=== PATIENT | female | born 1990 | race Caucasian/White ===

== ENCOUNTER 2024-12-04 11:32 | Outpatient (REF) | payer MEDICAID, SELFPAY ==
[2024-12-04 13:48] LABS: Hematocrit 41.2 % (37.0-47.0); Hemoglobin 13.7 g/dl (12.0-16.0); Mean Corpuscular HGB Conc 33.3 g/dl (31.0-35.0); Mean Corpuscular Hemoglobin 29.1 pg (27.0-33.0); Mean Corpuscular Volume 87.5 fL (80.0-98.0); Mean Platelet Volume 10.6 fL (9.4-12.3); Platelet Count 292 X10*3/uL (160-400); Red Blood Count 4.71 X10*6/uL (4.20-5.50); Red Cell Distribution Width 12.6 % (11.0-16.0); White Blood Count 6.7 X10*3/uL (4.8-10.8)
--- OUTSIDE RECORDS SUMMARY | 2024-12-04 13:50 | XMS_ITS | Clinical Summary ---
Author Organization [employer] Address [address] [place] [address] [address] [place] [address] Care Team Providers Care Electrician Shop Name Role Phone Deonna Lion DO Primary Care Provider + [phone] Allergies No known active allergies Medications baclofen (Lioresal) 10 MG tablet Take 1 tablet (10 mg) by mouth if needed in the morning, at noon, and at bedtime for muscle spasms. 60 tablet 1 5 02/02/20 25 Active Diclofenac Sodium 1 % gel Apply 2 g topically if needed in the morning, at noon, in the evening, and at bedtime (pain). 150 g 3 5 Active aspirin-acetami nophen-caffeine (Excedrin Migraine) 250-250-65 MG tablet Take 1 tablet by mouth every 6 (six) hours if needed for headaches for up to 10 days. 30 tablet 5 12/14/19 25 Active polycarbophil (Fibercon) 625 MG tablet Take 1 tablet (625 mg) by mouth 2 times daily. 180 tablet 3 5 12/03/19 26 Active Active Problems Problem Noted Date Diagnosed Date Chronic constipation 12/03/2024 Chronic gastroesophageal reflux disease 12/03/19 25 Irritable bowel syndrome 12/03/2024 BMI 27.0-27.9,adult 12/03/2024 Fatty liver 12/03/2024 Chronic headaches 12/03/2024 Chronic neck pain 12/03/2024 Encounters Date Type Department Care Team Description 12/03/2024 1:40 PM EST Office Visit [facility] [address] [place] [phone] Chronic nonintractable headache, unspecified headache type (Primary Dx); Chronic neck pain; Chronic constipation; Decreased visual acuity; Whole body pain; Chest pain, unspecified type from Last 3 Months Social History Tobacco Use Types Packs/Day Years Used Date Smoking Tobacco: Never Assessed Comments Unknown Sex and Gender Information Value Date Recorded Sex Assigned at Female 08/06/2022 10:18 AM EDT Legal Sex Female 10:18 AM EDT Gender Identity Female 12/03/2024 1:03 PM EST Sexual Orientation Straight 12/03/2024 1: 03 PM EST Last Filed Vital Signs Vital Sign Reading Time Taken Comments Blood Pressure 115/79 12/03/2024 1:36 PM EST Pulse 75 12/03/2024 1:36 PM EST Temperature 36.7 ??C (98 ??F) 12/03/2024 1:36 PM EST Respiratory Rate 17 12/03/2024 1:36 PM EST Oxygen Saturation 99% 12/03/2024 1:36 PM EST Inhaled Oxygen Concentration - - Weight 78.4 kg (172 lb 12.8 oz) 12/03/2024 1:36 PM EST Height 168.9 cm (5' 6.5 ) 12/03/2024 1:36 PM EST Body Mass Index 27.47 12/03/2024 1:36 PM EST Plan of Treatment Upcoming Encounters Date Type Department Care Team (Late st Contact Info) Description 02/12/2025 10:30 AM EDT Office Visit [facility] [address] [place] [phone] Deonna Lion DO [address] [place] [address] Health Maintenance Due Date Last Done Comments Depression Screening 1990 HIV Screening 1992 SDOH Screening 1992 Alcohol/Substance Use Screening 2004 Tobacco Screening 2004 Family Planning (PISQ) 2007 Hepatitis C Screening 2010 Hepatitis A Vaccines (1 of 2 - Risk 2-dose series) 2011 Hepatitis B Vaccines (1 of 3 - 19+ 3-dose series) 2011 Pap Smear 2013 Cervical Cancer Screening 2022 HPV/Cotest 2022 COVID-19 Vaccine (1 - 2023-2 5 season) 2024 Influenza Vaccine (#1) 2024 DTaP/Tdap/Td Vaccines (2 - T d or Tdap) 03/26/2029 03/26/2019 Zoster Vaccines (1 of 2) 2042 RSV Patients and Pa tients Aged 60 years or older (1 - 1-dose 75+ series) 2067 HIB Vaccines Aged Out No longer eligi ble based on patient's age to complete this topic HPV Vaccines Aged Out No longer eligi ble based on patient's age to complete this topic IPV Vaccines Aged Out No longer eligi ble based on patient's age to complete this topic Meningococcal Vaccine Aged Out No berenice dena eligible based on patient's age to complete this topic Pneumococcal Vaccine: Pediat rics (0 to 5 Years) and At-Risk Patients (6 to 49) Years) Aged Out No longer elig ible based on patient's age to complete this topic RSV under 20 months Aged Out No longe r eligible based on patient's age to complete this topic Rotavirus Vaccines Aged Out No longer eligible based on patient's age to complete this topic Procedures Procedure Name Priority Date/Time Associated Diagnosis Comments CBC Routine 12/04/2024 11:34 AM EST Chronic nonintractable headache, unspecified headache type Chronic neck pain Chronic constipation Decreased visual acuity Whole body pain Chest pain, unspecified type from Last 3 Months Results * CBC (12/04/2024 11:34 AM EST) White Blood Count 6.7 4.8 - 10.8 X10*3/uL [facility] Red Blood Count 4.71 4.20 - 5.50 X10*6/uL [facility] Hemoglobin 13.7 12.0 - 16.0 g/dl [facility] Hematocrit 41.2 37.0 - 47.0 % [facility] Mean Corpuscular Volume 87.5 80.0 - 98.0 fL [facility] Mean Corpuscular Hemoglobin 29.1 27.0 - 33.0 pg [facility] Mean Corpuscular HGB Conc 33.3 31.0 - 35.0 g/dl [facility] Red Cell Distribution Width 12.6 11.0 - 16.0 % [facility] Platelet Count 292 160 - 400 X10*3/uL [facility] Mean Platelet Volume 10.6 9.4 - 12.3 fL [facility] NRBC Pct Auto 0.0 0.0 - 0.2 /100WBC [facility] NRBC Abs Auto 0.000 0.0 - 0.012 X10*3/uL [facility] Blood Venous blood specimen / Unknown 12/04/2024 11:34 AM EST 12/04/2024 1:14 PM EST Deonna Lion DO LAB BLOOD ORDERABLES Final R esult Performing Organization Address City/State/[facility] Co de Phone Number [facility] [address] [place] [address] [phone] from Last 3 Months Insurance [facility] C3 Care Teams Electrician Shop Relationship Specialty Start Date End Date Deonna Lion DO [address] [place] [phone] PCP - General Family Medicine 12/03/24
--- OUTSIDE RECORDS SUMMARY | 2024-12-04 13:50 | XMS_ITS | Encounter Summary ---
Author Organization [employer] Address [address] [place] [address] [address] [place] [address] Care Team Providers Care Insole Bottom Filler Name Role Phone Deonna Lion DO Primary Care Provider + [phone] Reason for Referral * Consultation (Routine) - Pending Review Specialty Diagnoses / Procedures Referred By Gerardo beyer Referred To Contact Gastroenterology Diagnoses Chronic constipation Deonna Lion DO [address] [place], [place] Phone: tel: fax: Referral ID Status Reason Start Date Expiration Date Visits Requested Visits Authorized [id number] Pending Review Specialty Services Required 12/03/2024 12/03/2025 1 1 * Consultation (Urgent) - Pending Review Specialty Diagnoses / Procedures Referred By Gerardo beyer Referred To Contact Neurology Diagnoses Chronic nonintractable headache, unspecified headache type Deonna Lion DO [address] [place] [address] Phone: tel: fax: Referral ID Status Reason Start Date Expiration Date Visits Requested Visits Authorized [id number] Pending Review Specialty Services Required 12/03/2024 12/03/2025 1 1 * Consultation (Routine) - Pending Review Specialty Diagnoses / Procedures Referred By Gerardo t Referred To Contact Cardiology Diagnoses Chest pain, unspecified type Deonna Lion DO [address] [place], [place] Phone: tel: fax: Referral ID Status Reason Start Date Expiration Date Visits Requested Visits Authorized [id number] Pending Review Specialty Services Required 12/03/2024 12/03/2025 1 1 * Consultation (Routine) - Pending Review Specialty Diagnoses / Procedures Referred By Contac t Referred To Contact Physiatry Diagnoses Chronic neck pain Deonna Lion DO [address] [place], [place] Phone: tel: fax: Referral ID Status Reason Start Date Expiration Date Visits Requested Visits Authorized [id number] Pending Review Specialty Services Required 12/03/2024 12/03/2025 1 1 * Consultation (Routine) - Pending Review Specialty Diagnoses / Procedures Referred By Contac t Referred To Contact Rheumatology Diagnoses Whole body pain Deonna Lion DO [address] [place], [place] Phone: tel: fax: Referral ID Status Reason Start Date Expiration Date Visits Requested Visits Authorized [id number] Pending Review Specialty Services Required 12/03/2024 12/03/2025 1 1 * Consultation (Urgent) - Authorized Specialty Diagnoses / Procedures Referred By Contac t Referred To Contact Optometry Diagnoses Decreased visual acuity Deonna Lion DO [address] [place], [place] Phone: tel: fax: [facility] [address] [place], [place] Phone: tel: fax: Referral ID Status Reason Start Date Expiration Date Visits Requested Visits Authorized [id number] Authorized Consult and Treat 12/03/2024 12/03/2025 1 1 Reason for Visit * Reason Comments Headache Encounter Details Date Type Department Care Team (Latest Contact Info) Description 12/03/2024 1:40 PM EST Office Visit [facility] [address] [place] [phone] Chronic nonintractable headache, unspecified headache type (Primary Dx); Chronic neck pain; Chronic constipation; Decreased visual acuity; Whole body pain; Chest pain, unspecified type Social History Tobacco Use Types Packs/Day Years Used Date Smoking Tobacco: Never Assessed Comments Unknown Sex and Gender Information Value Date Recorded Sex Assigned at Female 08/06/2022 10:18 AM EDT Legal Sex Female 10:18 AM EDT Gender Identity Female 12/03/2024 1:03 PM EST Sexual Orientation Straight 12/03/2024 1: 03 PM EST documented as of this encounter Last Filed Vital Signs Vital Sign Reading [...] Mass Index 27.47 12/03/2024 1:36 PM EST documented in this encounter Plan of Treatment Upcoming Encounters Date Type Department Care Team (Late st Contact Info) Description 02/12/2025 10:30 AM EDT Office Visit [facility] [address] [place] [phone] Deonna Lion DO [address] [place] [phone] Scheduled Orders Name Type Priority Associated Diagnoses Orde r Schedule T4, Free Lab Routine Chronic nonintractable headache, unspecified headache type Chronic neck pain Chronic constipation Decreased visual acuity Whole body pain Chest pain, unspecified type Expected: 12/03/2024 (Approximate), Expires: 12/03/2025 Lipid Panel, Standard Lab Routine Chronic nonintractable headache, unspecified headache type Chronic neck pain Chronic constipation Decreased visual acuity Whole body pain Chest pain, unspecified type Expected: 12/03/2024 (Approximate), Expires: 12/03/2025 TSH Lab Routine Chronic nonintractable headache, unspecified headache type Chronic neck pain Chronic constipation Decreased visual acuity Whole body pain Chest pain, unspecified type Expected: 12/03/2024 (Approximate), Expires: 12/03/2025 Vitamin D, 25-Hydroxy, Total, Immunoassay Lab Routine Chronic nonintractable headache, unspecified headache type Chronic neck pain Chronic constipation Decreased visual acuity Whole body pain Chest pain, unspecified type Expected: 12/03/2024 (Approximate), Expires: 12/03/2025 Hepatic Function Panel Lab Routine Chronic nonintractable headache, unspecified headache type Chronic neck pain Chronic constipation Decreased visual acuity Whole body pain Chest pain, unspecified type Expected: 12/03/2024 (Approximate), Expires: 12/03/2025 Hemoglobin A1c Lab Routine Chronic nonintractable headache, unspecified headache type Chronic neck pain Chronic constipation Decreased visual acuity Whole body pain Chest pain, unspecified type Expected: 12/03/2024 (Approximate), Expires: 12/03/2025 Basic Metabolic Panel Lab Routine Chronic nonintractable headache, unspecified headache type Chronic neck pain Chronic constipation Decreased visual acuity Whole body pain Chest pain, unspecified type Expected: 12/03/2024 (Approximate), Expires: 12/03/2025 Hepatitis B surface antigen, EIA Lab Routine Chronic nonintractable headache, unspecified headache type Chronic neck pain Chronic constipation Decreased visual acuity Whole body pain Chest pain, unspecified type Expected: 12/03/2024 (Approximate), Expires: 12/03/2025 Chlamydia/N. Gonorrhoeae RNA, TMA, Urogenitial Microbiology Routine Chronic nonintractable headache, unspecified headache type Chronic neck pain Chronic constipation Decreased visual acuity Whole body pain Chest pain, unspecified type Ordered: 12/03/2024 HIV-1/2 Antigen and Antibodies, Fourth Generation, with Reflexes Lab Routine Chronic nonintractable headache, unspecified headache type Chronic neck pain Chronic constipation Decreased visual acuity Whole body pain Chest pain, unspecified type Expected: 12/03/2024 (Approximate), Expires: 12/03/2025 Hepatitis C Antibody with Reflex to HCV, RNA, Quantitative, Real-Time PCR Lab Routine Chronic nonintractable headache, unspecified headache type Chronic neck pain Chronic constipation Decreased visual acuity Whole body pain Chest pain, unspecified type Expected: 12/03/2024, Expires: 12/03/2025 RPR (Monitor) with Reflex to??Titer Lab Routine Chronic nonintractable headache, unspecified headache type Chronic neck pain Chronic constipation Decreased visual acuity Whole body pain Chest pain, unspecified type Expected: 12/03/2024, Expires: 12/03/2025 Hepatitis B Surface Antibody, Qualitative Lab Routine Chronic nonintractable headache, unspecified headache type Chronic neck pain Chronic constipation Decreased visual acuity Whole body pain Chest pain, unspecified type Expected: 12/03/2024 (Approximate), Expires: 12/03/2025 Hepatitis A Antibody, Total Lab Routine Chronic nonintractable headache, unspecified headache type Chronic neck pain Chronic constipation Decreased visual acuity Whole body pain Chest pain, unspecified type Expected: 12/03/2024 (Approximate), Expires: 12/03/2025 Hepatitis B Core Antibody, Total Lab Routine Chronic nonintractable headache, unspecified headache type Chronic neck pain Chronic constipation Decreased visual acuity Whole body pain Chest pain, unspecified type Expected: 12/03/2024 (Approximate), Expires: 12/03/2025 ORTIZ Screen,IFA, with Reflex to Titer and Pattern Lab Routine Chronic nonintractable headache, unspecified headache type Chronic neck pain Chronic constipation Decreased visual acuity Whole body pain Chest pain, unspecified type Expected: 12/03/2024 (Approximate), Expires: 12/03/2025 Lyme Disease Ab with Reflex to Blot (IgG, IgM) Lab Routine Chronic nonintractable headache, unspecified headache type Chronic neck pain Chronic constipation Decreased visual acuity Whole body pain Chest pain, unspecified type Expected: 12/03/2024, Expires: 12/03/2025 Rheumatoid Factor Lab Routine Chronic nonintractable headache, unspecified headache type Chronic neck pain Chronic constipation Decreased visual acuity Whole body pain Chest pain, unspecified type Expected: 12/03/2024, Expires: 12/03/2025 Sed Rate by Modified W[place]gren Lab Routine Chronic nonintractable headache, unspecified headache type Chronic neck pain Chronic constipation Decreased visual acuity Whole body pain Chest pain, unspecified type Expected: 12/03/2024, Expires: 12/03/2025 C-reactive Protein Lab Routine Chronic nonintractable headache, unspecified headache type Chronic neck pain Chronic constipation Decreased visual acuity Whole body pain Chest pain, unspecified type Expected: 12/03/2024 (Approximate), Expires: 12/03/2025 Alpha-Fetoprotein, Tumor Marker Lab Routine Chronic nonintractable headache, unspecified headache type Chronic neck pain Chronic constipation Decreased visual acuity Whole body pain Chest pain, unspecified type Expected: 12/03/2024 (Approximate), Expires: 12/03/2025 Scheduled Referrals Name Type Priority Associated Diagnoses Orde r Schedule Referral to [facility] Eye Care Outpatient Referral Urgent Decreased visual acuity Expected: 12/03/2024 (Approximate), Expires: 12/03/2025 Referral to Rheumatology Outpatient Referral Routine Whole body pain Expected: 12/03/2024 (Approximate), Expires: 12/03/2025 Referral to Physiatry Outpatient Referral Routine Chronic neck pain Expected: 12/03/2024 (Approximate), Expires: 12/03/2025 Referral to Cardiology Outpatient Referral Routine Chest pain, unspecified type Expected: 12/03/2024 (Approximate), Expires: 12/03/2025 Referral to Neurology Outpatient Referral Urgent Chronic nonintractable headache, unspecified headache type Expected: 12/03/2024 (Approximate), Expires: 12/03/2025 Referral to Gastroenterology Outpatient Referral Routine Chronic constipation Expected: 12/03/2024 (Approximate), Expires: 12/03/2025 documented as of this encounter Procedures Procedure Name Priority Date/Time Associated Diagnosis Comments CBC Routine 12/04/2024 11:34 AM EST Chronic nonintractable headache, unspecified headache type Chronic neck pain Chronic constipation Decreased visual acuity Whole body pain Chest pain, unspecified type documented in this encounter Results * CBC (12/04/2024 11:34 AM EST) White Blood Count 6.7 4.8 - 10.8 X10*3/uL [facility] Red Blood Count 4.71 4.20 - 5.50 X10*6/uL [facility] Hemoglobin 13.7 12.0 - 16.0 g/dl [facility] Hematocrit 41.2 37.0 - 47.0 % [facility] Mean Corpuscular Volume 87.5 80.0 - 98.0 fL [facility] Mean Corpuscular Hemoglobin 29.1 27.0 - 33.0 pg [facility] Mean Corpuscular HGB Conc 33.3 31.0 - 35.0 g/dl [facility] Red Cell Distribution Width 12.6 11.0 - 16.0 % [facility] Platelet Count 292 160 - 400 X10*3/uL [facility] Mean Platelet Volume 10.6 9.4 - 12.3 fL [facility] NRBC Pct Auto 0.0 0.0 - 0.2 /100WBC [facility] NRBC Abs Auto 0.000 0.0 - 0.012 X10*3/uL [facility] Blood Venous blood specimen / Unknown 12/04/2024 11:34 AM EST 12/04/2024 1:14 PM EST us Deonna Lion DO LAB BLOOD ORDERABLES Final R esult [facility] [address] [place] [phone] documented in this encounter Visit Diagnoses Diagnosis Chronic nonintractable headache, unspecified headache type- Primary Chronic neck pain Cervicalgia Chronic constipation Unspecified constipation Decreased visual acuity Whole body pain Chest pain, unspecified type documented in this encounter Care Teams Insole Bottom Filler Relationship Specialty Start Date End Date Deonna Lion DO [address] [place] [phone] PCP - General Family Medicine 12/03/24 documented as of this encounter
--- OUTSIDE RECORDS SUMMARY | 2024-12-04 13:50 | XMS_ITS | Clinical Summary ---
Author Organization [facility] Address [address] [place] [address] Care Team Providers Care Shipping Processor Name Role Phone Carol Wiseman Primary Care Provider [phone] Allergies No known active allergies Medications acetaminophen (TYLENOL) 500 mg tablet Take 500 mg by mouth every 6 hours as needed. 4 Active famotidine (PEPCID) tablet Take 20 mg by mouth as needed. 4 Active omeprazole (PriLOSEC) 40 mg capsule Take 40 mg by mouth in the morning. 4 Active frovatriptan (FROVA) 2.5 mg tabletIndication s:Migraine, menstrual, intractable, with status migrainosus,Migr pattie without aura and with status migrainosus, not intractable Take 1 tablet (2.5 mg total) by mouth once as needed for headaches for up to 54 doses. May repeat one time after 2 hours if needed. 9 tablet 5 4 Active magnesium 30 mg tablet Take 30 mg by mouth in the morning and 30 mg before bedtime. Active Active Problems Problem Noted Date Diagnosed Date Migraine 05/08/2024 Throat pain 02/27/2024 Popping of both ears 02/27/2024 Facial numbness 02/27/2024 Gastroesophageal reflux disease 02/27/2024 Cervical lymphadenopathy 02/27/2024 Hypertrophy of adenoids alone 02/27/2024 Diarrhea 01/30/2024 Chronic idiopathic constipation 01/30/2024 Change in bowel habit 01/30/2024 Family History Medical History Relation Comments Hyperlipidemia Father Hypertension Father Parkinsonism Maternal Grandmother Hypertension Mother Thyroid disease Mother Migraines Mother's Sister Relation Status Comments Father Alive Maternal Grandmother Mother Alive Mother's Sister Social History Tobacco Use Types Packs/Day Years Used Date Smoking Tobacco: Never Smokeless Tobacco: Never Tobacco Cessation:Counseling Given: Not Answered Alcohol Use Standard Drinks/Week Comments Not Currently 0 (1 standard drink = 0.6 oz pur e alcohol) [facility] Utilities Answer Date Recorded In the past 12 months has th e electric, gas, oil, or water company threatened to shut off services in your home? Yes 05/08/2024 Overall Financial Resource Strain (CARDIA) Answe r Date Recorded How hard is it for you to pa y for the very basics like food, housing, medical care, and heating? Somewhat hard 05/08/2024 Hunger Vital Sign Answer Date Recorded Within the past 12 months, y ou worried that your food would run out before you got the money to buy more. Never true 05/08/20 24 Ran Out of Food in the Last Year Not on file 05/08/2024 PRAPARE - Transportation Answer Date Re corded In the past 12 months, has l ack of transportation kept you from medical appointments or from getting medications? No 05/08/2024 Lack of Transportation (Non-Medical) Not on file 05/08/2024 Housing Stability Vital Sign Answer Kang e Recorded In the last 12 months, was t here a time when you were not able to pay the mortgage or rent on time? No 05/08/2024 In the past 12 months, how m any times have you moved where you were living? 0 05/08/2024 At any time in the past 12 m [facility], were you homeless or living in a group home (including now)? No 05/08/2024 Comments No Sex and Gender Information Value Date Recorded Sex Assigned at Not on file Legal Sex Female 9:54 PM EST Gender Identity Not on file Sexual Orientation Not on file Last Filed Vital Signs Vital Sign Reading Time Taken Comments Blood Pressure 111/73 08/09/2024 5:13 PM EST Pulse 85 08/09/2024 5:13 PM EST Temperature 37.1 ??C (98.8 ??F) 08/09/2024 2:25 PM ES T Respiratory Rate 18 08/09/2024 5:13 PM EST Oxygen Saturation 96% 08/09/2024 5:13 PM EST Inhaled Oxygen Concentration - - Weight 78.5 kg (173 lb) 08/09/2024 2:26 PM EST Height 167.6 cm (5' 6 ) 08/09/2024 2:26 PM EST Body Mass Index 27.92 08/09/2024 2:26 PM EST Plan of Treatment Upcoming Encounters Date Type Department Care Team (Late st Contact Info) Description 03/19/2025 4:00 PM EDT Office Visit [facility] Department of Neurology [address] [phone] Deangelo Deshpande MD [address] [place] [address] Health Maintenance Due Date Last Done Comments HIV Screening 1992 Hepatitis C Screening 2010 Hepatitis B Vaccines (1 of 3 - 19+ 3-dose series) 2011 Pap Smear 05/29/2022 05/29/2019 Cervical Cancer Screening 2022 HPV/Cotest 2022 COVID-19 Vaccine (1 - 2023-2 5 season) 2024 Influenza Vaccine (#1) 2024 DTaP,Tdap,and Td Vaccines (2 - Td or Tdap) 03/26/2029 03/26/2019 Zoster Vaccines (1 of 2) 2042 HPV Vaccines Aged Out No longer eligi ble based on patient's age to complete this topic Hepatitis A Vaccines Aged Out No long er eligible based on patient's age to complete this topic MMR Vaccines Aged Out No longer eligi ble based on patient's age to complete this topic Meningococcal Vaccine Aged Out No berenice dena eligible based on patient's age to complete this topic Pneumococcal Vaccine: Pediat rics (0 to 5 Years) and At-Risk Patients (6 to 64 Years) Aged Out No longer eligi ble based on patient's [place] [address] [facility] Care Teams Shipping Processor Relationship Specialty Start Date End Date Carol Wiseman [address] [place] [id number] PCP - General Family Medicine 11/01/23
--- OUTSIDE RECORDS SUMMARY | 2024-12-04 13:50 | XMS_ITS ---
Author Name [facility] Organization Unknown Results Test Name/Text Value Interpretation Date Range Source Delta Normal [id number] - 3 [facility] Troponin T SerPl-mCnc 6ng/L Normal [id number] - 15 [facility] Magnesium SerPl-mCnc 1.6mg/dL Normal 1.6 - 2.7 [facility] AST SerPl-cCnc 15U/L Normal [id number] 10 - 50 HH CCT ALT SerPl-cCnc 7U/L Below low normal [id number] 10 - 50 [facility] Creat SerPl-mCnc 0.7mg/dL Normal [id number] 0.4 - 1.1 [facility] Globulin Ser Calc-mCnc 3.3g/dL Normal [id number] 1.5 - 3.9 [facility] CO2 SerPl-sCnc 19mmol/L Below low normal [id number] 22 - 33 [facility] Albumin/Glob SerPl 1.3Ratio Normal [id number] 1 - 3 [facility] Anion Gap Bld-sCnc 15 Normal [id number] 7 - 17 [facility] Potassium SerPl-sCnc 3.3mmol/L Below low normal [id number] 3.4 - 5.3 [facility] Bilirub SerPl-mCnc 0.5mg/dL Normal [id number] 0.2 - 1 [facility] Calcium SerPl-mCnc 9.4mg/dL Normal [id number] 8.7 - 10 .5 [facility] BUN SerPl-mCnc 11mg/dL Normal [id number] 8 - 21 HH CCT ALP SerPl-cCnc 57U/L Normal [id number] 32 - 122 HH CCT GFR/BSA.pred SerPlBld [id number]-BHE-XsBChj 90 Normal [id number] 59 - [facility] Chloride SerPl-sCnc 104mmol/L Normal [id number] 98 - 10 7 [facility] BUN/Creat SerPl 16Ratio Normal 10 - 25 H [facility] Albumin SerPl-mCnc 4.3g/dL Normal 3.5 - 5 [facility] Prot SerPl-mCnc 7.6g/dL Normal 6.3 - 8.3 H [facility]CT Glucose SerPl-mCnc 114mg/dL Above high normal [id number] 65 - 99 [facility] Sodium SerPl-sCnc 138mmol/L Normal 136 - 145 [facility] Neutrophils num Bld Auto 5.38Thou/uL Normal [id number] 2 - 7.5 [facility] Monocytes num Bld Auto 0.7Thou/uL Normal 0.2 - 1.5 [facility] Eosinophil num Bld Auto 0.08Thou/uL Normal 0 - 0.7 [facility] WBC num Bld Auto 8.1Thou/uL Normal [id number] 4 - 11 [facility] MCHC RBC Auto-mCnc 34g/dL Normal 30 - 36 [facility] Monocytes/leuk NFr Bld Auto 8.6% Normal [id number] [facility] Hct VFr Bld Auto 37.9% Normal 35 - 47 [facility] RBC num Bld Auto 4.43Mil/uL Normal 4 - 5.4 [facility] RDW RBC Auto-Rto 12.2% Normal [id number] 11.5 - 14. 5 [facility] PMV Bld Auto 9.8fL Normal 7.5 - 12.[address] Eosinophil/leuk NFr Bld Auto 1% Normal [id number] [facility] MCH RBC Qn Auto 29.1pg Normal [id number] 26 - 34 H [facility] Basophils/leuk NFr Bld Auto 0.5% Normal [facility] Basophils num Bld Auto 0.04Thou/uL Normal 0 - 0.2 [facility] Platelet num Bld Auto 262Thou/uL Normal [id number] 150 - 450 [facility] Neutrophils/leuk NFr Bld Auto 66.5% Normal [id number] [facility] MCV RBC Auto 86fL Normal 80 - 100 HHCC T Lymphocytes/leuk NFr Bld Auto 23.3% Normal [facility] Lymphocytes num Bld Auto 1.89Thou/uL Normal 1.5 - 4.5 [facility] Imm Granulocytes/leuk NFr Bld Auto 0.1% Normal [facility]CT Hgb Bld-mCnc 12.9g/dL Normal 11.7 - 15.7 HH CCT Imm Granulocytes num Bld Auto 0.01Thou/uL Normal 0 - 0.1 [facility] ALLERGEN, INTERP, IMMUNOCAP SCORE IGE See Note Normal [facility] THYROID STIM HORMONE 0.84uIU/mL Normal 0.35 - 4.94 [facility] ALLERGEN, WEED, MUGWORT IGE <0.10 Normal - [facility] ALLERGEN, FUNGI/MOLD, A. ALTERNATA IGE <0.10 Normal - [facility] ALLERGEN, TREE, ELM TREE IGE <0.10 Normal - [facility] ALLERGEN, FUNGI/MOLD, HORMODENDRUM IGE <0.10 Normal - [facility] ALLERGEN, FUNGI/MOLD, M. RACEMOSUS IGE <0.10 Normal - [facility] ALLERGEN ANIMAL MOUSE EPITHELIUM IGE <0.10 Normal - [facility] ALLERGEN, MITES, D. FARINAE IGE <0.10 Normal - [facility] ALLERGEN, TREE, [place] TREE IGE <0.10 Normal - [facility] ALLERGEN, TREE, [place] TREE IGE <0.10 Normal - [facility] ALLERGEN, ANIMAL, CAT DANDER IGE <0.10 Normal - [facility] ALLERGEN, FUNGI/MOLD, P. NOTATUM IGE <0.10 Normal - [facility] ALLERGEN, TREE, BOX ELDER/MAPLE TREE IGE <0.10 Normal - [facility] ALLERGEN, WEED, COMMON/SHORT RAGWEED IGE <0.10 Normal - [facility] ALLERGEN, GRASS, KRISTEN GRASS IGE <0.10 Normal - [facility] ALLERGEN, WEED, SHEEP SORREL IGE <0.10 Normal - [facility] ALLERGEN, WEED, PIGWEED IGE <0.10 Normal - [facility] ALLERGEN, TREE, OAK TREE IGE <0.10 Normal - [facility] ALLERGEN, GRASS, BERMUDA GRASS IGE <0.10 Normal - [facility] ALLERGEN, TREE, WHITE MULBERRY TREE IGE <0.10 Normal - [facility] IMMUNOGLOBULIN E 60kU/L Normal - [facility] ALLERGEN, INSECT, COCKROACH, WOLOF IGE <0.10 Normal - [facility] ALLERGEN, TREE, WHITE BHARGAV TREE IGE <0.10 Normal - [facility] ALLERGEN, FUNGI/MOLD, A. FUMIGATUS IGE <0.10 Normal - [facility] ALLERGEN, TREE, [place] TREE IGE <0.10 Normal - [facility] ALLERGEN, TREE, BIRCH TREE IGE <0.10 Normal - [facility] ALLERGEN, TREE, [place] TREE IGE <0.10 Normal - [facility] ALLERGEN, ANIMAL, DOG DANDER IGE 0.16kU/L Normal - [facility] ALLERGEN, MITES, D. PTERONYSSINUS IGE <0.10 Normal - [facility] CREATININE 0.8mg/dL Normal [id number] 0.6 - 1.2 [facility] SODIUM 140mmol/L Normal 137 - 144 [facility] CHLORIDE 109mmol/L Normal [id number] 100 - 111 [facility] CALCIUM, TOTAL 9.3mg/dL Normal [id number] 8.4 - 10.2 [facility] AST (SGOT) 9U/L Below low normal 17 - 35 [facility] UREA NITROGEN 9mg/dL Normal 8 - 24 [facility] ALBUMIN, AUTOMATED 4.4g/dL Normal [id number] 3.8 - 5. 3 [facility] GLUCOSE 104mg/dL Normal [id number] 70 - 200 [facility] BICARBONATE 19mmol/L Below low normal [id number] 23 - 32 [facility] POTASSIUM 3.4mmol/L Below low normal [id number] 3.6 - 5.1 [facility] GLOMERULAR FILTRATION RATE ML/MIN/1.73 SQ M.PREDICTED 101mL/min/1.7 3m*2 Normal [id number] 60 - [facility] ALT (SGPT) 7U/L Below low normal [id number] 8 - 39 [facility] PROTEIN TOTAL 7.3g/dL Normal [id number] 6.2 - 8.1 [facility] BILIRUBIN, TOTAL 0.5mg/dL Normal [id number] 0.1 - 1.2 [facility] ALKALINE PHOSPHATASE 51U/L Normal [id number] 39 - 1 13 [facility] ANION GAP 12mmol/L Above high normal [id number] 3 - 11 [facility] RBC DISTRIBUTION WIDTH 12.6% Normal [id number] 11.6 - 14.8 [facility] AUTO NRBC % 0% Normal [id number] 0 - [address] [facility] [address] 5.710*3/uL Normal [id number] 1.4 - 6.[address] [facility] [address] 110*3/uL Above high normal [id number] 0.2 - 0.8 [facility] MCHC 33.3g/dL Normal [id number] 32 - 36 [facility] MCH 28.9pg Normal [id number] 26 - 34 [facility] IMMATURE GRANULOCYTE % 0.2% Normal [id number] 0 - 0.6 [facility] EOSINOPHIL % 1.7% Normal [id number] 0 - 6 [facility] [address] 010*3/uL Normal [id number] 0 - 0. 2 [facility] MCV 86.7fL Normal [id number] 80 - 100 [facility] PLATELET COUNT 51523*3/uL Normal [id number] 150 - 440 [facility] BASOPHILS % 0.4% Normal [id number] 0 - [address] [facility] [address] 2.510*3/uL Normal [id number] 0.7 - 4.[address] [facility] [address] 0.210*3/uL Normal [id number] 0 - 0.3 [facility] HEMATOCRIT 39.6% Normal [id number] 35 - 47 [facility] WHITE CELL COUNT 9.410*3/uL Normal [id number] 3.6 - 11 [facility] RED CELL COUNT 4.5710*6/???L Normal [id number] 3.8 - 5. 2 [facility] MONOCYTE % 10.6% Normal [id number] 4 - 12 [facility] NEUTROPHIL % 60.6% Normal [id number] 40 - 70 [facility] HEMOGLOBIN 13.2g/dL Normal [id number] 12 - 16 [facility] LYMPHOCYTE % 26.5% Normal [id number] 20 - 50 [facility] CREATININE 0.8mg/dL Normal [id number] 0.6 - 1.2 [facility] POTASSIUM 3.8mmol/L Normal [id number] 3.6 - 5.1 [facility] BICARBONATE 22mmol/L Below low normal [id number] 23 - 32 [facility] GLOMERULAR FILTRATION RATE ML/MIN/1.73 SQ M.PREDICTED 101mL/min/1.7 3m*2 Normal 60 - [facility] SODIUM 142mmol/L Normal [id number] 137 - 144 [facility] CHLORIDE 109mmol/L Normal [id number] 100 - 111 [facility] CALCIUM, TOTAL 9.7mg/dL Normal [id number] 8.4 - 10.2 [facility] UREA NITROGEN 11mg/dL Normal [id number] 8 - 24 [facility] ANION GAP 11mmol/L Normal [id number] 3 - 11 [facility] GLUCOSE 112mg/dL Normal [id number] 70 - 200 [facility] RBC DISTRIBUTION WIDTH 12% Normal [id number] 11.6 - 14.8 [facility] AUTO NRBC % 0% Normal [id number] 0 - [address] [facility] [address] 9.210*3/uL Above high normal [id number] 1.4 - 6.[address] [facility] [address] 0.410*3/uL Normal [id number] 0.2 - 0.8 [facility] MCHC 32.8g/dL Normal [id number] 32 - 36 [facility] MCH 28.8pg Normal [id number] 26 - 34 [facility] IMMATURE GRANULOCYTE % 0.2% Normal [id number] 0 - 0.6 [facility] EOSINOPHIL % 0.5% Normal [id number] 0 - 6 [facility] [address] 010*3/uL Normal [id number] 0 - 0. 2 [facility] MCV 87.6fL Normal [id number] 80 - 100 [facility] PLATELET COUNT 92638*3/uL Normal [id number] 150 - 440 [facility] BASOPHILS % 0.4% Normal [id number] 0 - [address] [facility] [address] 1.210*3/uL Normal [id number] 0.7 - 4.[address] [facility] [address] 0.110*3/uL Normal [id number] 0 - 0.3 [facility] HEMATOCRIT 39.6% Normal [id number] 35 - 47 [facility] WHITE CELL COUNT 10.810*3/uL Normal [id number] 3.6 - 11 [facility] RED CELL COUNT 4.5210*6/???L Normal [id number] 3.8 - 5. 2 [facility] MONOCYTE % 3.4% Below low normal [id number] 4 - 12 [facility] NEUTROPHIL % 84.8% Above high normal [id number] 40 - 7 0 [facility] HEMOGLOBIN 13g/dL Normal [id number] 12 - 16 [facility] LYMPHOCYTE % 10.7% Below low normal [id number] 20 - 50 [facility] History of Medication Use Medication Directions Dispensed Refills Start Date End Date Stat vitamin with iron and folic acid ( PLUS) 27-1 MG Tab Take 1 tablet by mouth daily. active sodium chloride (OCEAN) 0.65 % nasal drops/spray 1 spray into each nostril as needed for congestion. active frovatriptan (FROVA) 2.5 mg tablet Take 1 tablet (2.5 mg total) by mouth once as needed for headaches for up to 54 doses. May repeat one time after 2 hours if needed. 03/30/2024 active kyquwbui-luapucail-f exAMETHasone (MAXITROL) 3.5-23919-8.1 ophthalmic suspension 01/27/2024 active ibuprofen (MOTRIN) 600 MG tablet Take 1 tablet (600 mg total) by mouth every 6 (six) hours. 11/04/2023 active hydrOXYzine (ATARAX) 10 mg tablet Take 10 mg by mouth. 03/21/2024 03/30/2024 aborted methocarbamol (ROBAXIN) 500 MG tablet 08/09/2024 active famotidine (PEPCID) 20 MG tablet Take 20 mg by mouth daily. 10/28/2023 active dicyclomine (BENTYL) 10 MG capsule TAKE 1 CAPSULE BY MOUTH THREE TIMES DAILY FOR 3 DAYS FOR PAIN. MAY TAKE FOR ABDOMINAL CRAMPS 10/28/2023 active Linzess 72 MCG capsule TAKE 1 CAPSULE(72 MCG) BY MOUTH DAILY 03/03/2024 active levocetirizine (XYZAL) 5 MG tablet 02/27/2024 activ e Linzess (capsule) 72 mcg comple olga linaclotide (LINZESS) 72 mcg capsule Take 1 capsule (72 mcg total) by mouth daily. 11/04/2023 03/03/2024 active lidocaine (LIDODERM) 5 % patch UNWRAP AND APPLY 1 PATCH OVER 12 HOURS TOPICALLY TO SKIN IN THE MORNING FOR 7 DAYS . REMOVE AND DISCARD PATCH WITHIN 12 HOURS OR DIRECTED BY MD . 08/09/2024 active famotidine (PEPCID) tablet Take 20 mg by mouth as needed. 10/28/2023 active neomycin-polymyxin B-dexameth (drops, suspension) Instill 1 drop 4x a day x 5 days , 3x a day x 5 days, 2x a day x 5 days, once a day x 5 days then stop 01/27/2024 completed hydrOXYzine HCl (ATARAX) 25 MG tablet Take 1 tablet (25 mg total) by mouth 3 (three) times a day as needed for anxiety (or restlessness). 11/04/2023 active Problems Problem Status Onset Date Problem Type Date of Resolution Source Cervicalgia active EncounterDiagnosisAct [facility] and not yet delivered active 2019-03-25 ProblemAct [facility] Neck muscle spasm active EncounterDiagnosisAct [facility] Change in bowel habit active 2024-01-30 ProblemAct [facility] Throat pain active 2024-02-27 ProblemAct [facility] Facial numbness active 2024-02-[address] [facility] Diarrhea active 2024-01-30 ProblemAct [facility] Migraine active 2024-05-08 ProblemAct [facility] Popping of both ears active 2024-02-27 ProblemAct [facility] Cervical lymphadenopathy active 2024-02-27 ProblemAct [facility] Chronic idiopathic constipation active 2024-01-30 ProblemAct [facility] Other migraine without status migrainosus, not intractable active EncounterDiagnosisAct [facility] Gastroesophageal reflux disease active 2024-02-27 ProblemAct [facility] Hypertrophy of adenoids alone active 2024-02-27 ProblemAct [facility] Immunizations Vaccine Date Source Lot Number Status Rho (D) Immune Globulin [facility] Tdap 03/26/2019 [facility] [id number] completed
[2024-12-04 14:00] LABS: Rheumatoid Factor < 13.0 IU/mL (<15.0)
[2024-12-04 14:19] LABS: Estimated Average Glucose 97 mg/dL; Hemoglobin A1C 111.3849 umol/L; Total Hemoglobin (HGBA1C) 3546.5669 umol/L
[2024-12-04 14:21] LABS: Alanine Aminotransferase 9 U/L (0-31); Albumin Level 4.4 g/dL (3.5-5.0); Alkaline Phosphatase 61 U/L (39-117); Anion Gap 12 (12-20); Aspartate Amino Transferase 19 U/L (5-31); Bilirubin Direct 0.2 mg/dL (0.0-0.5); Bilirubin Total 0.5 mg/dL (0.0-1.0); Blood Urea Nitrogen 11 mg/dL (9-16); C Reactive Protein < 0.10 mg/dL (< or = 0.50); Calcium 9.3 mg/dL (8.4-10.2); Carbon Dioxide 25 mmol/L (22-29); Chloride 108 mmol/L (96-108); Cholesterol 151 mg/dL (<200); Estimated Glomerular Filt Rate > 60; Glucose Random 86 mg/dL (60-115); HDL Cholesterol 49 mg/dL (>40); LDL Cholesterol Calculated 93 mg/dL (<100); Potassium 3.7 mmol/L (3.3-5.1); Sodium 141 mmol/L (135-145); Total Protein 8.1 g/dL (6.5-8.0); Triglycerides 45 mg/dL (<150)
[2024-12-04 14:31] LABS: Thyroid Stimulating Hormone 0.96 uIU/mL (0.32-4.0)
[2024-12-04 14:41] LABS: Erythrocyte Sedimentation Rate 3 MM/HR (0-20)
[2024-12-04 14:47] LABS: Vitamin D 25-OH Total 23.8 ng/mL (>30)
[2024-12-04 15:20] LABS: CT PCR NOT DETECTED (Not Detect.); NG PCR NOT DETECTED (Not Detect.)
[2024-12-06 16:03] LABS: RPR Rapid Plasma Reagin NON-REACTIVE (NON-REACTIVE)
[2024-12-07 09:31] LABS: Hepatitis A Antibody IgG Nonreactive (Nonreactive)
[2024-12-07 09:32] LABS: HBS Num1 34.81 mIU/mL (0-7.99); HBc Num1 0.09 S/CO (0.00-0.79); HBsAGNum1 0.37 S/CO (0.00-0.99); HIV AB/AG Nonreactive (Nonreactive); HIV Num 1 0.08 S/CO (0.00-0.99); Hepatitis B Core Antibody Nonreactive (Nonreactive); Hepatitis B Surface Antigen Negative (Negative); ~HepC Num1 0.24 S/CO (0.00-0.79); ~Hepatitis B Surface Antibody REACTIVE (Nonreactive); ~Hepatitis C Antibody Nonreactive (Nonreactive)
[2024-12-07 12:53] LABS: Alpha Fetoprotein 0.6 ng/mL
[2024-12-07 21:44] LABS: Lyme Abs Screen <0.90 index
[2024-12-10 12:18] LABS: Anti Nuclear Antibody Screen NEGATIVE (NEGATIVE)
== END 2024-12-04 11:33 | disposition home or self-care (01) ==
LOC: HO.HHCL 11:32
PROVIDERS: Visit Provider Family Medicine
DX: G89.29 Other chronic pain (principal); M54.2 Cervicalgia; K59.09 Other constipation; H54.7 Unspecified visual loss; R07.9 Chest pain, unspecified
CPT/HCPCS: 80048; 80061; 80076; 82105; 82306; 83036; 84439; 84443; 85027; 85652; 86038; 86140; 86431; 86592; 86617; 86618; 86704; 86706; 86708; 86803; 87340; 87389; 87491; 87591

== ENCOUNTER 2025-03-25 10:59 | Outpatient (AMB) | payer MEDICAID, SELFPAY ==
--- NOTE | 2025-03-25 11:11 | A.OFFVIS_ITS ---
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 Apparently, she was having random chest pains and in association with several other complaints like headache, back pain, neck pain extra. She was living in [place] and hence saw special effects artist and was further evaluated with a stress test. Per report, she had PVCs during the stress stress but nothing otherwise concern. She still has random chest pains in no specific patterns. Nothing exertional. No palpitations even though she had PVCs during the stress test. Otherwise, no prior cardiac history. [facility] Medical History (Updated 03/25/25 @ 11:41 by Eddie Urban MD) delivery delivered Chest pain of uncertain etiology Muscle spasm Whole body pain Decreased visual acuity Chronic constipation Chronic neck pain Chronic headache Surgical History (Updated 03/25/25 @ 11:15 by Shantell Stovall) H/O eye surgery Family History (Updated 03/25/25 @ 11:18 by Shantell Stovall) Mother High blood pressure Father High blood pressure High cholesterol Fatty liver Social History (Updated 03/25/25 @ 11:18 by Shantell Stovall) Alcohol intake: never Patient Tobacco Use Status: Former Tobacco user Review of Systems Const Reports headache(s) and Denies weakness ENT Reports dizziness and Reports headache(s) Card Denies chest pain, Denies chest pain with activity, Denies syncope, Denies rapid heart rate, Denies pedal edema, Denies edema, Denies leg edema, Denies lightheadedness, Denies palpitations, Reports dyspnea, Denies dyspnea on exertion and Denies orthopnea Resp Denies cough, Reports dyspnea and Denies dyspnea on exertion GI Denies hematochezia and Denies change in stool character Musc Denies abnormal gait, Denies muscle cramps, Denies muscle weakness, Denies numbness, Denies radiating pain into limb and Denies tingling Neuro Denies abnormal gait, Reports dizziness, Denies syncope, Reports headache(s), Denies numbness, Denies tingling and Denies weakness Endo Denies palpitations Physical Exam Vital Signs: Last Vital Signs Pulse 74 03/25/25 11:12 BP 122/68 03/25/25 11:12 BMI result Body Mass Index 28.9 Const General: comfortable and no acute distress Orientation/consciousness: patient oriented x3 HEENT Other: Unremarkable Head: Yes normal to inspection Neck Neck: Yes normal visual inspection Chest Chest palpation & inspection: normal inspection of the chest Resp Auscultation: clear to auscultation bilaterally Cardio Palpation: normal PMI Heart sounds: S1 normal heart sound present, S2 normal heart sound present, no gallops, no murmurs and no rubs GI Palpation (GI): Soft to palpation Back/Spine/Pelvis Other: unremarkable Skin General skin exam: no rashes or lesions noted Neuro General: patient oriented x3 Extrem General: Yes normal to inspection Psych Mental Status: mental status grossly normal Office Procedures EKG Details: EKG with underlying sinus rhythm at 74/Min; sinus arrhythmias; no ischemic changes; [place]. [address]-Ywiunvdugmvvdjiwf, Complete Assessment & Plan Assessment & Plan (1) Atypical chest pain: Code(s): R07.89 - Other chest pain Category: Medical (2) PVC (premature ventricular contraction): Code(s): I49.3 - Ventricular premature depolarization Category: Medical Plan Available records reviewed. ETT done 10/2024-exercise on Jaxon protocol for 6 minutes. No angina. No ischemic ST-T changes during stress. Had frequent PVCs. Holter monitor-underlying sinus rhythm with average heart rate of 85/Min. PVCs noted with a burden of one%. No supraventricular ectopy. One patient trigger for chest pain/pressure but no associated arrhythmia. Overall, chest pain is atypical and most likely noncardiac. Asymptomatic PVCs. She needs an echocardiogram for cardiac function. If that is unremarkable then mainly reassurance. Discussion Notes I discussed with the patient the need for an echocardiogram to evaluate her cardiac status due to her history of chest pain and PVCs on testing. We talked about the importance of monitoring her symptoms and scheduling a follow-up to discuss the results of these tests. Patient was informed and verbally consented to the use of an ambient scribe for clinic note documentation during this visit. Orders: Orders CA echo transthoracic complete Today R07.89 - Other chest pain Patient Instructions: - Schedule an echocardiogram as advised. - Monitor for any worsening symptoms and report them immediately. - Attend the follow-up appointment to discuss test results. Coding Level of Care Code New Pt Level 3 (77374) Diagnoses Atypical chest pain R07.89 PVC (premature ventricular contraction) I49.3 CPT Codes EKG - CPT: 04950-Nzbjyiagvcwivsbpc, Complete ([id number])
[2025-03-25 11:12] VITALS: BP 122/68; PULSE 74; BMI 28.9
--- OUTSIDE RECORDS SUMMARY | 2025-03-25 12:36 | XMS_ITS | Clinical Summary ---
Author Organization [facility] Address [address] [place] [address] Care Team Providers Care Inspection Supervisor Name Role Phone Carol Wiseman ANDI Primary Care Provider Allergies No known active allergies Medications albuterol (PROAIR RESPICLICK) 108 (90 Base) MCG/ACT inhaler Inhale 1 puff 4 times daily (every 6 hours) as needed. Active vitamin with iron and folic acid ( PLUS) 27-1 MG Tab Take 1 tablet by mouth daily. Active tretinoin (Retin-A) 0.05 % creamIndications:A cne vulgaris Apply pea sized amount to the face at bedtime after washing and moisturizing. Please dispense brand name for insurance 45 g 3 06/25/20 22 Active ondansetron (ZOFRAN-ODT) 4 MG disintegrating tablet Take 1 tablet (4 mg total) by mouth 3 times daily (every 8 hours) as needed for nausea or vomiting. Place tablet on tongue to dissolve. 10 tablet 12/23/19 23 Active meclizine (ANTIVERT) 25 MG tablet Take 1 tablet (25 mg total) by mouth Every 6 (six) to 8 (eight) hours as needed for dizziness. 20 tablet 12/23/19 23 Active SUMAtriptan (IMITREX) 50 MG tablet NEW; HASN'T STARTED YET 11/04/19 24 Active famotidine (PEPCID) 20 MG tablet Take 1 tablet (20 mg total) by mouth daily. 10/28/19 24 Active dicyclomine (BENTYL) 10 MG capsule TAKE 1 CAPSULE BY MOUTH THREE TIMES DAILY FOR 3 DAYS FOR PAIN. MAY TAKE FOR ABDOMINAL CRAMPS 10/28/19 24 Active pseudoephedrine (SUDAFED) 30 MG tablet Take 2 tablets (60 mg total) by mouth 4 times daily (every 6 hours) as needed for congestion. 20 tablet 11/04/19 24 Active ibuprofen (MOTRIN) 600 MG tablet Take 1 tablet (600 mg total) by mouth every 6 (six) hours. 30 tablet 11/04/19 24 Active acetaminophen (TYLENOL) 500 MG tablet Take 2 tablets (1,000 mg total) by mouth 4 times daily (every 6 hours) as needed for mild pain (pain). 120 tablet 11/04/19 24 Active cephalexin (KEFLEX) 500 MG capsule Take 1 capsule (500 mg total) by mouth 2 (two) times a day. Take as directed or until you run out 20 capsule 11/04/19 24 Active hydrOXYzine HCl (ATARAX) 25 MG tablet Take 1 tablet (25 mg total) by mouth 3 (three) times a day as needed for anxiety (or restlessness). 15 tablet 11/04/19 24 Active OMEprazole (PriLOSEC) 40 MG capsuleIndications :Epigastric pain Take 1 capsule (40 mg total) by mouth every morning before breakfast. 90 capsule 3 01/02/20 24 Active Linzess 72 MCG capsuleIndications :Chronic idiopathic constipation TAKE 1 CAPSULE(72 MCG) BY MOUTH DAILY 30 capsule 3 03/03/20 24 Active azelastine (ASTELIN) 0.1 % nasal spray 2 sprays into each nostril. 02/27/20 24 Active frovatriptan (FROVA) 2.5 MG tablet Take 1 tablet (2.5 mg total) by mouth. 03/30/20 24 Active levocetirizine (XYZAL) 5 MG tablet 02/27/20 24 Active naproxen (NAPROSYN) 500 MG tablet TAKE 1 TABLET BY MOUTH TWICE DAILY FOR 3 WEEKS 02/01/20 24 Active neomycin-polymyxin -dexAMETHasone (MAXITROL) 3.5-75073-3.1 ophthalmic suspension 01/27/20 24 Active MAGNESIUM PO Take by mouth. Ac tive sodium chloride (OCEAN) 0.65 % nasal drops/spray 1 spray into each nostril as needed for congestion. Active kxyrni-sndfkpjgf-p agnesium sulfates (Suprep Bowel Prep Kit) 17.5-3.13-1.6 GM/177ML Solution solutionIndication s:Chronic diarrhea Empty 177 mL bottle into cup, fill to line with water and drink it with additional water . Repeat 6 hr prior to colonoscopy 2 each 04/02/20 24 Active lidocaine (LIDODERM) 5 % patch UNWRAP AND APPLY 1 PATCH OVER 12 HOURS TOPICALLY TO SKIN IN THE MORNING FOR 7 DAYS . REMOVE AND DISCARD PATCH WITHIN 12 HOURS OR DIRECTED BY . 08/09/20 24 Active methocarbamol (ROBAXIN) 500 MG tablet 08/09/20 24 Active Active Problems Problem Noted Date Diagnosed Date and not yet delivered 03/25/2019 Immunizations Immunization Administration Dates Next Due Rho (D) Immune Globulin 03/27/2019(Deferred: - n ot a candidate) Tdap 03/26/2019 Family History Medical History Relation Name Comments Hypertension Father Hypertension Mother Coronary artery disease Paternal Grandmother Relation Name Status Comments Father Alive Mother Alive Paternal Grandmother Alive Social History Tobacco Use Types Packs/Day Years Used Date Smoking Tobacco: Never Smokeless Tobacco: Never Alcohol Use Standard Drinks/Week Comments Yes 1 (1 standard drink = 0.6 oz pur e alcohol) 1 Mixed drink, once q 2 mths Physical Activity Answer Date Recorded Days of Exercise per Week 0 days 2023 Minutes of Exercise per Session 0 min 11/14/2023 Comments No Sex and Gender Information Value Date Recorded Sex Assigned at Female 12/22/2022 2:26 AM EDT Legal Sex Female 8:57 AM EDT Gender Identity Female 12/22/2022 2:26 AM EDT Sexual Orientation Heterosexual (straight) 11/04 9:12 PM EST Last Filed Vital Signs Vital Sign Reading Time Taken Comments Blood Pressure 94/68 10/05/2024 9:03 AM EST Pulse 87 10/05/2024 8:56 AM EST Temperature 36.9 C (98.4 F) 08/12/2024 6:20 PM EST Respiratory Rate 18 08/12/2024 6:20 PM EST Oxygen Saturation 98% 10/05/2024 8:56 AM EST Inhaled Oxygen Concentration - - Weight 79.8 kg (176 lb) 10/05/2024 8:56 AM EST Height 170.2 cm (5' 7 ) 05/27/2024 10:49 AM EDT Body Mass Index 27.57 05/27/2024 10:49 AM EDT Plan of Treatment Health Maintenance Due Date Last Done Comments Hepatitis C Virus Screening 1992 Hepatitis B Vaccines (1 of 3 - 19+ 3-dose series) 2011 Pap Smear (Ages 21-65) 05/29/2022 05/29/2019 COVID-19 Vaccine (1 - 2023-2 5 season) 2024 Influenza Vaccine 05/07/2025 DTaP/Tdap/Td Vaccines (2 - T d or Tdap) 03/26/2029 03/26/2019 HIV Screening Completed 12/16/2018, 12/16/2018 HPV Vaccines Aged Out No longer eligi ble based on patient's age to complete this topic Pneumococcal Vaccine: Pediatric (0-5 Years) and At-Risk Patients (6 to 49 Years) Aged Out No longer eligible b ased on patient's age to complete this topic Procedures Procedure Name Priority Date/Time Associated Diagnosis Comments THINPREP PAP TEST (RANGE TECHNICIAN) WITH HPV REFLEX, GC/CT Routine 05/29/2019 12:00 AM EDT HIV 1/2 AG/AB CMIA REFLEX TO CONFIRMATION Routine 12/16/2018 10:14 AM EDT from Last 3 Months or Most Recently Relevant to Health Maintenance Results * ThinPrep Pap Test (Therapeutic Recreation Director) with HPV Reflex, GC/CT (05/29/2019 12:00 AM EDT) Clinical Information [facility] LMP: NA [facility] Previous PAP: NA [facility] Previous Biopsy NA [facility] Source: [facility] Comment:Cervix, Endocervix Statement of Adequacy: [facility] Comment: Satisfactory for evaluation. Endocervical/transformation zone component present. Interpretation/Res ult: [facility] Comment:Negative for intraep ithelial lesion or malignancy. Comment: [facility] Comment: This Pap test has been evaluated with computer assisted technology. Conveyor Attendant: [facility] Comment: YAYA LINDSEY(ASCP) CT screening location: [facility] [address] [address] Comment [facility] Comment: EXPLANATORY NOTE: The Pap is a screening test for cervical cancer. It is not a diagnostic test and is subject to false negative and false positive results. It is most reliable when a satisfactory sample, regularly obtained, is submitted with relevant clinical findings and history, and when the Pap result is evaluated along with historic and current clinical information. Chlamydia Trachomatis RNA, TMA NOT DETECTED NOT DETECTED [facility] Neisseria Gonorrhoeae RNA, TMA NOT DETECTED NOT DETECTED [facility] Chlamydia Trachomatis RNA, TMA Comment [facility] Comment: This test was performed using the APTIMA COMBO2 Assay ([employer] The analytical performance characteristics of this assay, when used to test SurePath specimens have been determined by [facility]. 05/29/2019 05/30/2019 2:2 0 AM EDT Narrative [facility] - 06/04/2019 11:28 AM EDT Ordered by External Provider. [id number], WAYNE FELICIANO, A Resulting Agency Comment Performing Organization Information: Site ID: [id number] Name: [facility] Address: [address] [place] [address], [facility] [place] [address] Director: Shamir Raza MD us External Provider LAB AMB PATH/CYTO ORDERABLE S Final Result [facility] [address] [place] [address], [facility] [place] [address] * HIV 1/2 Ag/Ab CMIA Reflex to Confirmation (12/16/2018 10:14 AM EDT) HIV Ag/Ab, 4th Gen NON-REACT MARTIN NON-REACT MARTIN [facility] Comment: HIV-1 antigen and HIV-1/HIV-2 antibodies were not detected. There is no laboratory evidence of HIV infection. PLEASE NOTE: This information has been disclosed to you from records whose confidentiality may be protected by state law. If your state requires such protection, then the state law prohibits you from making any further disclosure of the information without the specific written consent of the person to whom it pertains, or as otherwise permitted by law. A general authorization for the release of medical or other information is NOT sufficient for this purpose. For additional information please refer to http://education.[employer].Metooo/faq/LIU790 (This link is being provided for informational/ educational purposes only.) The performance of this assay has not been clinically validated in patients less than 2 years old. 12/16/2018 10:1 4 AM EDT 12/16/2018 10:42 PM EDT Narrative [facility] - 12/17/2018 2:10 PM EDT FASTING:YES AN UPDATE OR CORRECTION HAS BEEN MADE TO NAME FASTING: YES Ordered by External Provider. [id number], PASTOR MANN K Resulting Agency Comment Performing Organization Information: Site ID: [id number] Name: [facility] Address: [address] [place] [address], [place] [address] Director: Shamir Raza MD External Provider LAB BLOOD ORDERABLES Final Result [facility] [address] [place] [address], [place] [address] from Last 3 Months or Most Recently Relevant to Health Maintenance [place] [address] Advance Directives * Full Code (Latest Code Status on File) Date Activated Date Inactivated Comments 03/26/2019 8:16 AM 08/17/2022 5:59 AM * Full Code Date Activated Date Inactivated Comments 03/25/2019 10:03 AM 03/26/2019 8:16 AM * Full Code Date Activated Date Inactivated Comments 03/03/2019 12:21 PM 03/25/2019 9:44 AM Care Teams Inspection Supervisor Relationship Specialty Start Date End Date Carol Wiseman APRN [address] [place] [address], [place] [address] PCP - General Family Medicine 11/02/23
== END 2025-03-25 11:44 | disposition home or self-care (01) ==
LOC: HO.HCS 11:00
PROVIDERS: PCP Family Medicine; Visit Provider Internal Medicine
DX: R07.89 Other chest pain (principal); I49.3 Ventricular premature depolarization
CPT/HCPCS: 93010; 99203

== ENCOUNTER → 2025-03-25 10:59 | Outpatient (BNVA) | payer MEDICAID, SELFPAY | PROVIDERS: PCP Family Medicine; Visit Provider Internal Medicine | DX: R07.89 Other chest pain (principal); I49.3 Ventricular premature depolarization | CPT/HCPCS: 93005; 99202 ==

== ENCOUNTER 2025-04-02 13:05 | Outpatient (REF) | payer MEDICAID, SELFPAY ==
[2025-04-02 15:08] LABS: Lipase 27 U/L (8-78)
[2025-04-02 15:28] LABS: TSH reflex Free T4 0.98 uIU/mL (0.32-4.0)
[2025-04-02 15:38] LABS: Folate 12.1 ng/mL (> or = 4.0); Vitamin B12 371 pg/mL (200-900)
[2025-04-03 11:14] LABS: H Pylori Breath Test Negative (Negative)
[2025-04-06 21:13] LABS: Transglutaminase IgA <1.0 U/mL
[2025-04-08 11:47] LABS: Vitamin D 25-OH, D2 <4 ng/mL; Vitamin D 25-OH, D3 24 ng/mL; Vitamin D 25-OH, Total 24 ng/mL (30-100)
== END 2025-04-02 13:06 | disposition home or self-care (01) ==
LOC: HO.LAB 13:05
PROVIDERS: PCP Family Medicine; Visit Provider Nurse Practitioner Family
DX: K59.00 Constipation, unspecified (principal); E55.9 Vitamin D deficiency, unspecified; R10.9 Unspecified abdominal pain; R19.7 Diarrhea, unspecified; K21.9 Gastro-esophageal reflux disease without esophagitis; K59.04 Chronic idiopathic constipation; R14.0 Abdominal distension (gaseous); R10.13 Epigastric pain
CPT/HCPCS: 36415; 82306; 82607; 82746; 83013; 83690; 84443; 86364; 99212

== ENCOUNTER 2025-04-02 13:05 | Outpatient (AMB) | payer MEDICAID, SELFPAY ==
--- NOTE | 2025-04-02 13:06 | MHC.OFFVIS ---
Vital Signs 04/02/25 13:23 Height 5 ft 6 in Weight 179 lb BMI 28.9 BP 110/60 Blood Pressure Location Rt brachial Position Sitting Pulse 86 Pulse Source Pulse Oximeter Pulse Oximetry (%) 99 Oxygen Delivery Method Room Air Intake Visit Reasons: Chronic Constipation Intake Note: New patient for constipation clevelandal. CC; C.O. hx of GERD, bloating, epigastric + RUQ pain intermittently, and previous evidence of hemo in saliva. Pt states that they had previously seen a GI specialist in [facility] which had placed her on omeprazole 20 mg for a trial period of ~ 1 year. However, she has not taken PPI for some time. Extensive GI FMHx per pt (Colitis + GERD). Wood Calker Required: No Accompanied by: Self / Same As Patient Allergies No Known Allergies Allergy (Unverified 04/02/25 13:07) HPI HPI Chronic Constipation: Details: 34-year-old female with past medical history of migraine headaches, PVCs, atypical chest pain, GERD, constipation is here today for initial consultation. Patient is sent to us by her PCP. Patient was seen by GI provider last year when she lived in [place]. Patient reports having history of acid reflux her whole life. Patient also reports constipation. She was supposed to go for colonoscopy and upper endoscopy, however she developed chest pain and the provider needed her to be cleared before sending her for procedure. Patient has seen digital media buyer here in [place] and will be going for more testing. She had normal stress tests back in October. Patient reports blood in her sputum on few occasion in the past. GI specialist placed patient on omeprazole and her symptoms went away. She has been taking omeprazole for about a year or so. Currently she is not taking any PPI. Symptoms of acid reflux occasional. Patient reports food dependent. She is complaining of constipation, occasional loose stools and bloating. Patient reports family history of colitis. Patient also reports that her mom was diagnosed with diverticulitis in the past. Patient reports right upper and lower quadrant pain not necessarily related to meals. Denies melena, hematochezia, unintentional weight loss or ribbon like stools. [facility] Medical History (Updated 04/02/25 @ 19:11 by Radha Rivera, LOGGING TRACTOR OPERATOR SWAMP-) Chronic idiopathic constipation GERD (gastroesophageal reflux disease) delivery delivered Chest pain of uncertain etiology Muscle spasm Whole body pain Decreased visual acuity Chronic constipation Chronic neck pain Chronic headache Surgical History H/O eye surgery Family History Mother High blood pressure Colitis Father High blood pressure High cholesterol Fatty liver Social History Alcohol intake: never Patient Tobacco Use Status: Former Tobacco user Review of Systems Const Denies weight gain and Denies weight loss ENT Reports no additional complaints, Denies dysphagia and Denies odynophagia Card Reports no additional complaints Resp Reports no additional complaints GI Reports abdominal pain (Epigastric), Denies belching, Denies melena, Reports bloating, Denies change in bowel habits, Reports constipation, Denies dysphagia, Denies excessive flatus, Denies dyspepsia, Reports heartburn, Denies diarrhea, Denies loose stools, Denies nausea, Denies odynophagia and Denies vomiting Reports no additional complaints Musc Reports no additional complaints Neuro Reports no additional complaints Psych Reports no additional complaints Endo Reports no additional complaints Physical Exam Vital Signs: Last Vital Signs Pulse 86 04/02/25 13:23 BP 110/60 04/02/25 13:23 Pulse Ox 99 04/02/25 13:23 Oxygen Delivery Method Room Air 04/02/25 13:23 BMI result Body Mass Index 28.9 Const General: healthy appearing, no acute distress and well developed Nutritional Appearance: well nourished Orientation/consciousness: patient oriented x3 Resp Effort & Inspection: normal respiratory effort, able to speak in complete sentences, no tracheal deviation and symmetric chest movement Auscultation: clear to auscultation bilaterally Cardio Rate: regular rate GI Inspection: Yes normal to inspection and No distended Palpation (GI): Soft to palpation, not firm, nontender and No hepatosplenomegaly present Auscultation: normal bowel sounds General: Yes no CVA tenderness Back/Spine/Pelvis Back: no CVA tenderness Skin General skin exam: elasticity normal, turgor normal and dry skin Neuro General: patient oriented x3 Psych Appearance: grossly normal Mental Status: mental status grossly normal Assessment & Plan Assessment & Plan (1) GERD (gastroesophageal reflux disease): Code(s): K21.9 - Gastro-esophageal reflux disease without esophagitis Category: Medical Qualifiers: Esophagitis presence: esophagitis presence not specified Qualified Code(s): K21.9 - Gastro-esophageal reflux disease without esophagitis (2) Chronic idiopathic constipation: Code(s): K59.04 - Chronic idiopathic constipation Category: Medical (3) Abdominal bloating: Code(s): R14.0 - Abdominal distension (gaseous) (4) Epigastric pain: Code(s): R10.13 - Epigastric pain Plan Will rule out celiac, chronic pancreatitis, check for H pylori. If positive will treat empirically. We will check thyroid study, vitamin B 12, folate and vitamin-D levels. Patient will start taking fiber. She reports constipated but also reports to have loose stools. We will try to bulk her stool. Increase fluid intake and activity to promote better bowel motility. Discussed with patient low FODMAP diet. List of food recommended as well as list of food to avoid given to patient. We will hold off on giving her PPI at this time. Patient will try to avoid dietary triggers a late night snacking. Staying upright for minimal 3 hours after meals discussed patient. Follow-up in 2-3 months, sooner on as needed basis. She is agreeable to this plan and verbalizes understanding of instructions. She was given the opportunity to ask questions and all questions answered. Thank you for allowing me to participate in her care Orders: Orders Transglutaminase IgA Today R10.9 - Unspecified abdominal pain TSH reflex Free T4 Today K59.00 - Constipation, unspecified Vitamin D 25-OH (D2 and D3) Today E55.9 - Vitamin D deficiency, unspecified H Pylori Breath Test Today K21.9 - Gastro-esophageal reflux disease without esophagitis Lipase Today R10.9 - Unspecified abdominal pain Vitamin B12 and Folate Today R19.7 - Diarrhea, unspecified Medications: New methylcellulose (laxative) (Citrucel) take it with full glass of water 500 mg PO DAILY 90 tabs 2RF K59.00 - Constipation, unspecified Coding Level of Care Code New Pt Level 4 (71242) Diagnoses Gastroesophageal reflux disease, unspecified whether esophagitis present K21.9 Esophagitis presence: esophagitis presence not specified Chronic idiopathic constipation K59.04 Abdominal bloating R14.0 Epigastric pain R10.13 Time Spent (min) 50 Comment 35 minutes spent with patient and additional 15 minutes spent reviewing her records
[2025-04-02 13:23] VITALS: BP 110/60; PULSE 86; O2SAT 99; BMI 28.9
--- OUTSIDE RECORDS SUMMARY | 2025-04-02 13:39 | XMS_ITS | Clinical Summary ---
Author Organization [facility] Address [address] [place] [address] Care Team Providers Care Gas Pumping Station Operator Name Role Phone Carlo Wiseman ANDI Primary Care Provider Allergies No [...] WEEKS 02/01/20 24 Active neomycin-polymyxin -dexAMETHasone (MAXITROL) 3.5-80325-1.1 ophthalmic suspension 01/27/20 24 Active MAGNESIUM PO Take by mouth. Ac tive sodium chloride (OCEAN) 0.65 % nasal drops/spray 1 spray into each nostril as needed for congestion. Active ojfseg-hqoiewmks-q agnesium sulfates (Suprep Bowel Prep Kit) 17.5-3.13-1.6 [...] Date/Time Associated Diagnosis Comments THINPREP PAP TEST (SILVER PLATER) WITH HPV REFLEX, GC/CT Routine 05/29/2019 12:00 AM EDT HIV 1/2 AG/AB CMIA REFLEX TO CONFIRMATION Routine 12/16/2018 10:14 AM EDT from Last 3 Months or Most Recently Relevant to Health Maintenance Results * ThinPrep Pap Test (Scientific Software Developer) with HPV Reflex, GC/CT (05/29/2019 12:00 AM [...] has been evaluated with computer assisted technology. Remote Mortgage Underwriter: [facility] Comment: YAYA LINDSEY(ASCP) CT screening location: [facility] [address] [address] Comment [facility] Comment: EXPLANATORY NOTE: The Pap [...] was performed using the APTIMA COMBO2 Assay ([employer] The analytical performance characteristics of this assay, when used to test SurePath specimens have been determined by [facility]. 05/29/2019 05/30/2019 2:2 0 AM EDT Narrative [facility] - 06/04/2019 11:28 AM EDT Ordered by External Provider. [id number], WAYNE FELICIANO, A Resulting Agency Comment Performing Organization Information: Site ID: [id number] Name: [facility] Address: [address] [place] [address], [place] [address] Director: Shamir Raza MD us External Provider LAB AMB PATH/CYTO ORDERABLE S Final Result [facility] [address] [place] [address], [place] [address] * HIV 1/2 Ag/Ab CMIA Reflex to [...] purpose. For additional information please refer to http://education.[employer].Janeeva/faq/ODB361 (This link is being provided for informational/ educational purposes only.) The performance of this assay has not been clinically validated in patients less than 2 years old. 12/16/2018 10:1 4 AM EDT 12/16/2018 10:42 PM EDT Narrative [facility] - 12/17/2018 2:10 PM EDT FASTING:YES AN UPDATE OR CORRECTION HAS BEEN MADE TO NAME FASTING: YES Ordered by External Provider. [id number], PASTOR MANN K Resulting Agency Comment Performing Organization Information: Site ID: [id number] Name: [facility] Address: [address] [place] [address], [place] [address] Director: Shamir Raza MD External Provider LAB BLOOD ORDERABLES Final Result [facility] [address] [place] [address], [place] [address] from Last 3 Months or Most Recently Relevant to Health Maintenance Insurance [place] [address] Advance Directives * Full Code (Latest Code Status on File) Date Activated Date Inactivated Comments 03/26/2019 8:16 AM 08/17/2022 5:59 AM * Full Code Date Activated Date Inactivated Comments 03/25/2019 10:03 AM 03/26/2019 8:16 AM * Full Code Date Activated Date Inactivated Comments 03/03/2019 12:21 PM 03/25/2019 9:44 AM Care Teams Gas Pumping Station Operator Relationship Specialty Start Date End Date Carol Wiseman APRN [address] [place] [address], [place] [address] PCP - General Family Medicine 11/02/23
== END 2025-04-02 14:43 | disposition home or self-care (01) ==
LOC: HO.HGI 13:05
PROVIDERS: PCP Family Medicine; Visit Provider Nurse Practitioner Family
DX: K21.9 Gastro-esophageal reflux disease without esophagitis (principal); K59.04 Chronic idiopathic constipation; R14.0 Abdominal distension (gaseous); R10.13 Epigastric pain
CPT/HCPCS: 99204

== ENCOUNTER → 2025-05-20 10:34 | Outpatient (REF) | payer MEDICAID, SELFPAY ==
--- OUTSIDE RECORDS SUMMARY | 2024-10-23 06:20 | XMS_ITS ---
Author Organization [facility] Address [address] [place] [phone] Care Team Providers Care Guide Setter Name Role Phone Joan Sánchez Primary Care Provider Sonya Franz REASON FOR VISIT Vax visit per [employer]- [facility] r/s 10/15/2024 mar, Immunization update Social History Sex Assigned At : Social History Observation Description Sex Assigned At Female Encounters Encounter Location Date Provider Diagnosis [address] [address] 10/23/2024 Sonya Franz Plan Of Treatment No Information Progress Notes * PELAEZ GIBSONDona OLIVERAOB: 1990 (34 yo F)Acc No.[id number]:10/23/2024 Patient: Gregory PADRONGARoberthlarry Provider: Sacha Cruz :1990 A ge:34 Y S ex:Female Date:10/23/2024 External Visit ID:[id number] Address:[address] [place], [place] [id number] Pcp:Joan Sánchez Subjective: * Chief Complaints: * 1 . Vax visit per [employer]- ZIIBRA r/s 10/15/2024 mar. 2. Immunization update. * HPI: V accination: Reaction History : . feeling well : . indication for Vaccine : . * Medical History: Objective: * Vitals: * Physical Examination: Assessment: Plan: * Treatment: * Billing Information: * Visit Code: * Procedure Codes: * Electronic signature of Reymundo Sheridan APRN on 05/20/2025 at 11:40 AM EDT Sign off status: Pending * Provider: Sacha Cruz Date: 0 10/23/2024 Generated for Maricarmen Saleh on: 0 05/20/2025 11:40 AM EDT History and Physical Notes * HPI (History of Present Illness) Category Sub-Category Detail Notes Category Not es Vaccination Reaction History : feeling well : indication for Vaccine :
--- NOTE | 2025-05-20 10:38 | CA_ITS ---
Transthoracic Echocardiogram Patient (Last, First, Middle): Julia Mares, Gender: Female Date of : 1990 Age: 34 Procedure Date: 05/20/2025 Procedure Type: Transthoracic Echocardiogram Location: OP Height: 167.64 cm Weight: 83.46 kg BSA: 1.93 m2 Heart Rate: 67 bpm BP: 118 / 72 mmHg Substation Maintenance Technician: SB/RC Referring MD: Eddie Urban MD Transportation Services Representative: Billy Justice MD Symptoms: R07.89 - Other chest pain Study Quality: Adequate ECG Rhythm: Sinus Conclusions: - Normal study Findings Procedure Information The quality of the study was technically difficult. The study quality is limited by lung artifact. Left Ventricle Normal left ventricular size, thickness, and systolic function. The visually estimated ejection fraction is between 60-65%. Diastolic function is normal for age. Right Ventricle Normal right ventricular cavity size and systolic function. Atria Both atria are normal in size. There is no evidence of interatrial shunt. Aortic Valve Normal aortic valve structure and function. There is no aortic valve stenosis. There is no aortic valve regurgitation. Mitral Valve Normal mitral valve structure and function. There is trace mitral valve regurgitation. There is no mitral valve stenosis. Pulmonic Valve The pulmonic valve is likely normal. Tricuspid Valve Normal tricuspid valve structure. There is trace tricuspid valve regurgitation. The right ventricular systolic pressure is normal. The right ventricular systolic pressure is 17 mmHg. Normal right atrial pressure. There is no evidence of pulmonary hypertension. Great Vessels All visible segments of the aorta are normal in size. The pulmonary artery was not well visualized. Venous The inferior vena cava is normal in size and collapses greater than 50% with inspiration. Pericardium/Pleural There is no evidence of pericardial effusion. Prior Study Comparison No prior study available for comparison. Measurements 2D Linear Measurements IVSd: 0.60 0.6-0.9/0.6-1.0 cm LVIDd: 5.43 3.9-5.3/4.2-5.9 cm LVIDd Index: 2.81 2.4-3.2/2.2-3.1 cm/m2 LVIDs: 3.89 2.0-3.6 cm LVPWd: 0.59 0.7-1.1 cm LA Diam: 3.70 2.7-3.8/3.0-4.0 cm LAIDs Index: 1.92 1.5-2.3 cm/m2 LV Mass: 135.22 67-162/88-224 g LV Mass Index: 70.06 43-95/49-115 g/m2 LVOT Diam: 2.00 3.0+(-)1.3 cm 2D Systolic Function EF 4C: 62.80 >55% EF 2C: 62.20 >55% EF BiP: 61.50 >55% Mitral Valve MV Pk E: 0.61 MV PK A: 0.49 MV Decel Time: 176.00 E/A: 1.20 E'Lateral: 18.00 E'Medial: 11.00 E/E' Med: 5.50 E/E' Lat: 3.40 PHT: 52.00 MVA PHT: 4.23 Decel [place]: 3.45 Aortic Valve AoV Pk Omari: 1.35 AoV Mn Omari: 0.97 AoV VTI: 0.29 AoV Pk Grad: 7.00 Aov Mn Grad: 4.00 MEET Cont.VTI: 2.40 LVOT LVOT Pk Omari: 0.98 LVOT Mn Omari: 0.66 LVOT VTI: 0.22 LVOT Pk Grad: 4.00 LVOT Mn Grad: 2.00 LVOT Diam: 2.00 LVOT Area: 3.14 Diastolic Function MV Pk E: 0.61 MV Pk A: 0.49 E/A: 1.20 E'Medial: 11.00 E/E' Med: 5.50 E' Laterial: 18.00 E/E' Lat: 3.40 Right Ventricle TAPSE (mm): 23.50 TVS' Omari: 10.60 Tricuspid Valve TR Pk Omari: 1.85 TR Pk Grad: 14.00 RA Press: 3.00 RVSP: 17.00 Great Vessels Aorta Sinus of Valsalva: 2.80 2.0-3.5 cm Ao Asc: 3.00 2.1-3.4 cm Pulmonary Veins Pulm Vein S/D 1.30 Pulmonary Valve PV Pk Omari: 1.03 Peak PV Grad: 4.00 Updated in Other Vendor System with Status of Final Billy Justice MD electronically signed on 05/20/2025 4:06:44 PM with status of Final
--- NOTE | 2025-05-20 11:09 | HM_ITS ---
* Total monitoring time 2 days. * Underlying rhythm is sinus with an average rate of 79/Min. * Rare supraventricular ectopy. * Ventricular ectopy with a burden of 1.7%. * No significant pauses or high-grade AV blocks. * No patient markers or diary events. MTDD
--- OUTSIDE RECORDS SUMMARY | 2025-05-20 11:40 | XMS_ITS | Clinical Summary ---
[facility] Organization [facility] Address [address] [place] [address] Care Team Providers Care Rec Therapist Name Role Phone Carol Wiseman Primary Care Provider [phone] Allergies No known active allergies Medications acetaminophen [...] 2 hours if needed. 9 tablet 5 Active magnesium 30 mg tablet Take 30 mg by mouth in the morning and 30 mg before bedtime. Active Active Problems Problem Noted Date Diagnosed Date Migraine 05/08/2024 Throat pain 02/27/2024 Popping of both ears 02/27/2024 Facial numbness 02/27/2024 Gastroesophageal reflux disease 02/27/2024 Cervical lymphadenopathy 02/27/2024 Hypertrophy of adenoids alone 02/27/2024 Chronic idiopathic constipation 01/30/2024 Change in bowel habit 01/30/2024 Resolved Problems Problem Noted Date Diagnosed Date Resolved Date Diarrhea 01/30/2024 01/26/2025 Family History Medical History Relation Comments Hyperlipidemia [...] drink = 0.6 oz pur e alcohol) [facility] Utilities Answer Date Recorded In the past [...] any time in the past 12 m [facility], were you homeless or living in a prison (including now)? No 05/08/2024 Comments No Sex and Gender Information Value Date Recorded Sex Assigned at Not on file Legal Sex Female 9:54 PM EST Gender Identity Not on file Sexual Orientation Not on file Last Filed Vital Signs Vital Sign Reading Time Taken Comments Blood Pressure 111/73 08/09/2024 5:13 PM EST Pulse 85 08/09/2024 5:13 PM EST Temperature 37.1 C (98.8 F) 08/09/2024 2:25 PM EST Respiratory Rate 18 08/09/2024 5:13 PM EST Oxygen Saturation 96% 08/09/2024 5:13 PM EST Inhaled Oxygen Concentration - - Weight 78.5 kg (173 lb) 08/09/2024 2:26 PM EST Height 167.6 cm (5' 6 ) 08/09/2024 2:26 PM EST Body Mass Index 27.92 08/09/2024 2:26 PM EST Plan of Treatment Health Maintenance Due Date Last Done Comments HIV Screening 1990 Hepatitis C Screening 2010 Hepatitis B Vaccines (1 of 3 - 19+ 3-dose series) 2011 Pap Smear 05/29/2022 05/29/2019 Cervical Cancer Screening 2022 HPV/Cotest 2022 COVID-19 Vaccine (1 - 2023-2 5 season) 2024 Influenza Vaccine (#1) 2025 DTaP,Tdap,and Td Vaccines (2 - Td or [...] 5 Years) and At-Risk Patients (6 to 49 Years) Aged Out No longer eligi ble based on patient's age to complete this topic Insurance [address] [place] [address], [place] [address] [employer] Care Teams Rec Therapist Relationship Specialty Start Date End Date Carol Wiseman [address] [place] [phone] PCP - General Family Medicine 11/01/23
--- OUTSIDE RECORDS SUMMARY | 2025-05-20 11:40 | XMS_ITS | Encounter Summary ---
Author Organization [employer] Address [address] [facility] [address] [place] [address] Care Team Providers Care Sheriff'S Sergeant Name Role Phone Deonna Lion DO Primary Care Provider Encounter Details Date Type Department Care Team (Late st Contact Info) Description 01/07/2025 Orders Only [facility] [address] [place] [address] Meli Salazar RN Social History Tobacco Use Types Packs/Day Years Used Date Smoking Tobacco: Never Assessed Comments Unknown Sex and Gender Information Value Date Recorded Sex Assigned at Female 08/06/2022 10:18 AM EDT Legal Sex Female 10:18 AM EDT Gender Identity Female 12/03/2024 1:03 PM EST Sexual Orientation Straight 12/03/2024 1: 03 PM EST documented as of this encounter Plan of Treatment Not on file documented as of this encounter Procedures Procedure Name Priority Date/Time Associated Diagnosis Comments VITAMIN D 25-OH (D2 AND D3) Routine 04/02/2025 2:25 PM EDT VITAMIN B12/FOLATE, SERUM PANEL Routine 04/02/2025 2:25 PM EDT TSH W/REFLEX TO FT4 Routine 04/02/2025 2 :25 PM EDT TISSUE TRANSGLUTAMINASE AB, IGA Routine 04/02/2025 2:25 PM EDT LIPASE Routine 04/02/2025 2:25 PM EDT HELICOBACTER PYLORI, UREA BREATH TEST Routine 04/02/2025 1:55 PM EDT documented in this encounter Results * (ABNORMAL) VITAMIN D 25-OH (D2 AND D3) (04/02/2025 2:25 PM EDT) Vitamin D, 25-OH, D2 <4 ng/mL [facility] Comment:This test was develo ped and its analytical performancecharacteristics have been determined by [employer] [place], [place]. It hasnot been cleared or approved by the U.S. Food and DrugAdministration. This assay has been validated pursuantto the CLIA regulations and is used for clinicalpurposes.THIS TEST WAS PERFORMED AT:[employer] [place] [id number] FOWLER MD,PHD Vitamin D, 25-OH, D3 24 ng/mL [facility] Comment:This test was develo ped and its analytical performancecharacteristics have been determined by [employer] [place], [place]. It hasnot been cleared or approved by the U.S. Food and DrugAdministration. This assay has been validated pursuantto the CLIA regulations and is used for clinicalpurposes. Vitamin D, 25-OH, Total 24(A) 30 - 100 ng/mL [facility] Comment:Vitamin D, 25-Hydrox y reports concentrations of twocommon forms, 25-OHD2 and 25-OHD3. 25-OHD3 indicatesboth endogenous production and supplementation.25-OHD2 is an indicator of exogenous sources such asdiet or supplementation. Therapy is based onmeasurement of Total 25-OHD, with levels <20 ng/mLindicative of Vitamin D deficiency, while levelsbetween 20 ng/mL and 30 ng/mL suggest insufficiency.Optimal levels are > or = 30 ng/mL.For additional information, please refer tohttp://education.Allmoxy/faq/[email or web address](This link is being provided for informational/educational purposes only.) 04/02/2025 2:25 PM EDT 04/02/2025 2:25 PM EDT Generic External Data Provider LAB BLOOD ORDERAB LES Final Result Performing Organization Address [facility] de Phone Number [facility] [address] [place] [phone] * Tissue Transglutaminase Antibody, IgA (04/02/2025 2:25 PM EDT) Transglutaminase IgA <1.0 U/mL [facility] Comment:Value Interpretation ----- <15.0 Antibody not detected> or = 15.0 Antibody detectedTHIS TEST WAS PERFORMED AT:[employer] [address] [id number] HATCH MD 04/02/2025 2:25 PM EDT 04/02/2025 2:25 PM EDT Generic External Data Provider LAB BLOOD ORDERAB LES Final Result Performing Organization Address [facility] Phone Number [facility] [address] [place] [phone] * Vitamin B12 (Cobalamin) and Folate Panel, Serum (04/02/2025 2:25 PM EDT) Vitamin B12 371 200 - 900 pg/mL [facility] Comment:NORMAL 200-900 PG/ML INDETERMINATE 160-199 PG/ML DEFICIENT < 160 PG/ML Folate 12.1 > or = 4.0 ng/mL [facility] Comment:Reference Values:> o r = 4.0 ng/mL< 4.0 ng/mL suggests folate deficiency Methotrexate, aminopterin and folinic acid(leucovorin) are chemotherapeutic agents whose molecularstructures are similar to folate; therefore, the Architectfolate assay cannot be used for patients using these drugs. 04/02/2025 2:25 PM EDT 04/02/2025 2:25 PM EDT Generic External Data Provider LAB BLOOD ORDERAB LES Final Result Performing Organization Address [facility] Co de Phone Number [facility] [address] [place] [phone] * TSH with Reflex to Free T4 (04/02/2025 2:25 PM EDT) TSH reflex Free T4 0.98 0.32 - 4.0 uIU/mL [facility] 04/02/2025 2:25 PM EDT 04/02/2025 2:25 PM EDT Generic External Data Provider LAB BLOOD ORDERAB LES Final Result Performing Organization Address [facility] Phone Number [facility] [address] [place] [phone] * Lipase (04/02/2025 2:25 PM EDT) Lipase 27 8 - 78 U/L [facility] 04/02/2025 2:25 PM EDT 04/02/2025 2:25 PM EDT Generic External Data Provider LAB BLOOD ORDERAB LES Final Result Performing Organization Address [facility] de Phone Number [facility] [address] [place] [phone] * Helicobacter pylori, Urea Breath Test (04/02/2025 1:55 PM EDT) H. pylori Breath Test Negative Negative [facility] Comment:Antimicrobials, prot on pump inhibitors and bismuthpreparations are known to suppress H. pylori. Ingestingthese medications within two weeks prior to performing thebreath test may produce negative test results. A positiveresult is still clinically valid. 04/02/2025 1:55 PM EDT 04/02/2025 4:48 PM EDT us Generic External Data Provider LAB BODY FLUIDS A ND STOOLS ORDERABLES Final Result Performing Organization Address City/State/[facility] Co de Phone Number [facility] [address] [place] [phone] documented in this encounter Visit Diagnoses Not on filedocumented in this encounter Care Teams Sheriff'S Sergeant Relationship Specialty Start Date End Date Deonna Lion DO [address] [place] [phone] PCP - General Family Medicine 12/03/24 documented as of this encounter
--- OUTSIDE RECORDS SUMMARY | 2025-05-20 11:40 | XMS_ITS ---
Author Name [facility] Organization Unknown Results Test Name/Text Value Interpretation Date Range Source Delta NO PREVIOUS RESULT Normal 08/13/2024 - 3 [facility] Troponin T SerPl-mCnc <6.0 ng/L Normal 08/13/2024 - 15 [facility] Magnesium SerPl-mCnc 1.6 mg/dL Normal 08/13/2024 1.6 - 2. 7 [facility] AST SerPl-cCnc 15.0 U/L Normal 08/13/2024 10 - 50 [facility] T Globulin Ser Calc-mCnc 3.3 g/dL Normal 08/13/2024 1.5 - 3.9 [facility] Prot SerPl-mCnc 7.6 g/dL Normal 08/13/2024 6.3 - 8.[address] Potassium SerPl-sCnc 3.3 mmol/L Below low normal 08/13/2024 3.4 - 5.3 [facility] BUN/Creat SerPl 16.0 Ratio Normal 08/13/2024 10 - 25 HH CCT CO2 SerPl-sCnc 19.0 mmol/L Below low normal 08/13/2024 22 - 33 [facility] Anion Gap Bld-sCnc 15.0 Normal 08/13/2024 7 - 17 [facility] Calcium SerPl-mCnc 9.4 mg/dL Normal 08/13/2024 8.7 - 10.5 [facility] Sodium SerPl-sCnc 138.0 mmol/L Normal 08/13/2024 136 - 14 5 [facility] Chloride SerPl-sCnc 104.0 mmol/L Normal 08/13/2024 98 - 1 07 [facility] Creat SerPl-mCnc 0.7 mg/dL Normal 08/13/2024 0.4 - 1.1 HH CCT ALT SerPl-cCnc 7.0 U/L Below low normal 08/13/2024 10 - 50 [facility] Albumin/Glob SerPl 1.3 Ratio Normal 08/13/2024 1 - 3 [facility] ALP SerPl-cCnc 57.0 U/L Normal 08/13/2024 32 - 122 [facility] T Albumin SerPl-mCnc 4.3 g/dL Normal 08/13/2024 3.5 - 5 [facility] GFR/BSA.pred SerPlBld [id number]-[id number] >90.0 Normal 08/13/2024 59 - [facility] Bilirub SerPl-mCnc 0.5 mg/dL Normal 08/13/2024 0.2 - 1 [facility] Glucose SerPl-mCnc 114.0 mg/dL Above high normal 08/13/2024 65 - 99 [facility] BUN SerPl-mCnc 11.0 mg/dL Normal 08/13/2024 8 - [address] Platelet num Bld Auto 262.0 Thou/uL Normal 08/12/2024 150 - 450 [facility] Hgb Bld-mCnc 12.9 g/dL Normal 08/12/2024 11.7 - 15.7 [facility] T Lymphocytes/leuk NFr Bld Auto 23.3 % Normal 08/12/2024 [facility] Lymphocytes num Bld Auto 1.89 Thou/uL Normal 08/12/2024 1.5 - 4.5 [facility] MCHC RBC Auto-mCnc 34.0 g/dL Normal 08/12/2024 30 - 36 [facility] Monocytes num Bld Auto 0.7 Thou/uL Normal 08/12/2024 0.2 - 1.5 [facility] Neutrophils/leuk NFr Bld Auto 66.5 % Normal 08/12/2024 [facility] Imm Granulocytes/leuk NFr Bld Auto 0.1 % Normal 08/12/2024 [facility] Eosinophil/leuk NFr Bld Auto 1.0 % Normal 08/12/2024 [facility] Imm Granulocytes num Bld Auto 0.01 Thou/uL Normal 08/12/2024 0 - 0.1 [facility] Eosinophil num Bld Auto 0.08 Thou/uL Normal 08/12/2024 0 - 0.7 [facility] PMV Bld Auto 9.8 fL Normal 08/12/2024 7.5 - 12.5 [facility] Hct VFr Bld Auto 37.9 % Normal 08/12/2024 35 - 47 HH CCT RBC num Bld Auto 4.43 Mil/uL Normal 08/12/2024 4 - 5.4 [facility] Monocytes/leuk NFr Bld Auto 8.6 % Normal 08/12/2024 [facility] RDW RBC Auto-Rto 12.2 % Normal 08/12/2024 11.5 - 14.5 [facility] MCH RBC Qn Auto 29.1 pg Normal 08/12/2024 26 - [address] WBC num Bld Auto 8.1 Thou/uL Normal 08/12/2024 4 - 11 [facility] Neutrophils num Bld Auto 5.38 Thou/uL Normal 08/12/2024 2 - 7.5 [facility] Basophils num Bld Auto 0.04 Thou/uL Normal 08/12/2024 0 - 0.2 [facility] Basophils/leuk NFr Bld Auto 0.5 % Normal 08/12/2024 [facility] MCV RBC Auto 86.0 fL Normal 08/12/2024 80 - 100 [facility] ALLERGEN, INTERP, IMMUNOCAP SCORE IGE See Note Normal 02/27/2024 [facility] ALLERGEN, TREE, WHITE BHARGAV TREE IGE <0.10 Normal 02/27/2024 - [facility] ALLERGEN, FUNGI/MOLD, M. RACEMOSUS IGE <0.10 Normal 02/27/2024 - [facility] ALLERGEN ANIMAL MOUSE EPITHELIUM IGE <0.10 Normal 02/27/2024 - [facility] ALLERGEN, ANIMAL, CAT DANDER IGE <0.10 Normal 02/27/2024 - [facility] ALLERGEN, MITES, D. FARINAE IGE <0.10 Normal 02/27/2024 - [facility] ALLERGEN, TREE, [place] TREE IGE <0.10 Normal 02/27/2024 - [facility] ALLERGEN, WEED, COMMON/SHORT RAGWEED IGE <0.10 Normal 02/27/2024 - [facility] ALLERGEN, FUNGI/MOLD, A. FUMIGATUS IGE <0.10 Normal 02/27/2024 - [facility] ALLERGEN, TREE, WHITE MULBERRY TREE IGE <0.10 Normal 02/27/2024 - [facility] ALLERGEN, FUNGI/MOLD, P. NOTATUM IGE <0.10 Normal 02/27/2024 - [facility] ALLERGEN, TREE, [place] TREE IGE <0.10 Normal 02/27/2024 - [facility] ALLERGEN, WEED, MUGWORT IGE <0.10 Normal 02/27/2024 - [facility] ALLERGEN, TREE, [place] TREE IGE <0.10 Normal 02/27/2024 - [facility] ALLERGEN, FUNGI/MOLD, HORMODENDRUM IGE <0.10 Normal 02/27/2024 - [facility] ALLERGEN, FUNGI/MOLD, A. ALTERNATA IGE <0.10 Normal 02/27/2024 - [facility] ALLERGEN, WEED, SHEEP SORREL IGE <0.10 Normal 02/27/2024 - [facility] ALLERGEN, GRASS, BERMUDA GRASS IGE <0.10 Normal 02/27/2024 - [facility] ALLERGEN, TREE, BOX ELDER/MAPLE TREE IGE <0.10 Normal 02/27/2024 - [facility] ALLERGEN, TREE, OAK TREE IGE <0.10 Normal 02/27/2024 - [facility] ALLERGEN, TREE, [place] TREE IGE <0.10 Normal 02/27/2024 - [facility] ALLERGEN, TREE, [place] TREE IGE <0.10 Normal 02/27/2024 - [facility] ALLERGEN, GRASS, KRISTEN GRASS IGE <0.10 Normal 02/27/2024 - [facility] ALLERGEN, ANIMAL, DOG DANDER IGE 0.16 kU/L Normal 02/27/2024 - [facility] ALLERGEN, INSECT, COCKROACH, [place] IGE <0.10 Normal 02/27/2024 - [facility] IMMUNOGLOBULIN E 60.0 kU/L Normal 02/27/2024 - [facility] ALLERGEN, MITES, D. PTERONYSSINUS IGE <0.10 Normal 02/27/2024 - [facility] ALLERGEN, TREE, BIRCH TREE IGE <0.10 Normal 02/27/2024 - [facility] ALLERGEN, WEED, PIGWEED IGE <0.10 Normal 02/27/2024 - [facility] THYROID STIM HORMONE 0.84 uIU/mL Normal 02/27/2024 0.35 - 4.94 [facility] GLOMERULAR FILTRATION RATE ML/MIN/1.73 SQ M.PREDICTED 101.0 mL/min/1.73m*2 Normal 11/21/2023 60 - [facility] POTASSIUM 3.4 mmol/L Below low normal 11/21/2023 3.6 - 5.1 [facility] GLUCOSE 104.0 mg/dL Normal 11/21/2023 70 - 200 [facility] PROTEIN TOTAL 7.3 g/dL Normal 11/21/2023 6.2 - 8.1 [facility] ANION GAP 12.0 mmol/L Above high normal 11/21/2023 3 - 11 [facility] CALCIUM, TOTAL 9.3 mg/dL Normal 11/21/2023 8.4 - 10.2 [facility] ALT (SGPT) 7.0 U/L Below low normal 11/21/2023 8 - 39 [facility] BICARBONATE 19.0 mmol/L Below low normal 11/21/2023 23 - 32 [facility] ALBUMIN, AUTOMATED 4.4 g/dL Normal 11/21/2023 3.8 - 5.3 [facility] CHLORIDE 109.0 mmol/L Normal 11/21/2023 100 - 111 [facility] BILIRUBIN, TOTAL 0.5 mg/dL Normal 11/21/2023 0.1 - 1.2 [facility] AST (SGOT) 9.0 U/L Below low normal 11/21/2023 17 - 35 [facility] UREA NITROGEN 9.0 mg/dL Normal 11/21/2023 8 - 24 [facility] CREATININE 0.8 mg/dL Normal 11/21/2023 0.6 - 1.2 [facility] ALKALINE PHOSPHATASE 51.0 U/L Normal 11/21/2023 39 - 113 [facility] SODIUM 140.0 mmol/L Normal 11/21/2023 137 - 144 [facility] MCHC 33.3 g/dL Normal 11/21/2023 32 - 36 [facility] IMMATURE GRANULOCYTE % 0.2 % Normal 11/21/2023 0 - 0. 6 [facility] BASOPHILS % 0.4 % Normal 11/21/2023 0 - 2 [facility] HEMATOCRIT 39.6 % Normal 11/21/2023 35 - [address] [facility] [address] 2.5 10*3/uL Normal 11/21/2023 0.7 - 4.5 [facility] HEMOGLOBIN 13.2 g/dL Normal 11/21/2023 12 - 16 [facility] RED CELL COUNT 4.57 10*6/ L Normal 11/21/2023 3.8 - 5.[address] [facility] [address] 1.0 10*3/uL Above high normal 11/21/19 24 0.2 - 0.[address] [facility] [address] 0.2 10*3/uL Normal 11/21/2023 0 - 0.[address] [facility] [address] 5.7 10*3/uL Normal 11/21/2023 1.4 - 6.3 [facility] NEUTROPHIL % 60.6 % Normal 11/21/2023 40 - 70 [facility] MCH 28.9 pg Normal 11/21/2023 26 - 34 [facility] LYMPHOCYTE % 26.5 % Normal 11/21/2023 20 - 50 [facility] EOSINOPHIL % 1.7 % Normal 11/21/2023 0 - 6 [facility] MCV 86.7 fL Normal 11/21/2023 80 - 100 [facility] MONOCYTE % 10.6 % Normal 11/21/2023 4 - 12 [facility] WHITE CELL COUNT 9.4 10*3/uL Normal 11/21/2023 3.6 - 11 [facility] AUTO NRBC % 0.0 % Normal 11/21/2023 0 - 0 [facility] RBC DISTRIBUTION WIDTH 12.6 % Normal 11/21/2023 11.6 - 14.8 [facility] PLATELET COUNT 255.0 10*3/uL Normal 11/21/2023 150 - [address] [facility] [address] 0.0 10*3/uL Normal 11/21/2023 0 - 0. 2 [facility] GLUCOSE 112.0 mg/dL Normal 11/02/2023 70 - 200 [facility] CHLORIDE 109.0 mmol/L Normal 11/02/2023 100 - 111 [facility] CREATININE 0.8 mg/dL Normal 11/02/2023 0.6 - 1.2 [facility] GLOMERULAR FILTRATION RATE ML/MIN/1.73 SQ M.PREDICTED 101.0 mL/min/1.73m*2 Normal 11/02/2023 60 - [facility] BICARBONATE 22.0 mmol/L Below low normal 11/02/2023 23 - 32 [facility] ANION GAP 11.0 mmol/L Normal 11/02/2023 3 - 11 [facility] POTASSIUM 3.8 mmol/L Normal 11/02/2023 3.6 - 5.1 [facility] CALCIUM, TOTAL 9.7 mg/dL Normal 11/02/2023 8.4 - 10.2 [facility] SODIUM 142.0 mmol/L Normal 11/02/2023 137 - 144 [facility] UREA NITROGEN 11.0 mg/dL Normal 11/02/2023 8 - 24 [facility] MCHC 32.8 g/dL Normal 11/02/2023 32 - 36 [facility] MONOCYTE % 3.4 % Below low normal 11/02/2023 4 - [address] [facility] [address] 0.1 10*3/uL Normal 11/02/2023 0 - 0.3 [facility] MCV 87.6 fL Normal 11/02/2023 80 - 100 [facility] RBC DISTRIBUTION WIDTH 12.0 % Normal 11/02/2023 11.6 - 14.8 [facility] BASOPHILS % 0.4 % Normal 11/02/2023 0 - 2 [facility] EOSINOPHIL % 0.5 % Normal 11/02/2023 0 - [address] [facility] [address] 1.2 10*3/uL Normal 11/02/2023 0.7 - 4.5 [facility] MCH 28.8 pg Normal 11/02/2023 26 - 34 [facility] AUTO NRBC % 0.0 % Normal 11/02/2023 0 - 0 [facility] RED CELL COUNT 4.52 10*6/ L Normal 11/02/2023 3.8 - 5.[address] [facility] [address] 9.2 10*3/uL Above high normal 11/02/2023 1.4 - 6.[address] [facility] [address] 0.4 10*3/uL Normal 11/02/2023 0.2 - 0.8 [facility] IMMATURE GRANULOCYTE % 0.2 % Normal 11/02/2023 0 - 0. 6 [facility] WHITE CELL COUNT 10.8 10*3/uL Normal 11/02/2023 3.6 - 11 [facility] HEMATOCRIT 39.6 % Normal 11/02/2023 35 - [address] [facility] [address] 0.0 10*3/uL Normal 11/02/2023 0 - 0. 2 [facility] HEMOGLOBIN 13.0 g/dL Normal 11/02/2023 12 - 16 [facility] LYMPHOCYTE % 10.7 % Below low normal 11/02/2023 20 - 50 [facility] NEUTROPHIL % 84.8 % Above high normal 11/02/2023 40 - 70 [facility] PLATELET COUNT 290.0 10*3/uL Normal 11/02/2023 150 - 440 [facility] History of Medication Use Medication Directions Dispensed Refills Start Date End Date Stat lidocaine (LIDODERM) 5 % patch UNWRAP AND APPLY 1 PATCH OVER 12 HOURS TOPICALLY TO SKIN IN THE MORNING FOR 7 DAYS . REMOVE AND DISCARD PATCH WITHIN 12 HOURS OR DIRECTED BY . 08/09/2024 active methocarbamol (ROBAXIN) 500 MG tablet 08/09/2024 active frovatriptan (FROVA) 2.5 mg tablet Take 1 tablet (2.5 mg total) by mouth once as needed for headaches for up to 54 doses. May repeat one time after 2 hours if needed. 03/30/2024 active hydrOXYzine (ATARAX) 10 mg tablet Take 10 mg by mouth. 03/21/2024 03/30/2024 aborted Linzess 72 MCG capsule TAKE 1 CAPSULE(72 MCG) BY MOUTH DAILY 03/03/2024 active levocetirizine (XYZAL) 5 MG tablet 02/27/2024 activ e neomycin-polymyxin B-dexameth (drops, suspension) Instill 1 drop 4x a day x 5 days , 3x a day x 5 days, 2x a day x 5 days, once a day x 5 days then stop 01/27/2024 completed dkhyxblh-wmmpebnur-f exAMETHasone (MAXITROL) 3.5-80656-6.1 ophthalmic suspension 01/27/2024 active linaclotide (LINZESS) 72 mcg capsule Take 1 capsule (72 mcg total) by mouth daily. 11/04/2023 03/03/2024 active hydrOXYzine HCl (ATARAX) 25 MG tablet Take 1 tablet (25 mg total) by mouth 3 (three) times a day as needed for anxiety (or restlessness). 11/04/2023 active ibuprofen (MOTRIN) 600 MG tablet Take 1 tablet (600 mg total) by mouth every 6 (six) hours. 11/04/2023 active dicyclomine (BENTYL) 10 MG capsule TAKE 1 CAPSULE BY MOUTH THREE TIMES DAILY FOR 3 DAYS FOR PAIN. MAY TAKE FOR ABDOMINAL CRAMPS 10/28/2023 active famotidine (PEPCID) 20 MG tablet Take 20 mg by mouth daily. 10/28/2023 active famotidine (PEPCID) tablet Take 20 mg by mouth as needed. 10/28/2023 active Linzess (capsule) 72 mcg comple olga vitamin with iron and folic acid ( PLUS) 27-1 MG Tab Take 1 tablet by mouth daily. active sodium chloride (OCEAN) 0.65 % nasal drops/spray 1 spray into each nostril as needed for congestion. active Problems Problem Status Onset Date Problem Type Date of Resolution Source Cervicalgia active [facility] Ne[facility] muscle sp[facility] active [facility]DiagnosisAct [facility] and not yet delivered active 2019-03-25 ProblemAct [facility] Diarrhea active 2024-01-30 ProblemAct [facility] Migraine active 2024-05-08 ProblemAct [facility] Popping of both ears active 2024-02-27 ProblemAct [facility] Cervical lymphadenopathy active 2024-02-27 ProblemAct [facility] Chronic idiopathic constipation active 2024-01-30 ProblemAct [facility] Change in bowel habit active 2024-01-30 ProblemAct [facility] Other migraine without status migrainosus, not intractable active EncounterDiagnosisAct [facility] Gastroesophageal reflux disease active 2024-02-27 ProblemAct [facility] Throat pain active 2024-02-27 ProblemAct [facility] Hypertrophy of adenoids alone active 2024-02-27 ProblemAct [facility] Facial numbness active 2024-02-[address] [facility] Immunizations Vaccine Date Source Lot Number Status Rho (D) Immune Globulin 03/27/2019 [facility] ompleted Tdap 03/26/2019 [facility] [id number] completed Encounters Encounter Type Encounter Reason Primary Diagnosis Location Date Ambulatory Other muscle spasm Other muscle spasm [facility] 10/28/2024 Ambulatory Other muscle spasm Other muscle spasm [facility] 10/23/2024 Ambulatory Ventricular prematur e depolarization Ventricular premature depolarization [facility] 10/22/2024 Ambulatory Other chest pain Other chest pain [facility] 10/22/2024 Ambulatory Other muscle spasm Other muscle spasm [facility] 10/14/2024 Ambulatory Other muscle spasm Other muscle spasm [facility] 10/08/2024 Ambulatory Other abnormalities of heart beat Other abnormalities of heart beat [facility] 10/05/2024 Ambulatory Other muscle spasm Other muscle spasm [facility] 09/24/2024 Ambulatory Other muscle spasm Other muscle spasm [facility] 09/17/2024 Ambulatory Other muscle spasm Other muscle spasm [facility] 09/10/2024 Ambulatory Other muscle spasm Other muscle spasm [facility] 09/08/2024 Ambulatory Other muscle spasm Other muscle spasm [facility] 08/31/2024 Ambulatory Other muscle spasm Other muscle spasm [facility] 08/26/2024 Ambulatory Other muscle spasm Other muscle spasm [facility] 08/24/2024 Ambulatory Other muscle spasm Other muscle spasm [facility] 08/19/2024 Ambulatory Other muscle spasm Other muscle spasm [facility] 08/14/2024 Emergency Anxiety disorder, unspecified Anxiety disorder, unspecified [facility] 08/12/2024 Ambulatory Other muscle spasm Other muscle spasm [facility] 08/10/2024 Emergency Cervicalgia Cervicalgia [facility] 08/09/2024 Ambulatory Other muscle spasm Other muscle spasm [facility] 08/07/2024 Ambulatory Cervicalgia Cervicalgia [facility] 06/12/2024 Ambulatory Follow-up Follow-up [facility] 05/08/2024 Ambulatory Cervicalgia Cervicalgia [facility] 05/08/2024 Ambulatory Cervicalgia Cervicalgia [facility] 05/01/2024 Ambulatory Headache, unspecified Headache, unspecified [facility] 04/20/2024 Ambulatory Cervicalgia Cervicalgia [facility] 04/17/2024 Ambulatory Cervicalgia Cervicalgia [facility] 04/02/2024 Ambulatory Abdominal Pain Abdominal Pain [facility] 04/02/2024 Ambulatory Headache Headache [facility] 03/30/2024 Ambulatory Cervicalgia Cervicalgia [facility] 03/27/2024 Ambulatory Cervicalgia Cervicalgia [facility] 03/20/2024 Ambulatory [facility] 03/17/2024 Ambulatory Cervicalgia Cervicalgia [facility] 03/12/2024 Ambulatory Localized enlarged lymph nodes Localized enlarged lymph nodes [facility] 03/06/2024 Ambulatory Localized enlarged lymph nodes Localized enlarged lymph nodes [facility] 03/06/2024 Ambulatory Localized enlarged lymph nodes Localized enlarged lymph nodes [facility] 02/27/2024 Ambulatory Gastro-esophageal reflux disease without Gastro-esophageal reflux disease without esophagitis [facility] 02/27/2024 Ambulatory Headache, unspecified Headache, unspecified [facility] 01/30/2024 Ambulatory [facility] 01/27/2024 Ambulatory Difficulty Swallowing Difficulty Swallowi ng [facility] 01/02/2024 Ambulatory [facility] 12/06/2023 Emergency Cervicalgia Cervicalgia [facility] 12/02/2023 Emergency Headache, unspecified Headache, unspecified [facility] 11/29/2023 Emergency Headache, unspecified Headache, unspecified [facility] 11/20/2023 Emergency Headache, unspecified Headache, unspecified [facility] 11/09/2023 Emergency Headache, unspecified Headache, unspecifi ed [facility] 11/06/2023 Emergency stiff neck , shortness of breath , stiff neck , shortness of breath , [facility] 11/04/2023 Emergency Chronic sinusitis, unspecified Chronic sinusitis, unspecified [facility] 11/04/2023 Ambulatory Chronic idiopathic constipation Chronic idiopathic constipation [facility] 11/04/2023 Emergency Headache, unspecified Headache, unspecifi ed [facility] 11/02/2023 Emergency Headache, unspecified Headache, unspecified [facility] 11/01/2023 Emergency Unspecified abdomina l pain Unspecified abdominal pain [facility] 10/29/2023 Emergency Nausea with vomi ting, unspecified [facility] 12/22/2022 Emergency Tubulo-interstit ial nephritis, not specified as acute or chronic [facility] 08/17/2022 Ambulatory Acne vulgaris [facility] 06/25/2022 Ambulatory Pain in right knee [facility] 11/03/2021 Care Team Organization Name Specialty Phone Email Start Date End Da te [facility] Joan Sánchez Primary Care 03/22/2025 [facility] Sonya Cruz Primary Care 06/09/2024 [facility] 02/04/2024 11/10/2024 [facility] 12/25/2023 [facility] 12/25/2023 [facility] HAI CLARK Primary Care 11/03/2023 [facility] HAI LY Primary Care 11/02/19 [facility] 11/02/2023 [facility] 08/08/2023 024 [facility] HAI CLARK Primary Care 07/05/2023 [facility] 06/28/2023 024 [facility] 04/18/2023 11/07/2024 [facility] Linn Machado Primary Care 12/27/2022 [facility] Linn Machado Primary Care 12/22/2022 [facility] LINN MACHADO Primary Care 10/29/2022 [facility] 08/17/2022 12/23/2024 [facility] 11/03/2021 08/17/2022
--- OUTSIDE RECORDS SUMMARY | 2025-05-20 11:40 | XMS_ITS | Clinical Summary ---
Author Organization [facility] Address [address] [place] [address] Care Team Providers Care Claims Investigator Name Role Phone Carol Wiseman ANDI Primary [...] WEEKS 02/01/20 24 Active neomycin-polymyxin -dexAMETHasone (MAXITROL) 3.5-53461-3.1 ophthalmic suspension 01/27/20 24 Active MAGNESIUM PO Take by mouth. Ac tive sodium chloride (OCEAN) 0.65 % nasal drops/spray 1 spray into each nostril as needed for congestion. Active ppxsjl-cjiamjabj-q agnesium sulfates (Suprep Bowel Prep Kit) 17.5-3.13-1.6 [...] of 3 - 19+ 3-dose series) 2011 HPV Vaccines (1 - 3-dose SCD M series) 2019 Pap Smear (Ages 21-65) 05/29/2022 05/29/2019 COVID-19 Vaccine (1 - 2023-2 5 season) 2024 Influenza Vaccine 05/07/2025 DTaP/Tdap/Td Vaccines (2 - T d or Tdap) 03/26/2029 03/26/2019 HIV Screening Completed 12/16/2018, 12/16/2018 Pneumococcal Vaccine: Pediatric (0-5 Years) and At-Risk Patients (6 to 49 Years) Aged Out No longer eligible b ased on patient's age to complete this topic Procedures Procedure Name Priority Date/Time Associated Diagnosis Comments THINPREP PAP TEST (OUTSIDE SALES MANAGER) WITH HPV REFLEX, GC/CT Routine 05/29/2019 12:00 AM EDT HIV 1/2 AG/AB CMIA REFLEX TO CONFIRMATION Routine 12/16/2018 10:14 AM EDT from Last 3 Months or Most Recently Relevant to Health Maintenance Results * ThinPrep Pap Test (Display Screen Fabricator) with HPV Reflex, GC/CT (05/29/2019 12:00 AM [...] has been evaluated with computer assisted technology. Community Manager: [facility] Comment: MAA, CT(ASCP) CT screening location: [facility] [address] Comment [facility] Comment: EXPLANATORY NOTE: The Pap [...] was performed using the APTIMA COMBO2 Assay ([employer] The analytical performance characteristics of this assay, when used to test SurePath specimens have been determined by [facility]. 05/29/2019 05/30/2019 2:2 0 AM EDT Narrative [facility] - 06/04/2019 11:28 AM EDT Ordered by External Provider. [id number], WAYNE FELICIANO, A Resulting Agency Comment Performing Organization Information: Site ID: [id number] Name: [facility] Address: [address] [place] [address], [place] [address] Director: Shamir Raza MD us External Provider LAB AMB PATH/CYTO ORDERABLE S Final Result [facility] [address], [place] [address] * HIV 1/2 Ag/Ab CMIA Reflex to [...] purpose. For additional information please refer to [email or web address] (This link is being provided for informational/ educational purposes only.) The performance of this assay has not been clinically validated in patients less than 2 years old. 12/16/2018 10:1 4 AM EDT 12/16/2018 10:42 PM EDT Narrative [facility] - 12/17/2018 2:10 PM EDT FASTING:YES AN UPDATE OR CORRECTION HAS BEEN MADE TO NAME FASTING: YES Ordered by External Provider. [id number], PASTOR MANN K Resulting Agency Comment Performing Organization Information: Site ID: [id number] Name: [facility] Address: [address] [place] [address], [facility] [place] [address] Director: Shamir Raza MD External Provider LAB BLOOD ORDERABLES Final Result [facility] [address] [place] [address], [place] [address] from Last 3 Months or Most Recently Relevant to Health Maintenance Insurance [facility] Advance Directives * Full Code (Latest Code Status on File) Date Activated Date Inactivated Comments 03/26/2019 8:16 AM 08/17/2022 5:59 AM * Full Code Date Activated Date Inactivated Comments 03/25/2019 10:03 AM 03/26/2019 8:16 AM * Full Code Date Activated Date Inactivated Comments 03/03/2019 12:21 PM 03/25/2019 9:44 AM Care Teams Claims Investigator Relationship Specialty Start Date End Date Carol Wiseman APRN [address] [place] [id number] PCP - General Family Medicine 11/02/23
== END ==
LOC: HO.CARD 10:34
PROVIDERS: PCP Family Medicine; Visit Provider Internal Medicine
DX: I49.3 Ventricular premature depolarization (principal); R07.89 Other chest pain
CPT/HCPCS: 93225; 93306

== ENCOUNTER → 2025-05-20 10:38 | Outpatient (BNV) | payer MEDICAID, SELFPAY | PROVIDERS: PCP Family Medicine; Visit Provider Internal Medicine Cardiovascular Disease | DX: R07.89 Other chest pain (principal) | CPT/HCPCS: 93306 ==

== ENCOUNTER 2025-06-18 13:17 | Outpatient (AMB) | payer MEDICAID, SELFPAY ==
--- OUTSIDE RECORDS SUMMARY | 2024-10-15 06:00 | XMS_ITS ---
Author Organization [facility] Address [address] [place] [id number] Care Team Providers Care Marine Fire Fighter Name Role Phone Joan Sánchez Primary Care Provider [phone] Sonya Franz [phone] REASON FOR VISIT Vax visit per apt card- [facility] Social History Sex Assigned At : Social History Observation Description Sex Assigned At Female Encounters Encounter Location Date Provider [place] [address] 10/15/2024 Sonya Franz Plan Of Treatment No Information Progress Notes * PELAEZ GIBSONDona OLIVERAOB: 1990 (34 yo F)Acc No.[id number]:10/15/2024 Patient: Gregory PADRONJulia OLIVERA Provider: Sacha Cruz :1990 A ge:34 Y S ex:Female Date:10/15/2024 External Visit ID:[id number] Address:[address] [place], [place] [id number] Pcp:Joan Sánchez Subjective: * Chief Complaints: * 1 . Vax visit per apt [facility]. * Medical History: Objective: * Vitals: * Physical Examination: Assessment: Plan: * Treatment: * Billing Information: * Visit Code: * Procedure Codes: * Electronic signature of Reymundo Sheridan APRN on 06/18/2025 at 03:50 PM EDT Sign off status: Pending * Provider: Sacha Cruz Date: 0 10/15/2024 Generated for Maricarmen junior/Kierra/Maryitting on: 0 06/18/2025 03:50 PM EDT
--- OUTSIDE RECORDS SUMMARY | 2024-10-23 06:20 | XMS_ITS ---
Author Organization [facility] [facility] [employer] [facility] Address [address] [place] [phone] Care Team Providers Care Briquetting Machine Operator Name Role Phone Joan Sánchez Primary Care Provider [phone] Sonya Franz REASON FOR VISIT Vax visit per [employer]- e(ye)BRAIN r/s 10/15/2024 mar, Immunization update Social History Sex Assigned At : Social History Observation Description Sex Assigned At Female Encounters Encounter Location Date Provider Diagnosis [address] [address] 10/23/2024 Sonya Franz Plan Of Treatment No Information Progress Notes * PELAEZ GIBSONDona OLIVERAOB: 1990 (34 yo F)Acc No.[id number]:10/23/2024 Patient: Gregory PADRONGARoberthlarry Provider: Sacha Cruz :1990 A ge:34 Y S ex:Female Date:10/23/2024 External Visit ID:[id number] Address:[address] [place], [place] [id number] Pcp:Joan Sánchez Subjective: * Chief Complaints: * 1 . Vax visit per [employer]- e(ye)BRAIN r/s 10/15/2024 mar. 2. Immunization update. * HPI: V accination: Reaction History : . feeling well : . indication for Vaccine : . * Medical History: Objective: * Vitals: * Physical Examination: Assessment: Plan: * Treatment: * Billing Information: * Visit Code: * Procedure Codes: * Electronic signature of Reymundo Sheridan APRN on 06/18/2025 at 03:49 PM EDT Sign off status: Pending * Provider: Sacha Cruz Date: 0 10/23/2024 Generated for Maricarmen Saleh on: 0 06/18/2025 03:49 PM EDT History and Physical Notes * HPI (History of Present Illness) Category Sub-Category Detail Notes Category Not es Vaccination Reaction History : feeling well : indication for Vaccine :
--- NOTE | 2025-06-18 13:27 | A.OFFVIS_ITS ---
Vital Signs 06/18/25 13:28 Height 5 ft 6 in Weight 186 lb 8.177 oz BMI 30.1 BP 120/70 Blood Pressure Location Lt brachial Position Sitting Pulse 72 Pulse Source Pulse Oximeter Intake Visit Reasons: follow up/echo/holter Building And Construction Manager Required: No Accompanied by: Spouse Allergies No Known Allergies Allergy (Verified 06/18/25 13:30) Medication List - Last Reconciled 06/18/25 by Darrian Obando NP diclofenac sodium 1% (Arthritis Pain (diclofenac)) 2 grams topical QID PRN ibuprofen 600 mg PO Q8H PRN HPI Comments Details: This is a 34-year-old female patient coming in for a follow-up visit. Patient states that she was previously seen in [place] cardiology for ongoing chest discomfort for which patient underwent a stress test but given her ongoing symptoms and her moving to this area, patient was seen here in the office in regards to her ongoing chest discomfort and palpitations for which patient underwent an echo study and a Holter study. Today, patient is reporting improvement in her symptoms however her main concern is about the chronic headaches for which patient is trying to establish in Neurology care here. Patient thinks that this is stressing her out and her chest discomfort could be from that. Patient is otherwise with no history of cardiomyopathy, coronary artery disease or ischemic heart disease. [facility]LY [facility] Medical History Chronic idiopathic constipation GERD (gastroesophageal reflux disease) delivery delivered Chest pain of uncertain etiology Muscle spasm Whole body pain Decreased visual acuity Chronic constipation Chronic neck pain Chronic headache Surgical History H/O eye surgery Family History Mother High blood pressure Colitis Father High blood pressure High cholesterol Fatty liver Social History Alcohol intake: never Patient Tobacco Use Status: Former Tobacco user Review of Systems Const Denies daytime sleepiness, Denies difficulty sleeping, Denies snoring, Denies stops breathing during sleep and Denies weakness Card Denies chest pain, Denies rapid heart rate, Denies irregular heart rhythm, [place] es claudication, Denies leg edema, Denies lightheadedness, Denies palpitations, Denies dyspnea, Denies dyspnea on exertion, Denies orthopnea, Denies paroxysmal nocturnal dyspnea and Denies slow heart rate Resp Denies cough, Denies dyspnea, Denies dyspnea on exertion and Denies snoring GI Reports no additional complaints, Denies hematochezia, Denies change in stool character and Denies dyspepsia Musc Denies abnormal gait, Denies muscle weakness and Denies numbness Neuro Denies abnormal gait, Denies numbness and Denies weakness Endo Denies palpitations Physical Exam Vital Signs: Last Vital Signs Pulse 72 06/18/25 13:28 BP 120/70 06/18/25 13:28 BMI result Body Mass Index 30.1 Const General: cooperative, healthy appearing, comfortable and no acute distress Orientation/consciousness: patient oriented x3 HEENT Head: Yes normal to inspection Neck Neck: Yes normal visual inspection, Yes trachea midline and Yes supple Chest Chest palpation & inspection: normal inspection of the chest Resp Effort & Inspection: normal respiratory effort Auscultation: clear to auscultation bilaterally, no crackles, no rales, no rhonchi and no wheezes Cardio Jugular venous distension: no JVD Palpation: normal PMI Rate: regular rate Rhythm: regular rhythm Heart sounds: S1 normal heart sound present, S2 normal heart sound present, no click, no gallops, no murmurs and no rubs Peripheral pulses: Peripheral pulses 2+ throughout GI Inspection: Yes normal to inspection Palpation (GI): Soft to palpation Auscultation: normal bowel sounds Skin General skin exam: no rashes or lesions noted Neuro General: patient oriented x3 Extrem General: Yes normal to inspection, No no pedal edema and No calf tenderness Psych Appearance: grossly normal Mental Status: mental status grossly normal Speech and movement: Normal speech and movement present Assessment & Plan Assessment & Plan (1) Atypical chest pain: Code(s): R07.89 - Other chest pain Category: Medical (2) PVC (premature ventricular contraction): Code(s): I49.3 - Ventricular premature depolarization Category: Medical Plan 10/22/2024-patient had undergone a ETT in [place] with a moderate workload without any ischemic EKG changes. 05/20/2025-echo study showed a normal LV systolic function with an ejection fraction between 60-65%. 05/20/2025-Holter study showed a normal sinus rhythm with a rare supraventricular ectopies and ventricular ectopies with a burden of 1.7%. Given above findings and improvement in her symptoms, no further testing indicated at this time. Patient's symptoms most likely due to stress. Blood pressure within normal limits. Advised heart healthy diet, regular exercise, losing weight, stress mitication strategies, adequate hydration, and avoiding caffeinated beverages. Patient will follow up on an as-needed basis. In the interim, patient will call the office with any concerns and change in symptoms. This note was generated using voice recognition software. While every effort has been made to ensure accuracy and proper roof cement and paint maker, there may be occasional errors that could affect the content or meaning of the described symptoms. Coding Level of Care Code Est Pt Level 3 (05892) Complex EM visit Add On G2211 Diagnoses Atypical chest pain R07.89 PVC (premature ventricular contraction) I49.3 Time Spent (min) 29 Comment Time spent in reviewing the chart, test results, assessment, counseling and documentation.
[2025-06-18 13:28] VITALS: BP 120/70; PULSE 72; BMI 30.1
--- OUTSIDE RECORDS SUMMARY | 2025-06-18 15:50 | XMS_ITS | Encounter Summary ---
Author Organization [employer] Address [address] [facility] [address] [place] [address] Care Team Providers Care Park Maintenance Technician Name Role Phone Deonna Lion DO Primary Care Provider Encounter Details Date Type Department Care Team (Late st Contact Info) Description 01/07/2025 Orders Only [facility] [address] [place] [address] Meli Salazar RN Social History Tobacco Use [...] EDT) Vitamin D, 25-OH, D2 <4 ng/mL [facility] Comment:This test was develo ped and its analytical performancecharacteristics have been determined by [facility] [place], [place]. It hasnot been cleared or approved by the U.S. Food and DrugAdministration. This assay has been validated pursuantto the CLIA regulations and is used for clinicalpurposes.THIS TEST WAS PERFORMED AT:[facility] [place] [address]HNGZPJQLEEANNA FOWLER MD,PHD Vitamin D, 25-OH, D3 24 ng/mL [facility] Comment:This test was develo ped and its analytical performancecharacteristics have been determined by [facility] [place], [place]. It hasnot been cleared or approved by the U.S. Food and DrugAdministration. This assay has been validated pursuantto the CLIA regulations and is used for clinicalpurposes. Vitamin D, 25-OH, Total 24(A) 30 - 100 ng/mL [facility] Comment:Vitamin D, 25-Hydrox y reports [...] = 30 ng/mL.For additional information, please refer tohttp://education.[employer]/faq/MJO682(This link is being provided for informational/educational purposes only.) 04/02/2025 2:25 PM EDT 04/02/2025 2:25 PM EDT Generic External Data Provider LAB BLOOD ORDERAB LES Final Result Performing Organization Address [facility] de Phone Number [facility] [address] [place] [phone] * Tissue Transglutaminase Antibody, IgA (04/02/2025 2:25 PM EDT) Transglutaminase IgA <1.0 U/mL [facility] Comment:Value Interpretation ----- <15.0 Antibody not detected> or = 15.0 Antibody detectedTHIS TEST WAS PERFORMED AT:[facility] [address] [id number] HATCH MD 04/02/2025 2:25 PM EDT 04/02/2025 2:25 PM EDT Generic External Data Provider LAB BLOOD ORDERAB LES Final Result Performing Organization Address [facility] Phone Number [facility] [address] [place] [phone] * Vitamin B12 (Cobalamin) and Folate Panel, Serum (04/02/2025 2:25 PM EDT) Vitamin B12 371 200 - 900 pg/mL [facility] Comment:NORMAL 200-900 PG/ML INDETERMINATE 160-199 PG/ML DEFICIENT < 160 PG/ML Folate 12.1 > or = 4.0 ng/mL [facility] Comment:Reference Values:> o r = 4.0 ng/mL< 4.0 ng/mL suggests folate deficiency Methotrexate, aminopterin and folinic acid(leucovorin) are chemotherapeutic agents whose molecularstructures are similar to folate; therefore, the Architectfolate assay cannot be used for patients using these drugs. 04/02/2025 2:25 PM EDT 04/02/2025 2:25 PM EDT Generic External Data Provider LAB BLOOD ORDERAB LES Final Result Performing Organization Address [facility] Co de Phone Number [facility] [address] [place] [phone] * TSH with Reflex to Free T4 (04/02/2025 2:25 PM EDT) TSH reflex Free T4 0.98 0.32 - 4.0 uIU/mL [facility] 04/02/2025 2:25 PM EDT 04/02/2025 2:25 PM EDT Generic External Data Provider LAB BLOOD ORDERAB LES Final Result Performing Organization Address [facility] Phone Number [facility] [address] [place] [phone] * Lipase (04/02/2025 2:25 PM EDT) Lipase 27 8 - 78 U/L [facility] 04/02/2025 2:25 PM EDT 04/02/2025 2:25 PM EDT Generic External Data Provider LAB BLOOD ORDERAB LES Final Result Performing Organization Address [facility] de Phone Number [facility] [address] [place] [phone] * Helicobacter pylori, Urea Breath Test (04/02/2025 1:55 PM EDT) H. pylori Breath Test Negative Negative [facility] Comment:Antimicrobials, prot on pump inhibitors and bismuthpreparations are known to suppress H. pylori. Ingestingthese medications within two weeks prior to performing thebreath test may produce negative test results. A positiveresult is still clinically valid. 04/02/2025 1:55 PM EDT 04/02/2025 4:48 PM EDT us Generic External Data Provider LAB BODY FLUIDS A ND STOOLS ORDERABLES Final Result Performing Organization Address City/State/[facility] Co de Phone Number [facility] [address] [place] [phone] documented in this encounter Visit Diagnoses Not on filedocumented in this encounter Care Teams Park Maintenance Technician Relationship Specialty Start Date End Date Deonna Lion DO [address] [place] [phone] PCP - General Family Medicine 12/03/24 documented as of this encounter
--- OUTSIDE RECORDS SUMMARY | 2025-06-18 15:50 | XMS_ITS | Clinical Summary ---
Author Organization [facility] Address [address] [place] [address] Care Team Providers Care Curriculum Coach Name Role Phone Carol Wiseman ANDI Primary [...] WEEKS 02/01/20 24 Active neomycin-polymyxin -dexAMETHasone (MAXITROL) 3.5-31824-9.1 ophthalmic suspension 01/27/20 24 Active MAGNESIUM PO Take by mouth. Ac tive sodium chloride (OCEAN) 0.65 % nasal drops/spray 1 spray into each nostril as needed for congestion. Active zybeoq-pnanydocx-a agnesium sulfates (Suprep Bowel Prep Kit) 17.5-3.13-1.6 [...] 2019 Pap Smear (Ages 21-65) 05/29/2022 05/29/2019 Influenza Vaccine 05/07/2025 COVID-19 Vaccine (1 - 2023-2 5 season) 2025 DTaP/Tdap/Td Vaccines (2 - T d or Tdap) 03/26/2029 03/26/2019 HIV Screening Completed 12/16/2018, 12/16/2018 Pneumococcal Vaccine: Pediatric (0-5 Years) and At-Risk Patients (6 to 49 Years) Aged Out No longer eligible b ased on patient's age to complete this topic Procedures Procedure Name Priority Date/Time Associated Diagnosis Comments THINPREP PAP TEST (SAND MILL OPERATOR) WITH HPV REFLEX, GC/CT Routine 05/29/2019 12:00 AM EDT HIV 1/2 AG/AB CMIA REFLEX TO CONFIRMATION Routine 12/16/2018 10:14 AM EDT from Last 3 Months or Most Recently Relevant to Health Maintenance Results * ThinPrep Pap Test (Inventory Planner) with HPV Reflex, GC/CT (05/29/2019 12:00 AM [...] has been evaluated with computer assisted technology. Triage Clinician: [facility] Comment: MAA, CT(ASCP) CT screening location: [facility] [address] Comment [facility] Comment: EXPLANATORY NOTE: The Pap [...] was performed using the APTIMA COMBO2 Assay ([employer] The analytical performance characteristics of this assay, when used to test SurePath specimens have been determined by [facility]. 05/29/2019 05/30/2019 2:2 0 AM EDT Narrative [facility] - 06/04/2019 11:28 AM EDT Ordered by External Provider. [id number], WAYNE FELICIANO, A Resulting Agency Comment Performing Organization Information: Site ID: [id number] Name: [facility] Address: [address] [place] [address], [place] [address] Director: Shamir Raza MD us External Provider LAB AMB PATH/CYTO ORDERABLE S Final Result [facility] [address], [place] [address] * HIV 1/2 Ag/Ab CMIA Reflex to [...] purpose. For additional information please refer to http://education.[employer].Identiv/faq/ZOU048 (This link is being provided for informational/ educational purposes only.) The performance of this assay has not been clinically validated in patients less than 2 years old. 12/16/2018 10:1 4 AM EDT 12/16/2018 10:42 PM EDT Narrative [facility] - 12/17/2018 2:10 PM EDT FASTING:YES AN UPDATE OR CORRECTION HAS BEEN MADE TO NAME FASTING: YES Ordered by External Provider. [id number], PASTOR MANN K Resulting Agency Comment Performing Organization Information: Site ID: [id number] Name: [facility] Address: [address] [place] [address], [facility] [place] [address] Director: Shamir Raza MD External Provider LAB BLOOD ORDERABLES Final Result [facility] [address] [place] [address], [place] [address] from Last 3 Months or Most Recently Relevant to Health Maintenance Insurance [facility] Advance Directives * Full Code (Latest Code Status on File) Date Activated Date Inactivated Comments 03/26/2019 8:16 AM 08/17/2022 5:59 AM * Full Code Date Activated Date Inactivated Comments 03/25/2019 10:03 AM 03/26/2019 8:16 AM * Full Code Date Activated Date Inactivated Comments 03/03/2019 12:21 PM 03/25/2019 9:44 AM Care Teams Curriculum Coach Relationship Specialty Start Date End Date Carol Wiseman APRN [address] [place] [phone] PCP - General Family Medicine 11/02/23
--- OUTSIDE RECORDS SUMMARY | 2025-06-18 15:50 | XMS_ITS | Encounter Summary ---
Author Organization [facility] Address [address] [place] [address] Care Team Providers Care Box Feeder Name Role Phone Carol Wiseman APRN Primary Care Provider Encounter Details Date Type Department Care Team (Late st Contact Info) Description 11/04/2023 Scanned Document GENERIC EXTERNAL DATA DEPARTMENT Clary Luke MD [address] [place] [address] Social History Tobacco Use Types Packs/Day Years Used Date Smoking Tobacco: Never Smokeless Tobacco: Never Alcohol Use Standard Drinks/Week Comments Yes 1 (1 standard drink = 0.6 oz pur e alcohol) 1 Mixed drink, once q 2 mths Comments No Sex and Gender Information Value Date Recorded Sex Assigned at Female 12/22/2022 2:26 AM EDT Legal Sex Female 8:57 AM EDT Gender Identity Female 12/22/2022 2:26 AM EDT Sexual Orientation Heterosexual (straight) 11/04 9:12 PM EST documented as of this encounter Plan of Treatment Not on file documented as of this encounter Visit Diagnoses Not on filedocumented in this encounter Care Teams Box Feeder Relationship Specialty Start Date End Date Carol Wiseman APRN [address] [place] [address] PCP - General Family Medicine 11/02/23 documented as of this encounter
--- OUTSIDE RECORDS SUMMARY | 2025-06-18 15:50 | XMS_ITS | Encounter Summary ---
Author Organization [facility] Address [address] [place] [address] Care Team Providers Care Mixer Machine Feeder Name Role Phone Carol Wiseman APRN Primary Care Provider Encounter Details Date Type Department Care Team (Late st Contact Info) Description 12/18/2023 Scanned Document [address] [phone] Neurology, Scan Social History Tobacco Use Types Packs/Day Years [...] on filedocumented in this encounter Care Teams Mixer Machine Feeder Relationship Specialty Start Date End Date Carol Wsieman APRN [address] [place] [phone] PCP - General Family Medicine 11/02/23 documented as of this encounter
--- OUTSIDE RECORDS SUMMARY | 2025-06-18 15:50 | XMS_ITS | Patient Health Record ---
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 Name Role Phone Princess Joan Primary Care Provider [phone] Tacos Rudolph Unavailable [phone] Alka Pfeiffer LCSW Unavailable [phone] Sonya Franz Unavailable [phone] KerrieMontserrat mai Unavailable [phone] Payam Hillothy Unavailable [phone] millerDeborah Beauchamp Unavailable [phone] Allergies No Known Allergies Results Component Value Reference Range Notes EKG IH Reviewed date:08/27/2024 08:29:34 AM Interpretation: Performing Lab: Notes/Report: Heart Rate 73 Systolic Blood Pressure 0 Diastolic Blood Pressure 0 IN Interval 124 QT Interval 348 QTc Interval 370 PWave Iuka 49 QRS Duration 80 QrsWave Iuka 55 TWave Iuka 32 Diastolic Blood Pressure 0 Mean Heart Rate 0 MeanRR Interval 0 Systolic Blood Pressure 0 MaxRR Interval 0 MinRR Interval 0 NumBeats 0 Basic Metabolic Panel w/eGFR 97160 Reviewed date:08/27/2024 08:29:34 AM Interpretation: Performing Lab:NL1, , [address] [facility], [address] Shamir Raza M.D. Notes/Report: Received Date: 0; 0 FASTING:NO FASTING: NO GLUCOSE 91 65-139 mg/dL Non-fasting reference interval UREA NITROGEN (BUN) 10 7-25 mg/dL CREATININE 0.58 0.50-0.97 mg/dL EGFR 123 > OR = 60 mL/min/1.73m2 BUN/CREATININE RATIO SEE NOTE: 6-22 (calc) Not Reported: BUN and Creatinine are within reference range. SODIUM 139 135-146 mmol/L POTASSIUM 3.9 3.5-5.3 mmol/L CHLORIDE 105 98-110 mmol/L CARBON DIOXIDE 26 20-32 mmol/L CALCIUM 9.2 8.6-10.2 mg/dL TSH w/Free T4 rfx 83333 Reviewed date:08/27/2024 08:29:34 AM Interpretation: Performing Lab:NL1, , [address] [place], [address] Shamir Raza M.D. Notes/Report: Received Date: 0; 0 FASTING:NO FASTING: NO TSH W/REFLEX TO FT4 0.51 Reference Range > or = 20 Years 0.40-4.50 Ranges First trimester 0.26-2.66 Second trimester 0.55-2.73 Third trimester 0.43-2.91 Vitamin D,1,25-Dihydroxy 165 58 Reviewed date:08/27/2024 08:29:34 AM Interpretation: Performing Lab:[facility], , [address], [place], [place], Gaurav Alvarez M.D.,PhD Notes/Report: Received Date: 0; 0 FASTING:NO FASTING: NO VITAMIN D, 1,25 (OH)2, TOTAL 30 18-72 pg/mL VITAMIN D3, 1,25 (OH)2 30 VITAMIN D2, 1,25 (OH)2 <8 Vitamin D3, 1,25(OH)2 indicates both endogenous production and supplementation. Vitamin D2, 1,25(OH)2 is an indicator of exogenous sources, such as diet or supplementation. Interpretation and therapy are based on measurement of Vitamin D,1,25(OH)2, Total. This test was developed and its analytical performance characteristics have been determined by [facility], [place], [place]. It has not been cleared or approved by the FDA. This assay has been validated pursuant to the CLIA regulations and is used for clinical purposes. CBC (INCLUDES DIFF/PLT) (REF L) [id number] Reviewed date:08/27/2024 08:29:34 AM Interpretation: Performing Lab:NL1, , [address] [place], [address] Shamir Raza M.D. Notes/Report: Received Date: 0; 0 FASTING:NO FASTING: NO WHITE BLOOD CELL COUNT 7.8 3.8-10.8 Thousand/ uL RED BLOOD CELL COUNT 4.47 3.80-5.10 Million/uL HEMOGLOBIN 13.0 11.7-15.5 g/dL HEMATOCRIT 40.7 35.0-45.0 % MCV 91.1 80.0-100.0 fL MCH 29.1 27.0-33.0 pg MCHC 31.9 32.0-36.0 g/dL For adults, a slight decrease in the calculated MCHC value (in the range of 30 to 32 g/dL) is most likely not clinically significant; however, it should be interpreted with caution in correlation with other red cell parameters and the patient's clinical condition. RDW 11.7 11.0-15.0 % PLATELET COUNT 293 140-400 Thousand/uL MPV 11.1 7.5-12.5 fL ABSOLUTE NEUTROPHILS 4852 4975-3901 cells/uL ABSOLUTE LYMPHOCYTES 6212 464-5630 cells/uL ABSOLUTE MONOCYTES 764 200-950 cells/uL ABSOLUTE EOSINOPHILS 179 15-500 cells/uL ABSOLUTE BASOPHILS 47 0-200 cells/uL NEUTROPHILS 62.2 LYMPHOCYTES 25.1 MONOCYTES 9.8 EOSINOPHILS 2.3 BASOPHILS 0.6 Reason For Referral Reason 33-year-old female w ith intermittent episodes of chest pain occurring for the last 9 months. Sometimes squeezing, sometimes sharp in nature, episodes can sometimes last a couple days. EKG in office within normal limits. Because she had reported chest pains to GI, they are requiring cardiology clearance before colonoscopy. Please evaluate thanks Diagnosis 1 Chest pain (R07.9) Referral Organization [facility] Referring Provider First Name Montserrat Referring Provider Last Name Aspluavelino Referring Provider Speciality [facility] Referred Provider [facility], Cardiology Referred Provider Specialty Cardiology General Notes Montserrat Cabello 06/07 02:00:09 PM >face to face, Melanie Larson 06/23/2024 03:59:48 PM >faxed referral with the last visit note med summary and EKG, [facility], [address] [place] [address], [id number], , , sms sent to the patient with the contact info, fax confirmed through ecw Referral Priority Routine Reason chronic intermittent neck pain with occipital headache. please eval and treat Diagnosis 1 Neck muscle spasm (M 62.838) Referral Organization [facility] Referring Provider First Name Deborah Referring Provider Last Name Debi Referring Provider [facility] Referred Provider [facility] Referred Provider Specialty Acupuncturis kayleen General Notes Indino Referral Amanda Berkowitz 2024 03:50:12 PM > to provider [facility] does not cover acupuncture pt would have to pay out of pocket please advise. Thank you, Jeremy Referral CoordMarylou Lupe Skye 08/12/2024 04:52:00 PM >Faxed Referral, Medical Summary, Progress Notes sent to , [facility] , [employer] [address] [place] [address] , Office would contact Pt to schedule Appointment, Referral letter send via Kaye Clinical Notes Deborah Beauchamp 2023 12:22:32 PM > please communicate to patient per your usual protocol that it's not covered by insurance. Thansk Referral Priority Routine Reason chronic intermittent neck pain with occipital headache. please eval and treat Diagnosis 1 Neck muscle spasm (M 62.838) Referral Organization [facility] Referring Provider First Name Deborah Referring Provider Last Name Debi Referring Provider [facility] Referred Provider [facility],, Physical Therapy Referred Provider Specialty Physical The [facility]ira General Notes Indino Referral Amanda Berkowitz 2024 02:32:28 PM > Faxed Referral, Progress notes, medical summary sent to: [address] , P: F: [phone] Office would contact Pt to schedule Appointment, Referral letter send via SMS. Referral Priority Routine Reason chronic intermittent neck and occipital headache. please eval and treat Diagnosis 1 Neck muscle spasm (M 62.838) Referral Organization [facility] Referring Provider First Name Deborah Referring Provider Last Name Debi Referring Provider Speciality [facility] Referred Provider Chiropractic, Center Referred Provider Specialty Chiropractor General Notes Indino Referral Amanda Berkowitz 2024 03:53:54 PM > Faxed Referral, Progress notes, medical summary sent to: [facility]ropractor [address] [place] [address], [phone] Office would contact Pt to schedule Appointment, Referral letter send via SMS. Referral Priority Routine Medications Medication SIG (Take, Route, Frequency, Duration) Notes Start Date End Date Status Famotidine 40 MG 1 tablet at bedtime Orally Once a day for 30 days FOR REFLUX PRN 12/05/2023 Not-Taking Diclofenac Sodium 1 % apply 4 grams to the affected area Externally up to 4 times daily for 30 11/13/2023 Not-Taking Ibuprofen 600 MG 1 tablet with food or milk as needed Orally Three times a day for 30 days As needed 10/06/2024 Active Linzess 72 MCG 1 capsule at least 30 minutes before a meal Orally Once a day for 30 days Not-Taking Acetaminophen 500 MG 1 capsule as needed Orally every 6 hrs PRN HEADACHES Active hydrOXYzine HCl 10 MG 1 tablet as needed Orally Once a day for 28 days PRN ANXIETY Not-Taking Omeprazole 40 MG 1 capsule 30 minutes before morning meal Orally Once a day for 90 days Active Immunizations Vaccine Route Administration Date Status Comme nts Influenza (Declined) Unknown 12/11/2022 Refused Social History Tobacco Use: Social History Observation Description Date Details (start date - stop date) Never Smoker NA - NA Sex Assigned At : Social History Observation Description Sex Assigned At Female Smoking Question Answer Notes Are you a: never smoker Alcohol Question Answer Notes Did you have a drink contain ing alcohol in the past year? Yes How often did you have a dri nk containing alcohol in the last year Monthly or less (1 point) How many drinks did you have on a typical day when you were drinking? 1 or 2 (0 points) How often did you have six o r more drinks on one occasion in the last year? Never (0 points) Points 1 Interpretation Negative Sexual History Question Answer Notes Had sex in the past 12 months Yes with Men only Have you ever had an STD? Yes Chlamydia Yes Tobacco Control (Standard) Question Answer Notes Tobacco use: Nonsmoker Problems Problem Type SNOMED Code ICD Code Onset Dates Problem Status W/U Status Risk Notes Problem 91276631 Generalized anxiety disorder (F41.1) Active confirmed Problem 920964074 Dysmenorrhea (N94.6) Active confirmed Problem 248393197 Overweight (BMI 25.0-29.9) (E66.3) Active confirmed Problem 25939363 Neck pain (M54.2) Active confirmed Problem 77293164 Migraine syndrome (G43.909) Active confirmed Problem 72761672 Metallic taste (R43.8) Active confirmed (01/14/24) Exam stable. No red flags. Unclear etiology at this point. Highly suspicious that GERD may be contributing and at this point recommend daily omeprazole. Could also consider oral allergy sydrome and would recommend food log to isolate potentional triggers of symptoms. CBC, renal/liver function wnl from labs 11/2023 with GI. No respiratory symptoms to suggest PE. Could consider coag profile for persistence. Ultimately, pt will be seen by ENT and should undergo ENT workup. Reviewed red flags prompting emergent eval such as denise bleeding. Problem 900452924 History of low potassium (Z86.39) Active confirmed Problem 267236439 Panic disorder [episodic paroxysmal anxiety] (F41.0) Active confirmed Vital Signs Temperature 98.4 degrees Fahrenheit 10/06/2024 Respiratory Rate 20 /min 10/06/2024 Oximetry 100 % 10/06/2024 Blood pressure diastolic 70 mm Hg 10/06/2024 Height 66 in 10/06/2024 Blood pressure systolic 106 mm Hg 10/06/2024 Weight 176.2 lbs 10/06/2024 BMI 28.44 kg/m2 10/06/2024 Encounters Encounter Location Date Provider Diagnosis [address] [place] [address] 07/29/2024 Sonya Franz [address] [address] 09/01/2024 Sonya Franz [address] [address] 08/20/2024 Katia millerPerez Neck pain M54.2 and History of low potassium Z86.39 [facility] of [address] [place] [address] 08/27/2024 Alka Pfeiffer Generalized anxiety disorder F41.[address] [place] [address] 09/10/2024 Alka Pfeiffer Generalized anxiety disorder F41.1 and Panic disorder [episodic paroxysmal anxiety] F41.[address] [place] [address] 10/13/2024 Alka Pfeiffer Generalized anxiety disorder F41.1 and Panic disorder [episodic paroxysmal anxiety] F41.[address] [place] [address] 10/27/2024 Alka Pfeiffer Generalized anxiety disorder F41.[address] [place] [address] 08/13/2024 Alka Pfeiffer Generalized anxiety disorder F41.1 and Panic disorder [episodic paroxysmal anxiety] F41.[address] [place] [address] 06/18/2024 Montserrat Cabello Diarrhea R19.7 and Chest pain R07.[address] [place] [address] 07/29/2024 Deborah Debi Neck muscle spasm M62.838 and Frequent headaches R51.[address] [place] [address] 10/06/2024 Sonya zzzPartridge Neck pain M54.[address] [place] [address] 07/23/2024 Alka Pfeiffer Generalized anxiety disorder F41.1 and Panic disorder [episodic paroxysmal anxiety] F41.0 Assessments Encounter Date Diagnosis (ICD Code) Assessment Notes Treatment Notes Treatment Clinical Notes Section Notes 06/18/2024 Diarrhea (ICD-10 - R19.7) Montserrat Cabello 06/18/2024 01:12:42 PM > seeing GI - unsure of practice name, near [facility]. needs colon for persistent diarrhea, states she had stool testing done and needs colon ask next step 06/18/2024 Chest pain (ICD-10 - R07.9) Aspobiend, Montserrat 06/18/2024 01:57:50 PM > Do not believe her chest pain is cardiac in origin, reassured by today's EKG. These episodes have been occurring since October, sometimes will last 2 days. I advised her to take Tylenol when the symptoms occur to see if musculoskeletal in origin. States she cannot take NSAIDs per GI. I will send her to cardiology to get clearance, she states that this is required before upcoming colonoscopy. reviewed ER precautions in detail 07/23/2024 Generalized anxiety disorder (ICD-10 - F41.1) Coding; use Established E&M Add 95 Modifier for video 07/29/2024 Neck muscle spasm (ICD-10 - M62.838) Avoids medications that can be sedating - declines muscle relaxants NSAIDs were stopped when she had some GERD symptoms follow up with neuro for injections if not improving with conservative treatment 07/29/2024 Frequent headaches (ICD-10 - R51.9) 08/13/2024 Generalized anxiety disorder (ICD-10 - F41.1) Coding; use Established E&M Add 95 Modifier for video 08/20/2024 Neck pain (ICD-10 - M54.2) 08/20/2024 History of low potassium (ICD-10 - Z86.39) Advised to F/U with her potassium level she was given K in hospital 1 week ago 08/27/2024 Generalized anxiety disorder (ICD-10 - F41.1) Coding; use Established E&M Add 95 Modifier for video 09/10/2024 Generalized anxiety disorder (ICD-10 - F41.1) Coding; use Established E&M Add 95 Modifier for video 10/06/2024 Neck pain (ICD-10 - M54.2) Reviewed that I can order MRI if she's completed PT but not sure she will be able to schedule/have imaging before moving; she has a couple more sessions of PT and then will call and let me know if she wants to proceed with MRI. For now encouraged conservative management and provided re-assurance. Will rx ibuprofen 600mg for PRN use; encouraged to take with food or milk and stop if any signs of gastritis. 10/13/2024 Generalized anxiety disorder (ICD-10 - F41.1) Coding: Use UPDATED E&M code. Also applies when carrying over a previous visit. 10/27/2024 Generalized anxiety disorder (ICD-10 - F41.1) Coding: Use UPDATED E&M code. Also applies when carrying over a previous visit. 10/13/2024 Panic disorder [episodic paroxysmal anxiety] (ICD-10 - F41.0) Coding: Use UPDATED E&M code. Also applies when carrying over a previous visit. 09/10/2024 Panic disorder [episodic paroxysmal anxiety] (ICD-10 - F41.0) Coding; use Established E&M Add 95 Modifier for video 08/13/2024 Panic disorder [episodic paroxysmal anxiety] (ICD-10 - F41.0) Coding; use Established E&M Add 95 Modifier for video 07/23/2024 Panic disorder [episodic paroxysmal anxiety] (ICD-10 - F41.0) Coding; use Established E&M Add 95 Modifier for video Plan Of Treatment No Information Insurance Providers Payer Name Payer Address Payer Phone Subscriber Number Group Number Insured Name Patient Relationship to Insured Coverage Start Date Coverage End Date Medicaid [place] [address] [id number] null, null Medicaid Poppy Florez MD [employer] [address] [place] [address] [phone] [id number] Julia Mares Self - patient is the insured Medical (General) History Medical History History ICD Code Asthma Migraines (2 vaginal, 1 c/s) - - -RHM- - -- Pap: HIV/HCV Screen: (10/2020) NR Surgical History Surgery Date(Month/Year) C/S x1 Eye Surgery - astigmatism childhood - 4y /o Hospitalization History Reason Date(Month/Year) Childbirth
--- OUTSIDE RECORDS SUMMARY | 2025-06-18 15:50 | XMS_ITS | Clinical Summary ---
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 No 05/08/2024 Comments No [...] Vaccine (1 - 2023-2 5 season) 2025 Influenza Vaccine (#1) 2025 DTaP,Tdap,and Td Vaccines [...] age to complete this topic Insurance [address] [place] [address], [place] [id number] [employer] Care Teams Rail Car Maintenance Mechanic Relationship Specialty Start Date End Date Carol Wiseman [address] [place] [id number] PCP - General Family Medicine 11/01/23
--- OUTSIDE RECORDS SUMMARY | 2025-06-18 15:50 | XMS_ITS | Encounter Summary ---
Author Organization [facility] Address [address] [place] [address] Care Team Providers Care Cardroom Drawing Runner Name Role Phone Unknown Primary Care Provider [phone] Linn Griffin APRN Primary Care Provider [phone] Carol Wiseman APRN Primary Care Provider Encounter Details Date Type Department Care Team (Late st Contact Info) Description 09/19/2018 Abstract [facility] Maternal Medicine [address] [place] [phone] Tiara Franz MS,[facility] [address] [place] [address] Social History Tobacco Use Types Packs/Day Years Used Date Smoking Tobacco: Never Smokeless Tobacco: Never Comments Yes Sex and Gender Information Value Date Recorded Sex Assigned at Female 12/22/2022 2:26 AM EDT Legal Sex Female 8:57 AM EDT Gender Identity Female 12/22/2022 2:26 AM EDT Sexual Orientation Heterosexual (straight) 11/04 9:12 PM EST documented as of this encounter Plan of Treatment Not on file documented as of this encounter Visit Diagnoses Not on filedocumented in this encounter Care Teams Cardroom Drawing Runner Relationship Specialty Start Date End Date Unknown Unknow Provider Address PCP - General 03/24/19 12/19/22 Linn Griffin APRN [address], [place] [address] PCP - General Family Medicine 12/20/22 10/28/23 Carol Wiseman APRN [address] [facility], [place] [id number] PCP - General Family Medicine 11/02/23 documented as of this encounter
--- OUTSIDE RECORDS SUMMARY | 2025-06-18 15:51 | XMS_ITS | Clinical Summary ---
Author Organization [employer] Address [address] [place] [address] [address] [place] [address] Care Team Providers Care Padding Machine Operator Name Role Phone MandyDeonna gaspar Primary Care Provider Allergies No known active allergies Medications baclofen (Lioresal) 10 MG tablet Take 1 tablet (10 mg) by mouth if needed in the morning, at noon, and at bedtime for muscle spasms. 60 tablet 1 5 Active Diclofenac Sodium 1 % gel Apply 2 g topically if needed in the morning, at noon, in the evening, and at bedtime (pain). 150 g 3 5 Active polycarbophil (Fibercon) 625 MG tablet Take 1 tablet (625 mg) by mouth 2 times daily. 180 tablet 3 5 12/03/19 26 Active cholecalciferol (Vitamin D-3) 50 MCG (2000 UT) capsule Take 1 capsule (50 mcg) by mouth Once per day. 90 capsule 3 5 12/11/19 26 Active erythromycin (Romycin) 5 MG/GM ophthalmic ointmentIndicat ions:Hordeolum externum of left upper eyelid Apply to affected eye(s) 4 times daily for 10 days. Apply Amount per Dose: 0.5 inch (~1 cm) per dose. 3.5 g 5 05/28/20 25 ibuprofen 600 MG tabletIndicatio ns:Hordeolum externum of left upper eyelid Take 1 tablet (600 mg) by mouth every 8 (eight) hours if needed for mild pain. 30 tablet 06/17/20 25 Active Problems Problem Noted Date Diagnosed Date Hordeolum externum of left upper eyelid 05/18/20 25 Exotropia of left eye 02/12/2025 Astigmatism 02/12/2025 Chronic constipation 12/03/2024 Chronic gastroesophageal reflux disease 12/03/19 Irritable bowel syndrome 12/03/2024 BMI 28.0-28.9,adult 12/03/2024 Fatty liver 12/03/2024 Chronic headaches 12/03/2024 Assessment & Plan (01/06/2025 4:40 PM EDT): Per note from 12/10/24, had a stress EKG with no ischemic changes with frequent PVC's. Referred to Cardiology, and has appt in March 2025. Cholesterol profile at goal. Labs from 11/2024 unremarkable, and BP today at goal. Exam otherwise benign. -recommended follow-up with specialist as already established with Neurology, Cardiology and GI. 01/06/25 Chronic neck pain 12/03/2024 Encounters Date Type Department Care Team Description 05/18/2025 7:00 PM EDT Office Visit [facility] [address] [place] [address] Caty Bedolla MD Nasal congestion; Hordeolum externum of left upper eyelid 05/18/2025 Travel from Last 3 Months Immunizations Immunization Administration Dates Next Due Tdap 03/26/2019 Family History Medical History Relation Name Comments Migraines Brother Thyroid disease Brother Hypertension Father Prediabetes Father Diabetes Maternal Grandmother Hypertension Mother Osteopenia Mother Migraines Mother's Sister Diabetes Paternal Grandfather Diabetes Paternal Grandmother Heart disease Paternal Grandmother Thyroid disease Sister Relation Name Status Comments Brother Father Maternal Grandmother Mother Mother's Sister Paternal Grandfather Paternal Grandmother Sister Social History Tobacco Use Types Packs/Day Years Used Date Smoking Tobacco: Never Smokeless Tobacco: Never Tobacco Cessation:Counseling Given: Not Answered Alcohol Use Standard Drinks/Week Comments Never 0 (1 standard drink = 0.6 oz pur e alcohol) Depression Answer Date Recorded Patient Health Questionnaire-9 Score 2 02/12/2025 Patient Health Questionnaire-9 Score 2 02/12/2025 Last PHQ-9: Questionnaire Data Not on file 0 02/12/2025 Housing Stability Answer Date Recorded What is your housing situation today? I have gaetano epstein 02/08/[address] you li ve. Do you have problems with any of the following? None of the above 02/08/2025 Food Insecurity Answer Date Recorded Within the past 12 months, y ou worried that your food would run out before you got money to buy more: Never True 02/08/2025 Within the past 12 months,th e food you bought just didn't last and you didn't have enough money to get more: Never True 02/2025 Transportation Answer Date Recorded In the past 12 months, has l ack of transportation kept you from medical appts, meetings, work or from getting things needed for daily living? No 02/08/2025 Utilities Answer Date Recorded In the past 12 months, has t he electric, gas, oil or water company threatened to shut off services in your home? No 02/08/2025 Depression Answer Date Recorded Patient Health Questionnaire-2 Score 0 02/12/2025 Internet Access Answer Date Recorded Internet Access Q1 Yes 02/08/2025 Internet Access Q2 Not on file 02/08/2025 Comments No Sex and Gender Information Value Date Recorded Sex Assigned at Female 08/06/2022 10:18 AM EDT Legal Sex Female 10:18 AM EDT Gender Identity Female 12/03/2024 1:03 PM EST Sexual Orientation Straight 12/03/2024 1: 03 PM EST Last Filed Vital Signs Vital Sign Reading Time Taken Comments Blood Pressure 121/82 05/18/2025 6:30 PM EDT Pulse 88 05/18/2025 6:30 PM EDT Temperature 36.1 C (97 F) 05/18/2025 6:30 PM EDT Respiratory Rate 21 02/27/2025 12:05 PM EDT Oxygen Saturation 98% 02/27/2025 12:05 PM EDT Inhaled Oxygen Concentration - - Weight 84.2 kg (185 lb 9.6 oz) 05/18/2025 6:30 P M EDT Height 167.6 cm (5' 6 ) 02/27/2025 12:05 PM EDT Body Mass Index 29.96 02/27/2025 12:05 PM EDT Plan of Treatment Health Maintenance Due Date Last Done Comments Family Planning (PISQ) 2007 HPV Vaccines (1 - 3-dose series) 2007 Hepatitis A Vaccines (1 of 2 - Risk 2-dose series) 2011 Hepatitis B Vaccines (1 of 3 - 19+ 3-dose series) 2011 Pap Smear 2013 Cervical Cancer Screening 2022 HPV/Cotest 2022 COVID-19 Vaccine (1 - 2023-2 5 season) 2025 Influenza Vaccine (#1) 2025 Alcohol/Substance Use Screening 02/12/2026 02/12/2025 Depression Screening 02/12/2026 02/12/2025, 02/12/2025 Disability Screening 02/12/2026 02/12/2025 SDOH Screening 02/12/2026 02/12/2025 Tobacco Screening 05/18/2026 05/18/2025 DTaP/Tdap/Td Vaccines (2 - T d or Tdap) 03/26/2029 03/26/2019 Zoster Vaccines (1 of 2) 2042 RSV Patients and Patients Aged 60 years or older (1 - 1-dose 75+ series) 2067 HIV Screening Completed 12/04/2024 Hepatitis C Screening Completed 12/04/2024 HIB Vaccines Aged Out No longer eligi ble based on patient's age to complete this topic IPV Vaccines Aged Out No longer eligi ble based on patient's age to complete this topic Meningococcal B Vaccine Aged Out No l onger eligible based on patient's age to complete this topic Meningococcal Vaccine Aged Out No berenice dena eligible based on patient's age to complete this topic Pneumococcal Vaccine: Pediatrics (0 to 5 Years) and At-Risk Patients (6 to 49) Years Aged Out No longer eligible b ased on patient's age to complete this topic RSV under 20 months Aged Out No longe r eligible based on patient's age to complete this topic Rotavirus Vaccines Aged Out No longer eligible based on patient's age to complete this topic Procedures Procedure Name Priority Date/Time Associated Diagnosis Comments POCT INFLUENZA B (ID NOW RAPID MOLECULAR) Routine 05/18/2025 6:47 PM EDT Nasal congestion POCT RAPID COVID ANTIGEN Routine 05/18/2025 6:42 PM EDT Nasal congestion POCT INFLUENZA A (ID NOW RAPID MOLECULAR) Routine 05/18/2025 6:42 PM EDT Nasal congestion VITAMIN D 25-OH (D2 AND D3) Routine 04/02/2025 2:25 PM EDT TISSUE TRANSGLUTAMINASE AB, IGA Routine 04/02/2025 2:25 PM EDT VITAMIN B12/FOLATE, SERUM PANEL Routine 04/02/2025 2:25 PM EDT TSH W/REFLEX TO FT4 Routine 04/02/2025 2 :25 PM EDT LIPASE Routine 04/02/2025 2:25 PM EDT HELICOBACTER PYLORI, UREA BREATH TEST Routine 04/02/2025 1:55 PM EDT HEPATITIS C AB W/REFL TO HCV RNA, QN, PCR Routine 12/04/2024 11:34 AM EST Chronic nonintractable headache, unspecified headache type Chronic neck pain Chronic constipation Decreased visual acuity Whole body pain Chest pain, unspecified type HIV 1/2 ANTIGEN/ANTIBODY, FOURTH GENERATION W/RFL Routine 12/04/2024 11:34 AM EST Chronic nonintractable headache, unspecified headache type Chronic neck pain Chronic constipation Decreased visual acuity Whole body pain Chest pain, unspecified type from Last 3 Months or Most Recently Relevant to Health Maintenance Results * POCT Rapid Influenza B IZQUIERDO ID NOW (05/18/2025 6:47 PM EDT) Influenza B Negative Negative, Indeterminate [facility] QC Media Lot # [id number] [facility] Lot# Expiration Date [id number] [facility] Swab 05/18/2025 6:47 PM EDT Caty Parada MD POINT OF CARE TEST EN TER/EDIT ORDERABLES Final Result Performing Organization Address City/[facility]/ZIP Co de Phone Number [facility] [address] [place] [phone] * POCT Rapid Influenza A IZQUIERDO ID NOW (05/18/2025 6:42 PM EDT) Pathologist [facility] Influenza A Negative Negative, Indeterminate [facility] QC Media Lot # [id number] [facility] Lot# Expiration Date , [facility] Swab 05/18/2025 6:42 PM EDT Caty Parada MD POINT OF CARE TEST EN TER/EDIT ORDERABLES Final Result Performing Organization Address [facility]/ZIP Co de Phone Number [facility] [address] [place] [phone] * POCT Rapid Covid-19 BinaxNOW (05/18/2025 6:42 PM EDT) [facility] Rapid COVID Ag Negative QC Media Lot # [id number] Lot# Expiration Date , Swab 05/18/2025 6:42 PM EDT Caty Parada MD POINT OF CARE TEST EN TER/EDIT ORDERABLES Final Result * (ABNORMAL) VITAMIN D 25-OH (D2 AND D3) (04/02/2025 2:25 PM EDT) Pathologist [facility] Vitamin D, 25-OH, D2 <4 ng/mL [facility] Comment:This test was develo ped and its analytical performancecharacteristics have been determined by [employer] [place], [place]. It hasnot been cleared or approved by the U.S. Food and DrugAdministration. This assay has been validated pursuantto the CLIA regulations and is used for clinicalpurposes.THIS TEST WAS PERFORMED AT:[facility] [place] [address]FAIGKPOLEEANNA FOWLER MD,PHD Vitamin D, 25-OH, D3 24 ng/mL [facility] Comment:This test was develo ped and its analytical performancecharacteristics have been determined by [employer] [place], [place]. It hasnot been cleared or approved by the U.S. Food and DrugAdministration. This assay has been validated pursuantto the CLIA regulations and is used for clinicalpurposes. Vitamin D, 25-OH, Total 24(A) 30 - 100 ng/mL [facility] Comment:Vitamin D, 25-Hydrox y [...] = 30 ng/mL.For additional information, please refer tohttp://education.[employer]/faq/KVZ356(This link is being provided for informational/educational purposes only.) 04/02/2025 2:25 PM EDT 04/02/2025 2:25 PM EDT us Generic External Data Provider LAB BLOOD ORDERAB LES Final Result [facility] [address] [place] [address] [phone] * Vitamin B12 (Cobalamin) and Folate Panel, Serum (04/02/2025 2:25 PM EDT) Vitamin B12 371 200 - 900 pg/mL [facility] Comment:NORMAL 200-900 PG/ML INDETERMINATE 160-199 PG/ML DEFICIENT < 160 PG/ML Folate 12.1 > or = 4.0 ng/mL [facility] Comment:Reference Values:> o r = 4.0 ng/mL< 4.0 ng/mL suggests folate deficiency Methotrexate, aminopterin and folinic acid(leucovorin) are chemotherapeutic agents whose molecularstructures are similar to folate; therefore, the Architectfolate assay cannot be used for patients using these drugs. 04/02/2025 2:25 PM EDT 04/02/2025 2:25 PM EDT Generic External Data Provider LAB BLOOD ORDERAB LES Final Result Performing Organization Address [facility]/ZIP Co de Phone Number [facility] [address] [place] [phone] * TSH with Reflex to Free T4 (04/02/2025 2:25 PM EDT) TSH reflex Free T4 0.98 0.32 - 4.0 uIU/mL [facility] 04/02/2025 2:25 PM EDT 04/02/2025 2:25 PM EDT Generic External Data Provider LAB BLOOD ORDERAB LES Final Result Performing Organization Address [facility] Co de Phone Number [facility] [address] [place] [phone] * Tissue Transglutaminase Antibody, IgA (04/02/2025 2:25 PM EDT) Transglutaminase IgA <1.0 U/mL [facility] Comment:Value Interpretation ----- <15.0 Antibody not detected> or = 15.0 Antibody detectedTHIS TEST WAS PERFORMED AT:[employer] [place] [phone] HATCH MD 04/02/2025 2:25 PM EDT 04/02/2025 2:25 PM EDT Generic External Data Provider LAB BLOOD ORDERAB LES Final Result Performing Organization Address [facility] Co de Phone Number [facility] [address] [place] [phone] * Lipase (04/02/2025 2:25 PM EDT) Lipase 27 8 - 78 U/L [facility] 04/02/2025 2:25 PM EDT 04/02/2025 2:25 PM EDT Generic External Data Provider LAB BLOOD ORDERAB LES Final Result Performing Organization Address [facility] Phone Number [facility] [address] [place] [phone] * Helicobacter pylori, Urea Breath Test (04/02/2025 1:55 PM EDT) Pathologist [facility] H. pylori Breath Test Negative Negative [facility] Comment:Antimicrobials, prot on pump inhibitors and bismuthpreparations are known to suppress H. pylori. Ingestingthese medications within two weeks prior to performing thebreath test may produce negative test results. A positiveresult is still clinically valid. 04/02/2025 1:55 PM EDT 04/02/2025 4:48 PM EDT Generic External Data Provider LAB BODY FLUIDS A ND STOOLS ORDERABLES Final Result Performing Organization Address [facility] Co de Phone Number [facility] [address] [place] [phone] * Hepatitis C Antibody with Reflex to HCV, RNA, Quantitative, Real-Time PCR (12/04/2024 11:34 AM EST) Pathologist [facility] Hepatitis C Antibody Nonreactive Nonreactive [facility] Comment:Antibodies to HCV no t detected; does not exclude early acuteHCV infection. Blood Venous blood specimen / Unknown 12/04/2024 11:34 AM EST 12/04/2024 1:24 PM EST us Deonna Lion DO LAB BLOOD ORDERABLES Final R esult Performing Organization Address [facility] Co de Phone Number [facility] [address] [place] [phone] * HIV-1/2 Antigen and Antibodies, Fourth Generation, with Reflexes (12/04/2024 11:34 AM EST) Pathologist [facility] HIV AB/AG Nonreactive Nonreactive [facility] Comment:HIV-1 p24 Ag and/or HIV-1/HIV-2 Ab not detected.A test result that is nonreactive does not exclude thepossibility of exposure to or infection with HIV-1 and/orHIV-2. Nonreactive results in this assay for individualswith prior exposure to HIV-1 and/or HIV-2 may be due toantigen and antibody levels that are below the limit ofdetection of this assay.The [employer] HIV Ag/Ab Combo assay result andsupplemental assay results should be interpreted inconjunction with the patient's clinical presentation,history and other laboratory results. If the results areinconsistent with clinical evidence, additional testing issuggested to confirm the result. Blood Venous blood specimen / Unknown 12/04/2024 11:34 AM EST 12/04/2024 1:24 PM EST us Deonna Lion DO LAB BLOOD ORDERABLES Final R esult Performing Organization Address City/[facility]/ZIP Co de Phone Number [facility] [address] [place] [phone] from Last 3 Months or Most Recently Relevant to Health Maintenance Insurance [facility] C3 Care Teams Padding Machine Operator Relationship Specialty Start Date End Date Deonna Lion DO [address] [place] [phone] PCP - General Family Medicine 12/03/24
== END 2025-06-18 14:21 | disposition home or self-care (01) ==
LOC: HO.HCS 13:18
PROVIDERS: PCP Family Medicine
DX: R07.89 Other chest pain (principal); I49.3 Ventricular premature depolarization
CPT/HCPCS: 99213

== ENCOUNTER → 2025-06-18 13:17 | Outpatient (BNVA) | payer MEDICAID, SELFPAY | PROVIDERS: PCP Family Medicine | DX: I49.3 Ventricular premature depolarization (principal); R07.89 Other chest pain | CPT/HCPCS: 99212 ==

== ENCOUNTER 2025-08-03 19:26 | Emergency (ER) | payer MEDICAID, SELFPAY ==
--- NOTE | ~2025-08-03 | CT_ITS ---
CLINICAL HISTORY: neck pain CT cervical spine without contrast Comparison: None available Findings: Straightening of the normal cervical lordosis. No fracture. No severe spinal canal stenosis. No epidural hematoma. Normal thickness of the prevertebral soft tissues. The lung apices are clear. Impression: No fracture. Straightening of the normal cervical lordosis could be positional or secondary to muscle spasm. This document has been electronically signed by: Giovanna Dumont MD on 08/03/2025 20:35:25
--- NOTE | ~2025-08-03 | CT_ITS ---
CLINICAL HISTORY: headache CT head without contrast Comparison: None available Findings: No acute hemorrhage. No extra-axial fluid collection. No hydrocephalus, mass-effect or herniation. Rivera-white differentiation is maintained. White matter is within normal limits for age. No acute orbital pathology. No acute soft tissue abnormality. No fracture. The visualized paranasal sinuses are predominantly clear. The mastoid air cells are clear. Impression: No acute findings. This document has been electronically signed by: Giovanna Dumont MD on 08/03/2025 20:35:58
--- OUTSIDE RECORDS SUMMARY | 2025-08-03 09:20 | XMS_ITS | Encounter Summary ---
Author Organization [employer] Address [address] [place] [address] Care Team Providers Care Stock Digger Name Role Phone Amisha Deonna Primary Care Provider [phone] Reason for Visit * Reason Comments Neck Pain Encounter Details Date Type Department Care Team (Late st Contact Info) Description 08/03/2025 9:20 AM EDT Office Visit [facility] [address] [place] [address] Jaydon Esquivel MD [address] [place] [address] Neck pain (Primary Dx) Social History Tobacco Use Types Packs/Day Years Used Date Smoking Tobacco: Never Smokeless Tobacco: Never Tobacco Cessation:Counseling Given: Not Answered Alcohol Use Standard Drinks/Week Comments Never 0 (1 standard drink = 0.6 oz pur e alcohol) Depression Answer Date Recorded Patient Health Questionnaire-9 Score 3 07/09/2025 Patient Health Questionnaire-9 Score 3 07/09/2025 Last PHQ-9: Questionnaire Data Not on file 1 Housing Stability Answer Date Recorded What is [...] Answer Date Recorded Patient Health Questionnaire-2 Score 1 07/09/2025 Internet Access Answer Date Recorded Internet Access [...] Sign Reading Time Taken Comments Blood Pressure 122/86 08/03/2025 9:17 AM EDT Pulse 70 08/03/2025 9:17 AM EDT Temperature 36.7 C (98.1 F) 08/03/2025 9:17 AM EDT Respiratory Rate 16 08/03/2025 9:17 AM EDT Oxygen Saturation 99% 08/03/2025 9:17 AM EDT Inhaled Oxygen Concentration - - Weight 84.4 kg (186 lb) 08/03/2025 9:17 AM EDT Height - - Body Mass Index 30.02 07/09/2025 11:59 AM EDT documented in this encounter Progress Notes * Jaydon Esquivel MD - 08/03/2025 9:20 AM EDT Subjective Patient ID: Julia Gibson is a 34 y.o. female. JORDAN Dumont has a 2l year history of neck pain with associated migraines , was followed by [facility] who ordered an MRI, was told everything looked good . Was seen by rheumatology, and she is attending PT that they ordered. Next appointment is today. Labtesting was neg. Had CT angiogram of the head and neck November, read as normal. MRI of the brain with and without contrast was done April, with no significant findings. Imaging was ordered by her neurologist in [place]. Was referred to new neurologist when she was first seen at [facility] 11/2024 States new referral was sent recently because axel't could not be scheduled. Last saw PCP for neck pain 3 weeks ago, was prescribed baclofen and nightly amitriptyline which shehas not yet started because she was concerned about drowsiness. She came to [facility] today because 4 days ago her migraine headache recurred and yesterday developed recurrence of neck pain worse on the left side. Headache has resolved, neck pain a little better after taking ibuprofen yesterday. The pain is worse when she turns her head to right or left. Heat also helps. Denies any recent illness, fever. Lives with and 3 children LMP= now Not employed Never smoked. Patient Active Problem List Diagnosis Date Noted Hordeolum externum of left upper eyelid 05/18/2025 Exotropia of left eye 02/12/2025 Astigmatism 02/12/2025 Chronic constipation 12/03/2024 Chronic gastroesophageal reflux disease 12/03/2024 Irritable bowel syndrome 12/03/2024 BMI 28.0-28.9,adult 12/03/2024 Fatty liver 12/03/2024 Chronic headaches 12/03/2024 Chronic neck pain 12/03/2024 The following portions of the chart were reviewed this encounter and updated as appropriate: Review of Systems Constitutional: Negative for fever. Respiratory: Negative for shortness of breath. Cardiovascular: Negative for chest pain. Gastrointestinal: Negative for abdominal pain. Musculoskeletal: Positive for neck pain. Skin: Negative for rash. Neurological: Negative for headaches. Objective Physical Exam Constitutional: Appearance: Normal appearance. HENT: Right Ear: Tympanic membrane, ear canal and external ear normal. Left Ear: Tympanic membrane, ear canal and external ear normal. Nose: Nose normal. Mouth/Throat: Mouth: Mucous membranes are moist. Pharynx: Oropharynx is clear. Eyes: Conjunctiva/sclera: Conjunctivae normal. Pupils: Pupils are equal, round, and reactive to light. Comments: Left exotropia Neck: Comments: Mild tenderness to palpation over the left posterolateral neck. Cardiovascular: Rate and Rhythm: Normal rate and regular rhythm. Heart sounds: No murmur heard. Pulmonary: Effort: Pulmonary effort is normal. Breath sounds: Normal breath sounds. Musculoskeletal: General: Normal range of motion. Cervical back: No tenderness. Skin: Findings: No rash. Neurological: Mental Status: She is alert. Sensory: Sensation is intact. Motor: Motor function is intact. Gait: Gait is intact. Psychiatric: Mood and Affect: Mood normal. Behavior: Behavior normal. Procedures Assessment/Plan Diagnoses and all orders for this visit: Neck pain We discussed injection of Toradol in walk-in clinic, but was declined because patient's pain is improving. Advised to start amitriptyline and baclofen. Patient states she prefers to cut pills and a half to assess degree of sedation. Prescribed lidocaine patches and ibuprofen. Continue PT. She will follow-up as planned with rheumatology. Return to clinic if not improving Other orders - lidocaine (Lidoderm) 5 % patch; Apply 1 patch topically Once per day. Remove & discard patch within 12 hours or as directed by MD. - ibuprofen 600 MG tablet; Take 1 tablet (600 mg) by mouth if needed in the morning, at noon, and at bedtime for moderate pain or fever for up to 10 days. documented in this encounter Plan of Treatment Not on file documented as of this encounter Visit Diagnoses Diagnosis Neck pain- Primary Cervicalgia documented in this encounter Additional Health Concerns Assessment Noted Time PHQ-9 Depression Total Score: 3 07/09/20 25 12:02 PM EDT documented as of this encounter Care Teams Stock Digger Relationship Specialty Start Date End Date Deonna Lion DO [address] [place] [phone] PCP - General Family Medicine 12/03/24 documented as of this encounter
[2025-08-03 19:30] VITALS: BP 116/72; PULSE 88; RESP 16; TEMP 36.4; O2SAT 100; BMI 29.2
--- NOTE | 2025-08-03 19:37 | ECG_ITS ---
Test Reason : NECK AND SHOULDER PAIN Blood Pressure : */* mmHG Vent. Rate : 78 BPM Atrial Rate : 78 BPM P-R Int : 138 ms QRS Dur : 74 ms QT Int : 342 ms P-R-T Axes : 58 63 32 degrees QTcB Int : 389 ms Normal sinus rhythm Normal ECG No previous ECGs available Referred By: Octavio Astorga Electronically Signed By: XAVIER ZIMMER
--- NOTE | 2025-08-03 19:39 | ED.GENADULT ---
HPI - General Adult General Chief complaint: Neck Pain/Injury Stated complaint: neck pain to shoulders and shoulder blade Time Seen by Provider: 08/03/25 22:12 Source: patient Limitations: no limitations History of Present Illness ED Provider: Carol Levy PA-C HPI narrative: 34-year-old female with a history of chronic cervical radiculopathy and migraine who is followed by Neurology, presents with ongoing left-sided symptoms. Pain originates posterior neck and radiates down left upper extremity. Associated paresthesia. Denies new heavy lifting injury that could have precipitated her current symptoms. Denies weakness of upper extremities. Patient states she just saw her neurologist, she was prescribed amitriptyline and baclofen. Patient also had an MRI within the past few months, she has yet to obtain results. She is also followed by [facility] spine and sport, she is also attending physical therapy. Related Data Home Medications ?Medication ?Instructions ?Recorded ?Confirmed diclofenac sodium 1 % topical gel 2 g topical QID PRN 03/09/25 06/18/25 (Arthritis Pain (diclofenac)) ibuprofen 600 mg tablet 600 mg PO Q8H PRN 06/18/25 06/18/25 Previous Rx's ?Medication ?Instructions ?Recorded ketorolac 10 mg tablet 10 mg PO Q6H PRN pain #20 tabs 08/03/25 methylprednisolone 4 mg tablets in 4 mg PO QAM #21 ea 08/03/25 a dose pack (Medrol (Mark)) Allergies Allergy/AdvReac Type Severity Reaction Status Date / Time No Known Allergies Allergy Verified 08/03/25 19:36 Review of Systems Review of Systems: Yes all other systems are reviewed and are negative Constitutional: Constitutional: Denies fatigue, Denies fever(s) and Reports headache(s) ENT: Denies dizziness, Reports headache(s) and Reports neck pain Cardiovascular: Cardiovascular: Denies chest pain and Denies dyspnea Respiratory: Respiratory: Denies dyspnea Gastrointestinal: Gastrointestinal: Denies nausea and Denies vomiting Musculoskeletal: Musculoskeletal: Denies muscle weakness, Reports neck pain, Denies numbness, Reports radiating pain into limb and Reports tingling Neurologic: Denies dizziness, Reports headache(s), Denies numbness and Reports tingling Endocrine: Endocrine: Denies fatigue PMF Past Medical History Attestation statement: The following information was validated with the patient. Medical History Chronic idiopathic constipation GERD (gastroesophageal reflux disease) delivery delivered Chest pain of uncertain etiology Muscle spasm Whole body pain Decreased visual acuity Chronic constipation Chronic neck pain Chronic headache Surgical History H/O eye surgery Family History Family History Mother High blood pressure Colitis Father High blood pressure High cholesterol Fatty liver Social History Social History Alcohol intake: never Patient Tobacco Use Status: Former Tobacco user Smoked in Last 30 Days: No Use of substances other than those prescribed or required for medical reasons: No Advance Directives: No Advance Directives Information Provided: Yes Physical Exam ED Vital Signs: Vital Signs - 24 hr 08/03/25 19:30 08/03/25 22:36 08/03/25 22:55 Temperature 97.6 F 98.2 F 98.2 F Pulse Rate 88 86 86 Respiratory Rate 16 16 16 Blood Pressure 116/72 115/76 115/76 Pulse Oximetry 100 95 95 Oxygen Delivery Method Room Air BMI result Body Mass Index 29.2 Const Other: Alert well-appearing Orientation/consciousness: patient oriented x3 Neck Neck: Yes full ROM and Yes no meningeal signs Resp Effort & Inspection: normal respiratory effort Cardio Other: Normal peripheral perfusion Skin Other: Warm dry no rash Neuro General: patient oriented x3, gait normal, no meningeal signs, no focal motor deficits and CN's II-XI intact bilaterally Extrem Other: Strength 5/5 bilateral upper extremities with resistance Psych Other: Calm cooperative Course Course Course Narrative: RME; temperature female presents to ED for headache and neck pain for the past 3 days. Patient has a history of neck pain been follow up with Neurology with imaging MRI at [facility]. Patient states also neck pain radiating to chest. Patient denies any trauma. Have EKG imaging ordered. Medications Administered Discontinued Medications Generic Name Dose Route Start Last Admin Trade Name Freq PRN Reason Stop Dose Admin Ketorolac Tromethamine 15 mg 08/03/25 22:28 08/03/25 22:36 Ketorolac Tromethamine 15 Mg/Ml Vial IM 08/03/25 22:29 15 mg ONCE ONE Administration Prednisone 10 mg 08/03/25 22:28 08/03/25 22:36 Prednisone 10 Mg Tablet PO 08/03/25 22:29 10 mg ONCE ONE Administration Medical Decision Making Medical Decision Making MDM Narrative: 34-year-old female with a history of chronic cervical radiculopathy and migraine who is followed by Neurology, presents with ongoing left-sided symptoms. Pain originates posterior neck and radiates down left upper extremity. Associated paresthesia. Denies new heavy lifting injury that could have precipitated her current symptoms. Denies weakness of upper extremities. Patient states she just saw her neurologist, she was prescribed amitriptyline and baclofen. Patient also had an MRI within the past few months, she has yet to obtain results. She is also followed by [facility] spine and sport, she is also attending physical therapy. Problem: Chronic migraine, chronic cervical radiculopathy History: Per patient I have considered the following differential diagnoses: Refractory cervical radiculopathy, compression fracture, VAD, meningitis, complex migraine Plan: The patient is here with a chronic symptoms. Furthermore, she just saw her neurologist yesterday who prescribed a muscle relaxant and amitriptyline for her ongoing migraine. The patient has yet to take this medication. The patient does not have new symptoms. Thought about VAD, however there was no preceding heavy lifting injury, and again her symptoms are chronic. She is also neurologically intact. She is not having headache at this time. This is not meningitis, again ongoing chronic symptoms, she is afebrile, no meningeal signs on exam. She already has muscle relaxant as I previously stated, sending with the anti-inflammatory. Imaging was obtained from triage, no acute process. Unclear why she received a cardiac workup, she has no risk factors for coronary artery disease, her heart score is 0, and again, her symptoms are chronic. I have independently reviewed the following tests: Labs: No leukocytosis, not anemic, no electrolyte abnormality, troponin less than 2.7 EKG: Normal sinus rhythm, rate of 78, no ischemic changes no ectopy, QTC 389 CT brain:Findings: No acute hemorrhage. No extra-axial fluid collection. No hydrocephalus, mass-effect or herniation. Rivera-white differentiation is maintained. White matter is within normal limits for age. No acute orbital pathology. No acute soft tissue abnormality. No fracture. The visualized paranasal sinuses are predominantly clear. The mastoid air cells are clear. Impression: No acute findings. CT cervical spine:Findings: Straightening of the normal cervical lordosis. No fracture. No severe spinal canal stenosis. No epidural hematoma. Normal thickness of the prevertebral soft tissues. The lung apices are clear. Impression: No fracture. Straightening of the normal cervical lordosis could be positional or secondary to muscle spasm. Differential Diagnosis Differential Diagnoses: The differential diagnosis associated with the presentation includes Admission/Observation Consideration of admission/observation: Escalation of care including admission/observation considered Not applicable Lab Data MDM Lab Attestation statement: I reviewed the patient's lab results. 08/03/25 20:00 08/03/25 20:00 Labs: Lab Results 08/03/25 Range/Units 20:00 WBC 8.4 (4.8-10.8) X10*3/uL RBC 4.48 (4.20-5.50) X10*6/uL Hgb 12.7 (12.0-16.0) g/dl Hct 38.7 (37.0-47.0) % MCV 86.4 (80.0-98.0) fL MCH 28.3 (27.0-33.0) pg MCHC 32.8 (31.0-35.0) g/dl RDW 12.4 (11.0-16.0) % Plt Count 264 (160-400) X10*3/uL MPV 9.3 L (9.4-12.3) fL Immature Gran % (Auto) 0.2 (0.0-0.4) % Neut % (Auto) 61.0 (45-73) % Lymph % (Auto) 25.8 (20-40) % Pettis % (Auto) 8.5 (2-11) % Eos % (Auto) 4.0 (0-4) % Baso % (Auto) 0.5 (0-2) % Lymph # (Auto) 2.2 (1.2-4.9) X10*3/uL Pettis # (Auto) 0.7 (0.1-1.2) X10*3/uL Eos # (Auto) 0.3 (0.0-0.4) X10*3/uL Baso # (Auto) 0.0 (0.0-0.2) X10*3/uL Abs Immat Gran (auto) 0.02 (0.00-0.03) X10*3/uL Absolute Neuts (auto) 5.1 (2.0-8.3) x10*3/uL Absolute Nucleated RBC 0.000 (0.0-0.012) X10*3/uL Nucleated RBC % (auto) 0.0 (0.0-0.2) /100WBC Sodium 141 (135-145) mmol/L Potassium 3.7 (3.3-5.1) mmol/L Chloride 112 H (96-108) mmol/L Carbon Dioxide 22 (22-29) mmol/L Anion Gap 11 L (12-20) BUN 10 (9-16) mg/dL Creatinine 0.65 (0.5-1.4) mg/dL Estim Creat Clear Calc 135.1 Estimated GFR > 60 Random Glucose 100 (60-115) mg/dL Calcium 8.9 (8.4-10.2) mg/dL Total Bilirubin 0.2 (0.0-1.0) mg/dL AST 16 (5-31) U/L ALT 11 (0-31) U/L Alkaline Phosphatase 56 (39-117) U/L Total Creatine Kinase 70 (26-140) U/L Troponin I High Sens < 2.7 (<3.5-17.0) ng/L Total Protein 7.1 (6.5-8.0) g/dL Albumin 4.4 (3.5-5.0) g/dL Independent Interpretation I performed an independent interpretation of an: EKG Radiology Impression Discussion of test interpretation with radiology: I have reviewed the radiologist's reading. Discharge Plan Discharge Clinical Impression: Left cervical radiculopathy Patient Disposition: Home, Self-Care Instructions: Cervical Radiculopathy (ED) Additional Instructions: There were no acute findings on the imaging of your head or cervical spine. You should use the prescribed medication from your neurologist, take the amitriptyline and baclofen as directed. I am prescribing two anti-inflammatories to help with your symptoms, take the ketorolac as directed take it with food. Take the steroid taper as directed, take this medication in the morning. Continue to follow up with [facility] spine and sport and your neurologist. Prescriptions: New ketorolac 10 mg tablet 10 mg PO Q6H PRN (Reason: pain) Qty: 20 0RF Rx Instructions: maximum total duration of 5 days from all oral, intranasal, or parenteral formulations. The patient received an intramuscular dose of Toradol here in the emergency room methylprednisolone [Medrol (Mark)] 4 mg tablets,dose pack 4 mg PO QAM Qty: 21 0RF Rx Instructions: Take per package instructions No Action diclofenac sodium [Arthritis Pain (diclofenac)] 1 % gel 2 g topical QID PRN Rx Instructions: Apply 2 g topically if needed in the morning, noon, and evening. ibuprofen 600 mg tablet 600 mg PO Q8H PRN Interventions: ED Discharge Assessment Last Done: 08/03/25 22:55 Discharge Date/Time: 08/03/25 22:55 Print Language: Icelandic
[2025-08-03 20:06] LABS: Hematocrit 38.7 % (37.0-47.0); Hemoglobin 12.7 g/dl (12.0-16.0); Imm Gran Abs Auto 0.02 X10*3/uL (0.00-0.03); Imm Gran Pct Auto 0.2 % (0.0-0.4); Lymphocytes Absolute Auto 2.2 X10*3/uL (1.2-4.9); MANUAL DIFF FLAG NO; Mean Corpuscular HGB Conc 32.8 g/dl (31.0-35.0); Mean Corpuscular Hemoglobin 28.3 pg (27.0-33.0); Mean Corpuscular Volume 86.4 fL (80.0-98.0); NRBC Abs Auto 0.000 X10*3/uL (0.0-0.012); NRBC Pct Auto 0.0 /100WBC (0.0-0.2); Platelet Count 264 X10*3/uL (160-400); Red Blood Count 4.48 X10*6/uL (4.20-5.50); White Blood Count 8.4 X10*3/uL (4.8-10.8)
[2025-08-03 20:28] LABS: Alanine Aminotransferase 11 U/L (0-31); Albumin Level 4.4 g/dL (3.5-5.0); Alkaline Phosphatase 56 U/L (39-117); Anion Gap 11 (12-20); Aspartate Amino Transferase 16 U/L (5-31); Blood Urea Nitrogen 10 mg/dL (9-16); Calcium 8.9 mg/dL (8.4-10.2); Carbon Dioxide 22 mmol/L (22-29); Chloride 112 mmol/L (96-108); Creatinine Clr Calc Pharmacy 135.1; Estimated Glomerular Filt Rate > 60; Potassium 3.7 mmol/L (3.3-5.1); Sodium 141 mmol/L (135-145); Total Protein 7.1 g/dL (6.5-8.0)
--- OUTSIDE RECORDS SUMMARY | 2025-08-03 20:29 | XMS_ITS | Encounter Summary ---
Author Organization [facility] Address [address] [place] [address] Care Team Providers Care Breakfast Server Name Role Phone Carol Wiseman APRN Primary Care Provider Encounter Details Date Type Department Care Team (Late st Contact Info) Description 12/18/2023 Scanned Document [address] [phone] Neurology, Scan Social History Tobacco Use Types [...] on filedocumented in this encounter Care Teams Breakfast Server Relationship Specialty Start Date End Date Carol Wiseman APRN [address] [place] [phone] PCP - General Family Medicine 11/02/23 documented as of this encounter
--- OUTSIDE RECORDS SUMMARY | 2025-08-03 20:29 | XMS_ITS | Encounter Summary ---
Author Organization [employer] Address [address] [facility] [address] [place] [address] Care Team Providers Care Rib Cloth Knitter Name Role Phone Amisha Deonna Primary Care Provider [phone] Encounter Details Date Type Department Care Team (Late st Contact Info) Description 01/07/2025 Orders Only [facility] [address] [place] [address] Meli Salazar RN Social History Tobacco Use [...] Name Priority Date/Time Associated Diagnosis Comments CBC WITH AUTO DIFFERENTIAL Routine 08/03/2025 8:00 PM EDT VITAMIN D 25-OH (D2 AND D3) Routine 04/02/2025 2:25 PM EDT VITAMIN B12/FOLATE, SERUM PANEL Routine 04/02/2025 2:25 PM EDT TSH W/REFLEX TO FT4 Routine 04/02/2025 2 :25 PM EDT TISSUE TRANSGLUTAMINASE AB, IGA Routine 04/02/2025 2:25 PM EDT LIPASE Routine 04/02/2025 2:25 PM EDT HELICOBACTER PYLORI, UREA BREATH TEST Routine 04/02/2025 1:55 PM EDT documented in this encounter Results * (ABNORMAL) CBC auto differential (08/03/2025 8:00 PM EDT) White Blood Count 8.4 4.8 - 10.8 X10*3/uL [facility] Red Blood Count 4.48 4.20 - 5.50 X10*6/uL [facility] Hemoglobin 12.7 12.0 - 16.0 g/dl [facility] Hematocrit 38.7 37.0 - 47.0 % [facility] Mean Corpuscular Volume 86.4 80.0 - 98.0 fL [facility] Mean Corpuscular Hemoglobin 28.3 27.0 - 33.0 pg [facility] Mean Corpuscular HGB Conc 32.8 31.0 - 35.0 g/dl [facility] Red Cell Distribution Width 12.4 11.0 - 16.0 % [facility] Platelet Count 264 160 - 400 X10*3/uL [facility] Mean Platelet Volume 9.3(L) 9.4 - 12.3 fL [facility] Neutrophils Percent Auto 61.0 45 - 73 % [facility] Imm Gran Pct Auto 0.2 0.0 - 0.4 % [facility] Lymphocytes Percent Auto 25.8 20 - 40 % [facility] Monocytes Percent Auto 8.5 2 - 11 % [facility] Eosinophils Percent Auto 4.0 0 - 4 % [facility] Basophils Percent Auto 0.5 0 - 2 % [facility] NRBC Pct Auto 0.0 0.0 - 0.2 /100WBC [facility] Neutrophils Absolute Auto 5.1 2.0 - 8.3 x10*3/uL [facility] Imm Gran Abs Auto 0.02 0.00 - 0.03 X10*3/uL [facility] Lymphocytes Absolute Auto 2.2 1.2 - 4.9 X10*3/uL [facility] Monocytes Absolute Auto 0.7 0.1 - 1.2 X10*3/uL [facility] Eosinophils Absolute Auto 0.3 0.0 - 0.4 X10*3/uL [facility] Basophils Absolute Auto 0.0 0.0 - 0.2 X10*3/uL [facility] NRBC Abs Auto 0.000 0.0 - 0.012 X10*3/uL [facility] 08/03/2025 8:00 PM EDT 08/03/2025 8:04 PM EDT us Generic External Data Provider LAB BLOOD ORDERAB LES Final Result [facility] [address] [place] [phone] * (ABNORMAL) VITAMIN D 25-OH (D2 AND D3) (04/02/2025 2:25 PM EDT) Vitamin D, 25-OH, D2 <4 ng/mL [facility] Comment:This test was develo ped and its analytical performancecharacteristics have been determined by [employer] [place], [place]. It hasnot been cleared or approved by the U.S. Food and DrugAdministration. This assay has been validated pursuantto the CLIA regulations and is used for clinicalpurposes.THIS TEST WAS PERFORMED AT:[facility] [id number] [place] [id number] FOWLER MD,PHD Vitamin D, 25-OH, D3 24 ng/mL [facility] Comment:This test was develo ped and its analytical performancecharacteristics have been determined by [employer] [place], [place]. It hasnot been cleared or approved by the U.S. Food and DrugAdministration. This assay has been validated pursuantto the CLIA regulations and is used for clinicalpurposes. Vitamin D, 25-OH, Total 24(A) 30 - 100 ng/mL [facility] Comment:Vitamin D, 25-Hydrox y reports concentrations [...] = 30 ng/mL.For additional information, please refer tohttp://education.[facility] [facility]/faq/DXW732(This link is being provided for informational/educational purposes only.) 04/02/2025 2:25 PM EDT 04/02/2025 2:25 PM EDT us Generic External Data Provider LAB BLOOD ORDERAB LES Final Result Performing Organization Address City/[facility]/ZIP Co de Phone Number [facility] [address] [place] [phone] * Tissue Transglutaminase Antibody, IgA (04/02/2025 2:25 PM EDT) Transglutaminase IgA <1.0 U/mL [facility] Comment:Value Interpretation ----- <15.0 Antibody not detected> or = 15.0 Antibody detectedTHIS TEST WAS PERFORMED AT:[facility] [place] [id number] HATCH MD 04/02/2025 2:25 PM EDT 04/02/2025 2:25 PM EDT Generic External Data Provider LAB BLOOD ORDERAB LES Final Result [facility] [address] [place] [phone] * Vitamin B12 (Cobalamin) and Folate Panel, Serum (04/02/2025 2:25 PM EDT) Vitamin B12 371 200 - 900 pg/mL [facility] Comment:NORMAL 200-900 PG/ML INDETERMINATE 160-199 PG/ML DEFICIENT < 160 PG/ML Folate 12.1 > or = 4.0 ng/mL [facility] Comment:Reference Values:> o r = 4.0 ng/mL< 4.0 ng/mL suggests folate deficiency Methotrexate, aminopterin and folinic acid(leucovorin) are chemotherapeutic agents whose molecularstructures are similar to folate; therefore, the Architectfolate assay cannot be used for patients using these drugs. 04/02/2025 2:25 PM EDT 04/02/2025 2:25 PM EDT Generic External Data Provider LAB BLOOD ORDERAB LES Final Result Performing Organization Address City/[facility]/ZIP Co de Phone Number [facility] [address] [place] [phone] * TSH with Reflex to Free T4 (04/02/2025 2:25 PM EDT) TSH reflex Free T4 0.98 0.32 - 4.0 uIU/mL [facility] 04/02/2025 2:25 PM EDT 04/02/2025 2:25 PM EDT us Generic External Data Provider LAB BLOOD ORDERAB LES Final Result Performing Organization Address City/[facility]/ZIP Co de Phone Number [facility] [address] [place] [phone] * Lipase (04/02/2025 2:25 PM EDT) Lipase 27 8 - 78 U/L [facility] 04/02/2025 2:25 PM EDT 04/02/2025 2:25 PM EDT us Generic External Data Provider LAB BLOOD ORDERAB LES Final Result Performing Organization Address [facility] Co de Phone Number [facility] [address] [place] [phone] * Helicobacter pylori, Urea Breath Test (04/02/2025 1:55 PM EDT) H. pylori Breath Test Negative Negative [facility] Comment:Antimicrobials, prot on pump inhibitors and bismuthpreparations are known to suppress H. pylori. Ingestingthese medications within two weeks prior to performing thebreath test may produce negative test results. A positiveresult is still clinically valid. 04/02/2025 1:55 PM EDT 04/02/2025 4:48 PM EDT Generic External Data Provider LAB BODY FLUIDS A ND STOOLS ORDERABLES Final Result Performing Organization Address [facility] Co de Phone Number [facility] [address] [place] [phone] documented in this encounter Visit Diagnoses Not on filedocumented in this encounter Care Teams Rib Cloth Knitter Relationship Specialty Start Date End Date Deonna Lion DO [address] [place] [phone] PCP - General Family Medicine 12/03/24 documented as of this encounter
--- OUTSIDE RECORDS SUMMARY | 2025-08-03 20:29 | XMS_ITS | Encounter Summary ---
Author Organization [facility] Address [address] [place] [address] Care Team Providers Care Station Detective Name Role Phone Carol Wiseman APRN Primary Care Provider Encounter Details Date Type Department Care Team (Late st Contact Info) Description 11/04/2023 Scanned Document GENERIC EXTERNAL DATA DEPARTMENT Clary Luke MD [address] [place] [address] Social History Tobacco Use Types Packs/Day Years [...] on filedocumented in this encounter Care Teams Station Detective Relationship Specialty Start Date End Date Carol Wiseman APRN [address] [place] [address] PCP - General Family Medicine 11/02/23 documented as of this encounter
--- OUTSIDE RECORDS SUMMARY | 2025-08-03 20:29 | XMS_ITS | Encounter Summary ---
Author Organization [employer] Address [address] [facility] [address] [place] [address] Care Team Providers Care Asset Card Clerk Name Role Phone MandyDeonna gaspar Primary Care Provider + [phone] Encounter Details Date Type Department Care Team (Latest Contact Info) Description 08/03/2025 Travel Social History Tobacco Use Types Packs/Day Years Used Date Smoking Tobacco: Never Smokeless Tobacco: Never Alcohol Use Standard Drinks/Week Comments Never 0 (1 standard drink = 0.6 oz pur e alcohol) Depression Answer Date Recorded Patient Health Questionnaire-9 Score 3 07/09/2025 Patient Health Questionnaire-9 Score 3 07/09/2025 Last PHQ-9: Questionnaire Data Not on file 1 Housing Stability Answer Date Recorded What is your housing situation today? I have gaetano tete 02/08/[address] you li [...] Diagnoses Not on filedocumented in this encounter Additional Health Concerns Assessment Noted Time PHQ-9 Depression Total Score: 3 07/09/20 12:02 PM EDT documented as of this encounter Care Teams Asset Card Clerk Relationship Specialty Start Date End Date Deonna Lion DO [address] [place] [phone] PCP - General Family Medicine 12/03/24 documented as of this encounter
--- OUTSIDE RECORDS SUMMARY | 2025-08-03 20:29 | XMS_ITS | Patient Health Record ---
[facility] Address [address] [place] [id number] Care Team Providers Care Dock Loader Name Role Phone Alcira Coles Primary Care Provider Klaudia [facility] Unavailable [phone] [place] Clinician Alka DUARTE Unavailable [phone] Sonya Franz Unavailable Katia Hill Unavailable [phone] Allergies No Known Allergies Results Component Value Reference Range Flag Notes Basic Metabolic Panel w/eGFR [id number] Reviewed date:08/27/2024 08:29:34 AM Interpretation: Performing Lab:NL1, , [address] [place], [address] Shamir Raza M.D. Notes/Report: Received Date: 0; 0 FASTING:NO FASTING: NO GLUCOSE 91 65-139 mg/dL N Non-fasting reference interval UREA NITROGEN (BUN) 10 7-25 mg/dL N CREATININE 0.58 0.50-0.97 mg/dL N EGFR 123 > OR = 60 mL/min/1.73m2 N BUN/CREATININE RATIO SEE NOTE: 6-22 (calc) Not Reported: BUN and Creatinine are within reference range. SODIUM 139 135-146 mmol/L N POTASSIUM 3.9 3.5-5.3 mmol/L N CHLORIDE 105 98-110 mmol/L N CARBON DIOXIDE 26 20-32 mmol/L N CALCIUM 9.2 8.6-10.2 mg/dL N TSH w/Free T4 rfx [id number] Reviewed date:08/27/2024 08:29:34 AM Interpretation: Performing Lab:NL1, , [address] [place], [address] Shamir Raza M.D. Notes/Report: Received Date: 0; 0 FASTING:NO FASTING: NO TSH W/REFLEX TO FT4 0.51 N Reference Range > or = 20 Years 0.40-4.50 Ranges First trimester 0.26-2.66 Second trimester 0.55-2.73 Third trimester 0.43-2.91 Vitamin D,1,25-Dihydroxy 165 58 Reviewed date:08/27/2024 08:29:34 AM Interpretation: Performing Lab:[facility], , [address], [place], [place], Gaurav Alvarez M.D.,PhD Notes/Report: Received Date: [...] analytical performance characteristics have been determined by [employer] [facility], [place], [place]. It has not been cleared or approved by the FDA. This assay has been validated pursuant to the CLIA regulations and is used for clinical purposes. CBC (INCLUDES DIFF/PLT) (REF L) [id number] Reviewed date:08/27/2024 08:29:34 AM Interpretation: Performing Lab:NL1, , [address] [place], [address] Shamir Raza M.D. Notes/Report: Received Date: 0; 0 FASTING:NO FASTING: NO WHITE BLOOD CELL COUNT 7.8 3.8-10.8 Thousand/uL N RED BLOOD CELL COUNT 4.47 3.80-5.10 Million/uL N HEMOGLOBIN 13.0 11.7-15.5 g/dL N HEMATOCRIT 40.7 35.0-45.0 % N MCV 91.1 80.0-100.0 fL N MCH 29.1 27.0-33.0 pg N MCHC 31.9 32.0-36.0 g/dL L For adults, a slight decrease in the calculated MCHC value (in the range of 30 to 32 g/dL) is most likely not clinically significant; however, it should be interpreted with caution in correlation with other red cell parameters and the patient's clinical condition. RDW 11.7 11.0-15.0 % N PLATELET COUNT 293 140-400 Thousand/uL N MPV 11.1 7.5-12.5 fL N ABSOLUTE NEUTROPHILS 4852 1196-8731 cells/uL N ABSOLUTE LYMPHOCYTES 7063 384-5992 cells/uL N ABSOLUTE MONOCYTES 764 200-950 cells/uL N ABSOLUTE EOSINOPHILS 179 15-500 cells/uL N ABSOLUTE BASOPHILS 47 0-200 cells/uL N NEUTROPHILS 62.2 N LYMPHOCYTES 25.1 N MONOCYTES 9.8 N EOSINOPHILS 2.3 N BASOPHILS 0.6 N Reason For Referral No Information Medications Medication SIG (Take, Route, Frequency, Duration) Notes Start Date End Date Status Famotidine 40 MG Tablet 1 tablet at bedtime Orally Once a day; Duration: 30 days FOR REFLUX PRN 12/05/2023 Not-Taking Diclofenac Sodium 1 % Gel apply 4 grams to the affected area Externally up to 4 times daily; Duration: 30 11/13/2023 Not-Taking Ibuprofen 600 MG Tablet 1 tablet with food or milk as needed Orally Three times a day; Duration: 30 days As needed 10/06/2024 Active Linzess 72 MCG Capsule 1 capsule at leas t 30 minutes before a meal Orally Once a day; Duration: 30 days Not-Taking Acetaminophen 500 MG Capsule 1 capsule as needed Orally every 6 hrs PRN HEADACHES Active hydrOXYzine HCl 10 MG Tablet 1 tablet as needed Orally Once a day; Duration: 28 days PRN ANXIETY Not-Taking Omeprazole 40 MG Capsule Delayed Release 1 capsule 30 minutes before morning meal Orally Once a day; Duration: 90 days Active Immunizations Vaccine Route Administration Date Status Comme nts Influenza (Declined) Unknown 12/11/2022 Refused Social History Tobacco Use: Social History Observation Description Date Details (start date - stop date) Never Smoker NA - NA Sex Assigned At : Social History Observation Description Sex Assigned At Female Social History Social History Social Info Question Answer Notes Patient's perception of literacy I read well in: [place] Tobacco Control (Standard) Tobacco use: Nonsmoker How do you like To Learn : can read/ write -sami Alcohol Did you have a drink containing alcohol in the past year? Yes How often did you have a drink containing alcohol in the last year Monthly or less (1 point) How many drinks did you have on a typical day when you were drinking? 1 or 2 (0 points) How often did you have six or more drinks on one occasion in the last year? Never (0 points) Points 1 Interpretation Negative Sexual History Had sex in the past 12 months Yes with Men only Have you ever had an STD? Yes Chlamydia Yes Language Spoken Language Spoken Swiss Smoking Are you a: never smoker Additional Details Category Social Info Options Details Social History Drug Use denies Problems Problem Type SNOMED Code ICD Code Onset Dates Problem Status W/U Status Risk Notes Problem Generalized anxiety disorder (33827259) Generalized anxiety disorder (F41.1) Active confirmed Problem Dysmenorrhea (619569060) Dysmenorrhea (N94.6) Active confirmed Problem Overweight (709340716) Overweight (BMI 25.0-29.9) (E66.3) Active confirmed Problem Neck pain (84076095) Neck pain (M54.2) Active confirmed Problem Migraine (17012126) Migraine syndrome (G43.909) Active confirmed Problem Metallic taste (04910208) Metallic taste (R43.8) Active confirmed (01/14/24) Exam [...] emergent eval such as denise bleeding. Problem History of endocrine disorder (864767794) History of low potassium (Z86.39) Active confirmed Problem Panic disorder (444697607) Panic disorder [episodic paroxysmal anxiety] (F41.0) Active confirmed Vital Signs Temperature 98.4 degrees Fahrenheit 10/06/2024 Respiratory Rate 20 /min 10/06/2024 Oximetry 100 % 10/06/2024 Blood pressure diastolic 70 mm Hg 10/06/2024 Height 66 in 10/06/2024 Blood pressure systolic 106 mm Hg 10/06/2024 Weight 176.2 lbs 10/06/2024 BMI 28.44 kg/m2 10/06/2024 Encounters Encounter Location Date Provider Diagnosis [address] [place] [address] 09/01/2024 Sonya zzzPartridge [address] [place] [address] 10/06/2024 Sonya zzzPartridge Neck pain M54.[address] [place] [address] 08/20/2024 Katia zzzPerez Neck pain M54.2 and History of low potassium Z86.[address] [place] [address] 08/27/2024 Alka Pfeiffer Clinician Generalized anxiety disorder F41.[address] [place] [address] 09/10/2024 Alkara Pfeiffer Clinician Generalized anxiety disorder F41.1 and Panic disorder [episodic paroxysmal anxiety] F41.[address] [place] [address] 10/13/2024 Alkara Pfeiffer Clinician Generalized anxiety disorder F41.1 and Panic disorder [episodic paroxysmal anxiety] F41.[address] [place] [address] 10/27/2024 Alka Pfeiffer Clinician Generalized anxiety disorder F41.[address] [place] [address] 08/13/2024 Alka Pfeiffer Clinician Generalized anxiety disorder F41.1 and Panic disorder [episodic paroxysmal anxiety] F41.0 Assessments Encounter Date Diagnosis (ICD Code) Assessment Notes Treatment Notes Treatment Clinical Notes Section Notes 08/13/2024 Generalized anxiety disorder (ICD-10 - F41.1) [...] 95 Modifier for video Plan Of Treatment Pending Test Test Name Order Date CoV-2 RNA, Qualitative NAAT (COVID 19) 8 4518 06/30/2021 Insurance Providers Payer Name Payer Address Payer Phone Subscriber Number Group Number Insured Name Patient Relationship to Insured Coverage Start Date Coverage End Date Medicaid [place]ppy [place] [address] [id number] null, null Medicaid Poppy Florez MD [employer] [address] [place] [address] [phone] Julia Mares Self - patient is the insured Medical (General) History Medical History History ICD Code Asthma Migraines (2 vaginal, 1 c/s) - - -RHM- - -- Pap: HIV/HCV Screen: (10/2020) NR Surgical History Surgery Date(Month/Year) C/S x1 Eye Surgery - astigmatism childhood - 4y /o Hospitalization History Reason Date(Month/Year) Childbirth
--- OUTSIDE RECORDS SUMMARY | 2025-08-03 20:29 | XMS_ITS | Clinical Summary ---
Author Organization [facility] Address [address] [place] [address] Care Team Providers Care Presales Senior Specialist Name Role Phone Carol Wiseman ANDI Primary [...] WEEKS 02/01/20 24 Active neomycin-polymyxin -dexAMETHasone (MAXITROL) 3.5-30059-5.1 ophthalmic suspension 01/27/20 24 Active MAGNESIUM PO Take by mouth. Ac tive sodium chloride (OCEAN) 0.65 % nasal drops/spray 1 spray into each nostril as needed for congestion. Active embaqy-yufmcthct-f agnesium sulfates (Suprep Bowel Prep Kit) 17.5-3.13-1.6 [...] 2011 Pap Smear (Ages 21-65) 05/29/2022 05/29/2019 Influenza Vaccine 05/07/2025 COVID-19 Vaccine (1 - 2023-2 5 season) 2025 DTaP/Tdap/Td Vaccines (2 - T d or Tdap) 03/26/2029 03/26/2019 HIV Screening Completed 12/16/2018, 12/16/2018 HPV Vaccines (No Doses Required) Completed Pneumococcal Vaccine: Pediatric (0-5 Years) and At-Risk Patients (6 to 49 Years) Aged Out No longer eligible b ased on patient's age to complete this topic Procedures Procedure Name Priority Date/Time Associated Diagnosis Comments THINPREP PAP TEST (GROCERY BAGGER) WITH HPV REFLEX, GC/CT Routine 05/29/2019 12:00 AM EDT HIV 1/2 AG/AB CMIA REFLEX TO CONFIRMATION Routine 12/16/2018 10:14 AM EDT from Last 3 Months or Most Recently Relevant to Health Maintenance Results * ThinPrep Pap Test (Draw Frame Runner) with HPV Reflex, GC/CT (05/29/2019 12:00 AM [...] has been evaluated with computer assisted technology. Slot Floor Attendant: [facility] Comment: MAA, CT(ASCP) CT screening location: [place] [address] Comment [facility] Comment: EXPLANATORY NOTE: The Pap [...] was performed using the APTIMA COMBO2 Assay ([facility] The analytical performance characteristics of this assay, when used to test SurePath specimens have been determined by [facility]. 05/29/2019 05/30/2019 2:2 0 AM EDT Narrative [facility] - 06/04/2019 11:28 AM EDT Ordered by External Provider. [id number], WAYNE FELICIANO, A Resulting Agency Comment Performing Organization Information: Site ID: [id number] Name: [facility] Address: [address] [place] [address], [place] [address] Director: Shamir Raza MD us External Provider LAB AMB PATH/CYTO ORDERABLE S Final Result Performing Organization Address City/State/[facility] Co de Phone Number [facility] [address] [place] [address], [place] [address] * HIV 1/2 Ag/Ab CMIA Reflex to Confirmation (12/16/2018 10:14 AM EDT) HIV Ag/Ab, 4th Gen NON-REACT MARTIN NON-REACT MARTIN [facility] Comment: HIV-1 antigen and HIV-1/HIV-2 [...] purpose. For additional information please refer to http://education.[employer]/faq/VRX687 (This link is being provided for informational/ educational purposes only.) The performance of this assay has not been clinically validated in patients less than 2 years old. 12/16/2018 10:1 4 AM EDT 12/16/2018 10:42 PM EDT Narrative [facility] - 12/17/2018 2:10 PM EDT FASTING:YES AN UPDATE OR CORRECTION HAS BEEN MADE TO NAME FASTING: YES Ordered by External Provider. [id number], APSTOR MANN K Resulting Agency Comment Performing Organization Information: Site ID: [id number] Name: [facility] Address: [address] [place] [address], [place] [address] Director: Shamir Raza MD External Provider LAB BLOOD ORDERABLES Final Result [facility] [address] [place] [address], [place] [address] from Last 3 Months or Most Recently Relevant to Health Maintenance Insurance [facility] [place] [id number] Advance Directives * Full Code (Latest Code Status on File) Date Activated Date Inactivated Comments 03/26/2019 8:16 AM 08/17/2022 5:59 AM * Full Code Date Activated Date Inactivated Comments 03/25/2019 10:03 AM 03/26/2019 8:16 AM * Full Code Date Activated Date Inactivated Comments 03/03/2019 12:21 PM 03/25/2019 9:44 AM Care Teams Presales Senior Specialist Relationship Specialty Start Date End Date Carol Wiseman APRN [address] [place] [id number] PCP - General Family Medicine 11/02/23
--- OUTSIDE RECORDS SUMMARY | 2025-08-03 20:30 | XMS_ITS | Encounter Summary ---
Author Organization [facility] Address [address] [place] [address] Care Team Providers Care Wound Specialist Name Role Phone Unknown Primary Care Provider [phone] Linn Griffin APRN Primary Care Provider [phone] Carol Wiseman APRN Primary Care Provider Encounter Details Date Type Department Care Team (Late st Contact Info) Description 09/19/2018 Abstract [facility] Maternal Medicine [address] [place] [phone] Tiara Franz MS,[facility] [address] [place] [address] Social History Tobacco Use Types Packs/Day Years [...] on filedocumented in this encounter Care Teams Wound Specialist Relationship Specialty Start Date End Date Unknown Unknow Provider Address PCP - General 03/24/19 12/19/22 Linn Griffin APRN [address] [place] [address] PCP - General Family Medicine 12/20/22 10/28/23 Carol Wiseman APRN [address] [facility], [place] [address] PCP - General Family Medicine 11/02/23 documented as of this encounter
--- OUTSIDE RECORDS SUMMARY | 2025-08-03 20:30 | XMS_ITS | Clinical Summary ---
Author Organization [facility] Address [address] [place] [address] Care Team Providers Care Armored Car Guard Name Role Phone Carol Wismean Primary Care Provider [phone] Allergies No known active allergies Medications acetaminophen [...] any time in the past [address] [facility], were you homeless or living in a retirement (including now)? No 05/08/2024 Comments No Sex [...] 3-dose SCD M series) 2019 Pap Smear 05/29/2022 05/29/2019 Cervical Cancer Screening 2022 HPV/Cotest 2022 COVID-19 Vaccine (1 - 2023-2 5 season) 2025 Influenza Vaccine (#1) 2025 DTaP,Tdap,and Td Vaccines (2 - Td or Tdap) 03/26/2029 03/26/2019 Zoster Vaccines (1 of 2) 2042 Hepatitis A Vaccines Aged Out No long [...] patient's age to complete this topic Insurance [employer] Care Teams Armored Car Guard Relationship Specialty Start Date End Date Carol Wiseman [address] [place] [id number] PCP - General Family Medicine 11/01/23
--- OUTSIDE RECORDS SUMMARY | 2025-08-03 20:30 | XMS_ITS | Clinical Summary ---
Author Organization [employer] Address [address] [facility] [address] [place] [address] Care Team Providers Care Planting Material Carrier Name Role Phone Deonna Lion Primary Care Provider Allergies No known active allergies Medications Diclofenac Sodium 1 % gel Apply 2 g topically if needed in the morning, at noon, in the evening, and at bedtime (pain). 150 g 3 12/03/19 25 Active polycarbophil (Fibercon) 625 MG tablet Take 1 tablet (625 mg) by mouth 2 times daily. 180 tablet 3 12/03/19 25 026 Active cholecalcifero l (Vitamin D-3) 50 MCG (2000 UT) capsule Take 1 capsule (50 mcg) by mouth Once per day. 90 capsule 3 12/11/19 25 026 Active amitriptyline (Elavil) 10 MG tablet Take 0.5-1 tablets (5-10 mg) by mouth at bedtime. 30 tablet 3 07/09/20 25 026 Active butalbital-mary taminophen-caf feine 50-325-40 MG tablet Take one tablet PO at onset of headache, may repeat after 4 hours PRN 20 tablet 07/09/20 25 Active Magnesium Oxide, Elemental, 400 MG tablet Take 400 mg by mouth Once per day. 30 tablet 3 07/09/20 25 Active baclofen (Lioresal) 10 MG tablet TAKE 1 TABLET BY MOUTH THREE TIMES DAILY IN THE MORNING, AT NOON, AND AT BEDTIME NEEDED FOR MUSCLE SPASMS 60 tablet 1 07/23/20 25 Active lidocaine (Lidoderm) 5 % patch Apply 1 patch topically Once per day. Remove & discard patch within 12 hours or as directed by MD. 30 patch 2 08/03/20 25 026 Active ibuprofen 600 MG tablet Take 1 tablet (600 mg) by mouth if needed in the morning, at noon, and at bedtime for moderate pain or fever for up to 10 days. 30 tablet 08/03/20 25 025 Active baclofen (Lioresal) 10 MG tablet Take 1 tablet (10 mg) by mouth if needed in the morning, at noon, and at bedtime for muscle spasms. 60 tablet 1 12/03/19 25 025 Discontinued methylPREDNISo lone (Medrol Dospak) 4 MG tablets Follow schedule on package instructions 21 tablet 07/09/20 25 025 Active Problems Problem Noted Date Diagnosed Date Hordeolum externum of left upper eyelid 05/18/20 25 Exotropia of left eye 02/12/2025 Astigmatism 02/12/2025 Chronic constipation 12/03/2024 Chronic gastroesophageal reflux disease 12/03/19 25 Irritable bowel syndrome 12/03/2024 BMI 28.0-28.9,adult 12/03/2024 [...] Encounters Date Type Department Care Team Description 08/03/2025 9:20 AM EDT Office Visit [facility] [address] [address] Jaydon Esquivel MD Neck pain (Primary Dx) 08/03/2025 Travel 07/22/[address] [facility] [address] [place] [address] Deonna Lion DO 07/09/2025 11:45 AM EDT Office Visit [facility] [address] [place] [address] Deonna Lion DO 07/09/[address] [facility] [address] [place] [phone] Deonna Lion DO Medication Question 07/09/2025 Travel 07/08/2025 Telephone [facility] [address] [place] [address] Deonna Lion DO Chart Prep 07/06/[address] [address] Deonna Lion DO Nurse Triage 05/18/2025 7:00 PM EDT Office Visit [facility] [address] [place] [phone] Caty Bedolla MD Nasal congestion; Hordeolum externum [...] (186 lb) 08/03/2025 9:17 AM EDT Height 167.6 cm (5' 6 ) 07/09/2025 11:59 AM EDT Body Mass Index 30.02 07/09/2025 11:59 AM EDT Plan of Treatment Health Maintenance [...] (#1) 2025 Alcohol/Substance Use Screening 02/12/2026 02/12/2025 Disability Screening 02/12/2026 02/12/2025 SDOH Screening 02/12/2026 02/12/2025 Depression Screening 07/09/2026 07/09/2025, 07/09/2025 Tobacco Screening 08/03/2026 08/03/2025 DTaP/Tdap/Td Vaccines (2 - T d or [...] Procedure Name Priority Date/Time Associated Diagnosis Comments CREATINE KINASE, TOTAL Routine 08/03/2025 8:00 PM EDT COMPREHENSIVE METABOLIC PANEL Routine 08/03/2025 8:00 PM EDT CBC WITH AUTO DIFFERENTIAL Routine 08/03/2025 8:00 PM EDT POCT INFLUENZA B (ID NOW RAPID MOLECULAR) Routine 05/18/2025 6:47 PM EDT Nasal congestion POCT RAPID COVID ANTIGEN Routine 05/18/2025 6:42 PM EDT Nasal congestion POCT INFLUENZA A (ID NOW RAPID MOLECULAR) Routine 05/18/2025 6:42 PM EDT Nasal congestion HEPATITIS C AB W/REFL TO HCV RNA, [...] Recently Relevant to Health Maintenance Results * (ABNORMAL) CBC auto differential (08/03/2025 8:00 PM EDT) White Blood Count 8.4 4.8 - 10.8 X10*3/uL [facility] Red Blood Count 4.48 4.20 - 5.50 X10*6/uL [facility] Hemoglobin 12.7 12.0 - 16.0 g/dl [facility] Hematocrit 38.7 37.0 - 47.0 % [facility] Mean Corpuscular Volume 86.4 80.0 - 98.0 fL [facility] Mean Corpuscular Hemoglobin 28.3 27.0 - 33.0 pg [facility] Mean Corpuscular HGB Conc 32.8 31.0 - 35.0 g/dl [facility] Red Cell Distribution Width 12.4 11.0 - 16.0 % [facility] Platelet Count 264 160 - 400 X10*3/uL [facility] Mean Platelet Volume 9.3(L) 9.4 - 12.3 fL [facility] Neutrophils Percent Auto 61.0 45 - 73 % [facility] Imm Gran Pct Auto 0.2 0.0 - 0.4 % [facility] Lymphocytes Percent Auto 25.8 20 - 40 % [facility] Monocytes Percent Auto 8.5 2 - 11 % [facility] Eosinophils Percent Auto 4.0 0 - 4 % [facility] Basophils Percent Auto 0.5 0 - 2 % [facility] NRBC Pct Auto 0.0 0.0 - 0.2 /100WBC [facility] Neutrophils Absolute Auto 5.1 2.0 - 8.3 x10*3/uL [facility] Imm Gran Abs Auto 0.02 0.00 - 0.03 X10*3/uL [facility] Lymphocytes Absolute Auto 2.2 1.2 - 4.9 X10*3/uL [facility] Monocytes Absolute Auto 0.7 0.1 - 1.2 X10*3/uL [facility] Eosinophils Absolute Auto 0.3 0.0 - 0.4 X10*3/uL [facility] Basophils Absolute Auto 0.0 0.0 - 0.2 X10*3/uL [facility] NRBC Abs Auto 0.000 0.0 - 0.012 X10*3/uL [facility] 08/03/2025 8:00 PM EDT 08/03/2025 8:04 PM EDT us Generic External Data Provider LAB BLOOD ORDERAB LES Final Result [facility] [address] [place] [phone] * Creatine Kinase, Total (08/03/2025 8:00 PM EDT) Creatine Kinase Total 70 26 - 140 U/L [facility] 08/03/2025 8:00 PM EDT 08/03/2025 8:04 PM EDT us Generic External Data Provider LAB BLOOD ORDERAB LES Final Result [facility] [address] [place] [phone] * (ABNORMAL) Comprehensive Metabolic Panel (08/03/2025 8:00 PM EDT) Sodium 141 135 - 145 mmol/L [facility] Potassium 3.7 3.3 - 5.1 mmol/L [facility] Chloride 112(H) 96 - 108 mmol/L [facility] Carbon Dioxide 22 22 - 29 mmol/L [facility] Anion Gap 11(L) 12 - 20 [facility] Urea Nitrogen (BUN) 10 9 - 16 mg/dL [facility] Creatinine, Serum 0.65 0.5 - 1.4 mg/dL [facility] Creatinine Clr Calc Pharmacy 135.1 [facility] Comment:Provided height and weight: 168.91 cm,83.2 kg.eGFR (calculated from the MDRD study equation) and eCrCl(calculated from the Cockcroft-Gault equation) are based ondifferent parameters and may not yield comparable results.If eCrCl result is absurd, please check patient'sheight/weight. Estimated Glomerular Filt Rate >60 [facility] Comment:Chronic Kidney Disea se: Estimated GFR < 60 mL/min/1.26r1Ybtrot Kidney Disease: Estimated GFR < 15 mL/min/1.73m2 Glucose 100 60 - 115 mg/dL [facility] Calcium 8.9 8.4 - 10.2 mg/dL [facility] Bilirubin, Total 0.2 0.0 - 1.0 mg/dL [facility] Aspartate Amino Transferase 16 5 - 31 U/L [facility] Alanine Aminotransferase 11 0 - 31 U/L [facility] Total Protein 7.1 6.5 - 8.0 g/dL [facility] Albumin Level 4.4 3.5 - 5.0 g/dL [facility] Alkaline Phosphatase 56 39 - 117 U/L [facility] 08/03/2025 8:00 PM EDT 08/03/2025 8:04 PM EDT us Generic External Data Provider LAB BLOOD ORDERAB LES Final Result Performing Organization Address [facility]/ZIP Co de Phone Number [facility] [address] [place] [phone] * POCT Rapid Influenza B IZQUIERDO ID NOW (05/18/2025 6:47 PM EDT) Influenza B Negative Negative, Indeterminate [facility] QC Media Lot # [id number] [facility] Lot# Expiration Date [facility] Swab 05/18/2025 6:47 PM EDT us Caty Parada MD POINT OF CARE TEST EN TER/EDIT ORDERABLES Final Result Performing Organization Address [facility] Co de Phone Number [facility] [address] [place] [phone] * POCT Rapid Influenza A IZQUIERDO ID NOW (05/18/2025 6:42 PM EDT) [facility] Influenza A Negative Negative, Indeterminate [facility] QC Media Lot # [id number] [facility] Lot# Expiration Date [facility] Swab 05/18/2025 6:42 PM EDT us Caty Parada MD POINT OF CARE TEST EN TER/EDIT ORDERABLES Final Result Performing Organization Address City/[facility]/ZIP Co de Phone Number [facility] [address] [place] [phone] * POCT Rapid Covid-19 BinaxNOW (05/18/2025 6:42 PM EDT) Pathologist [facility] Rapid COVID Ag Negative QC Media Lot # [id number] Lot# Expiration Date [id number] Swab 05/18/2025 6:42 PM EDT us Caty Parada MD POINT OF CARE TEST EN TER/EDIT ORDERABLES Final Result * Hepatitis C Antibody with Reflex to HCV, RNA, Quantitative, Real-Time PCR (12/04/2024 11:34 AM EST) Hepatitis C Antibody Nonreactive Nonreactive [facility] Comment:Antibodies to HCV no t detected; does not exclude early acuteHCV infection. Blood Venous blood specimen / Unknown 12/04/2024 11:34 AM EST 12/04/2024 1:24 PM EST us Deonna Lion DO LAB BLOOD ORDERABLES Final R esult [facility] [address] [place] [phone] * HIV-1/2 Antigen and Antibodies, Fourth Generation, with Reflexes (12/04/2024 11:34 AM EST) HIV AB/AG Nonreactive Nonreactive [facility] Comment:HIV-1 p24 Ag and/or HIV-1/HIV-2 Ab not detected.A test result that is nonreactive does not exclude thepossibility of exposure to or infection with HIV-1 and/orHIV-2. Nonreactive results in this assay for individualswith prior exposure to HIV-1 and/or HIV-2 may be due toantigen and antibody levels that are below the limit ofdetection of this assay.The LoSonigoBalto HIV Ag/Ab Combo assay result andsupplemental assay results should be interpreted inconjunction with the patient's clinical presentation,history and other laboratory results. If the results areinconsistent with clinical evidence, additional testing issuggested to confirm the result. Blood Venous blood specimen / Unknown 12/04/2024 11:34 AM EST 12/04/2024 1:24 PM EST Deonna Lion DO LAB BLOOD ORDERABLES Final R esult [facility] [address] [place] [phone] from Last 3 Months or Most Recently Relevant to Health Maintenance Insurance [employer] Care Teams Planting Material Carrier Relationship Specialty Start Date End Date Deonna Lion DO [address] [place] [phone] PCP - General Family Medicine 12/03/24
[2025-08-03 20:39] LABS: Troponin-I High Sensitivity < 2.7 ng/L (<3.5-17.0)
[2025-08-03 22:36] VITALS: BP 115/76; PULSE 86; RESP 16; TEMP 36.8; O2SAT 95
[2025-08-03 22:55] VITALS: BP 115/76; PULSE 86; RESP 16; TEMP 36.8; O2SAT 95
== END 2025-08-03 22:55 | disposition home or self-care (01) ==
PROVIDERS: Physician Assistant; Emergency Provider Emergency Medicine; PCP Family Medicine
DX: M54.12 Radiculopathy, cervical region (principal); M54.2 Cervicalgia; R20.2 Paresthesia of skin; R51.9 Headache, unspecified; Z87.891 Personal history of nicotine dependence; Z79.899 Other long term (current) drug therapy
CPT/HCPCS: 36415; 70450; 72125; 80053; 82550; 84484; 85025; 93005; 96372; 99284; J1885

== ENCOUNTER → 2025-08-03 19:37 | Outpatient (BNV) | payer MEDICAID, SELFPAY | PROVIDERS: PCP Family Medicine; Visit Provider Radiology Diagnostic Radiology | DX: M54.2 Cervicalgia (principal); R51.9 Headache, unspecified | CPT/HCPCS: 70450; 72125 ==

== ENCOUNTER → 2025-08-03 19:37 | Outpatient (BNV) | payer MEDICAID, SELFPAY | PROVIDERS: Emergency Provider Emergency Medicine; PCP Family Medicine; Visit Provider Internal Medicine | DX: R07.9 Chest pain, unspecified (principal); M45.2 Ankylosing spondylitis of cervical region; M25.519 Pain in unspecified shoulder | CPT/HCPCS: 93010 ==

== ENCOUNTER 2025-08-30 22:19 | Emergency (ER) | payer MEDICAID, SELFPAY ==
[2025-08-30 22:22] VITALS: BP 123/84; PULSE 96; RESP 20; TEMP 36.5; O2SAT 99; BMI 29.7
--- NOTE | 2025-08-30 22:41 | ED_ITS ---
HPI - Back Pain/Injury General Chief Complaint: Back Pain/Injury Stated Complaint: severe back pain Time Seen by Provider: 08/30/25 22:32 History of Present Illness ED Provider: Patricia Roche HPI Narrative: 35-year-old female with medical history that is significant for bradycardia, GERD, PVC, atypical chest pain, chronic neck pain presents to the ED for evaluation reporting increased lower back pain and tightness. Patient reports the pain is described as a spasm, she has not started taking the baclofen prescription that was provided to her by the clinic yet because she was told not to take it with NSAIDs. She has not had any new trauma, injuries to the area. No falls. Denies any urinary complaints, dysuria, hematuria. She does report urinary frequency but tells me she is drinking lots of water. Denies chance of . Denies any abdominal pain, nausea or vomiting. No fever or chills. No chest pain, shortness of breath or shoulder blade discomfort. Patient reports that she has been seen by Neurology, orthopedics outpatient several times and has had a workup ongoing for 2 years for chronic neck and back pain. The symptoms are not new, but the low back pain had progressively worsened earlier today. No saddle anesthesia, numbness or tingling in the legs or feet, urinary or bowel incontinence. Related Data Home Medications ?Medication ?Instructions ?Recorded ?Confirmed diclofenac sodium 1 % topical gel 2 g topical QID PRN 03/09/25 06/18/25 (Arthritis Pain (diclofenac)) ibuprofen 600 mg tablet 600 mg PO Q8H PRN 06/18/25 0 06/18/25 Previous Rx's ?Medication ?Instructions ?Recorded ketorolac 10 mg tablet 10 mg PO Q6H PRN pain #20 ta bs 08/03/25 methylprednisolone 4 mg tablets in 4 mg PO QAM #21 ea 08/03/25 a dose pack (Medrol (Mark)) Allergies Allergy/AdvReac Type Severity Reaction Status Date / Time No Known Allergies Allergy Verified 08/30/25 22:27 Review of Systems Review of Systems: ROS is otherwise negative unless mentioned in HPI. [facility] Past Medical History Medical History Chronic idiopathic constipation GERD (gastroesophageal reflux disease) delivery delivered Chest pain of uncertain etiology Muscle spasm Whole body pain Decreased visual acuity Chronic constipation Chronic neck pain Chronic headache Surgical History H/O eye surgery Family History Family History Mother High blood pressure Colitis Father High blood pressure High cholesterol Fatty liver Social History Social History Alcohol intake: never Patient Tobacco Use Status: Former Tobacco user Smoked in Last 30 Days: No Use of substances other than those prescribed or required for medical reasons: No Advance Directives: No Advance Directives Information Provided: No Patient : No Physical Exam Exam: Exam: Nursing notes and vital signs reviewed. Constitutional: Well-appearing, NAD. Alert. Oriented X3. Eyes: EOMI. Neck: Normal inspection. Neck supple. CVS: Normal heart rate and rhythm. Pulses normal. Respiratory: No respiratory distress. Breath sounds normal. Abdomen: Soft and nontender, nondistended. Skin: Skin warm and dry. Normal skin color. Extremities: No lower extremity edema. MSK: No midline C, T, L, S spine tenderness. Neuro: Oriented X 3. No motor deficit. Vital Signs: Vital Signs: Last Vital Signs Temp 97.7 F 08/30/25 22:22 Pulse 96 08/30/25 22:22 Resp 20 08/30/25 22:22 BP 123/84 08/30/25 22:22 Pulse Ox 99 08/30/25 22:22 O2 Del Method Room Air 08/30/25 22:22 BMI result Body Mass Index 29.7 Medications Administered Discontinued Medications Generic Name Dose Route Start Last Admin Trade Name Ashely PRN Reason Stop Dose Admin Baclofen 10 mg 08/30/25 23:03 08/30/25 23:39 Baclofen 10 Mg Tablet PO 08/30/25 23:04 10 mg ONCE ONE Administration Medical Decision Making Medical Decision Making MDM Narrative: Overall she appears well. Benign abdominal exam, no midline spinal tenderness on exam. She complains of more than 2 years of chronic back pain. The chronic back pain has been persistent in the upper back, mid back, neck, and low back. She has been seen by several orthopedic providers, neurology, had several imaging tests performed on her brain, including MRIs. I can see most recently that she had a C-spine and head CT on 08/03/2025, both of which were reassuring, with C-spine showing some musculoskeletal spasm. She describes the pain that she currently has a spasm. Reassuring exam overall. There was no indication to repeat imaging. She reports, to the ED because the pain was more severe, but she did not take baclofen at home as she is concerned she can not take it with NSAIDs. Her urinalysis here was performed and negative for , negative for infection, as given low back pain/flank pain seen clinically. This likely is acute musculoskeletal spasm. She reports significant improvement after the baclofen. Plan to discharge home with outpatient follow up with PCP, neurology, orthopedics. She is agreeable, and we will contact the clinic tomorrow for additional follow-up. Provided strict return precautions to the ED. Differential Diagnosis Differential Diagnoses: The differential diagnosis associated with the presentation includes Musculoskeletal back pain, cystitis, pyelonephritis, renal stone Admission/Observation Consideration of admission/observation: Escalation of care including admission/observation considered (Not indicated) Lab Data MDM Lab Attestation statement: I reviewed the patient's lab results. (Urinalysis reassuring) Labs: Lab Results 08/30/25 Range/Units 23:10 Urine Color Yellow Urine Appearance Clear Urine pH 5.5 (5.0-9.0) Ur Specific [place] 1.010 (1.005-1.025) Urine Protein Negative (Neg-Trace) mg/dL Urine Glucose (UA) Negative (Negative) mg/dL Urine Ketones Negative (Negative) mg/dL Urine Blood Negative (Negative) Urine Nitrite Negative (Negative) Ur Leukocyte Esterase Trace H (Negative) Urine RBC 0-2 (0-2) /HPF Urine WBC 0-5 (0-5) /HPF Ur Squamous Epith Cells 0-2 (0-2) /HPF Urine Bacteria None Seen (None Seen) Hyaline Casts 0-2 (0-2) /LPF Urine Test NEGATIVE (NEGATIVE) External Record Review External record reviewed: Outpatient record and Other (Prior ER visits) Chronic Conditions Patient?s care impacted by: Other (Chronic neck, back pain) Social Determinants Patient?s care significantly limited by Social Determinants of Health including: Problems related to primary support group Family lives in [place] Discharge Plan Discharge Clinical Impression: Back pain Qualifiers: Back pain location: low back pain Chronicity: chronic Back pain laterality: bilateral Sciatica presence: without sciatica Qualified Code(s): M54.50 - Low back pain, unspecified Patient Disposition: Home, Self-Care Instructions: Chronic Back Pain (DC) Additional Instructions: As we discussed, in the ED we gave you a dose of baclofen, the prescription that you were scheduled to hand picker outpatient. This seemed to help with your back pain. We also gave you a dose of Toradol into the muscle. Your urine test, as well as urine testing showed no signs of , or urinary tract infection. Your chronic back pain is currently being worked up outpatient. We do recommend that you continue this testing. As prescribed with the previous provider, please take your baclofen prescription as needed for pain. Please call the clinic tomorrow to schedule a follow up visit. I have also listed below [facility] PCPs as well. With any new, worsening complaints at any time, please seek re-evaluation in the ED. Prescriptions: No Action ketorolac 10 mg tablet 10 mg PO Q6H PRN (Reason: pain) Qty: 20 0RF Rx Instructions: maximum total duration of 5 days from all oral, intranasal, or parenteral formulations. The patient received an intramuscular dose of Toradol here in the emergency room methylprednisolone [Medrol (Mark)] 4 mg tablets,dose pack 4 mg PO QAM Qty: 21 0RF Rx Instructions: Take per package instructions diclofenac sodium [Arthritis Pain (diclofenac)] 1 % gel 2 g topical QID PRN Rx Instructions: Apply 2 g topically if needed in the morning, noon, and evening. ibuprofen 600 mg tablet 600 mg PO Q8H PRN Referrals: [facility] Family Medicine [Provider Group, Family Practice] Print Language: Samoan
--- OUTSIDE RECORDS SUMMARY | 2025-08-30 22:54 | XMS_ITS | Encounter Summary ---
Author Organization [facility] Address [address] [place] [address] Care Team Providers Care Facilities Custodian Name Role Phone Carol Wiseman APRN Primary Care Provider Encounter Details Date Type Department Care Team (Late st Contact Info) Description 12/18/2023 Scanned Document [address] [phone] Neurology, Scan Social History Tobacco Use Types [...] on filedocumented in this encounter Care Teams Facilities Custodian Relationship Specialty Start Date End Date Carol Wiseman APRN [address] [place] [phone] PCP - General Family Medicine 11/02/23 documented as of this encounter
--- OUTSIDE RECORDS SUMMARY | 2025-08-30 22:54 | XMS_ITS | Clinical Summary ---
Author Organization [facility] Address [address] [place] [address] Care Team Providers Care Plugger Man Name Role Phone Carol Wiseman Primary Care Provider [phone] Allergies No known active allergies Medications acetaminophen [...] drink = 0.6 oz pur e alcohol) [facility] Utilities Answer Date Recorded In the past [...] time in the past 12 m [facility], were you homeless or living in a [facility] (including now)? No 05/08/2024 Comments No Sex [...] 2022 HPV/Cotest 2022 COVID-19 Vaccine (1 - 2024-2 6 season) 2025 Influenza Vaccine (#1) 2025 DTaP,Tdap,and [...] age to complete this topic Pneumococcal Vaccine: At-Ris k and Pediatric Patients (0 to 49 Years) Aged Out No lo nger eligible based on patient's age to complete this topic Insurance [address] [place] [id number] [facility] Care Teams Plugger Man Relationship Specialty Start Date End Date Carol Wiseman [address] [place] [address] PCP - General Family Medicine 11/01/23
--- OUTSIDE RECORDS SUMMARY | 2025-08-30 22:54 | XMS_ITS | Encounter Summary ---
Author Organization [facility] Address [address] [place] [address] Care Team Providers Care Pipelines Supervisor Name Role Phone Carol Wiseman APRN Primary Care Provider Encounter Details Date Type Department Care Team (Late st Contact Info) Description 11/04/2023 Scanned Document GENERIC EXTERNAL DATA DEPARTMENT Clary Luke MD [address] [place] [address] Social History Tobacco Use Types Packs/Day Years [...] on filedocumented in this encounter Care Teams Pipelines Supervisor Relationship Specialty Start Date End Date Carol Wiseman APRN [address] [place] [address] PCP - General Family Medicine 11/02/23 documented as of this encounter
--- OUTSIDE RECORDS SUMMARY | 2025-08-30 22:54 | XMS_ITS | Encounter Summary ---
Author Organization [facility] Address [address] [place] [address] Care Team Providers Care Refrigeration Unit Repairer Name Role Phone Unknown Primary Care Provider [phone] Linn Griffin APRN Primary Care Provider [phone] Carol Wiseman APRN Primary Care Provider Encounter Details Date Type Department Care Team (Late st Contact Info) Description 09/19/2018 Abstract [facility] Maternal Medicine [address] [place] [id number] Tiara Franz MS,[facility] [address] [place] [address] Social History Tobacco Use Types Packs/Day Years [...] on filedocumented in this encounter Care Teams Refrigeration Unit Repairer Relationship Specialty Start Date End Date Unknown Unknow Provider Address PCP - General 03/24/19 12/19/22 Linn Griffin APRN [address] [place] [address] PCP - General Family Medicine 12/20/22 10/28/23 Carol Wiseman APRN [address] [facility], [place] [address] PCP - General Family Medicine 11/02/23 documented as of this encounter
--- OUTSIDE RECORDS SUMMARY | 2025-08-30 22:54 | XMS_ITS | Clinical Summary ---
Author Organization [facility] Address [address] [place] [address] Care Team Providers Care Washhouse Worker Name Role Phone Carol Wiseman ANDI Primary [...] WEEKS 02/01/20 24 Active neomycin-polymyxin -dexAMETHasone (MAXITROL) 3.5-53102-2.1 ophthalmic suspension 01/27/20 24 Active MAGNESIUM PO Take by mouth. Ac tive sodium chloride (OCEAN) 0.65 % nasal drops/spray 1 spray into each nostril as needed for congestion. Active eqkjpd-mplgswwje-m agnesium sulfates (Suprep Bowel Prep Kit) 17.5-3.13-1.6 [...] Date/Time Associated Diagnosis Comments THINPREP PAP TEST (PLANT ATTENDANT) WITH HPV REFLEX, GC/CT Routine 05/29/2019 12:00 AM EDT HIV 1/2 AG/AB CMIA REFLEX TO CONFIRMATION Routine 12/16/2018 10:14 AM EDT from Last 3 Months or Most Recently Relevant to Health Maintenance Results * ThinPrep Pap Test (Telecommunications Manager) with HPV Reflex, GC/CT (05/29/2019 12:00 AM [...] has been evaluated with computer assisted technology. Light Bulb Replacer: [facility] Comment: MAA, CT(ASCP) CT screening location: [place] [address] Comment [facility] Comment: EXPLANATORY NOTE: [...] was performed using the APTIMA COMBO2 Assay ([employer] The analytical performance characteristics of this assay, when used to test SurePath specimens have been determined by [facility]. 05/29/2019 05/30/2019 2:2 0 AM EDT Narrative [facility] - 06/04/2019 11:28 AM EDT Ordered by External Provider. [id number], WAYNE FELICIANO, A Resulting Agency Comment Performing Organization Information: Site ID: [id number] Name: [facility] [facility] [facility] Address: [address] [place] [address], [place] [address] Director: Shamir Raza MD us External Provider LAB AMB PATH/CYTO ORDERABLE S Final Result Performing Organization Address City/State/[facility] Co de Phone Number [facility] [address] [place] [address], [place] [address] * HIV 1/2 Ag/Ab CMIA Reflex to Confirmation (12/16/2018 10:14 AM EDT) HIV Ag/Ab, 4th Gen NON-REACT MARTIN NON-REACT MARTIN [facility] Comment: HIV-1 antigen and HIV-1/HIV-2 [...] purpose. For additional information please refer to http://education.[employer]faq/OKD622 (This link is being provided for informational/ educational purposes only.) The performance of this assay has not been clinically validated in patients less than 2 years old. 12/16/2018 10:1 4 AM EDT 12/16/2018 10:42 PM EDT Narrative [facility] - 12/17/2018 2:10 PM EDT FASTING:YES AN UPDATE OR CORRECTION HAS BEEN MADE TO NAME FASTING: YES Ordered by External Provider. [id number], PASTOR MANN K Resulting Agency Comment Performing Organization Information: Site ID: [id number] Name: [facility] Address: [address] [place] [address], [place] [address] Director: Shamir Raza MD External Provider LAB BLOOD ORDERABLES Final Result [facility] [address] [place] [address], [place] [address] from Last 3 Months or Most Recently Relevant to Health Maintenance Insurance [facility] Advance Directives * Full Code (Latest Code Status on File) Date Activated Date Inactivated Comments 03/26/2019 8:16 AM 08/17/2022 5:59 AM * Full Code Date Activated Date Inactivated Comments 03/25/2019 10:03 AM 03/26/2019 8:16 AM * Full Code Date Activated Date Inactivated Comments 03/03/2019 12:21 PM 03/25/2019 9:44 AM Care Teams Washhouse Worker Relationship Specialty Start Date End Date Carol Wiseman APRN [address] [place] [id number] PCP - General Family Medicine 11/02/23
[2025-08-30 23:19] LABS: Appearance Urine Clear; Glucose Urine UA Negative (Negative); PH 5.5 (5.0-9.0); Specific Gravity - Urine 1.010 (1.005-1.025); UMIC TRIGGER UACC YES
[2025-08-30 23:21] LABS: UPreg QC Valid YES
--- NOTE | 2025-08-30 23:40 | PC.NURSE ---
Pt ambulatory to ED 14 from triage, assumed care of pt at this time. A&Ox3 skin pwd respirations even unlabored. Endorsing chronic neck pain x 2 years worsening recently with tightness in head, increased tension in left neck and left lower back spasms today. Seen in ED last week for same complaint, prescribed baclofen although has not tried it yet at home due to taking other meds. Denies accompanying symptoms. Medicated per MAR, awaiting improvement in symptoms.
[2025-08-31 01:10] VITALS: BP 123/84; PULSE 96; RESP 20; TEMP 36.5; O2SAT 99
== END 2025-08-31 01:10 | disposition home or self-care (01) ==
PROVIDERS: Nurse Practitioner; Emergency Provider Emergency Medicine; PCP Family Medicine
DX: M54.50 Low back pain, unspecified (principal); K21.9 Gastro-esophageal reflux disease without esophagitis; Z87.891 Personal history of nicotine dependence
CPT/HCPCS: 81001; 81025; 96372; 99284; J1885

== ENCOUNTER 2025-09-19 14:08 | Emergency (ER) | payer MEDICAID, SELFPAY ==
--- NOTE | ~2025-09-19 | XR_ITS ---
CLINICAL HISTORY: fall onto L side 2 views left hip Comparison: None Findings: No fractures or dislocations. No significant arthritic change. No radiopaque foreign body. Impression: 1. Normal left hip This document has been electronically signed by: Gregory Wei MD on 09/19/2025 15:20:37
--- NOTE | ~2025-09-19 | XR_ITS ---
CLINICAL HISTORY: fall onto back 3 views thoracic spine Comparison: None Findings: No fractures or dislocations. Normal vertebral body alignment. No significant arthritic change. Impression: 1. Unremarkable thoracic spine This document has been electronically signed by: Gregory Wei MD on 09/19/2025 15:23:24
--- NOTE | ~2025-09-19 | XR_ITS ---
CLINICAL HISTORY: fall onto back 3 views lumbar spine Comparison: None Findings: No fractures or dislocations. Normal vertebral body alignment. There may be some mild disc space narrowing at L5-S1. No other significant arthritic change. Sacroiliac joints unremarkable. Impression: 1. Mild disc space narrowing at L5-S1. Otherwise, unremarkable lumbar spine This document has been electronically signed by: Gregory Wei MD on 09/19/2025 15:21:47
[2025-09-19 14:27] VITALS: BP 118/77; BP 122/88; PULSE 96; PULSE 99; RESP 18; TEMP 36.6; O2SAT 99; BMI 29.7
--- NOTE | 2025-09-19 14:28 | ED.FALL ---
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 Patient states she slipped while descending steps at home, falling backwards onto her back/buttocks. Denies head strike or LOC. No thinners. Reports pain to mid-low back and left hip, worse with movement. No radiation down extremities. Denies numbness/tingling/weakness of the LEs, bowel/bladder incontinence or retention, saddle anesthesia. Related Data Home Medications ?Medication ?Instructions ?Recorded ?Confirmed diclofenac sodium 1 % topical gel 2 g topical QID PRN 03/09/25 06/18/25 (Arthritis Pain (diclofenac)) ibuprofen 600 mg tablet 600 mg PO Q8H PRN 06/18/25 06/18/25 Previous Rx's ?Medication ?Instructions ?Recorded ketorolac 10 mg tablet 10 mg PO Q6H PRN pain #20 tabs 08/03/25 methylprednisolone 4 mg tablets in 4 mg PO QAM #21 ea 08/03/25 a dose pack (Medrol (Mark)) lidocaine 5 % topical patch See Rx Instructions topical 09/19/25 .COMPLEX #15 ea Allergies Allergy/AdvReac Type Severity Reaction Status Date / Time No Known Allergies Allergy Verified 09/19/25 14:32 Review of Systems Review of Systems: Constitutional: No fever, chills, fatigue, night sweats, weight changes ENT/Mouth: No ear pain, hearing loss, nasal congestion, sinus pain, rhinorrhea, sore throat Eyes: No eye pain, swelling, redness, vision changes, discharge Cardio: No chest pain, palpitations, STONE, orthopnea, peripheral edema Pulm: No SOB, cough, sputum, wheezing, dyspnea, hemoptysis GI: No nausea, vomiting, hematemesis, abdominal pain, diarrhea, constipation, hematochezia, melena : No irregular bleeding, dysuria, frequency, urgency, hesitancy, hematuria, flank pain, urinary flow changes, urinary incontinence or retention MSK: +back pain, No neck pain, joint pain, myalgias Skin: No lesions, rashes Neuro: No weakness, numbness, paresthesias, LOC, dizziness, headache All other systems reviewed and are negative. Yes all other systems are reviewed and are negative [facility] Past Medical History Attestation statement: The following information was validated with the patient. Source: old records reviewed and nursing notes reviewed Medical History Chronic idiopathic constipation GERD (gastroesophageal reflux disease) delivery delivered Chest pain of uncertain etiology Muscle spasm Whole body pain Decreased visual acuity Chronic constipation Chronic neck pain Chronic headache Surgical History H/O eye surgery Family History Family History Mother High blood pressure Colitis Father High blood pressure High cholesterol Fatty liver Social History Social History Alcohol intake: never Patient Tobacco Use Status: Former Tobacco user Advance Directives: No Advance Directives Information Provided: No Physical Exam Vital Signs: Vital Signs: Last Vital Signs Temp 97.8 F 09/19/25 14:27 Pulse 96 09/19/25 14:27 Resp 18 09/19/25 14:27 BP 118/77 09/19/25 14:27 Pulse Ox 99 09/19/25 14:27 O2 Del Method Room Air 09/19/25 14:27 BMI result Body Mass Index 29.7 Vital signs stable, afebrile Const: General: cooperative, healthy appearing, comfortable, no acute distress, alert, awake and Physically active Orientation/consciousness: patient oriented x3 HEENT: Head: Yes normal to inspection, Yes normocephalic and Yes atraumatic Eyes: General: appearance normal, both eyes and all related structures Pupils: Equal, round and reactive pupils present EOM: EOMs intact bilaterally Neck: Other: no cervical midline spinous tenderness or step-off deformity. Neck: Yes normal visual inspection, Yes full ROM and Yes no meningeal signs Resp: Effort & Inspection: normal respiratory effort Auscultation: clear to auscultation bilaterally Cardio: Rate: regular rate Rhythm: regular rhythm GI: Inspection: Yes normal to inspection Palpation (GI): Soft to palpation and nontender : General: Yes no CVA tenderness Back/Spine/Pelvis: Other: No midline spinous tenderness or step off deformity. there is bilateral thoracic and lumbar paraspinal muscle tenderness, no palpable deformities, masses. no overlying skin changes. Back: no CVA tenderness Neuro: Other: Strength 5/5 intact throughout.? No saddle anesthesia.? Sensation intact to light touch.? Neurovascular intact distally.?ambulating with steady gait to the bathroom. General: patient oriented x3, gait normal and no meningeal signs Cranial nerves: Yes Equal, round and reactive pupils present Gait exam (Neuro): Normal gait present Course Course Course Narrative: xrs unremarkable. Exam consistent with muscular pain. Treated with Toradol, baclofen lidocaine patches in the ED. Patient takes baclofen at baseline for her neck pain. Advised to continue this at home for her back pain. Lidocaine patches sent to pharmacy. Advised Tylenol/Motrin at home. Patient has remained stable throughout ED visit today. Discussed worrisome signs and symptoms and when to return to the ED. All questions answered at this time. Patient is agreeable with disposition and stable for discharge. Her family member at bedside will be driving her home today. Medications Administered Discontinued Medications Generic Name Dose Route Start Last Admin Trade Name Freq PRN Reason Stop Dose Admin Baclofen 10 mg 09/19/25 17:13 09/19/25 17:37 Baclofen 10 Mg Tablet PO 09/19/25 17:14 10 mg ONCE ONE Administration Cyclobenzaprine HCl 5 mg 09/19/25 16:59 09/19/25 17:20 Cyclobenzaprine Hcl 5 Mg Tablet PO 09/19/25 17:00 Not Given ONCE ONE Ketorolac Tromethamine 30 mg 09/19/25 16:59 09/19/25 17:10 Ketorolac Tromethamine 30 Mg/Ml Vial IM 09/19/25 17:00 30 mg ONCE ONE Administration Lidocaine 1 patch 09/19/25 16:59 09/19/25 17:10 Lidocaine 4 % Patch Adh..Patch TRANSDERMA 09/19/25 17:00 1 patch ONCE ONE Administration Protocol Medical Decision Making Medical Decision Making MDM Narrative: 35 year old female BIBA for evaluation of mid to low back pain s/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 vital signs stable. she is well appearing and in NAD. On exam, there is no midline spinous tenderness or step off deformity. there is bilateral thoracic and lumbar paraspinal muscle tenderness, no palpable deformities, masses. no overlying skin changes. NV intact distally. ambulating with steady gait to the bathroom. Concern for MSK sprain/strain, fracture, subluxation, disc herniation, sciatica. Unlikely cord compression, cauda equina, Guillain-[place], epidural abscess. Plan for imaging, pain control and disposition. Differential Diagnosis Differential Diagnoses: The differential diagnosis associated with the presentation includes as above Admission/Observation Not indicated. Independent Interpretation I performed an independent interpretation of an: Plain X-Ray Interpretation: xr lumbar and thoracic spine without fracture xr pelvis/left hip without fracture Radiology Impression Discussion of test interpretation with radiology: I have reviewed the radiologist's reading. Radiologist Impression: Procedure(s): XR thoracic spine 3V Accession Number(s): [id number] cc: Renee Zuniga~ Reason for Exam: fall onto back CLINICAL HISTORY: fall onto back 3 views thoracic spine Comparison: None Findings: No fractures or dislocations. Normal vertebral body alignment. No significant arthritic change. Impression: 1. Unremarkable thoracic spine This document has been electronically signed by: Gregory Wei MD on 09/19/2025 15:23:24 Procedure(s): XR lumbar spine 2-3V Accession Number(s): [id number] cc: Renee Zuniga~ Reason for Exam: fall onto back CLINICAL HISTORY: fall onto back 3 views lumbar spine Comparison: None Findings: No fractures or dislocations. Normal vertebral body alignment. There may be some mild disc space narrowing at L5-S1. No other significant arthritic change. Sacroiliac joints unremarkable. Impression: 1. Mild disc space narrowing at L5-S1. Otherwise, unremarkable lumbar spine This document has been electronically signed by: Gregory Wei MD on 09/19/2025 15:21:47 Procedure(s): XR hip LT w PEL1V Accession Number(s): [id number] cc: Renee Zuniga~ Reason for Exam: fall onto L side CLINICAL HISTORY: fall onto L side 2 views left hip Comparison: None Findings: No fractures or dislocations. No significant arthritic change. No radiopaque foreign body. Impression: 1. Normal left hip This document has been electronically signed by: Gregory Wei MD on 09/19/2025 15:20:37 Independent Historian Clinical information obtained from an independent historian. History obtained from or confirmed by: Spouse and EMS External Record Review External record reviewed: Inpatient record Prescription Management I considered prescription management with: Pain Medication and Other (lido patches) Social Determinants Patient?s care significantly limited by Social Determinants of Health including: Other Social Determinant of Health Critical Care Time Critical Care Time Critical Care Time: No Discharge Plan Discharge Clinical Impression: Fall, Lumbar back pain Patient Disposition: Home, Self-Care Instructions: Fall Prevention (ED) Additional Instructions: You were evaluated in the Emergency Department today for back pain following a fall. Your evaluation did not show signs of medical conditions requiring emergent intervention at this time. Avoid bending, lifting, or twisting. Use ice several times per day for 20 minutes at a time for the next 48 hours and then change to heat. I recommend you take 600mg ibuprofen every 6 hours or tylenol 650mg every 6 hours as needed for pain. If needed, you can alternate these medications so that you take one medication every 3 hours. For example, at noon take ibuprofen, then at 3pm take tylenol, then at 6pm take ibuprofen. You may continue taking baclofen at home as needed for back pain. Lidoderm patches are numbing patches. Apply to painful areas. Please schedule an appointment for follow-up with your primary care provider this week for further evaluation of your symptoms. Return to the Emergency Department if you experience worsening back pain, difficulty walking, fevers, numbness, tingling, incontinence, or any other concerning symptoms. In the case of an emergency call 911. Prescriptions: New lidocaine 5 % adhesive patch,medicated See Rx Instructions .ROUTE .COMPLEX Qty: 15 0RF Rx Instructions: leave on most painful area for up to 12 hrs No Action ketorolac 10 mg tablet 10 mg PO Q6H PRN (Reason: pain) Qty: 20 0RF Rx Instructions: maximum total duration of 5 days from all oral, intranasal, or parenteral formulations. The patient received an intramuscular dose of Toradol here in the emergency room methylprednisolone [Medrol (Mark)] 4 mg tablets,dose pack 4 mg PO QAM Qty: 21 0RF Rx Instructions: Take per package instructions diclofenac sodium [Arthritis Pain (diclofenac)] 1 % gel 2 g topical QID PRN Rx Instructions: Apply 2 g topically if needed in the morning, noon, and evening. ibuprofen 600 mg tablet 600 mg PO Q8H PRN Referrals: Deonna Lion DO [Primary Care Provider, Internal Medicine] Stand Alone Forms: Work/School Release Print Language: Rwandan
[2025-09-19] MEDS: Lidocaine 4 % Patch ADH..PATCH 1 PATCH TRANSDERMA (17:10)
--- OUTSIDE RECORDS SUMMARY | 2025-09-19 17:16 | XMS_ITS | Encounter Summary ---
Author Organization [employer] Address [address] [place] [address] Care Team Providers Care Front End Loader Driver Name Role Phone Deonna Lion DO Primary Care Provider [phone] Encounter Details Date Type Department Care Team (Late st Contact Info) Description 01/07/2025 Orders Only [facility] [address] [place] [address] Meli Salazar RN Social History Tobacco Use [...] AUTO DIFFERENTIAL Routine 08/03/2025 8:00 PM EDT CREATINE KINASE, TOTAL Routine 8:00 PM EDT COMPREHENSIVE METABOLIC PANEL Routine 08/03/2025 8:00 PM EDT VITAMIN D [...] EDT documented in this encounter Results * Creatine Kinase, Total (08/03/2025 8:00 PM EDT) Creatine Kinase Total 70 26 - 140 U/L [facility] 08/03/2025 8:00 PM EDT 08/03/2025 8:04 PM EDT us Generic External Data Provider LAB BLOOD ORDERAB LES Final Result [facility] [address] [place] [phone] * (ABNORMAL) Comprehensive Metabolic Panel (08/03/2025 8:00 PM EDT) Sodium 141 135 - 145 mmol/L [facility] Potassium 3.7 3.3 - 5.1 mmol/L [facility] Chloride 112(H) 96 - 108 mmol/L [facility] Carbon Dioxide 22 22 - 29 mmol/L [facility] Anion Gap 11(L) 12 - 20 [facility] Urea Nitrogen (BUN) 10 9 - 16 mg/dL [facility] Creatinine, Serum 0.65 0.5 - 1.4 mg/dL [facility] Creatinine Clr Calc Pharmacy 135.1 [facility] Comment:Provided height and weight: 168.91 cm,83.2 kg.eGFR (calculated from the MDRD study equation) and eCrCl(calculated from the Cockcroft-Gault equation) are based ondifferent parameters and may not yield comparable results.If eCrCl result is absurd, please check patient'sheight/weight. Estimated Glomerular Filt Rate >60 [facility] Comment:Chronic Kidney Disea se: Estimated GFR < 60 mL/min/1.36c6Tndryi Kidney Disease: Estimated GFR < 15 mL/min/1.73m2 Glucose 100 60 - 115 mg/dL [facility] Calcium 8.9 8.4 - 10.2 mg/dL [facility] Bilirubin, Total 0.2 0.0 - 1.0 mg/dL [facility] Aspartate Amino Transferase 16 5 - 31 U/L [facility] Alanine Aminotransferase 11 0 - 31 U/L [facility] Total Protein 7.1 6.5 - 8.0 g/dL [facility] Albumin Level 4.4 3.5 - 5.0 g/dL [facility] Alkaline Phosphatase 56 39 - 117 U/L [facility] 08/03/2025 8:00 PM EDT 08/03/2025 8:04 PM EDT us Generic External Data Provider LAB BLOOD ORDERAB LES Final Result [facility] [address] [place] [phone] * (ABNORMAL) CBC auto differential (08/03/2025 8:00 PM EDT) White Blood Count 8.4 4.8 - 10.8 X10*3/uL [facility] Red Blood Count 4.48 4.20 - 5.50 X10*6/uL [facility] Hemoglobin 12.7 12.0 - 16.0 g/dl [facility] Hematocrit 38.7 37.0 - 47.0 % [facility] Mean Corpuscular Volume 86.4 80.0 - 98.0 fL [facility] Mean Corpuscular Hemoglobin 28.3 27.0 - 33.0 pg [facility] Mean Corpuscular HGB Conc 32.8 31.0 - 35.0 g/dl [facility] Red Cell Distribution Width 12.4 11.0 - 16.0 % [facility] Platelet Count 264 160 - 400 X10*3/uL [facility] Mean Platelet Volume 9.3(L) 9.4 - 12.3 fL [facility] Neutrophils Percent Auto 61.0 45 - 73 % [facility] Imm Gran Pct Auto 0.2 0.0 - 0.4 % [facility] Lymphocytes Percent Auto 25.8 20 - 40 % [facility] Monocytes Percent Auto 8.5 2 - 11 % [facility] Eosinophils Percent Auto 4.0 0 - 4 % [facility] Basophils Percent Auto 0.5 0 - 2 % [facility] NRBC Pct Auto 0.0 0.0 - 0.2 /100WBC [facility] Neutrophils Absolute Auto 5.1 2.0 - 8.3 x10*3/uL [facility] Imm Gran Abs Auto 0.02 0.00 - 0.03 X10*3/uL [facility] Lymphocytes Absolute Auto 2.2 1.2 - 4.9 X10*3/uL [facility] Monocytes Absolute Auto 0.7 0.1 - 1.2 X10*3/uL [facility] Eosinophils Absolute Auto 0.3 0.0 - 0.4 X10*3/uL [facility] Basophils Absolute Auto 0.0 0.0 - 0.2 X10*3/uL [facility] NRBC Abs Auto 0.000 0.0 - 0.012 X10*3/uL [facility] 08/03/2025 8:00 PM EDT 08/03/2025 8:04 PM EDT us Generic External Data Provider LAB BLOOD ORDERAB LES Final Result [facility] [address] [place] [phone] * (ABNORMAL) VITAMIN D 25-OH (D2 AND D3) (04/02/2025 2:25 PM EDT) Vitamin D, 25-OH, D2 <4 ng/mL [facility] Comment:This test was develo ped and its analytical performancecharacteristics have been determined by [employer] [place], [place]. It hasnot been cleared or approved by the U.S. Food and DrugAdministration. This assay has been validated pursuantto the CLIA regulations and is used for clinicalpurposes.THIS TEST WAS PERFORMED AT:[employer] [id number] [place] [address]GXAKMBOLEEANNA FOWLER MD,PHD Vitamin D, 25-OH, D3 24 ng/mL [facility] Comment:This test was develo ped and its analytical performancecharacteristics have been determined by [employer] [place], [place]. It hasnot been cleared or approved by the U.S. Food and DrugAdministration. This assay has been validated pursuantto the CLIA regulations and is used for clinicalpurposes. Vitamin D, 25-OH, Total 24(A) 30 - 100 ng/mL [facility] Comment:Vitamin D, 25-Hydrox y [...] = 30 ng/mL.For additional information, please refer tohttp://education.Qonf/faq/SIJ684(This link is being provided for informational/educational purposes only.) 04/02/2025 2:25 PM EDT 04/02/2025 2:25 PM EDT us Generic External Data Provider LAB BLOOD ORDERAB LES Final Result Performing Organization Address [facility] de Phone Number [facility] [address] [place] [phone] * Tissue Transglutaminase Antibody, IgA (04/02/2025 2:25 PM EDT) Transglutaminase IgA <1.0 U/mL [facility] Comment:Value Interpretation ----- <15.0 Antibody not detected> or = 15.0 Antibody detectedTHIS TEST WAS PERFORMED AT:[employer] [place] [phone] HATCH MD 04/02/2025 2:25 PM EDT 04/02/2025 2:25 PM EDT us Generic External Data Provider LAB BLOOD ORDERAB LES Final Result Performing Organization Address [facility] Number [facility] [address] [place] [phone] * Vitamin B12 (Cobalamin) and Folate Panel, Serum (04/02/2025 2:25 PM EDT) Pathologist [facility] Vitamin B12 371 200 - 900 pg/mL [facility] Comment:NORMAL 200-900 PG/M L INDETERMINATE 160-199 PG/ML DEFICIENT < 160 PG/ML Folate 12.1 > or = 4.0 ng/mL [facility] Comment:Reference Values:> o r = 4.0 ng/mL< 4.0 ng/mL suggests folate deficiency Methotrexate, aminopterin and folinic acid(leucovorin) are chemotherapeutic agents whose molecularstructures are similar to folate; therefore, the Architectfolate assay cannot be used for patients using these drugs. 04/02/2025 2:2 5 PM EDT 04/02/2025 2:25 PM EDT us Generic External Data Provider LAB BLOOD ORDERAB LES Final Result Performing Organization Address [facility] Co de Phone Number [facility] [address] [place] [phone] * TSH with Reflex to Free T4 (04/02/2025 2:25 PM EDT) Pathologist [facility] TSH reflex Free T4 0.98 0.32 - 4.0 uIU/mL [facility] 04/02/2025 2:25 PM EDT 04/02/2025 2:25 PM EDT us Generic External Data Provider LAB BLOOD ORDERAB LES Final Result Performing Organization Address [facility] Co or Phone Number [facility] [address] [place] [phone] * Lipase (04/02/2025 2:25 PM EDT) Pathologist [facility] Lipase 27 8 - 78 U/L [facility] 04/02/2025 2:25 PM EDT 04/02/2025 2:25 PM EDT us Generic External Data Provider LAB BLOOD ORDERAB LES Final Result Performing Organization Address [facility] Number [facility] [address] [place] [phone] * Helicobacter pylori, Urea Breath Test (04/02/2025 1:55 PM EDT) Pathologist [facility] H. pylori Breath Test Negative Negative [facility] Comment:Antimicrobials, prot on pump inhibitors and bismuthpreparations are known to suppress H. pylori. Ingestingthese medications within two weeks prior to performing thebreath test may produce negative test results. A positiveresult is still clinically valid. 04/02/2025 1:55 PM EDT 04/02/2025 4:48 PM EDT us Generic External Data Provider LAB BODY FLUIDS A ND STOOLS ORDERABLES Final Result Performing Organization Address [facility]/State/ZIP Co de Phone Number [facility] [address] [place] [phone] documented in this encounter Visit Diagnoses Not on filedocumented in this encounter Care Teams Front End Loader Driver Relationship Specialty Start Date End Date Deonna Lion DO [address] [place] [phone] PCP - General Family Medicine 12/03/24 documented as of this encounter
--- OUTSIDE RECORDS SUMMARY | 2025-09-19 17:16 | XMS_ITS | Clinical Summary ---
Author Organization [facility] Address [address] [place] [address] Care Team Providers Care Counter Control Operator Name Role Phone Carol Wiseman ANDI Primary [...] WEEKS 02/01/20 24 Active neomycin-polymyxin -dexAMETHasone (MAXITROL) 3.5-97204-6.1 ophthalmic suspension 01/27/20 24 Active MAGNESIUM PO Take by mouth. Ac tive sodium chloride (OCEAN) 0.65 % nasal drops/spray 1 spray into each nostril as needed for congestion. Active nkoecc-iabstkwyj-x agnesium sulfates (Suprep Bowel Prep Kit) 17.5-3.13-1.6 [...] Influenza Vaccine 05/07/2025 COVID-19 Vaccine (1 - 2024-2 6 season) 2025 DTaP/Tdap/Td Vaccines (2 - T d or Tdap) 03/26/2029 03/26/2019 HIV Screening Completed 12/16/2018, 12/16/2018 HPV Vaccines (No Doses Required) Completed Pneumococcal Vaccine: Pediatric (0-5 Years) and At-Risk Patients (6 to 49 Years) Aged Out No longer eligible b ased on patient's age to complete this topic Procedures Procedure Name Priority Date/Time Associated Diagnosis Comments THINPREP PAP TEST (WOOD HEEL FITTER MACHINE) WITH HPV REFLEX, GC/CT Routine 05/29/2019 12:00 AM EDT HIV 1/2 AG/AB CMIA REFLEX TO CONFIRMATION Routine 12/16/2018 10:14 AM EDT from Last 3 Months or Most Recently Relevant to Health Maintenance Results * ThinPrep Pap Test (Reproductive Endocrinologist) with HPV Reflex, GC/CT (05/29/2019 12:00 AM [...] has been evaluated with computer assisted technology. Corporate Associate: [facility] Comment: MAA, CT(ASCP) CT screening location: [place] [address] Comment [facility] Comment: EXPLANATORY NOTE: [...] was performed using the APTIMA COMBO2 Assay ([employer] The analytical performance characteristics of this assay, when used to test SurePath specimens have been determined by [facility]. 05/29/2019 05/30/2019 2:2 0 AM EDT Narrative [facility] - 06/04/2019 11:28 AM EDT Ordered by External Provider. [id number], WAYNE FELICIANO, A Resulting Agency Comment Performing Organization Information: Site ID: [id number] Name: [facility] Address: [address] [place] [address], [place] [address] Director: Shamir Raza MD us External Provider LAB AMB PATH/CYTO ORDERABLE S Final Result Performing Organization Address City/State/[facility] Co de Phone Number [facility] [address] [place] [address], [place] [address] * HIV 1/2 Ag/Ab CMIA Reflex to Confirmation (12/16/2018 10:14 AM EDT) HIV Ag/Ab, 4th Gen NON-REACT MARTIN NON-REACT MARTIN [facility] Comment: HIV-1 antigen and HIV-1/HIV-2 [...] purpose. For additional information please refer to http://education.LegalGuru/faq/DRJ682 (This link is being provided for informational/ educational purposes only.) The performance of this assay has not been clinically validated in patients less than 2 years old. 12/16/2018 10:1 4 AM EDT 12/16/2018 10:42 PM EDT Narrative [facility] - 12/17/2018 2:10 PM EDT FASTING:YES AN UPDATE OR CORRECTION HAS BEEN MADE TO NAME FASTING: YES Ordered by External Provider. [id number], PASTOR MANN K Resulting Agency Comment Performing Organization Information: Site ID: [id number] Name: [facility] Address: [address] [place] [address], [place] [address] Director: Shamir Raza MD External Provider LAB BLOOD ORDERABLES Final Result [facility] [address] [place] [address], [place] [address] from Last 3 Months or Most Recently Relevant to Health Maintenance Insurance [facility] [place] [address] [address] [place] [phone] Advance Directives * Full Code (Latest Code Status on File) Date Activated Date Inactivated Comments 03/26/2019 8:16 AM 08/17/2022 5:59 AM * Full Code Date Activated Date Inactivated Comments 03/25/2019 10:03 AM 03/26/2019 8:16 AM * Full Code Date Activated Date Inactivated Comments 03/03/2019 12:21 PM 03/25/2019 9:44 AM Care Teams Counter Control Operator Relationship Specialty Start Date End Date Carol Wiseman APRN [address] [place] [phone] PCP - General Family Medicine 11/02/23
--- OUTSIDE RECORDS SUMMARY | 2025-09-19 17:16 | XMS_ITS | Encounter Summary ---
Author Organization [facility] Address [address] [place] [address] Care Team Providers Care Porcelain Enameling Supervisor Name Role Phone Carol Wiseman APRN Primary Care Provider Encounter Details Date Type Department Care Team (Late st Contact Info) Description 11/04/2023 Scanned Document GENERIC EXTERNAL DATA DEPARTMENT Clary Luke MD [address] [place] [address] Social History Tobacco Use Types Packs/Day Years [...] on filedocumented in this encounter Care Teams Porcelain Enameling Supervisor Relationship Specialty Start Date End Date Carol Wiseman APRN [address] [place] [address] PCP - General Family Medicine 11/02/23 documented as of this encounter
--- OUTSIDE RECORDS SUMMARY | 2025-09-19 17:16 | XMS_ITS | Patient Health Record ---
Author Organization [facility] Address [address] [place] [address] Care Team Providers Care Trimmer Climber Name Role Phone Alcira Coles Primary Care Provider Kentrell FLOWERS Clinician Alka DUARTE Unavailable [phone] Sonya Franz Unavailable Allergies No Known Allergies Reason For Referral No Information Medications Medication [...] perception of literacy I read well in: Malay Tobacco Control (Standard) Tobacco use: Nonsmoker How do you like To Learn : can read/ write -kiswahili Alcohol Did you have a drink containing [...] Yes Chlamydia Yes Language Spoken Language Spoken Malay Smoking Are you a: never smoker Additional Details Category Social Info Options Details Social History Drug Use denies Problems Problem Type SNOMED Code ICD Code Onset Dates Problem Status W/U Status Risk Notes Problem Generalized anxiety disorder (29741853) Generalized anxiety disorder (F41.1) Active confirmed Problem Dysmenorrhea (683168746) Dysmenorrhea (N94.6) Active confirmed Problem Overweight (058185272) Overweight (BMI 25.0-29.9) (E66.3) Active confirmed Problem Neck pain (13777278) Neck pain (M54.2) Active confirmed Problem Migraine (78376687) Migraine syndrome (G43.909) Active confirmed Problem Metallic taste (19344072) Metallic taste (R43.8) Active confirmed (01/14/24) Exam [...] denise bleeding. Problem History of endocrine disorder (092768239) History of low potassium (Z86.39) Active confirmed Problem Panic disorder (331420110) Panic disorder [episodic paroxysmal anxiety] (F41.0) Active confirmed Vital Signs Temperature 98.4 degrees Fahrenheit 10/06/2024 Respiratory Rate 20 /min 10/06/2024 Blood pressure diastolic 70 mm Hg 10/06/2024 Oximetry 100 % 10/06/2024 Height 66 in 10/06/2024 Blood pressure systolic 106 mm Hg 10/06/2024 Weight 176.2 lbs 10/06/2024 BMI 28.44 kg/m2 10/06/2024 Encounters Encounter Location Date Provider Diagnosis [address] [address] 10/13/2024 Alka Pfeiffer Clinician Generalized anxiety disorder F41.1 and Panic disorder [episodic paroxysmal anxiety] F41.[address] [address] 10/27/2024 Alka Pfeiffer Clinician Generalized anxiety disorder F41.[address] [address] 10/06/2024 Sonya Hdzyue Neck pain M54.2 Assessments Encounter Date Diagnosis (ICD Code) Assessment Notes Treatment Notes Treatment Clinical Notes Section Notes 10/06/2024 Neck pain (ICD-10 - M54.2) Reviewed [...] applies when carrying over a previous visit. Plan Of Treatment Pending Test Test Name Order Date CoV-2 RNA, Qualitative NAAT (COVID 19) 3 [id number] 06/30/2021 Insurance Providers Payer Name Payer Address Payer Phone Subscriber Number Group Number Insured Name Patient Relationship to Insured Coverage Start Date Coverage End [place] [address] [id number] null, null Medicaid Poppy Florez MD [employer] [address] [place] [address] [phone] [id number] Julia Mares Self - patient is the insured Medical (General) History Medical History History ICD Code Asthma Migraines (2 vaginal, 1 c/s) - - -RHM- - -- Pap: HIV/HCV Screen: (10/2020) NR Surgical History Surgery Date(Month/Year) C/S x1 Eye Surgery - astigmatism childhood - 4y /o Hospitalization History Reason Date(Month/Year) Childbirth
--- OUTSIDE RECORDS SUMMARY | 2025-09-19 17:16 | XMS_ITS | Clinical Summary ---
Author Organization [employer] Address [address] [facility] [address] [place] [address] Care Team Providers Care Livery Car Driver Name Role Phone Deonna Lion Primary Care Provider Allergies No known active allergies Medications * This document contains information received from the source organization and may not represent a complete record from that organization. polycarbophil (Fibercon) 625 MG tablet Take 1 tablet (625 mg) by mouth 2 times daily. 180 tablet 3 12/03/19 25 026 Active cholecalcifero l (Vitamin D-3) 50 MCG (1999) capsule Take 1 capsule (50 mcg) by [...] day. 30 tablet 3 07/09/20 25 Active lidocaine (Lidoderm) 5 % patch Apply 1 patch topically Once per day. Remove & discard patch within 12 hours or as directed by MD. 30 patch 2 08/03/20 25 10/28/2 026 Active omeprazole OTC (PriLOSEC OTC) 20 MG EC tablet Take 1 tab po BID for 14 days. 28 tablet 08/24/20 Active baclofen (Lioresal) 10 MG tablet Take 1 tablet (10 mg) by mouth if needed in the morning, at noon, and at bedtime for muscle spasms. 60 tablet 3 09/08/20 Active Diclofenac Sodium 1 % gel Apply 2 g topically if needed in the morning, at noon, in the evening, and at bedtime (pain). 150 g 3 09/08/20 Active cetirizine (ZyrTEC) 10 MG tablet Take 1 tablet (10 mg) by mouth Once per day. 90 tablet 3 09/08/20 Active fluticasone (Flonase) 50 MCG/ACT nasal spray Administer 2 sprays into each nostril Once per day. Shake gently. Before first use, prime pump. After use, clean tip and replace cap. 16 g 11 09/08/20 Active acetaminophen (Tylenol 8 Hour) 650 MG ER tablet Take 1 tablet (650 mg) by mouth every 8 (eight) hours if needed for mild pain. Do not crush, chew, or split. 60 tablet 1 09/08/20 Active ibuprofen 600 MG tablet Take 1 tablet (600 mg) by mouth every 6 (six) hours if needed for mild pain. 40 tablet 1 09/08/20 Active Diclofenac Sodium 1 % gel Apply 2 g topically if needed in the morning, at noon, in the evening, and at bedtime (pain). 150 g 3 12/03/19 Discontinued(Re order (will not trigger notification to Pharmacy)) baclofen (Lioresal) 10 MG tablet TAKE 1 TABLET BY MOUTH THREE TIMES DAILY IN THE MORNING, AT NOON, AND AT BEDTIME NEEDED FOR MUSCLE SPASMS 60 tablet 1 07/23/20 025 Discontinued(Re order (will not trigger notification to Pharmacy)) nystatin (Mycostatin) 579801 UNIT/ML suspension Take 5 mL (500,000 Units) by mouth 4 times daily for 10 days. 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 01/06/25 Chronic neck pain 12/03/2024 Resolved Problems Problem Noted Date Diagnosed Date Resolved Date Hordeolum externum of left upper eyelid 05/18/2025 08/16/2025 Encounters * This document contains information received from the source organization and may not represent a complete record from that organization. Date Type Department Care Team Description 09/08/2025 11:15 AM EST Office Visit [facility] [address] [place] [phone] Deonna Lion DO COVID-19 (Primary Dx); Influenza B; Chronic neck pain; Globus sensation; Dysphagia, unspecified type; Anxiety 09/08/2025 Travel 09/06/2025 Travel 09/06/2025 Telephone [facility] [address] [place] [phone] Deonna Lion DO Nurse Triage 09/06/[address] [phone] Deonna Lion DO ER Follow-up 08/30/2025 Orders Only GENERIC EXTERNAL DATA DEPARTMENT Provider, Generic External Data 08/24/2025 7:00 PM EST Office Visit [facility] [address] [place] [phone] Alcira Walls MD Dry throat (Primary Dx) 08/24/2025 Travel [address] [address] Deonna Lion DO Telephone Call 08/03/2025 9:20 AM EDT [facility] [address] [phone] Jaydon Esquivel MD Neck pain (Primary Dx) 08/03/2025 Orders Only [facility] External Provider, [facility] 08/03/2025 Travel 07/22/20[facility] [address] [phone] Deonna Lion DO 07/09/2025 11:45 AM EDT Office Visit [address] [address] Deonna Lion DO Chronic neck pain (Primary Dx); Chronic intractable headache, unspecified headache type 07/09/[address] [address] Deonna Lion DO Medication Question 07/09/2025 Travel 07/08/[address] [address] Deonna Lion DO Chart Prep 07/06/[address] [address] Deonna Lion DO Nurse Triage from Last 3 Months Immunizations Immunization Administration [...] Packs/Day Years Used Date Smoking Tobacco: Never Passive Smoke Exposure: Never Smokeless Tobacco: Never Tobacco Cessation:Counseling Given: [...] Sign Reading Time Taken Comments Blood Pressure 124/70 09/08/2025 12:12 PM EST Pulse 92 09/08/2025 12:12 PM EST Temperature 36.6 C (97.8 F) 08/24/2025 6:21 PM EST Respiratory Rate 21 09/08/2025 12:12 PM EST Oxygen Saturation 99% 08/03/2025 9:17 AM EDT Inhaled Oxygen Concentration - - Weight 83.5 kg (184 lb) 09/08/2025 12:12 PM EST Height 167.6 cm (5' 6 ) 09/08/2025 12:12 PM EST Body Mass Index 29.7 09/08/2025 12:12 PM EST Plan of Treatment Health Maintenance [...] 6 season) 2025 Influenza Vaccine (#1) 2025 Alcohol/Substance Use Screening 02/12/2026 02/12/2025 SDOH Screening 02/12/2026 02/12/2025 Depression Screening 07/09/2026 07/09/2025, 07/09/2025 Disability Screening 08/24/2026 08/24/2025 Tobacco Screening 08/24/2026 08/24/2025 DTaP/Tdap/Td Vaccines (2 - T d or [...] Priority Date/Time Associated Diagnosis Comments POCT INFLUENZA A (ID NOW RAPID MOLECULAR) Routine 09/08/2025 12:23 PM EST COVID-19 POC IZQUIERDO ID NOW STREP A Routine 09/08/2025 12:22 PM EST COVID-19 POCT INFLUENZA B (ID NOW RAPID MOLECULAR) Routine 09/08/2025 12:22 PM EST COVID-19 POCT RAPID COVID ANTIGEN Routine 09/08/2025 12:21 PM EST COVID-19 HCG, QL, URINE Routine 08/30/2025 11:10 PM EST URINALYSIS, COMPLETE, WITH REFLEX TO CULTURE Routine 08/30/2025 11:[address] HEAD WO CONTRAST Routine 08/03/2025 8 :[address] CERVICAL SPINE WO CONTRAST Routine 08/03/2025 8:35 PM EDT HIGH SENSITIVITY TROPONIN I Routine 08/03/2025 8:00 PM EDT CREATINE KINASE, TOTAL Routine 08/03/2025 8:00 PM EDT COMPREHENSIVE METABOLIC PANEL Routine 08/03/2025 8:00 PM EDT CBC WITH AUTO DIFFERENTIAL Routine 08/03/2025 8:00 PM EDT HEPATITIS C AB W/REFL TO [...] Health Maintenance Results * POCT Rapid Influenza A IZQUIERDO ID NOW (09/08/2025 12:23 PM EST) Influenza A Negative Negative, Indeterminate [facility] QC Media Lot # [id number] [facility] Lot# Expiration Date [facility] Swab 09/08/2025 12:2 3 PM EST Deonna Lion DO POINT OF CARE TEST ENTER/SAILAJA T ORDERABLES Final Result Performing Organization Address City/[facility]/ZIP Co de Phone Number [facility] [address] [place] [phone] * (ABNORMAL) POCT Rapid Influenza B IZQUIERDO ID NOW (09/08/2025 12:22 PM EST) Pathologist [facility] Influenza B Positive( A) Negative, Indeterminate [facility] QC Media Lot # [id number] [facility] Lot# Expiration Date 6 [facility] Swab 09/08/2025 12:2 2 PM EST Deonna Lion DO POINT OF CARE TEST ENTER/SAILAJA T ORDERABLES Final Result Performing Organization Address City/[facility]/ZIP Co de Phone Number [facility] [address] [place] [phone] * POCT Rapid Strep A IZQUIERDO ID NOW (09/08/2025 12:22 PM EST) [facility] Rapid Strep A Screen Negative Negative, None Detected QC Media Lot # [id number] Lot# Expiration Date Swab 09/08/2025 12:2 2 PM EST Deonna Lion DO POINT OF CARE TEST ENTER/SAILAJA T ORDERABLES Final Result * (ABNORMAL) POCT Rapid Covid-19 BinaxNOW (09/08/2025 12:21 PM EST) Rapid COVID Ag Positive QC Media Lot # [id number] Lot# Expiration Date [id number] Swab 09/08/2025 12:2 1 PM EST Deonna Lion DO POINT OF CARE TEST ENTER/SAILAJA T ORDERABLES Edited Result - Final * (ABNORMAL) Urinalysis, Complete, with Reflex to Culture (08/30/2025 11:10 PM EST) Color Urine Yellow [facility] Appearance Urine Clear [facility] PH 5.5 5.0 - 9.0 [facility] Glucose Urine UA Negative Negative mg/dL [facility] Urine Blood Negative Negative [facility] Specific [place] - Urine 1.010 1.005 - 1.025 [facility] Urine Protein Negative Neg-Trace mg/dL [facility] Urine Ketones Negative Negative mg/dL [facility] Nitrite Urine Negative Negative [facility] Leukocyte Esterase Urine Trace(A) Negative [facility] RBC Urine 0-2 0 - 2 /HPF [facility] Urine WBC 0-5 0 - 5 /HPF [facility] Urine Squamous Epithelial Cell 0-2 0 - 2 /HPF [facility] Urine Bacteria None Seen None Seen [facility] Hyaline Casts, Urine 0-2 0 - 2 /LPF [facility] 08/30/2025 11:1 0 PM EST 08/30/2025 11:15 PM EST Narrative [facility] - 08/30/2025 11:24 PM EST [id number], Clean C[employer] us Generic External Data Provider LAB URINE ORDERAB LES Final Result [facility] [address] [place] [phone] * HCG, Qualitative, Urine (08/30/2025 11:10 PM EST) Urine NEGATIVE NEGATIVE [facility] Comment:This test was develo ped to detect early . Falsenegative results may occur after the 5th - 7th week ofpregnancy when using this test method. If clinicallyindicated, consider a serum hCG. 08/30/2025 11:1 0 PM EST 08/30/2025 11:15 PM EST us Generic External Data Provider LAB URINE ORDERAB LES Final Result [facility] [address] [place] [phone] * CT Cervical Spine w/o Contrast (08/03/2025 8:35 PM EDT) Anatomical Region Laterality Modality Spine, C-spine Computed Tomogra phy 08/03/2025 8:35 PM EDT Narrative 08/03/2025 8:37 PM EDT [address] [address] [address] Scan Report Signed Patient: Julia Mares MR#: [id number] : 1990 Acct:[id number] Age/Sex: 34 / F ADM Date: 08/03/25 Loc: .ED Attending Dr: Ordering Physician: Octavio Astorga Date of Service: 08/03/25 Procedure(s): CT cervical spine wo IV con Accession Number(s): [id number] cc: Octavio Astorga; Deonna Lion DO Report Number: [id number]: Total DLP = 1151.00 mGy-cm Reason for Exam: neck pain CLINICAL HISTORY: neck pain CT cervical spine without contrast Comparison: None available Findings: Straightening of the normal cervical lordosis. No fracture. No severe spinal canal stenosis. No epidural hematoma. Normal thickness of the prevertebral soft tissues. The lung apices are clear. Impression: No fracture. Straightening of the normal cervical lordosis could be positional or secondary to muscle spasm. This document has been electronically signed by: Giovanna Dumont MD on 08/03/2025 20:35:25 Dictated By: Giovanna Meadows MD Signed By: <Electronically signed by Giovanna Meadows MD in OV> 08/03/252035 DD/ 34 TD/TT: 08/03/252034 Certified Low Vision Therapist: Procedure Note Donotuseinterpreter, Image - 08/03/[address] [address] [address] Scan Report Signed Patient: Julia MaresMR#: [id number] : 1990Acct:[id number] Age/Sex: 34 / FADM Date: 08/03/25 Loc: .ED Attending Dr: Ordering Physician: Octavio Astorga Date of Service: 08/03/25 Procedure(s): CT cervical spine wo IV con Accession Number(s): [id number] cc: Octavio Astorga; Deonna Lion DO Report Number: [id number]: Total DLP = 1151.00 mGy-cm Reason for Exam: neck pain CLINICAL HISTORY: neck pain CT cervical spine without contrast Comparison: None available Findings: Straightening of the normal cervical lordosis. No fracture. No severe spinal canal stenosis. No epidural hematoma. Normal thickness of the prevertebral soft tissues. The lung apices are clear. Impression: No fracture. Straightening of the normal cervical lordosis could be positional or secondary to muscle spasm. This document has been electronically signed by: Giovanna Dumont MD on 08/03/2025 20:35:25 Dictated By: Giovanna Meadows MD Signed By: <Electronically signed by Giovanna Meadows MD in OV> 08/03/252035 DD/ 34 TD/TT: 08/03/252034 Certified Low Vision Therapist: [facility] External Provider IMG CT PROCEDURES Final Result * CT Head w/o Contrast (08/03/2025 8:35 PM EDT) Anatomical Region Laterality Modality Head, Neck Computed Tomogra phy 08/03/2025 8:35 PM EDT Narrative 08/03/2025 8:37 PM EDT [address] [address] [address] Scan Report Signed Patient: Julia Mares MR#: [id number] : 1990 Acct:[id number] Age/Sex: 34 / F ADM Date: 08/03/25 Loc: HO.ED Attending Dr: Ordering Physician: Octavio Astorga Date of Service: 08/03/25 Procedure(s): CT head/brain wo IV con Accession Number(s): [id number] cc: Octavio Astorga; Deonna Lion DO Report Number: [id number]: Total DLP = 0.00 mGy-cm Reason for Exam: headache CLINICAL HISTORY: headache CT head without contrast Comparison: None available Findings: No acute hemorrhage. No extra-axial fluid collection. No hydrocephalus, mass-effect or herniation. Rivera-white differentiation is maintained. White matter is within normal limits for age. No acute orbital pathology. No acute soft tissue abnormality. No fracture. The visualized paranasal sinuses are predominantly clear. The mastoid air cells are clear. Impression: No acute findings. This document has been electronically signed by: Giovanna Dumont MD on 08/03/2025 20:35:58 Dictated By: Giovanna Meadows MD Signed By: <Electronically signed by Giovanna Meadows MD in OV> 08/03/252036 DD/ 34 TD/TT: 08/03/252034 Certified Low Vision Therapist: Procedure Note Donotuseinterpreter, Image - 08/03/[address] [address] [address] Scan Report Signed Patient: Julia MaresMR#: [id number] : 1990Acct:[id number] Age/Sex: 34 / FADM Date: 08/03/25 Loc: HO.ED Attending Dr: Ordering Physician: Octavio Astorga Date of Service: 08/03/25 Procedure(s): CT head/brain wo IV con Accession Number(s): [id number] cc: Octavio Astorga; Deonna Lion DO Report Number: [id number]: Total DLP = 0.00 mGy-cm Reason for Exam: headache CLINICAL HISTORY: headache CT head without contrast Comparison: None available Findings: No acute hemorrhage. No extra-axial fluid collection. No hydrocephalus, mass-effect or herniation. Rivera-white differentiation is maintained. White matter is within normal limits for age. No acute orbital pathology. No acute soft tissue abnormality. No fracture. The visualized paranasal sinuses are predominantly clear. The mastoid air cells are clear. Impression: No acute findings. This document has been electronically signed by: Giovanna Dumont MD on 08/03/2025 20:35:58 Dictated By: Giovanna Meadows MD Signed By: <Electronically signed by Giovanna Meadows MD in OV> 08/03/252036 DD/ 34 TD/TT: 08/03/252034 Certified Low Vision Therapist: [facility] External Provider IMG CT PROCEDURES Final Result * High Sensitivity Troponin I (08/03/2025 8:00 PM EDT) [facility] TROPONIN I HIGH SENSITIVITY <2.7 <3.5 - 17.0 ng/L [facility] Comment:The Izquierdo high sens itivity Troponin-I results should beused in conjunction with other diagnostic information suchas ECG, clinical observations and information, and patientsymptoms to aid in the diagnosis of [place]. 08/03/2025 8:00 PM EDT 08/03/2025 8:04 PM EDT Generic External Data Provider LAB BLOOD ORDERAB LES Final Result [facility] [address] [place] [phone] * (ABNORMAL) CBC auto differential (08/03/2025 8:00 PM EDT) White Blood Count 8.4 4.8 - 10.8 X10*3/uL [facility] Red Blood Count 4.48 4.20 - 5.50 X10*6/uL [facility] Hemoglobin 12.7 12.0 - 16.0 g/dl [facility] Hematocrit 38.7 37.0 - 47.0 % [facility] Mean Corpuscular Volume 86.4 80.0 - 98.0 fL [facility] Mean Corpuscular Hemoglobin 28.3 27.0 - 33.0 pg [facility] Mean Corpuscular HGB Conc 32.8 31.0 - 35.0 g/dl [facility] Red Cell Distribution Width 12.4 11.0 - 16.0 % [facility] Platelet Count 264 160 - 400 X10*3/uL [facility] Mean Platelet Volume 9.3(L) 9.4 - 12.3 fL [facility] Neutrophils Percent Auto 61.0 45 - 73 % [facility] Imm Gran Pct Auto 0.2 0.0 - 0.4 % [facility] Lymphocytes Percent Auto 25.8 20 - 40 % [facility] Monocytes Percent Auto 8.5 2 - 11 % [facility] Eosinophils Percent Auto 4.0 0 - 4 % [facility] Basophils Percent Auto 0.5 0 - 2 % [facility] NRBC Pct Auto 0.0 0.0 - 0.2 /100WBC [facility] Neutrophils Absolute Auto 5.1 2.0 - 8.3 x10*3/uL [facility] Imm Gran Abs Auto 0.02 0.00 - 0.03 X10*3/uL [facility] Lymphocytes Absolute Auto 2.2 1.2 - 4.9 X10*3/uL [facility] Monocytes Absolute Auto 0.7 0.1 - 1.2 X10*3/uL [facility] Eosinophils Absolute Auto 0.3 0.0 - 0.4 X10*3/uL [facility] Basophils Absolute Auto 0.0 0.0 - 0.2 X10*3/uL [facility] NRBC Abs Auto 0.000 0.0 - 0.012 X10*3/uL [facility] 08/03/2025 8:00 PM EDT 08/03/2025 8:04 PM EDT Generic External Data Provider LAB BLOOD ORDERAB LES Final Result Performing Organization Address [facility]/ZIP Co de Phone Number [facility] [address] [place] [phone] * Creatine Kinase, Total (08/03/2025 8:00 PM EDT) Creatine Kinase Total 70 26 - 140 U/L [facility] 08/03/2025 8:00 PM EDT 08/03/2025 8:04 PM EDT [place] External Data Provider LAB BLOOD ORDERAB LES Final Result Performing Organization Address [facility] Co de Phone Number [facility] [address] [place] [phone] * (ABNORMAL) Comprehensive Metabolic Panel (08/03/2025 8:00 PM EDT) Pathologist [facility] Sodium 141 135 - 145 mmol/L [facility] Potassium 3.7 3.3 - 5.1 mmol/L [facility] Chloride 112(H) 96 - 108 mmol/L [facility] Carbon Dioxide 22 22 - 29 mmol/L [facility] Anion Gap 11(L) 12 - 20 [facility] Urea Nitrogen (BUN) 10 9 - 16 mg/dL [facility] Creatinine, Serum 0.65 0.5 - 1.4 mg/dL [facility] Creatinine Clr Calc Pharmacy 135.1 [facility] Comment:Provided height and weight: 168.91 cm,83.2 kg.eGFR (calculated from the MDRD study equation) and eCrCl(calculated from the Cockcroft-Gault equation) are based ondifferent parameters and may not yield comparable results.If eCrCl result is absurd, please check patient'sheight/weight. Estimated Glomerular Filt Rate >60 [facility] Comment:Chronic Kidney Disea se: Estimated GFR < 60 mL/min/[id number] Kidney Disease: Estimated GFR < 15 mL/min/1.73m2 Glucose 100 60 - 115 mg/dL [facility] Calcium 8.9 8.4 - 10.2 mg/dL [facility] Bilirubin, Total 0.2 0.0 - 1.0 mg/dL [facility] Aspartate Amino Transferase 16 5 - 31 U/L [facility] Alanine Aminotransferase 11 0 - 31 U/L [facility] Total Protein 7.1 6.5 - 8.0 g/dL [facility] Albumin Level 4.4 3.5 - 5.0 g/dL [facility] Alkaline Phosphatase 56 39 - 117 U/L [facility] 08/03/2025 8:00 PM EDT 08/03/2025 8:04 PM EDT us Generic External Data Provider LAB BLOOD ORDERAB LES Final Result Performing Organization Address [facility] Co de Phone Number [facility] [address] [place] [phone] * Hepatitis C Antibody with Reflex to HCV, RNA, Quantitative, Real-Time PCR (12/04/2024 11:34 AM EST) Hepatitis C Antibody Nonreactive Nonreactive [facility] Comment:Antibodies to HCV no t detected; does not exclude early acuteHCV infection. Blood Venous blood specimen / Unknown 12/04/2024 11:34 AM EST 12/04/2024 1:24 PM EST us Deonna Lion DO LAB BLOOD ORDERABLES Final R esult Performing Organization Address City/[facility]/ZIP Co de Phone Number [facility] [address] [place] [phone] * HIV-1/2 Antigen and Antibodies, Fourth Generation, with Reflexes (12/04/2024 11:34 AM EST) HIV AB/AG Nonreactive Nonreactive [facility] Comment:HIV-1 p24 Ag and/or HIV-1/HIV-2 Ab not detected.A test result that is nonreactive does not exclude thepossibility of exposure to or infection with HIV-1 and/orHIV-2. Nonreactive results in this assay for individualswith prior exposure to HIV-1 and/or HIV-2 may be due toantigen and antibody levels that are below the limit ofdetection of this assay.The [facility] HIV Ag/Ab Combo assay result andsupplemental assay results should be interpreted inconjunction with the patient's clinical presentation,history and other laboratory results. If the results areinconsistent with clinical evidence, additional testing issuggested to confirm the result. Blood Venous blood specimen / Unknown 12/04/2024 11:34 AM EST 12/04/2024 1:24 PM EST us Deonna Lion DO LAB BLOOD ORDERABLES Final R esult [facility] [address] [place] [address] [phone] from Last 3 Months or Most Recently Relevant to Health Maintenance Insurance [facility] Care Teams Livery Car Driver Relationship Specialty Start Date End Date Deonna Lion DO [address] [place] [phone] PCP - General Family Medicine 12/03/24
--- OUTSIDE RECORDS SUMMARY | 2025-09-19 17:16 | XMS_ITS | Encounter Summary ---
Author Organization [facility] Address [address] [place] [address] Care Team Providers Care Quality Assurance Analyst Name Role Phone Carol Wiseman APRN Primary Care Provider Encounter Details Date Type Department Care Team (Late st Contact Info) Description 12/18/2023 Scanned Document [address] [id number] Neurology, Scan Social History Tobacco Use Types [...] on filedocumented in this encounter Care Teams Quality Assurance Analyst Relationship Specialty Start Date End Date Carol Wiseman APRN [address] [place] [id number] PCP - General Family Medicine 11/02/23 documented as of this encounter
--- OUTSIDE RECORDS SUMMARY | 2025-09-19 17:16 | XMS_ITS | Clinical Summary ---
Author Organization [facility] Address [address] [place] [address] Care Team Providers Care Brilliandeer Looper Name Role Phone Carol Wiseman Primary Care Provider [phone] Allergies No known active allergies Medications acetaminophen [...] drink = 0.6 oz pur e alcohol) [facility] Utilities Answer Date Recorded In [...] any time in the past 12 m [facility], were you homeless or living in [...] age to complete this topic Insurance [address] [place] [id number] [facility] Care Teams Brilliandeer Looper Relationship Specialty Start Date End Date Carol Wiseman [address] [place] [address] PCP - General Family Medicine 11/01/23
--- OUTSIDE RECORDS SUMMARY | 2025-09-19 17:16 | XMS_ITS | Encounter Summary ---
Author Organization [facility] Address [address] [place] [address] Care Team Providers Care Vp Software Support Name Role Phone Unknown Primary Care Provider [phone] Linn Griffin APRN Primary Care Provider [phone] Carol Wiseman APRN Primary Care Provider Encounter Details Date Type Department Care Team (Late st Contact Info) Description 09/19/2018 Abstract [facility] Maternal Medicine [address] [place] [phone] Tiara Franz MS,[facility] [address] [place] [address] Social History Tobacco Use Types Packs/Day Years [...] on filedocumented in this encounter Care Teams Vp Software Support Relationship Specialty Start Date End Date Unknown Unknow Provider Address PCP - General 03/24/19 12/19/22 Linn Griffin APRN [address] [place] [address] PCP - General Family Medicine 12/20/22 10/28/23 Carol Wiseman APRN [address] [facility], [place] [address] PCP - General Family Medicine 11/02/23 documented as of this encounter
[2025-09-19 18:21] VITALS: BP 118/77; PULSE 96; RESP 18; TEMP 36.6; O2SAT 99
== END 2025-09-19 18:21 | disposition home or self-care (01) ==
PROVIDERS: Emergency Provider Emergency Medicine Emergency Medical Services; PCP Family Medicine
DX: Z04.3 Encounter for examination and observation following other accident (principal); M54.50 Low back pain, unspecified; Z91.81 History of falling
CPT/HCPCS: 72072; 72100; 73502; 96372; 99283; 99284; J1885

== ENCOUNTER → 2025-09-19 14:29 | Outpatient (BNV) | payer MEDICAID, SELFPAY | PROVIDERS: Visit Provider Radiology Diagnostic Radiology | DX: M51.379 Other intervertebral disc degeneration, lumbosacral region without mention of lumbar back pain or lower extremity pain (principal); Z04.3 Encounter for examination and observation following other accident | CPT/HCPCS: 72072; 72100; 73502 ==

== ENCOUNTER 2025-09-23 09:57 | Inpatient (IN) | payer MEDICAID, SELFPAY ==
--- OUTSIDE RECORDS SUMMARY | 2025-09-20 11:30 | XMS_ITS | Encounter Summary ---
Author Organization [employer] Address [address] [facility] [address] [place] [address] Care Team Providers Care Insurance Manager Name Role Phone MandyDeonna gaspar Primary Care Provider [phone] Reason for Visit * Reason Comments ED RN visit Encounter Details Date Type Department Care Team (Latest Contact Info) Description 09/20/2025 11:30 AM EST Clinical Support [facility] MEDICINE [address] [place] [address] Noemy Miramontes RN Fall, initial encounter Social History Tobacco Use Types Packs/Day Years Used Date Smoking Tobacco: Never Passive Smoke Exposure: Never Smokeless Tobacco: Never Alcohol Use Standard [...] PM EST documented as of this encounter Progress Notes * Noemy Miramontes RN - 09/20/2025 11:30 AM EST Hospital Discharges and Admission for [facility] Type of Visit: Emergency Department Date of Admission/Visit: 09/19/25 Date of Discharge: 09/19/25 Facility: [facility] Diagnosis: Fall Disposition: Discharged Home Follow-Up Actions Follow-Up Needed: Provider appointment Follow-Up Outcome: Spoke to Patient Initial Contact Date: 09/20/25 Patient Contacted: Yes Patient Status: Unchanged The full discharge summary is Is available under media scanned document Review Flowsheet [facility] Transition of Care Documentation Type of Visit Date of Admission/Visit Date of Discharge Facility Diagnosis Disposition 09/20/2025 11:00 AM Emergency Department 09/19/2025 09/19/2025 [facility] Fall Discharged Home Recent Visits Date Type Provider Dept 09/08/25 Office Visit Deonna Lion, [facility] Medicine 08/24/25 Office Visit Alcira Walls MD [facility] 08/03/25 Office Visit Jaydon Esquivel MD [facility] 07/09/25 Office Visit Deonna Lion DO [facility] Medicine 05/18/25 Office Visit Caty Parada MD [facility] 02/27/25 Office Visit Farhan Hoover MD [facility] 02/12/25 Office Visit Deonna Lion DO [facility] Medicine 01/06/25 Office Visit Alcira Walls MD [facility] 12/03/24 Office Visit Deonna Lion DO [facility] Showing recent visits within past 365 days with a meds authorizing provider and meeting all other requirements Future Appointments Date Type Provider Dept 09/24/25 Appointment Deonna Lion DO [facility] Medicine Showing future appointments within next 150 days with a meds authorizing provider and meeting all other requirements Patient was educated on hours of operation. documented in this encounter Plan of Treatment Upcoming Encounters Date Type Department Care Team (Late st Contact Info) Description 09/24/2025 11:45 AM EST Office Visit [facility] MEDICINE [address] [place] [address] Deonna Lion DO [address] [place] [address] documented as of this encounter Visit Diagnoses Diagnosis Fall, initial encounter documented in this encounter Additional Health Concerns Assessment Noted Time PHQ-9 Depression Total Score: 3 07/09/20 25 12:02 PM EDT documented as of this encounter Care Teams Insurance Manager Relationship Specialty Start Date End Date Deonna Lion DO [address] [place] [address] PCP - General Family Medicine 12/03/24 documented as of this encounter
--- NOTE | ~2025-09-23 | US_ITS ---
EXAMINATION: US PELVIS TRANSABDOMINAL AND TRANSVAGINAL, US PELVIC DUPLEX COMPLETE, US APPENDIX HISTORY: pelvic pain COMPARISON: Comparison is made with the prior examination dated 06/04/2017. TECHNIQUE: Transabdominal and endovaginal real-time 2D al-scale ultrasound of the pelvis was performed. In addition, sonographic examination of the right lower quadrant was performed. FINDINGS: Uterus: The uterus is normal in size, measuring 8.7 x 4.0 x 4.9 cm. Myometrium has a normal echotexture. No fibroids are identified. Endometrium: The endometrial stripe measures 6 mm in thickness. Right ovary: The right ovary measures 3.2 x 1.6 x 2.3 cm. The right ovary is normal in size and echotexture. Left ovary: The left ovary measures 2.9 x 1.2 x 1.3 cm. The left ovary is normal in size and echotexture. Pelvic fluid: none. Scans of the right lower quadrant demonstrate a noncompressible tubular structure measuring 10-12 mm in diameter suggestive of an inflamed appendix. The patient demonstrated moderate rebound tenderness in this region. US/US pelvic ovarian doppler IMPRESSION: 1. Findings suggestive of acute appendicitis as described. This could be confirmed with CT. 2. Unremarkable pelvic ultrasound. Electronically signed by: Rivera Carranza MD 09/23/2025 01:34 PM [facility]
--- NOTE | ~2025-09-23 | US_ITS ---
EXAMINATION: US PELVIS TRANSABDOMINAL AND TRANSVAGINAL, US PELVIC DUPLEX COMPLETE, US APPENDIX HISTORY: pelvic pain COMPARISON: Comparison is made with the prior examination dated 06/04/2017. TECHNIQUE: Transabdominal and endovaginal real-time 2D al-scale ultrasound of the pelvis was performed. In addition, sonographic examination of the right lower quadrant was performed. FINDINGS: Uterus: The uterus is normal in size, measuring 8.7 x 4.0 x 4.9 cm. Myometrium has a normal echotexture. No fibroids are identified. Endometrium: The endometrial stripe measures 6 mm in thickness. Right ovary: The right ovary measures 3.2 x 1.6 x 2.3 cm. The right ovary is normal in size and echotexture. Left ovary: The left ovary measures 2.9 x 1.2 x 1.3 cm. The left ovary is normal in size and echotexture. Pelvic fluid: none. Scans of the right lower quadrant demonstrate a noncompressible tubular structure measuring 10-12 mm in diameter suggestive of an inflamed appendix. The patient demonstrated moderate rebound tenderness in this region. US/US appendix IMPRESSION: 1. Findings suggestive of acute appendicitis as described. This could be confirmed with CT. 2. Unremarkable pelvic ultrasound. Electronically signed by: Rivera Carranza MD 09/23/2025 01:34 PM EST
--- NOTE | ~2025-09-23 | US_ITS ---
EXAMINATION: US PELVIS TRANSABDOMINAL AND TRANSVAGINAL, US PELVIC DUPLEX COMPLETE, US APPENDIX HISTORY: pelvic pain COMPARISON: Comparison is made with the prior examination dated 06/04/2017. TECHNIQUE: Transabdominal and endovaginal real-time 2D al-scale ultrasound of the pelvis was performed. In addition, sonographic examination of the right lower quadrant was performed. FINDINGS: Uterus: The uterus is normal in size, measuring 8.7 x 4.0 x 4.9 cm. Myometrium has a normal echotexture. No fibroids are identified. Endometrium: The endometrial stripe measures 6 mm in thickness. Right ovary: The right ovary measures 3.2 x 1.6 x 2.3 cm. The right ovary is normal in size and echotexture. Left ovary: The left ovary measures 2.9 x 1.2 x 1.3 cm. The left ovary is normal in size and echotexture. Pelvic fluid: none. Scans of the right lower quadrant demonstrate a noncompressible tubular structure measuring 10-12 mm in diameter suggestive of an inflamed appendix. The patient demonstrated moderate rebound tenderness in this region. US/US pelvic and transvaginal IMPRESSION: 1. Findings suggestive of acute appendicitis as described. This could be confirmed with CT. 2. Unremarkable pelvic ultrasound. Electronically signed by: Rivera Carranza MD 09/23/2025 01:34 PM [facility]
--- NOTE | ~2025-09-23 | XR_ITS ---
EXAMINATION: XR ABDOMEN SUPINE AND ERECT WITH CHEST (ABD ACUTE SERIES) HISTORY: evaluate stool burden vs obvious SBO COMPARISON: There are no prior studies available for comparison. FINDINGS: Supine and upright views of the abdomen and a single PA view of the chest are submitted. The bowel gas pattern is unremarkable, without evidence of mechanical obstruction. There is no free intraperitoneal gas. There is a small to moderate amount of stool throughout the colon. There are phleboliths in the left hemipelvis. There are no abnormal soft tissue masses. The bones are intact. The lungs are expanded and clear. There is no pleural effusion, pneumothorax, or pulmonary vascular congestion. The heart is normal in size. XR/XR acute abdomen series IMPRESSION: 1. Small to moderate amount of stool throughout the colon. No evidence of small bowel obstruction. 2. Clear lungs. Electronically signed by: Rivera Carranza MD 09/23/2025 12:18 PM [facility]
--- OUTSIDE RECORDS SUMMARY | 2025-09-23 09:00 | XMS_ITS | Encounter Summary ---
Author Organization [employer] Address [address] [facility] [address] [place] [address] Care Team Providers Care Process Automation Engineer Name Role Phone Amisha Deonna Primary Care Provider [phone] Reason for Visit * Reason Comments Abdominal Pain Fall Encounter Details Date Type Department Care Team (Late st Contact Info) Description 09/23/2025 9:00 AM EST Office Visit [facility] [address] [place] [address] Puja Thakkar FNP [address] [place] [address] Right lower quadrant abdominal pain (Primary Dx); Musculoskeletal pain Social History Tobacco Use Types Packs/Day Years [...] Sign Reading Time Taken Comments Blood Pressure 108/71 09/23/2025 9:02 AM EST Pulse 77 09/23/2025 9:02 AM EST Temperature 36.7 C (98.1 F) 09/23/2025 9:02 AM EST Respiratory Rate 16 09/23/2025 9:02 AM EST Oxygen Saturation 99% 09/23/2025 9:02 AM EST Inhaled Oxygen Concentration - - Weight 81.6 kg (180 lb) 09/23/2025 9:02 AM EST Height - - Body Mass Index 29.05 09/08/2025 12:12 PM EST documented in this encounter Progress Notes * ANDRE Mckeon - 09/23/2025 9:00 AM EST RENZO Gibson is a 35 y.o. female who presents for Abdominal Pain (Fall). Patient reportsacute back and abdominal Pain Following Fall - Fell inside home on a broken step on September 19, 2025, landing on back and buttocks, with arms extended to protect head - Immediate pain in back and buttocks after fall, described as severe, with soreness and muscle pain with Heavy sensation in leg on day of fall - Emergency room visit on September 19, 2025; X-rays performed of upper and lower back, reported as normal - Persistent back pain and soreness since fall, with pain worsening after prolonged sitting or certain movements - Soreness in sides and lower back since day of fall, still present - Use of lidocaine patches, baclofen (10 mg as needed), and ibuprofen (600 mg, once or twice daily)for pain management since fall - Omeprazole taken for gastric protection due to NSAID use - Reports bloating, gassiness, and abdominal discomfort since fall Right Lower Abdominal Pain - New onset of right lower abdominal pain beginning September 22, 2025, described as severe, intermittent, and wave-like - Pain started periumbilical and migrated to right lower quadrant - Pain intensity rated 6/10 at rest, up to 8/10 with movement or when lying down - Pain worsens with movement, alleviated somewhat by standing - Attempted warm bath for relief without improvement - Reports feeling bloated and gassy, with abnormal stomach sensations - No nausea, no vomiting, no fever Review of Systems Constitutional: Negative for chills and fever. Respiratory: Negative for cough, chest tightness, shortness of breath and wheezing. Cardiovascular: Negative for chest pain and palpitations. Gastrointestinal: Positive for abdominal pain. Negative for nausea and vomiting. Musculoskeletal: Positive for back pain. Psychiatric/Behavioral: Negative for suicidal ideas. Allergies[1] OBJECTIVE Vitals: 09/23/25 0902 BP: 108/71 BP Location: Right arm Patient Position: Sitting BP Cuff Size: Adult Pulse: 77 Resp: 16 Temp: 98.1 ??F (36.7 ??C) TempSrc: Oral SpO2: 99% Weight: 180 lb (81.6 kg) Physical Exam Vitals reviewed. Constitutional: Appearance: Normal appearance. HENT: Head: Atraumatic. Cardiovascular: Rate and Rhythm: Normal rate and regular rhythm. Pulses: Normal pulses. Heart sounds: Normal heart sounds. No murmur heard. Pulmonary: Effort: Pulmonary effort is normal. Breath sounds: Normal breath sounds. No wheezing. Abdominal: Tenderness: There is abdominal tenderness. There is rebound. There is no right CVA tenderness or left CVA tenderness. Comments: Lower right quadrant pain Neurological: Mental Status: She is alert and oriented to person, place, and time. Psychiatric: Mood and Affect: Mood normal. Behavior: Behavior normal. Assessment/Plan Problem List Items Addressed This Visit Right lower quadrant abdominal pain - Primary - Acute right lower quadrant abdominal pain, possible appendicitis post-fall: - Acute right lower quadrant pain with periumbilical onset, migrating to the right side, with rebound tenderness. Positive McBurney point tenderness. Differential diagnosis includes acute appendicitis. Pain started after fall, but classic signs of appendicitis present. - Referred to Emergency Room at [facility] for further evaluation and management. Nurses notified to expect arrival. Musculoskeletal pain Musculoskeletal pain post-fall: - Musculoskeletal pain and soreness following fall, likely due to muscle contraction and exertion, no evidence of fracture or dislocation. - Continue ibuprofen and Tylenol as previously instructed, with food to prevent gastric irritation.Continue omeprazole in the morning, 30 minutes before eating. Monitor pain for improvement over next 5 days; if pain persists or worsens, consider referral to physical therapy or follow-up with PCP. This note was drafted using Ambient (AI) technology. The patient/patient's guardian has been informed and has consented to the use of this technology: Yes Future Appointments Date Time Provider Department Center 09/24/2025 11:45 AM Deonna Lion DO MEDIC[facility] 09/27/2025 9:30 AM ROXI Trinidad [facility] [1] No Known Allergies documented in this encounter Plan of Treatment Upcoming Encounters Date Type Department Care Team (Late st Contact Info) Description 09/24/2025 11:45 AM EST Office Visit [facility] [address] [place] [address] Deonna Lion DO [address] [place] [address] documented as of this encounter Visit Diagnoses Diagnosis Right lower quadrant abdominal pain- Primary Musculoskeletal pain Unspecified myalgia and myositis documented in this encounter Additional Health Concerns Assessment Noted Time PHQ-9 Depression Total Score: 3 07/09/20 25 12:02 PM EDT documented as of this encounter Care Teams Process Automation Engineer Relationship Specialty Start Date End Date Deonna Lion DO [address] [place] [address] PCP - General Family Medicine 12/03/24 documented as of this encounter
[2025-09-23 10:05] VITALS: BP 111/79; PULSE 80; RESP 18; TEMP 36.3; O2SAT 100; BMI 29.5
--- NOTE | 2025-09-23 10:06 | ED_ITS ---
HPI - Fall General Chief Complaint: Abdominal Pain Stated Complaint: R side pain Time Seen by Provider: 09/23/25 11:17 Source: patient and RN notes reviewed Mode of arrival: ambulatory Limitations: no limitations History of Present Illness ED Provider: Meenakshi Michel PA-C HPI Narrative: 35-year-old female presents to the ED for intermittent, sharp right lower- quadrant (RLQ) abdominal pain that began last night. Pain radiates toward the umbilicus and is described as stronger than her usual menstrual cramps. It worsens when lying flat and improved transiently after an oral dose of ibuprofen earlier today. Episodes awaken her from sleep (last at 0400). Associated symptoms: nausea, bloating with frequent urge to burp, and increased frequency of soft (non-liquid) stools since onset. She denies urinary symptoms or fever. Currently on day-2 of menses, which she reports is heavier than her typical cycle (changed pad/tampon twice since ED arrival). She sustained a fall on Saturday and was evaluated here for back pain; since that time she has had generalized soreness, including RLQ discomfort and right leg pain with resisted hip flexion. Past medical history notable for GERD, PVCs, chronic idiopathic constipation, bradycardia, dizziness, and intermittent migraine headaches. She reports the current abdominal pain feels different from both her post-fall soreness and her routine period pain; she specifically states this pain is stronger than her usual menstrual cramps and distinct from her post-fall soreness. * Constitutional: Denies fever. * Gastrointestinal: RLQ abdominal pain, nausea, bloating/gassy sensation, frequency of soft stools; denies liquid diarrhea. * Genitourinary: Menstruating with heavier flow than usual; denies dysuria or other urinary complaints. * Musculoskeletal: Generalized soreness after recent fall; right leg pain with resisted movement. * Neurologic: History of intermittent migraine; no acute neurologic complaints today. Related Data Home Medications ?Medication ?Instructions ?Recorded ?Confirmed diclofenac sodium 1 % topical gel 2 g topical QID PRN 03/09/25 06/18/25 (Arthritis Pain (diclofenac)) ibuprofen 600 mg tablet 600 mg PO Q8H PRN 06/18/25 0 06/18/25 Previous Rx's ?Medication ?Instructions ?Recorded ketorolac 10 mg tablet 10 mg PO Q6H PRN pain #20 ta bs 08/03/25 methylprednisolone 4 mg tablets in 4 mg PO QAM #21 ea 08/03/25 a dose pack (Medrol (Mark)) lidocaine 5 % topical patch See Rx Instructions topica l 09/19/25 .COMPLEX #15 ea Allergies Allergy/AdvReac Type Severity Reaction Status Date / Time No Known Allergies Allergy Verified 09/23/25 10:09 Review of Systems 2 Review of Systems: Yes all other systems are reviewed and are negative PMFSH Past Medical History Attestation statement: The following information was validated with the patient. Source: old records reviewed and nursing notes reviewed Medical History Chronic idiopathic constipation GERD (gastroesophageal reflux disease) delivery delivered Chest pain of uncertain etiology Muscle spasm Whole body pain Decreased visual acuity Chronic constipation Chronic neck pain Chronic headache Surgical History H/O eye surgery Family History Family History Mother High blood pressure Colitis Father High blood pressure High cholesterol Fatty liver Social History Social History Alcohol intake: never Patient Tobacco Use Status: Former Tobacco user Smoked in Last 30 Days: No Use of substances other than those prescribed or required for medical reasons: No Advance Directives: No Advance Directives Information Provided: No Physical Exam 2 Vital Signs: Vital Signs: Last Vital Signs Temp 97.4 F 09/23/25 10:05 Pulse 78 09/23/25 12:21 Resp 18 09/23/25 12:21 BP 126/85 09/23/25 12:21 Pulse Ox 100 09/23/25 12:21 O2 Del Method Room Air 09/23/25 12:21 BMI result Body Mass Index 29.5 GI: Other: no mcburning point, but rovsing positive, but she is points to her bladder Inspection: Yes normal to inspection Palpation (GI): Soft to palpation, Tenderness to palpation present (GI), Guarding due to palpation present (GI) and Bladder palpation abnormal (TTP right and left ovarian regions TTPs, negative psoas and obturator sign) Percussion: Yes normal to percussion A uscultation: normal bowel sounds Rectal Exam - Female: deferred : General: Yes Bladder palpation abnormal (TTP right and left ovarian regions TTPs, negative psoas and obturator sign) and Yes no CVA tenderness Back/Spine/Pelvis: Back: no CVA tenderness Course Course Course Narrative: This is an RME: Additional HPI, ROS, PE not included below will be deferred to primary provider. RME assessment and note performed by: Mckenzie Ross PA-C This is a 25-beit-flj-female, with GERD, chronic neck pain and migraines, who presents to the ER with a complaint of right sided abdominal pain since yesterday. Intermittent nausea. Endorsing more loose stool. Reporting some bloating. No vomiting, diarrhea. No urinary symptoms. Reports she has her menses now. Plan: Labs, deferring diagnostic imaging to primary provider. Medical Decision Making Medical Decision Making MDM Narrative: 35-year-old female with heavy menses and recent fall presenting with intermittent sharp RLQ abdominal pain. Physical exam notable for RLQ and right adnexal tenderness with rebound. Pelvic ultrasound demonstrates findings concerning for acute appendicitis, but given she presented with heavy menstrual bleeding and ovarian torsion, transvaginal ultrasound was suspected at first especially in setting of no leukocytosis. She remains afebrile, nontachycardic and has no nausea, pain is minimal and reported as menstrual crampy . Problem #1: Suspected Acute Appendicitis Assessment: Appendiceal ultrasound shows non-compressible 10?12 mm tubular structure in RLQ highly suggestive of appendicitis. CT abdomen/pelvis with IV contrast has now been ordered for further evaluation of the appendix, per current guidelines and in light of ultrasound findings. General surgery consult is pending. Plan: * CT abdomen/pelvis with IV contrast ordered to further characterize the appendix and evaluate for complications or alternative diagnoses. * Consult General Surgery for evaluation and operative planning (pending). * Patient remains clinically stable with minimal pain; analgesia will be reassessed after imaging and surgical evaluation. * Management will be adjusted based on CT results and surgical recommendations. Problem #2: RLQ Abdominal Pain (multifactorial) Assessment: Pain likely secondary to appendicitis; contribution from recent abdominal wall strain cannot be ruled out. Plan: * Symptom monitoring in ED. * Warm blanket provided for comfort. Problem #3: Heavy Menses / Dysmenorrhea Assessment: Heavier flow this cycle with associated cramping and ? soft stools. Plan: * Avoid NSAIDs until definitive plan for appendicitis established. Problem #4: Recent Fall with Right Leg Soreness Assessment: Right leg pain on resisted hip flexion; musculoskeletal strain/contusion. Plan: * No acute intervention in ED; will re-evaluate after abdominal work-up complete. 1415: Disposition / Follow-up: Awaiting CT abdomen/pelvis results and general surgery consult. Plan will be updated based on imaging findings and surgical recommendations. Patient questions addressed; will continue to reassess pain, vitals, and lab/imaging updates. 1420: Patient was seen at bedside by Dr. Sousa. He has elected to cancel the CT/ABD and is satisfied with U/S imaging. He will admit patient and anticipate surgery tomorrow. Patient has agreed to this. Differential Diagnosis Differential Diagnoses: The differential diagnosis associated with the presentation includes Admission/Observation Consideration of admission/observation: Escalation of care including admission/observation considered Consult Healthcare Provider Management of the patient was discussed with: Client Relation Specialist General Surgery Lab Data MDM Lab Attestation statement: I reviewed the patient's lab results. * CBC: No leukocytosis; no anemia. * Basic metabolic panel: Chloride 109 mmol/L (borderline high); remainder electrolytes WNL. * LFTs, lipase, protein/albumin: WNL. * Kihha-ad-ogqu glucose: 97 mg/dL. * Urinalysis: 3+ blood (attributed to menses); no leukocytes or nitrites. * test: Negative. * COVID/Flu/RSV PCR: Negative. 09/23/25 10:22 09/23/25 10:22 Labs: Lab Results 09/23/25 09/23/25 Range/Units 10:22 11:12 WBC 7.4 (4.8-10.8) X10*3/uL RBC 4.81 (4.20-5.50) X10*6/uL Hgb 13.9 (12.0-16.0) g/dl Hct 42.1 (37.0-47.0) % MCV 87.5 (80.0-98.0) fL MCH 28.9 (27.0-33.0) pg MCHC 33.0 (31.0-35.0) g/dl RDW 12.0 (11.0-16.0) % Plt Count 333 D (160-400) X10*3/uL MPV 9.7 (9.4-12.3) fL Immature Gran % (Auto) 0.3 (0.0-0.4) % Neut % (Auto) 67.3 (45-73) % Lymph % (Auto) 21.1 (20-40) % Bertie % (Auto) 8.0 (2-11) % Eos % (Auto) 2.6 (0-4) % Baso % (Auto) 0.7 (0-2) % Lymph # (Auto) 1.6 (1.2-4.9) X10*3/uL Bertie # (Auto) 0.6 (0.1-1.2) X10*3/uL Eos # (Auto) 0.2 (0.0-0.4) X10*3/uL Baso # (Auto) 0.1 (0.0-0.2) X10*3/uL Abs Immat Gran (auto) 0.02 (0.00-0.03) X10*3/uL Absolute Neuts (auto) 5.0 (2.0-8.3) x10*3/uL Absolute Nucleated RBC 0.000 (0.0-0.012) X10*3/uL Nucleated RBC % (auto) 0.0 (0.0-0.2) /100WBC Sodium 138 (135-145) mmol/L Potassium 3.7 (3.3-5.1) mmol/L Chloride 109 H (96-108) mmol/L Carbon Dioxide 23 (22-29) mmol/L Anion Gap 10 L (12-20) BUN 8 L (9-16) mg/dL Creatinine 0.60 (0.5-1.4) mg/dL Estim Creat Clear Calc 144.7 Estimated GFR > 60 Random Glucose 97 (60-115) mg/dL Calcium 9.1 (8.4-10.2) mg/dL Total Bilirubin 0.6 (0.0-1.0) mg/dL Direct Bilirubin 0.2 (0.0-0.5) mg/dL AST 17 (5-31) U/L ALT 10 (0-31) U/L Alkaline Phosphatase 60 (39-117) U/L Total Protein 7.7 (6.5-8.0) g/dL Albumin 4.7 (3.5-5.0) g/dL Lipase 17 (8-78) U/L Beta HCG, Quant < 2 mIU/mL Urine Color Yellow Urine Appearance Cloudy Urine pH 5.5 (5.0-9.0) Ur Specific [place] <= 1.005 (1.005-1.025) Urine Protein Negative (Neg-Trace) mg/dL Urine Glucose (UA) Negative (Negative) mg/dL Urine Ketones Negative (Negative) mg/dL Urine Blood Large (3+) H (Negative) Urine Nitrite Negative (Negative) Ur Leukocyte Esterase Negative (Negative) Urine RBC 0-2 (0-2) /HPF Urine WBC 0-5 (0-5) /HPF Ur Squamous Epith Cells 0-2 (0-2) /HPF Urine Bacteria None Seen (None Seen) Hyaline Casts 0-2 (0-2) /LPF Influenza Type A (PCR) NEGATIVE (Negative) Influenza Type B (PCR) NEGATIVE (Negative) RSV RNA Qual (PCR) NEGATIVE (Negative) SARS-CoV-2 RNA (RT-PCR) NEGATIVE (Negative) Independent Interpretation I performed an independent interpretation of an: Ultrasound Interpretation: no ovarian torsion Radiology Impression Discussion of test interpretation with radiology: I have reviewed the radiologist's reading. Tests considered The following testing was considered but not selected: CT abd Pelvis Critical Care Time Critical Care Time Critical Care Time: Yes Total Critical Care Time: 45 Attestation: This patient required critical care. Due to the fact that the patient required a significant amount of one on one physician ? patient contact time, ordering and review of studies, arranging urgent treatment with development of a management plan, evaluation of patient?s response to treatment with frequent reassessments, and discussions with other providers this patient required critical care time in excess of 30 minutes. Critical care time was indicated due to the inherent instability and/or potential for instability in this patient. The critical care time that is allocated to this patient is above and beyond any time spent on any other billable procedures performed on this patient. Discharge Plan Discharge Clinical Impression: Acute appendicitis Qualifiers: Acute appendicitis type: unspecified acute appendicitis type Qualified Code(s): K35.80 - Unspecified acute appendicitis Pelvic pain Qualifiers: Laterality: unspecified laterality Qualified Code(s): R10.20 - Pelvic and perineal pain unspecified side Patient Disposition: Admitted As Inpatient Additional Instructions: Fuiste evaluada en el departamento de urgencias por estre?imiento.. Mattie an?lisis fueron tranquilizadores, no hay evidencia de enfermedad renal, hep?abi o hepatobiliar o pancreatitis. Bonds imagen mostr? kimi joceline?a carga fecal. Usted las fluctuaciones del peso se deben en gran parte a bonds opci?n de ayuno kin devin con el jugo dominique por rancho semanas. Rastree bonds dieta y ejercicio.. Mantenga kimi dieta margareth en fibra y yannick muchos l?quidos. Mant?ngase activo con el ejercicio. [place] la senna kimi vez al d?a josephine los primeros 7 d?as. [place] magcitrato si no evacua en 3 d?as. Kimi vez que usted brown tenido 2 o 3 evacuaciones, comience un suplemento de la fibra devin Metamucil que usted puede conseguir yjhxc-vhf-nmqdnnz en cualquier farmacia.. Planee usar un suplemento de fibra a thee plazo.. Regrese al departamento de emergencias para el dolor prabhakar, fiebre kvng, v?mitos repetidos o cualquier otro s?ntoma grave. You were evaluated in emegency department for constipation.? Your labs were reassuring, no evidence of kidney, liver, or hepatobiliary disease or pancreatitis. You imaging showed small stool burden. You weight fluctuations are largely due to your choice of fasting such as with the green juice for three weeks. Track your diet and exercise. Maintain a high-fiber diet and drink plenty of fluids.? Stay active with exercise.? Take the senna once daily for the first 7 days.? Take magcitrate if no bowel movement in 3 days. Once you have had 2 or 3 bowel movements, start a fiber supplement like Metamucil which you can get gfdu-nek-mxgblaz at any pharmacy.? Plan on using a fiber supplement long-term.? Return to the emergency department for severe pain, high fever, repeated vomiting or any other severe symptom. Print Language: Lebanese
[2025-09-23 10:32] LABS: MANUAL DIFF FLAG NO
[2025-09-23 10:38] LABS: Hematocrit 42.1 % (37.0-47.0); Hemoglobin 13.9 g/dl (12.0-16.0); Imm Gran Abs Auto 0.02 X10*3/uL (0.00-0.03); Imm Gran Pct Auto 0.3 % (0.0-0.4); Lymphocytes Absolute Auto 1.6 X10*3/uL (1.2-4.9); Mean Corpuscular HGB Conc 33.0 g/dl (31.0-35.0); Mean Corpuscular Hemoglobin 28.9 pg (27.0-33.0); Mean Corpuscular Volume 87.5 fL (80.0-98.0); NRBC Abs Auto 0.000 X10*3/uL (0.0-0.012); NRBC Pct Auto 0.0 /100WBC (0.0-0.2); Platelet Count 333 X10*3/uL (160-400); Red Blood Count 4.81 X10*6/uL (4.20-5.50); White Blood Count 7.4 X10*3/uL (4.8-10.8)
[2025-09-23 10:54] LABS: Alanine Aminotransferase 10 U/L (0-31); Albumin Level 4.7 g/dL (3.5-5.0); Alkaline Phosphatase 60 U/L (39-117); Anion Gap 10 (12-20); Aspartate Amino Transferase 17 U/L (5-31); Blood Urea Nitrogen 8 mg/dL (9-16); Calcium 9.1 mg/dL (8.4-10.2); Carbon Dioxide 23 mmol/L (22-29); Chloride 109 mmol/L (96-108); Creatinine Clr Calc Pharmacy 144.7; Estimated Glomerular Filt Rate > 60; Lipase 17 U/L (8-78); Potassium 3.7 mmol/L (3.3-5.1); Sodium 138 mmol/L (135-145); Total Protein 7.7 g/dL (6.5-8.0)
[2025-09-23 11:09] LABS: Resp Syncy Virus RNA Qual PCR NEGATIVE (Negative); SARS COV2 PCR INHOUSE NEGATIVE (Negative)
[2025-09-23 11:24] LABS: Appearance Urine Cloudy; Glucose Urine UA Negative (Negative); PH 5.5 (5.0-9.0); Specific Gravity - Urine <= 1.005 (1.005-1.025); UMIC TRIGGER UACC YES
[2025-09-23 12:21] VITALS: BP 126/85; PULSE 78; RESP 18; O2SAT 100
--- NOTE | 2025-09-23 12:43 | PC.NURSE ---
Pt currently in [place]
--- OUTSIDE RECORDS SUMMARY | 2025-09-23 13:05 | XMS_ITS | Clinical Summary ---
Author Organization Formerly [facility] Address [address] [place] [address] Care Team Providers Care Customer Account Technician Name Role Phone Carol Wiseman ANDI Primary [...] WEEKS 02/01/20 24 Active neomycin-polymyxin -dexAMETHasone (MAXITROL) 3.5-74468-2.1 ophthalmic suspension 01/27/20 24 Active MAGNESIUM PO Take by mouth. Ac tive sodium chloride (OCEAN) 0.65 % nasal drops/spray 1 spray into each nostril as needed for congestion. Active ryfshq-yndctbtnj-k agnesium sulfates (Suprep Bowel Prep Kit) 17.5-3.13-1.6 [...] Date/Time Associated Diagnosis Comments THINPREP PAP TEST (JOB ORDER CLERK) WITH HPV REFLEX, GC/CT Routine 05/29/2019 12:00 AM EDT HIV 1/2 AG/AB CMIA REFLEX TO CONFIRMATION Routine 12/16/2018 10:14 AM EDT from Last 3 Months or Most Recently Relevant to Health Maintenance Results * ThinPrep Pap Test (Paperback Machine Operator) with HPV Reflex, GC/CT (05/29/2019 12:00 AM [...] has been evaluated with computer assisted technology. Melter Helper: [facility] Comment: MAA, CT(ASCP) CT screening location: [place] [address] Comment [facility] Comment: EXPLANATORY NOTE: [...] was performed using the APTIMA COMBO2 Assay (CAL - [employer] The analytical performance characteristics of this assay, when used to test SurePath specimens have been determined by [email or web address]. 05/29/2019 05/30/2019 2:2 0 AM EDT Narrative [facility] - 06/04/2019 11:28 AM EDT Ordered by External Provider. [id number], WAYNE FELICIANO, A Resulting Agency Comment Performing Organization Information: Site ID: [id number] Name: [email or web address] Address: [address] [place] [address], [place] [address] Director: Shamir Raza MD us External Provider LAB AMB PATH/CYTO ORDERABLE S Final Result Performing Organization Address City/State/[facility] Co de Phone Number [facility] [address] [place] [address], [place] [address] * HIV 1/2 Ag/Ab CMIA Reflex to Confirmation (12/16/2018 10:14 AM EDT) HIV Ag/Ab, 4th Gen NON-REACT MARTIN NON-REACT MARTIN [facility] Comment: HIV-1 antigen and HIV-1/HIV-2 [...] purpose. For additional information please refer to http://education.Optimus3/faq/TJT796 (This link is being provided for informational/ educational purposes only.) The performance of this assay has not been clinically validated in patients less than 2 years old. 12/16/2018 10:1 4 AM EDT 12/16/2018 10:42 PM EDT Narrative [facility] - 12/17/2018 2:10 PM EDT FASTING:YES AN UPDATE OR CORRECTION HAS BEEN MADE TO NAME FASTING: YES Ordered by External Provider. [id number], PASTOR MANN K Resulting Agency Comment Performing Organization Information: Site ID: [id number] Name: [facility] Address: [address] [place] [address], [place] [address] Director: Shamir Raza MD External Provider LAB BLOOD ORDERABLES Final Result [facility] [address] [place] [address], [place] [address] from Last 3 Months or Most Recently Relevant to Health Maintenance Insurance [facility] Advance Directives * Full Code (Latest Code Status on File) Date Activated Date Inactivated Comments 03/26/2019 8:16 AM 08/17/2022 5:59 AM * Full Code Date Activated Date Inactivated Comments 03/25/2019 10:03 AM 03/26/2019 8:16 AM * Full Code Date Activated Date Inactivated Comments 03/03/2019 12:21 PM 03/25/2019 9:44 AM Care Teams Customer Account Technician Relationship Specialty Start Date End Date Carol Wiseman APRN [address] [place] [id number] PCP - General Family Medicine 11/02/23
--- OUTSIDE RECORDS SUMMARY | 2025-09-23 13:06 | XMS_ITS | Encounter Summary ---
Author Organization [employer] Address [address] [place] [address] Care Team Providers Care Information Scientist Name Role Phone Deonna Lion DO Primary Care Provider [phone] Reason for Visit * Reason Onset Date Comments Chart Prep 09/23/2025 Encounter Details Date Type Department Care Team ([facility] st Contact Info) Description 09/23/2025 Telephone [facility] [address] [place] [address] Deonna Lion DO [address], [place] [phone] Chart Prep Social History Tobacco Use Types Packs/Day Years [...] PM EST documented as of this encounter Miscellaneous Notes * Telephone Encounter - Sujatha Mensah [place] - 09/23/2025 10:12 AM EST Chart Prep Labs: done Images: Barium Swallow schedule 10/18/25([facility]), EMG/Nerve Conduction Study-10/21/25([facility]) Referrals: appointment pending Vaccines due: Covid, Flu, Hep B, Hep A, and HPV Screenings: pap smear, LMP, and PISQ Overdue care gaps: Not applicable documented in this encounter Plan of Treatment Upcoming Encounters Date Type Department Care Team (Late st Contact Info) Description 09/24/2025 11:45 AM EST Office Visit [facility] [address] [place] [address] Deonna Lion DO [address] [place] [address] documented as of this encounter Visit Diagnoses Not on filedocumented in this encounter Additional Health Concerns Assessment Noted Time PHQ-9 Depression Total Score: 3 07/09/20 25 12:02 PM EDT documented as of this encounter Care Teams Information Scientist Relationship Specialty Start Date End Date Deonna Lion DO [address] [place] [id number] PCP - General Family Medicine 12/03/24 documented as of this encounter
--- OUTSIDE RECORDS SUMMARY | 2025-09-23 13:07 | XMS_ITS | Patient Health Record ---
Author Organization [facility] Address [address] [place] [id number] Care Team Providers Care Sat Instructor Name Role Phone Alcira Coles Primary Care Provider Kentrell FLOWERS Clinician Alka DUARTE Unavailable [phone] Sonya Franz Unavailable Allergies No Known Allergies [...] perception of literacy I read well in: Pashto Tobacco Control (Standard) Tobacco use: Nonsmoker How do you like To Learn : can read/ write -romansh Alcohol Did you have a drink containing [...] Yes Chlamydia Yes Language Spoken Language Spoken Pashto Smoking Are you a: never smoker Additional Details Category Social Info Options Details Social History Drug Use denies Problems Problem Type SNOMED Code ICD Code Onset Dates Problem Status W/U Status Risk Notes Problem Generalized anxiety disorder (23526861) Generalized anxiety disorder (F41.1) Active confirmed Problem Dysmenorrhea (676117300) Dysmenorrhea (N94.6) Active confirmed Problem Overweight (064853575) Overweight (BMI 25.0-29.9) (E66.3) Active confirmed Problem Neck pain (61113039) Neck pain (M54.2) Active confirmed Problem Migraine (68847126) Migraine syndrome (G43.909) Active confirmed Problem Metallic taste (52860226) Metallic taste (R43.8) Active confirmed (01/14/24) Exam [...] denise bleeding. Problem History of endocrine disorder (851580811) History of low potassium (Z86.39) Active confirmed Problem Panic disorder (175408014) Panic disorder [episodic paroxysmal anxiety] (F41.0) Active confirmed Vital Signs Temperature 98.4 degrees Fahrenheit 10/06/2024 Respiratory Rate 20 /min 10/06/2024 Blood pressure diastolic 70 mm Hg 10/06/2024 Oximetry 100 % 10/06/2024 Height 66 in 10/06/2024 Blood pressure systolic 106 mm Hg 10/06/2024 Weight 176.2 lbs 10/06/2024 BMI 28.44 kg/m2 10/06/2024 Encounters Encounter Location Date Provider Diagnosis [address] [address] 10/13/2024 Alka Pfeiffer Clinician Generalized anxiety disorder F41.1 and Panic disorder [episodic paroxysmal anxiety] F41.[address] [address] 10/27/2024 Alka Pfeiffer Clinician Generalized anxiety disorder F41.[address] [address] 10/06/2024 Sonya Hdzyue Neck pain M54.2 Assessments [...] CoV-2 RNA, Qualitative NAAT (COVID 19) 3 [id number] 06/30/2021 Insurance Providers Payer Name Payer Address Payer Phone Subscriber Number Group Number Insured Name Patient Relationship to Insured Coverage Start Date Coverage End [place] [address] [id number] null, null Medicaid Poppy Florez MD [employer] [address] [place] [address] [phone] [id number] Julia Mraes Self - patient is the insured Medical (General) History Medical History History ICD Code Asthma Migraines (2 vaginal, 1 c/s) - - -RHM- - -- Pap: HIV/HCV Screen: (10/2020) NR Surgical History Surgery Date(Month/Year) C/S x1 Eye Surgery - astigmatism childhood - 4y /o Hospitalization History Reason Date(Month/Year) Childbirth
--- OUTSIDE RECORDS SUMMARY | 2025-09-23 13:07 | XMS_ITS | Encounter Summary ---
Author Organization [employer] Address [address] [facility] 7t [place] [address] Care Team Providers Care Flight Data Technician Name Role Phone Louisarsenio Deonna Primary Care Provider + [phone] Encounter Details Date Type Department Care Team (Late st Contact Info) Description 09/23/2025 Orders Only GENERIC EXTERNAL DATA DEPARTMENT Provider, Generic External Data Social History Tobacco Use Types Packs/Day Years [...] as of this encounter Plan of Treatment Upcoming Encounters Date Type Department Care Team (Late st Contact Info) Description 09/24/2025 11:45 AM EST Office Visit [facility] [address] [place], [place] [phone] Deonna Lion DO [address] [place], [place] [phone] documented as of this encounter Procedures Procedure Name Priority Date/Time Associated Diagnosis Comments XR ACUTE ABDOMEN SERIES Routine 09/23/2025 11:54 AM EST URINALYSIS, COMPLETE, WITH REFLEX TO CULTURE Routine 09/23/2025 11:12 AM EST SARS COV2/INFLUENZA A/B AND RSV RNA QL NAAT Routine 09/23/2025 10:22 AM EST CBC WITH AUTO DIFFERENTIAL Routine 09/23/2025 10:22 AM EST HCG, TOTAL, QN Routine 09/23/2025 10:22 AM EST LIPASE Routine 09/23/2025 10:22 AM EST HEPATIC FUNCTION PANEL Routine 09/23/2025 10:22 AM EST BASIC METABOLIC PANEL Routine 09/23/2025 10:22 AM EST documented in this encounter Results * XR ACUTE ABDOMEN SERIES (09/23/2025 11:54 AM EST) Anatomical Region Laterality Modality Abdomen Radiographic Ofelia ging 09/23/2025 11:5 4 AM EST Narrative 09/23/2025 12:21 PM EST [address] [address] XRay Report Signed Patient: Julia Mares MR#: [id number] : 1990 Acct:[id number] Age/Sex: 35 / F ADM Date: 09/23/25 Loc: HO.ED Attending Dr: Ordering Physician: Meenakshi Michel PA-C Date of Service: 09/23/25 Procedure(s): XR acute abdomen series Accession Number(s): [id number] cc: Deonna Lion DO; Meenakshi Michel PA-C Reason for Exam: evaluate stool burden vs obvious SBO EXAMINATION: XR ABDOMEN SUPINE AND ERECT WITH CHEST (ABD ACUTE SERIES) HISTORY: evaluate stool burden vs obvious SBO COMPARISON: There are no prior studies available for comparison. FINDINGS: Supine and upright views of the abdomen and a single PA view of the chest are submitted. The bowel gas pattern is unremarkable, without evidence of mechanical obstruction. There is no free intraperitoneal gas. There is a small to moderate amount of stool throughout the colon. There are phleboliths in the left hemipelvis. There are no abnormal soft tissue masses. The bones are intact. The lungs are expanded and clear. There is no pleural effusion, pneumothorax, or pulmonary vascular congestion. The heart is normal in size. XR/XR acute abdomen series IMPRESSION: 1. Small to moderate amount of stool throughout the colon. No evidence of small bowel obstruction. 2. Clear lungs. Electronically signed by: Rivera Carranza MD 09/23/2025 12:18 PM EST Dictated By: Rivera Carranza MD Signed By: <Electronically signed by Rivera Carranza MD in OV> 09/23/25 1218 DD/ 1154 TD/TT: 09/23/25 1206 Resume Writer: Procedure Note Donotuseinterpreter, Image - 12/18/[address] [address] XRay Report Signed Patient: Julia MaresMR#: [id number] : 1990Acct:[id number] Age/Sex: 35 / FADM Date: 09/23/25 Loc: HO.ED Attending Dr: Ordering Physician: Meenakshi Michel PA-C Date of Service: 09/23/25 Procedure(s): XR acute abdomen series Accession Number(s): [id number] cc: Deonna Lion DO; Meenakshi Michel PA-C Reason for Exam: evaluate stool burden vs obvious SBO EXAMINATION: XR ABDOMEN SUPINE AND ERECT WITH CHEST (ABD ACUTE SERIES) HISTORY: evaluate stool burden vs obvious SBO COMPARISON: There are no prior studies available for comparison. FINDINGS: Supine and upright views of the abdomen and a single PA view of the chest are submitted. The bowel gas pattern is unremarkable, without evidence of mechanical obstruction. There is no free intraperitoneal gas. There is a small to moderate amount of stool throughout the colon. There are phleboliths in the left hemipelvis. There are no abnormal soft tissue masses. The bones are intact. The lungs are expanded and clear. There is no pleural effusion, pneumothorax, or pulmonary vascular congestion. The heart is normal in size. XR/XR acute abdomen series IMPRESSION: 1. Small to moderate amount of stool throughout the colon. No evidence of small bowel obstruction. 2. Clear lungs. Electronically signed by: Rivera Carranza MD 09/23/2025 12:18 PM EST Dictated By: Rivera Carranza MD Signed By: <Electronically signed by Rivera Carranza MD in OV> 09/23/25 1218 DD/ 1154 TD/TT: 09/23/25 1206 Resume Writer: [facility] External Provider IMG XR PROCEDURES Final Result * (ABNORMAL) Urinalysis, Complete, with Reflex to Culture (09/23/2025 11:12 AM EST) Color Urine Yellow [facility] Appearance Urine Cloudy [facility] PH 5.5 5.0 - 9.0 [facility] Glucose Urine UA Negative Negative mg/dL [facility] Urine Blood Large (3+)(A) Negative [facility] Comment:Test was verified by repeat analysis. Specific [place] - Urine <=1.005 1.005 - 1.025 [facility] Urine Protein Negative Neg-Trace mg/dL [facility] Urine Ketones Negative Negative mg/dL [facility] Nitrite Urine Negative Negative [facility] Leukocyte Esterase Urine Negative Negative [facility] RBC Urine 0-2 0 - 2 /HPF [facility] Urine WBC 0-5 0 - 5 /HPF [facility] Urine Squamous Epithelial Cell 0-2 0 - 2 /HPF [facility] Urine Bacteria None Seen None Seen [facility] Hyaline Casts, Urine 0-2 0 - 2 /LPF [facility] 09/23/2025 11:1 2 AM EST 09/23/2025 11:20 AM EST Narrative [facility] - 09/23/2025 11:52 AM EST Urine, Clean Catch us Generic External Data Provider LAB URINE ORDERAB LES Edited Result - Final [facility] [address] [place] [phone] * SARS-CoV-2 RNA, Influenza A/B, and RSV RNA, Ql NAAT (09/23/2025 10:22 AM EST) Influenza A PCR NEGATIVE Negative [facility] Influenza B PCR NEGATIVE Negative [facility] Resp Syncy Virus RNA Qual PCR NEGATIVE Negative [facility] SARS COV2 PCR NEGATIVE Negative [facility] Comment:All test results mus t be correlated with clinical findings.Negative results do not preclude SARS-CoV2, influenza Avirus, influenza B virus and/or RSV infectionand should not be used as the sole basis for treatment orother patient management decisions. Negative results must becombined with clinical observations, patient history, andepidemiological information.This test has not been evaluated for monitoring treatment ofinfection.This test has been authorized by the FDA under an EmergencyUse Authorization (EUA) for use by authorized laboratories.Testing performed on the [employer] GeneXpert utilizingreal-time RT-PCR.All SARS CoV2 and positive influenza A/B results arereported to [facility]. 09/23/2025 10:2 2 AM EST 09/23/2025 10:29 AM EST Generic External Data Provider LAB MICROBIOLOGY - GENERAL ORDERABLES Final Result Performing Organization Address [facility] de Phone Number [facility] [address] [place] [phone] * hCG, Total, Quantitative (09/23/2025 10:22 AM EST) HCG Quantitative <2 mIU/mL [facility] Comment:Weeks post LMP Appro ximate hCG(Last Menstrual Period) Range (mIU/ml)3 - 4 weeks 9 - 1304 - 5 weeks 75 - 2,6005 - 6 weeks 850 - 20,8006 - 7 weeks 4000 - 100,2007 - 12 weeks 11,500 - 289,17010 - 16 weeks 18,300 - 137,07581 - 29 weeks (2nd trimester) 1,400 - 53,36915 - 41 weeks (3rd trimester) 940 - 60,000The [place] B- hCG assay is used for the early detection ofpregnancy; it cannot be used to diagnose any conditionunrelated to . If a B-hCG level is not supportedby the clinical evidence, results should be confirmed by analternative method (qualitative urine hCG, for example). 09/23/2025 10:2 2 AM EST 09/23/2025 10:29 AM EST Generic External Data Provider LAB BLOOD ORDERAB LES Final Result Performing Organization Address [facility] Co de Phone Number [facility] [address] [place] [phone] * Lipase (09/23/2025 10:22 AM EST) Lipase 17 8 - 78 U/L [facility] 09/23/2025 10:2 2 AM EST 09/23/2025 10:29 AM EST us Generic External Data Provider LAB BLOOD ORDERAB LES Final Result [facility] [address] [place] [phone] * (ABNORMAL) Basic Metabolic Panel (09/23/2025 10:22 AM EST) Sodium 138 135 - 145 mmol/L [facility] Potassium 3.7 3.3 - 5.1 mmol/L [facility] Chloride 109(H) 96 - 108 mmol/L [facility] Carbon Dioxide 23 22 - 29 mmol/L [facility] Anion Gap 10(L) 12 - 20 [facility] Urea Nitrogen (BUN) 8(L) 9 - 16 mg/dL [facility] Creatinine, Serum 0.60 0.5 - 1.4 mg/dL [facility] Creatinine Clr Calc Pharmacy 144.7 [facility] Comment:Provided height and weight: 167.64 cm,82.9 kg.eGFR (calculated from the MDRD study equation) and eCrCl(calculated from the Cockcroft-Gault equation) are based ondifferent parameters and may not yield comparable results.If eCrCl result is absurd, please check patient'sheight/weight. Estimated Glomerular Filt Rate >60 [facility] Comment:Chronic Kidney Disea se: Estimated GFR < 60 mL/min/1.43r5Vipjuz Kidney Disease: Estimated GFR < 15 mL/min/1.73m2 Glucose 97 60 - 115 mg/dL [facility] Calcium 9.1 8.4 - 10.2 mg/dL [facility] 09/23/2025 10:2 2 AM EST 09/23/2025 10:29 AM EST Generic External Data Provider LAB BLOOD ORDERAB LES Final Result Performing Organization Address [facility] de Phone Number [facility] [address] [place] [phone] * Hepatic Function Panel (09/23/2025 10:22 AM EST) Bilirubin, Total 0.6 0.0 - 1.0 mg/dL [facility] Bilirubin, Direct 0.2 0.0 - 0.5 mg/dL [facility] Aspartate Amino Transferase 17 5 - 31 U/L [facility] Alanine Aminotransferase 10 0 - 31 U/L [facility] Total Protein 7.7 6.5 - 8.0 g/dL [facility] Albumin Level 4.7 3.5 - 5.0 g/dL [facility] Alkaline Phosphatase 60 39 - 117 U/L [facility] 09/23/2025 10:2 2 AM EST 09/23/2025 10:29 AM EST Generic External Data Provider LAB BLOOD ORDERAB LES Final Result Performing Organization Address [facility] Phone Number [facility] [address] [place] [phone] * CBC auto differential (09/23/2025 10:22 AM EST) White Blood Count 7.4 4.8 - 10.8 X10*3/uL [facility] Red Blood Count 4.81 4.20 - 5.50 X10*6/uL [facility] Hemoglobin 13.9 12.0 - 16.0 g/dl [facility] Hematocrit 42.1 37.0 - 47.0 % [facility] Mean Corpuscular Volume 87.5 80.0 - 98.0 fL [facility] Mean Corpuscular Hemoglobin 28.9 27.0 - 33.0 pg [facility] Mean Corpuscular HGB Conc 33.0 31.0 - 35.0 g/dl [facility] Red Cell Distribution Width 12.0 11.0 - 16.0 % [facility] Platelet Count 333 160 - 400 X10*3/uL [facility] Mean Platelet Volume 9.7 9.4 - 12.3 fL [facility] Neutrophils Percent Auto 67.3 45 - 73 % [facility] Imm Gran Pct Auto 0.3 0.0 - 0.4 % [facility] Lymphocytes Percent Auto 21.1 20 - 40 % [facility] Monocytes Percent Auto 8.0 2 - 11 % [facility] Eosinophils Percent Auto 2.6 0 - 4 % [facility] Basophils Percent Auto 0.7 0 - 2 % [facility] NRBC Pct Auto 0.0 0.0 - 0.2 /100WBC [facility] Neutrophils Absolute Auto 5.0 2.0 - 8.3 x10*3/uL [facility] Imm Gran Abs Auto 0.02 0.00 - 0.03 X10*3/uL [facility] Lymphocytes Absolute Auto 1.6 1.2 - 4.9 X10*3/uL [facility] Monocytes Absolute Auto 0.6 0.1 - 1.2 X10*3/uL [facility] Eosinophils Absolute Auto 0.2 0.0 - 0.4 X10*3/uL [facility] Basophils Absolute Auto 0.1 0.0 - 0.2 X10*3/uL [facility] NRBC Abs Auto 0.000 0.0 - 0.012 X10*3/uL [facility] 09/23/2025 10:2 2 AM EST 09/23/2025 10:29 AM EST us Generic External Data Provider LAB BLOOD ORDERAB LES Final Result [facility] [address] [place] [phone] documented in this encounter Visit Diagnoses Not on filedocumented in this encounter Additional Health Concerns Assessment Noted Time PHQ-9 Depression Total Score: 3 07/09/20 25 12:02 PM EDT documented as of this encounter Care Teams Flight Data Technician Relationship Specialty Start Date End Date Deonna Lion DO [address] [place] [address] PCP - General Family Medicine 12/03/24 documented as of this encounter
--- OUTSIDE RECORDS SUMMARY | 2025-09-23 13:07 | XMS_ITS | Encounter Summary ---
Author Organization [employer] Address [address] [facility] 7t [place] [address] Care Team Providers Care Escort Patients Name Role Phone MandyDeonna gaspar Primary Care Provider + [phone] Encounter Details Date Type Department Care Team (Latest Contact Info) Description 09/23/2025 Travel Social History Tobacco Use Types Packs/Day [...] Description 09/24/2025 11:45 AM EST Office Visit [facility] [address] [place] [phone] Deonna Lion DO [address] [place] [address] documented as of this encounter Visit Diagnoses Not on filedocumented in this encounter Additional Health Concerns Assessment Noted Time PHQ-9 Depression Total Score: 3 07/09/20 25 12:02 PM EDT documented as of this encounter Care Teams Escort Patients Relationship Specialty Start Date End Date Deonna Lion DO [address] [place] [phone] PCP - General Family Medicine 12/03/24 documented as of this encounter
--- OUTSIDE RECORDS SUMMARY | 2025-09-23 13:07 | XMS_ITS | Encounter Summary ---
Author Organization [employer] Address [address] [facility] 7t [place] [address] Care Team Providers Care Park Superintendent Name Role Phone MandyDeonna gaspar Primary Care Provider + [phone] Encounter Details Date Type Department Care Team (Latest Contact Info) Description 09/20/2025 Travel Social History Tobacco Use Types Packs/Day [...] Description 09/24/2025 11:45 AM EST Office Visit [facility] [address] [place] [address] Deonna Lion DO [address] [place] [address] documented as of this encounter Visit Diagnoses Not on filedocumented in this encounter Additional Health Concerns Assessment Noted Time PHQ-9 Depression Total Score: 3 07/09/20 25 12:02 PM EDT documented as of this encounter Care Teams Park Superintendent Relationship Specialty Start Date End Date Deonna Lion DO [address] [place] [phone] PCP - General Family Medicine 12/03/24 documented as of this encounter
--- OUTSIDE RECORDS SUMMARY | 2025-09-23 13:07 | XMS_ITS | Encounter Summary ---
Author Organization [employer] Address [address] [facility] 7t [place] [address] Care Team Providers Care Grants Administrator Name Role Phone Deonna Lion DO Primary Care Provider [phone] Encounter Details Date Type Department Care Team ([facility] st Contact Info) Description 09/23/2025 Telephone [facility] [address] [place] [address] Puja Thakkar, ANDRE [address] [place] [address] Social History Tobacco Use Types Packs/Day Years [...] encounter Miscellaneous Notes * Telephone Encounter - Monae Carvajal RN - 09/23/2025 9:48 AM EST TC placed to [facility] for expect by private car. Pt complaint of RLQ abdominal pain with guarding andrebound tenderness started periumbilical and radiated to the RLQ. Patient also reports she recentlyhad a fall. All information and vitals given to triage nurse documented in this encounter Plan of Treatment Upcoming Encounters Date Type Department Care Team (Late st Contact Info) Description 09/24/2025 11:45 AM EST Office Visit [facility] [address] [place] [address] Deonna Lion DO [address] [place] [address] documented as of this encounter Visit Diagnoses Not on filedocumented in this encounter Additional Health Concerns Assessment Noted Time PHQ-9 Depression Total Score: 3 07/09/20 25 12:02 PM EDT documented as of this encounter Care Teams Grants Administrator Relationship Specialty Start Date End Date Deonna Lion DO [address] [place] [address] PCP - General Family Medicine 12/03/24 documented as of this encounter
--- OUTSIDE RECORDS SUMMARY | 2025-09-23 13:08 | XMS_ITS | Clinical Summary ---
Author Organization [facility] Address [address] [place] [address] Care Team Providers Care Operational Risk Analyst Name Role Phone Carol Wiseman Primary Care Provider Allergies No known active allergies Medications acetaminophen [...] drink = 0.6 oz pur e alcohol) [facility] Utilities Answer Date Recorded In the past [...] time in the past 12 m [facility], were you homeless or living in a fci (including now)? No 05/08/2024 Comments No Sex [...] age to complete this topic Insurance [address] [place] [id number] [facility] Care Teams Operational Risk Analyst Relationship Specialty Start Date End Date Carol Wiseman [address] [place] [address] PCP - General Family Medicine 11/01/23
--- OUTSIDE RECORDS SUMMARY | 2025-09-23 13:08 | XMS_ITS | Encounter Summary ---
Author Organization [facility] Address [address] [place] [address] Care Team Providers Care Truck Dispatcher Name Role Phone Carol Wiseman APRN Primary Care Provider Encounter Details Date Type Department Care Team (Late st Contact Info) Description 12/18/2023 Scanned Document [address] [phone] Neurology, Scan Social History Tobacco Use Types [...] on filedocumented in this encounter Care Teams Truck Dispatcher Relationship Specialty Start Date End Date Carol Wiseman APRN [address] [place] [phone] PCP - General Family Medicine 11/02/23 documented as of this encounter
--- OUTSIDE RECORDS SUMMARY | 2025-09-23 13:08 | XMS_ITS | Encounter Summary ---
Author Organization [facility] Address [address] [place] [address] Care Team Providers Care Shoe Reconditioner Name Role Phone Unknown Primary Care Provider [phone] Linn Griffin APRN Primary Care Provider [phone] Carol Wiseman APRN Primary Care Provider Encounter Details Date Type Department Care Team (Late st Contact Info) Description 09/19/2018 Abstract [facility] Maternal Medicine [address] [place] [phone] Tiara Franz MS,WW [facility] [address] [place] [address] Social History Tobacco Use Types Packs/Day Years [...] on filedocumented in this encounter Care Teams Shoe Reconditioner Relationship Specialty Start Date End Date Unknown Unknow Provider Address PCP - General 03/24/19 12/19/22 Linn Griffin APRN [address] [place] [address] PCP - General Family Medicine 12/20/22 10/28/23 Carol Wiseman APRN [address] [facility], [place] [phone] PCP - General Family Medicine 11/02/23 documented as of this encounter
--- OUTSIDE RECORDS SUMMARY | 2025-09-23 13:08 | XMS_ITS | Encounter Summary ---
Author Organization [facility] Address [address] [place] [address] Care Team Providers Care Lead Radiologic Technologist Name Role Phone Carol Wiseman APRN Primary Care Provider Encounter Details Date Type Department Care Team (Late st Contact Info) Description 11/04/2023 Scanned Document GENERIC EXTERNAL DATA DEPARTMENT Clary Luke MD [address] [place] [address] Social History Tobacco Use Types Packs/Day Years [...] on filedocumented in this encounter Care Teams Lead Radiologic Technologist Relationship Specialty Start Date End Date Carol Wiseman APRN [address] [place] [address] PCP - General Family Medicine 11/02/23 documented as of this encounter
--- OUTSIDE RECORDS SUMMARY | 2025-09-23 13:08 | XMS_ITS | Clinical Summary ---
Author Organization [employer] Address [address] [facility] [address] [place] [address] Care Team Providers Care Cordwood Cutter Helper Name Role Phone Deonna Lion Primary Care Provider [phone] Allergies No known active allergies Medications * [...] not trigger notification to Pharmacy)) nystatin (Mycostatin) 030684 UNIT/ML suspension Take 5 mL (500,000 Units) by mouth 4 times daily for 10 days. 200 mL 08/24/20 025 Discontinued(Th erapy completed) Active Problems Problem Noted Date Diagnosed Date Musculoskeletal pain 09/23/2025 Right lower quadrant abdominal pain 09/23/2025 Exotropia of left eye 02/12/2025 Astigmatism 02/12/2025 [...] organization. Date Type Department Care Team Description 09/23/2025 9:00 AM EST Office Visit [facility] [address] [address] Puja Thakkar FNP Right lower quadrant abdominal pain (Primary Dx); Musculoskeletal pain 09/23/2025 Orders Only GENERIC EXTERNAL DATA DEPARTMENT Provider, Generic External Data 09/23/[address] [address] Deonna Lion DO Chart Prep 09/23/2025 Telephone [facility] [address] [place] [address] Puja Thakkar FNP 09/23/2025 Travel 09/20/2025 11:30 AM EST Clinical Support [address] [address] Noemy Miramontes RN Fall, initial encounter 09/20/2025 Travel 09/08/2025 11:15 AM EST Office Visit [address] [address] Deonna Lion DO COVID-19 (Primary Dx); Influenza B; Chronic neck pain; Globus sensation; Dysphagia, unspecified type; Anxiety 09/08/2025 Travel 09/06/2025 Travel 09/06/[address] [address] Deonna Lion DO Nurse Triage 09/06/[address] [address] Deonna Lion DO ER Follow-up 08/30/2025 Orders Only GENERIC EXTERNAL DATA DEPARTMENT Provider, Generic External Data 08/24/2025 7:00 PM EST [facility] [address] [address] Alcira Walls MD Dry throat (Primary Dx) 08/24/2025 Travel [address] [address] Deonna Lion DO Telephone Call 08/03/2025 9:20 AM EDT [facility] [address] [address] Jaydon Esquivel MD Neck pain (Primary Dx) 08/03/2025 Orders Only [facility] External Provider, [facility] 08/03/2025 Travel 07/22/2025 [facility] [address] [address] Deonna Lion DO 07/09/2025 11:45 AM EDT Office Visit [address] [address] Deonna Lion DO Chronic neck pain (Primary Dx); Chronic intractable headache, unspecified headache type 07/09/[address] [address] Deonna Lion DO Medication Question 07/09/2025 Travel 07/08/2025 Telephone [facility] [address] [place] [address] Deonna Lion DO Chart Prep 07/06/2025 Telephone [facility] [address] [place] [address] Deonna Lion DO Nurse Triage from Last [...] (180 lb) 09/23/2025 9:02 AM EST Height 167.6 cm (5' 6 ) 09/08/2025 12:12 PM EST Body Mass Index 29.05 09/08/2025 12:12 PM EST Plan of Treatment Upcoming Encounters Date Type Department Care Team (Late st Contact Info) Description 09/24/2025 11:45 AM EST Office Visit [facility] [address] [place], [place] [phone] Deonna Lion DO [address] [place] [address] Health Maintenance Due Date Last Done Comments [...] 07/09/2025 Disability Screening 08/24/2026 08/24/2025 Tobacco Screening 09/23/2026 09/23/2025 DTaP/Tdap/Td Vaccines (2 - T d or [...] TO CULTURE Routine 09/23/2025 11:12 AM EST HCG, TOTAL, QN Routine 09/23/2025 10:22 AM EST LIPASE Routine 09/23/2025 10:22 AM EST BASIC METABOLIC PANEL Routine 09/23/2025 10:22 AM EST HEPATIC FUNCTION PANEL Routine 09/23/2025 10:22 AM EST CBC WITH AUTO DIFFERENTIAL Routine 09/23/2025 10:22 AM EST SARS COV2/INFLUENZA A/B AND RSV RNA QL NAAT Routine 09/23/2025 10:22 AM EST POCT INFLUENZA A (ID NOW RAPID MOLECULAR) [...] Recently Relevant to Health Maintenance Results * XR ACUTE ABDOMEN SERIES (09/23/2025 11:54 AM EST) Anatomical Region Laterality Modality Abdomen Radiographic Ofelia ging 09/23/2025 11:5 4 AM EST Narrative 09/23/2025 12:21 PM EST [address] [address] XRay Report Signed Patient: Julia Mares MR#: [id number] : 1990 Acct:[id number] Age/Sex: 35 / F ADM Date: 09/23/25 Loc: HO.ED Attending Dr: Ordering Physician: Meenakshi Michel PA-C Date of Service: 09/23/25 Procedure(s): XR acute abdomen series Accession Number(s): [id number] cc: Deonna Lion DO; Meenakshi Michel PA-C [...] obstruction. 2. Clear lungs. Electronically signed by: Rivrea Carranza MD 09/23/2025 12:18 PM EST Dictated By: Rivera Carranza MD Signed By: <Electronically signed by Rivera Carranza MD in OV> 09/23/25 1218 DD/ 1154 TD/TT: 09/23/25 1206 Adjunct English Instructor: Procedure Note [place], Image - 09/23/2025 [place] [address] XRay Report Signed Patient: Julia MaresMR#: [id number] : 1990Acct:[id number] Age/Sex: 35 / FADM Date: 09/23/25 Loc: HO.ED Attending Dr: Ordering Physician: Meenakshi Michel PA-C Date of Service: 09/23/25 Procedure(s): XR acute abdomen series Accession Number(s): [id number] cc: Deonna Lion DO; Meenakshi Michel PA-C [...] by: Rivera Carranza MD 09/23/2025 12:18 PM [facility] Dictated By: Rivera Carranza MD Signed By: <Electronically signed by Rivera Carranza MD in OV> 09/23/25 1218 DD/ 1154 TD/TT: 09/23/25 1206 Adjunct English Instructor: us [facility] External Provider IMG XR PROCEDURES Final Result * (ABNORMAL) Urinalysis, Complete, with Reflex to Culture (09/23/2025 11:12 AM EST) Only the most recent of2 resultswithin the time period is included. Color Urine Yellow [facility] Appearance Urine Cloudy [facility] PH 5.5 5.0 - 9.0 [facility] Glucose Urine UA Negative Negative mg/dL [facility] Urine Blood Large (3+)(A) Negative [facility] Comment:Test was verified by repeat analysis. Specific [place] - Urine <=1.005 1.005 - 1.025 [facility] Urine Protein Negative Neg-Trace mg/dL [facility] Urine Ketones Negative Negative mg/dL [facility] Nitrite Urine Negative Negative [facility] Leukocyte Esterase Urine Negative Negative [facility] RBC Urine 0-2 0 - 2 /HPF [facility] Urine WBC 0-5 0 - 5 /HPF [facility] Urine Squamous Epithelial Cell 0-2 0 - 2 /HPF [facility] Urine Bacteria None Seen None Seen [facility] Hyaline Casts, Urine 0-2 0 - 2 /LPF [facility] 09/23/2025 11:1 2 AM EST 09/23/2025 11:20 AM EST Narrative [facility] - 09/23/2025 11:52 AM EST Urine, Clean Catch Generic External Data Provider LAB URINE ORDERAB LES Edited Result - Final [facility] [address] [place] [address] [phone] * SARS-CoV-2 RNA, Influenza A/B, and RSV RNA, Ql NAAT (09/23/2025 10:22 AM EST) Influenza A PCR NEGATIVE Negative [facility] Influenza B PCR NEGATIVE Negative [facility] Resp Syncy Virus RNA Qual PCR NEGATIVE Negative [facility] SARS COV2 PCR NEGATIVE Negative [facility] Comment:All test results mus t be [...] use by authorized laboratories.Testing performed on the Live Shuttle GeneXpert utilizingreal-time RT-PCR.All SARS CoV2 and positive influenza A/B results arereported to [facility]. 09/23/2025 10:2 2 AM EST 09/23/2025 10:29 AM EST Generic External Data Provider LAB MICROBIOLOGY - GENERAL ORDERABLES Final Result [facility] [address] [place] [phone] * CBC auto differential (09/23/2025 10:22 AM EST) Only the most recent of2 resultswithin the time period is included. White Blood Count 7.4 4.8 - 10.8 X10*3/uL [facility] Red Blood Count 4.81 4.20 - 5.50 X10*6/uL [facility] Hemoglobin 13.9 12.0 - 16.0 g/dl [facility] Hematocrit 42.1 37.0 - 47.0 % [facility] Mean Corpuscular Volume 87.5 80.0 - 98.0 fL [facility] Mean Corpuscular Hemoglobin 28.9 27.0 - 33.0 pg [facility] Mean Corpuscular HGB Conc 33.0 31.0 - 35.0 g/dl [facility] Red Cell Distribution Width 12.0 11.0 - 16.0 % [facility] Platelet Count 333 160 - 400 X10*3/uL [facility] Mean Platelet Volume 9.7 9.4 - 12.3 fL [facility] Neutrophils Percent Auto 67.3 45 - 73 % [facility] Imm Gran Pct Auto 0.3 0.0 - 0.4 % [facility] Lymphocytes Percent Auto 21.1 20 - 40 % [facility] Monocytes Percent Auto 8.0 2 - 11 % [facility] Eosinophils Percent Auto 2.6 0 - 4 % [facility] Basophils Percent Auto 0.7 0 - 2 % [facility] NRBC Pct Auto 0.0 0.0 - 0.2 /100WBC [facility] Neutrophils Absolute Auto 5.0 2.0 - 8.3 x10*3/uL [facility] Imm Gran Abs Auto 0.02 0.00 - 0.03 X10*3/uL [facility] Lymphocytes Absolute Auto 1.6 1.2 - 4.9 X10*3/uL [facility] Monocytes Absolute Auto 0.6 0.1 - 1.2 X10*3/uL [facility] Eosinophils Absolute Auto 0.2 0.0 - 0.4 X10*3/uL [facility] Basophils Absolute Auto 0.1 0.0 - 0.2 X10*3/uL [facility] NRBC Abs Auto 0.000 0.0 - 0.012 X10*3/uL [facility] 09/23/2025 10:2 2 AM EST 09/23/2025 10:29 AM EST us Generic External Data Provider LAB BLOOD ORDERAB LES Final Result [facility] [address] [place] [address] [phone] * hCG, Total, Quantitative (09/23/2025 10:22 AM EST) HCG Quantitative <2 mIU/mL [facility] Comment:Weeks post LMP Appro ximate hCG(Last Menstrual Period) Range (mIU/ml)3 - 4 weeks 9 - 1304 - 5 weeks 75 - 2,6005 - 6 weeks 850 - 20,8006 - 7 weeks 4000 - 100,2007 - 12 weeks 11,500 - 289,92191 - 16 weeks 18,300 - 137,83985 - 29 weeks (2nd trimester) 1,400 - 53,14429 - 41 weeks (3rd trimester) 940 - 60,000The Izquierdo B-hCG assay is used for the early detection ofpregnancy; it cannot be used to diagnose any conditionunrelated to . If a B-hCG level is not supportedby the clinical evidence, results should be confirmed by analternative method (qualitative urine hCG, for example). 09/23/2025 10:2 2 AM EST 09/23/2025 10:29 AM EST Generic External Data Provider LAB BLOOD ORDERAB LES Final Result Performing Organization Address [facility]/ZIP Co de Phone Number [facility] [address] [place] [phone] * Lipase (09/23/2025 10:22 AM EST) Lipase 17 8 - 78 U/L [facility] 09/23/2025 10:2 2 AM EST 09/23/2025 10:29 AM EST Generic External Data Provider LAB BLOOD ORDERAB LES Final Result Performing Organization Address [facility] Co de Phone Number [facility] [address] [place] [phone] * Hepatic Function Panel (09/23/2025 10:22 AM EST) Bilirubin, Total 0.6 0.0 - 1.0 mg/dL [facility] Bilirubin, Direct 0.2 0.0 - 0.5 mg/dL [facility] Aspartate Amino Transferase 17 5 - 31 U/L [facility] Alanine Aminotransferase 10 0 - 31 U/L [facility] Total Protein 7.7 6.5 - 8.0 g/dL [facility] Albumin Level 4.7 3.5 - 5.0 g/dL [facility] Alkaline Phosphatase 60 39 - 117 U/L [facility] 09/23/2025 10:2 2 AM EST 09/23/2025 10:29 AM EST us Generic External Data Provider LAB BLOOD ORDERAB LES Final Result [facility] [address] [place] [phone] * (ABNORMAL) Basic Metabolic Panel (09/23/2025 10:22 AM EST) Sodium 138 135 - 145 mmol/L [facility] Potassium 3.7 3.3 - 5.1 mmol/L [facility] Chloride 109(H) 96 - 108 mmol/L [facility] Carbon Dioxide 23 22 - 29 mmol/L [facility] Anion Gap 10(L) 12 - 20 [facility] Urea Nitrogen (BUN) 8(L) 9 - 16 mg/dL [facility] Creatinine, Serum 0.60 0.5 - 1.4 mg/dL [facility] Creatinine Clr Calc Pharmacy 144.7 [facility] Comment:Provided height and weight: 167.64 cm,82.9 kg.eGFR (calculated from the MDRD study equation) and eCrCl(calculated from the Cockcroft-Gault equation) are based ondifferent parameters and may not yield comparable results.If eCrCl result is absurd, please check patient'sheight/weight. Estimated Glomerular Filt Rate >60 [facility] Comment:Chronic Kidney Disea se: Estimated GFR < 60 mL/min/1.68e7Nohpnt Kidney Disease: Estimated GFR < 15 mL/min/1.73m2 Glucose 97 60 - 115 mg/dL [facility] Calcium 9.1 8.4 - 10.2 mg/dL [facility] 09/23/2025 10:2 2 AM EST 09/23/2025 10:29 AM EST Generic External Data Provider LAB BLOOD ORDERAB LES Final Result Performing Organization Address [facility] Co de Phone Number [facility] [address] [place] [phone] * POCT Rapid Influenza A IZQUIERDO ID NOW (09/08/2025 12:23 PM EST) Influenza A Negative Negative, Indeterminate [facility] QC Media Lot # [id number] [facility] Lot# Expiration Date [facility] Swab 09/08/2025 12:2 3 PM EST Deonna Lion DO POINT OF CARE TEST ENTER/SAILAJA T ORDERABLES Final Result Performing Organization Address [facility] de Phone Number [facility] [address] [place] [phone] * (ABNORMAL) POCT Rapid Influenza B IZQUIERDO ID NOW (09/08/2025 12:22 PM EST) Influenza B Positive( A) Negative, Indeterminate [facility] QC Media Lot # [id number] [facility] Lot# Expiration Date 6 [facility] Swab 09/08/2025 12:2 2 PM EST Deonna Lion DO POINT OF CARE TEST ENTER/SAILAJA T ORDERABLES Final Result Performing Organization Address [facility] Co de Phone Number [facility] [address] [place] [phone] * POCT Rapid Strep A IZQUIERDO ID NOW (09/08/2025 12:22 PM EST) Pathologist [facility] Rapid Strep A Screen Negative Negative, None Detected QC Media Lot # [id number] Lot# Expiration Date Swab 09/08/2025 12:2 2 PM EST Deonna Lion DO POINT OF CARE TEST ENTER/SAILAJA T ORDERABLES Final Result * (ABNORMAL) POCT Rapid Covid-19 BinaxNOW (09/08/2025 12:21 PM EST) Rapid COVID Ag Positive QC Media Lot # [id number] Lot# Expiration Date [id number] Swab 09/08/2025 12:2 1 PM EST Deonna Lion DO POINT OF CARE TEST ENTER/SAILAJA T ORDERABLES Edited Result - Final * HCG, Qualitative, Urine (08/30/2025 11:10 PM EST) Urine NEGATIVE NEGATIVE [facility] Comment:This test was develo ped to detect early . Falsenegative results may occur after the 5th - 7th week ofpregnancy when using this test method. If clinicallyindicated, consider a serum hCG. 08/30/2025 11:1 0 PM EST 08/30/2025 11:15 PM EST Generic External Data Provider LAB URINE ORDERAB LES Final Result [facility] [address] [place] [address] [phone] * CT Cervical Spine w/o Contrast (08/03/2025 8:35 PM EDT) Anatomical Region Laterality Modality Spine, C-spine Computed Tomogra phy 08/03/2025 8:35 PM EDT Narrative 08/03/2025 8:37 PM EDT [address] [address] [address] Scan Report Signed Patient: Julia Mares MR#: [id number] : 1990 Acct:[id number] Age/Sex: 34 / F ADM Date: 08/03/25 Loc: HO.ED Attending Dr: Ordering Physician: Octavio Astorga Date of Service: 08/03/25 Procedure(s): CT cervical spine wo IV con Accession Number(s): [id number] cc: Octavio Astorga; Deonna Lion DO Report Number: [id number]: Total DLP = 1151.00 mGy-cm Reason for [...] in OV> 08/03/252035 DD/ 34 TD/TT: 08/03/252034 Adjunct English Instructor: Procedure Note Donotuseinterpreter, Image - 08/03/[address] [place] [address] [address] Scan Report Signed Patient: Julia MaresMR#: [id number] : 1990Acct:[id number] Age/Sex: 34 / FADM Date: 08/03/25 Loc: HO.ED Attending Dr: Ordering Physician: Octavio Astorga Date of Service: 08/03/25 Procedure(s): CT cervical spine wo IV con Accession Number(s): [id number] cc: Octavio Astorga; Deonna Lion DO Report Number: [id number]: Total DLP = 1151.00 mGy-cm Reason for [...] in OV> 08/03/252035 DD/ 34 TD/TT: 08/03/252034 Adjunct English Instructor: [facility] External Provider IMG CT PROCEDURES Final Result * CT Head w/o Contrast (08/03/2025 8:35 PM EDT) Anatomical Region Laterality Modality Head, Neck Computed Tomogra phy 08/03/2025 8:35 PM EDT Narrative 08/03/2025 8:37 PM EDT [place] [address] CT Scan Report Signed Patient: Julia Mares MR#: [id number] : 1990 Acct:[id number] Age/Sex: 34 / F ADM Date: 08/03/25 Loc: HO.ED Attending Dr: Ordering Physician: Octavio Astorga Date of Service: 08/03/25 Procedure(s): CT head/brain wo IV con Accession Number(s): [id number] cc: Octavio Astorga; Deonna Lion DO Report Number: [id number]: Total DLP = 0.00 mGy-cm Reason for [...] in OV> 08/03/252036 DD/ 34 TD/TT: 08/03/252034 Adjunct English Instructor: Procedure Note Donotuseinterpreter, Image - 08/03/[address] [address] [address] Scan Report Signed Patient: Julia MaresMR#: [id number] : 1990Acct:[id number] Age/Sex: 34 / FADM Date: 08/03/25 Loc: HO.ED Attending Dr: Ordering Physician: Octavio Astorga Date of Service: 08/03/25 Procedure(s): CT head/brain wo IV con Accession Number(s): [id number] cc: Octavio Astorga; Deonna Lion DO Report Number: [id number]: Total DLP = 0.00 mGy-cm Reason for [...] in OV> 08/03/252036 DD/ 34 TD/TT: 08/03/252034 Adjunct English Instructor: [facility] External Provider IMG CT PROCEDURES Final Result * High Sensitivity Troponin I (08/03/2025 8:00 PM EDT) TROPONIN I HIGH SENSITIVITY <2.7 <3.5 - 17.0 ng/L [facility] Comment:The Izquierdo high sens itivity Troponin-I results should beused in conjunction with other diagnostic information suchas ECG, clinical observations and information, and patientsymptoms to aid in the diagnosis of VA. 08/03/2025 8:00 PM EDT 08/03/2025 8:04 PM EDT Generic External Data Provider LAB BLOOD ORDERAB LES Final Result Performing Organization Address City/[facility]/ZIP Co de Phone Number [facility] [address] [place] [phone] * Creatine Kinase, Total (08/03/2025 8:00 PM EDT) Pathologist [facility] Creatine Kinase Total 70 26 - 140 U/L [facility] 08/03/2025 8:00 PM EDT 08/03/2025 8:04 PM EDT [employer] External Data Provider LAB BLOOD ORDERAB LES Final Result Performing Organization Address [facility] Co de Phone Number [facility] [address] [place] [phone] * (ABNORMAL) Comprehensive Metabolic Panel (08/03/2025 8:00 PM EDT) Sodium 141 135 - 145 mmol/L [facility] Potassium 3.7 3.3 - 5.1 mmol/L [facility] Chloride 112(H) 96 - 108 mmol/L [facility] Carbon Dioxide 22 22 - 29 mmol/L [facility] Anion Gap 11(L) 12 - 20 [facility] Urea Nitrogen (BUN) 10 9 - 16 mg/dL [facility] Creatinine, Serum 0.65 0.5 - 1.4 mg/dL [facility] Creatinine Clr Calc Pharmacy 135.1 [facility] Comment:Provided height and weight: 168.91 cm,83.2 kg.eGFR (calculated from the MDRD study equation) and eCrCl(calculated from the Cockcroft-Gault equation) are based ondifferent parameters and may not yield comparable results.If eCrCl result is absurd, please check patient'sheight/weight. Estimated Glomerular Filt Rate >60 [facility] Comment:Chronic Kidney Disea se: Estimated GFR < 60 mL/min/1.90y7Aahkph Kidney Disease: Estimated GFR < 15 mL/min/1.73m2 Glucose 100 60 - 115 mg/dL [facility] Calcium 8.9 8.4 - 10.2 mg/dL [facility] Bilirubin, Total 0.2 0.0 - 1.0 mg/dL [facility] Aspartate Amino Transferase 16 5 - 31 U/L [facility] Alanine Aminotransferase 11 0 - 31 U/L [facility] Total Protein 7.1 6.5 - 8.0 g/dL [facility] Albumin Level 4.4 3.5 - 5.0 g/dL [facility] Alkaline Phosphatase 56 39 - 117 U/L [facility] 08/03/2025 8:00 PM EDT 08/03/2025 8:04 PM EDT us Generic External Data Provider LAB BLOOD ORDERAB LES Final Result Performing Organization Address [facility] de Phone Number [facility] [address] [place] [phone] * Hepatitis C Antibody with Reflex to HCV, RNA, Quantitative, Real-Time PCR (12/04/2024 11:34 AM EST) Hepatitis C Antibody Nonreactive Nonreactive [facility] Comment:Antibodies to HCV no t detected; does not exclude early acuteHCV infection. Blood Venous blood specimen / Unknown 12/04/2024 11:34 AM EST 12/04/2024 1:24 PM EST us Deonna Lion DO LAB BLOOD ORDERABLES Final R esult Performing Organization Address City/[facility]/ZIP Co de Phone Number [facility] [address] [place] [address] [place] [phone] * HIV-1/2 Antigen and Antibodies, Fourth Generation, with Reflexes (12/04/2024 11:34 AM EST) HIV AB/AG Nonreactive Nonreactive [facility] Comment:HIV-1 p24 Ag and/or HIV-1/HIV-2 Ab not detected.A test result that is nonreactive does not exclude thepossibility of exposure to or infection with HIV-1 and/orHIV-2. Nonreactive results in this assay for individualswith prior exposure to HIV-1 and/or HIV-2 may be due toantigen and antibody levels that are below the limit ofdetection of this assay.The made.com HIV Ag/Ab Combo assay result andsupplemental assay results should be interpreted inconjunction with the patient's clinical presentation,history and other laboratory results. If the results areinconsistent with clinical evidence, additional testing issuggested to confirm the result. Blood Venous blood specimen / Unknown 12/04/2024 11:34 AM EST 12/04/2024 1:24 PM EST us Deonna Lion DO LAB BLOOD ORDERABLES Final R esult [facility] [address] [place] [phone] [phone] from Last 3 Months or Most Recently Relevant to Health Maintenance [facility] C[facility] Care Teams Cordwood Cutter Helper Relationship Specialty Start Date End Date Deonna Lion DO [address] [place] [phone] PCP - General Family Medicine 12/03/24
[2025-09-23 14:49] VITALS: BP 123/88; PULSE 91; RESP 18; O2SAT 100
--- NOTE | 2025-09-23 14:50 | PC.NURSE ---
inital plan to transfer to [facility] was canceled as patient ate one bite of salad and apple juice at noon today after being informed multiple times to not eat or drink. Plan to be admitted for surgery in AM.
--- NOTE | 2025-09-23 14:54 | P.HPGS_ITS ---
History of Present Illness History of Present Illness Date of Service: 09/23/25 Chief complaint: acute appendicitis Narrative: Julia Gibson is a 35 year old female presenting with complaints of abdominal pain in the right lower quadrant since yesterday. The pain began in the periumbilical region and remained in the right lower quadrant and was associated with pain on motion. She reports eating some solid approximately 1/2 hour ago but generally does not have much of an appetite. She reports chills without fever. She denies a previous episode of similar symptoms. Workup in the emergency department does reveal a normal WBC. Ultrasound of the abdomen does show a noncompressible dilated appendix suggestive of acute appendicitis. The patient reports severe pain during the ultrasound. She is admitted for further management of her acute appendicitis. Review of Systems Review of Systems: Yes all other systems are reviewed and are negative PMFSH Past Medical History Medical History Chronic idiopathic constipation GERD (gastroesophageal reflux disease) delivery delivered Chest pain of uncertain etiology Muscle spasm Whole body pain Decreased visual acuity Chronic constipation Chronic neck pain Chronic headache Family History Family History Mother High blood pressure Colitis Father High blood pressure High cholesterol Fatty liver Surgical History Surgical History H/O eye surgery Social History Social History Alcohol intake: never Patient Tobacco Use Status: Former Tobacco user Smoked in Last 30 Days: No Use of substances other than those prescribed or required for medical reasons: No Advance Directives: No Advance Directives Information Provided: No Meds Allergies Allergy/AdvReac Type Severity Reaction Status Date / Time No Known Allergies Allergy Verified 09/23/25 10:09 Active Medications: Current Medications Calcium Carbonate (Calcium Carbonate 750 Mg Tab.Chew) 750 mg PO Q4H PRN PRN Reason: Heartburn Hydromorphone HCl (Hydromorphone Hcl 0.5 Mg/0.5 Ml Syringe) 0.5 mg IVPUSH Q3H PRN; Protocol PRN Reason: Pain, Severe (Pain Scale 7-10) Acetaminophen (Ofirmev) 1,000 mg in 100 mls @ 400 mls/hr IV Q6H PRN PRN Reason: Pain, Mild (Pain Scale 1-3) Dextrose/Lactated Ringer's (D5lr) 1,000 mls @ 125 mls/hr IVCONT .Q8H [facility] Piperacillin Sod/Tazobactam (Sod 3.375 gm/ Sodium Chloride) 50 mls @ 100 mls/hr IV Q6H [facility] Magnesium Hydroxide (Milk Of Magnesia 30 Ml Oral.Susp) 30 ml PO DAILY PRN PRN Reason: Constipation Melatonin (Melatonin 3 Mg Tablet) 6 mg PO BEDTIME PRN PRN Reason: Insomnia Ondansetron HCl (Ondansetron Hcl 4 Mg/2 Ml Vial) 4 mg IVPUSH QID PRN PRN Reason: Nausea Oxycodone HCl (Oxycodone Hcl Immed Release 5 Mg Tablet) 5 mg PO Q6H PRN PRN Reason: Pain, Moderate(Pain Scale 4-6) Sodium Chloride (0.9 % Sodium Chloride Flush 3 Ml Syringe) 3 ml IVFLUSH QSHIFT [facility] Home Medications ?Medication ?Instructions ?Recorded ?Confirmed ?Last Taken ?Type diclofenac sodium 1 % topical gel 2 g topical QID PRN Pain 03/09/25 06/18/25 Unknown History (Arthritis Pain (diclofenac)) ibuprofen 600 mg tablet 600 mg PO Q8H PRN Pain 06/1806/18/25 Unknown History acetaminophen 650 mg 650 mg PO Q8H PRN mild pain 09/23/25 Unknown History tablet,extended release baclofen 10 mg tablet 10 mg PO TID PRN muscle spas m 09/23/25 Unknown History cetirizine 10 mg tablet 10 mg PO DAILY 09/23/25 Unk nown History fluticasone propionate 50 1 spray intranasal DAILY Unknown History mcg/actuation nasal spray,suspension Physical Exam Vital Signs: Vital Signs: Last Vital Signs Temp 97.4 F 09/23/25 10:05 Pulse 91 09/23/25 14:49 Resp 18 09/23/25 14:49 BP 123/88 09/23/25 14:49 Pulse Ox 100 09/23/25 14:49 O2 Del Method Room Air 09/23/25 14:49 BMI result Body Mass Index 29.5 Const: General: cooperative and no acute distress Nutritional Appearance: well nourished Orientation/consciousness: patient oriented x3 Limitations: no limitations HEENT: Head: Yes normocephalic and Yes atraumatic Ears: hearing grossly normal bilaterally Resp: Effort & Inspection: normal respiratory effort, no audible wheezes, no cough and no respiratory distress Cardio: Jugular venous distension: no JVD GI: Other: Soft, positive bowel sounds, tender in the right lower quadrant over McBurney's point with localized rebound, positive Rovsing sign Inspection: Yes normal to inspection Skin: Other: Warm, dry, no rash Neuro: General: patient oriented x3 Extrem: General: Yes no clubbing, cyanosis or edema Results Results Labs: Short CBC 09/23/25 Range/Units 10:22 WBC 7.4 (4.8-10.8) X10*3/uL Hgb 13.9 (12.0-16.0) g/dl Hct 42.1 (37.0-47.0) % Plt Count 333 D (160-400) X10*3/uL BMP 09/23/25 10:22 Sodium 138 Potassium 3.7 Chloride 109 H Carbon Dioxide 23 BUN 8 L Creatinine 0.60 Calcium 9.1 Liver Function 09/23/25 Range/Units 10:22 Total Bilirubin 0.6 (0.0-1.0) mg/dL Direct Bilirubin 0.2 (0.0-0.5) mg/dL AST 17 (5-31) U/L ALT 10 (0-31) U/L Alkaline Phosphatase 60 (39-117) U/L Albumin 4.7 (3.5-5.0) g/dL Urine 09/23/25 Range/Units 11:12 Urine Color Yellow Urine Appearance Cloudy Urine pH 5.5 (5.0-9.0) Ur Specific [place] <= 1.005 (1.005-1.025) Urine Protein Negative (Neg-Trace) mg/dL Urine Glucose (UA) Negative (Negative) mg/dL Assessment and Plan (1) Acute appendicitis: Qualifiers: Acute appendicitis type: unspecified acute appendicitis type Qualified Code(s): K35.80 - Unspecified acute appendicitis Status: Acute Plan 35-year-old female patient presenting with complaints of abdominal pain in the right lower quadrant found on workup to have evidence of acute appendicitis. Unfortunately the patient ate approximately 1/2 hour ago therefore we will need to admit for IV antibiotics with plan for laparoscopic or possible open appendectomy in the morning. After discussion of the procedure, risks, and alternatives, she consents to laparoscopic or possible open appendectomy. Quality Stroke Does the patient have a stroke diagnosis?: No VTE Prior VTE?: No VTE Risk Level:: Surgical - low VTE Device Contraindication: N/A - Device Ordered VTE Drug Contraindication: Treatment Not Indicated Procedures Date of Service Date of Service: 09/23/25
[2025-09-23] MEDS: 0.9 % Sodium Chloride Flush 3 ML SYRINGE IVFLUSH ×2 (15:34→22:44)
--- NOTE | 2025-09-23 15:41 | PHA.MEDREC ---
Addendum entered by Elizabet Cartagena RPh 09/23/25 16:12: reviewed by [facility]. Original Note: Pharmacy Consult ? Medication Reconciliation Pharmacy has completed the medication reconciliation. Spoke with pt and she confirmed her medications. Pt states she never started taking the Cetirizine tabs nor the Diclofenac Gel due to not needing those.
--- NOTE | 2025-09-23 16:47 | HO.NURTONUR ---
Pt presenting to ED w/ lower abd cramping pain w/ mild nausea x 2 days. Us+ acute appy. Pt decided to eat salad / drink apple juice, bumped from surgery today. NPO for surgery in AM. VSS. OOB AD ELVIA c/o chronic neck pain, IV tylenol given. Alert and oriented. 20 R AC. D5 LR @ 125 running.
[2025-09-23 16:55] VITALS: BP 123/76; PULSE 82; RESP 18; O2SAT 99
[2025-09-23] MEDS: Dextrose 5 % and Lactated Ring 1,000 ML 125 ML IVCONT (17:03)
[2025-09-23 17:46] VITALS: BP 107/67; PULSE 95; RESP 18; TEMP 36.9; O2SAT 99
[2025-09-23 19:19] VITALS: BP 107/60; PULSE 96; RESP 18; TEMP 36.8; O2SAT 98
[2025-09-24] VITALS (14 sets, daily range): BP systolic 102–122; BP diastolic 62–77; PULSE 56–112; RESP 12–18; TEMP 36.2–36.8; O2SAT 96–100
[2025-09-24] MEDS: Dextrose 5 % and Lactated Ring 1,000 ML 125 ML IVCONT ×3 (00:36→18:09)
[2025-09-24 06:12] LABS: MANUAL DIFF FLAG NO
[2025-09-24 06:22] LABS: Hematocrit 34.7 % (37.0-47.0); Hemoglobin 11.4 g/dl (12.0-16.0); Imm Gran Abs Auto 0.02 X10*3/uL (0.00-0.03); Imm Gran Pct Auto 0.3 % (0.0-0.4); Lymphocytes Absolute Auto 1.5 X10*3/uL (1.2-4.9); Mean Corpuscular HGB Conc 32.9 g/dl (31.0-35.0); Mean Corpuscular Hemoglobin 28.4 pg (27.0-33.0); Mean Corpuscular Volume 86.5 fL (80.0-98.0); NRBC Abs Auto 0.000 X10*3/uL (0.0-0.012); NRBC Pct Auto 0.0 /100WBC (0.0-0.2); Platelet Count 239 X10*3/uL (160-400); Red Blood Count 4.01 X10*6/uL (4.20-5.50); White Blood Count 6.6 X10*3/uL (4.8-10.8)
--- NOTE | 2025-09-24 09:40 | P.CONAN_ITS ---
Documented by User: Donna Hirsch NP 09/24/25 09:43 HPI - Anesthesia Eval Consult details Narrative: 35 yr old female for appendectomy laparoscopic, possible open Saw [facility] 06/202510/22/2024-patient had undergone a ETT in [place] with a moderate workload without any ischemic EKG changes. 05/20/2025-echo study showed a normal LV systolic function with an ejection fraction between 60-65%. 05/20/2025-Holter study showed a normal sinus rhythm with a rare supraventricular ectopies and ventricular ectopies with a burden of 1.7%. *Given above findings and improvement in her symptoms, no further testing indicated at this time. Patient's symptoms most likely due to stress. PMFSH Active Problems Active Problems: All Active Problems Pelvic pain (Acute) Acute appendicitis (Acute) Dizziness (Acute) Bradycardia (Acute) Chronic idiopathic constipation (Acute) GERD (gastroesophageal reflux disease) (Acute) PVC (premature ventricular contraction) (Acute) Atypical chest pain (Acute) Past Medical History Medical History Chronic idiopathic constipation GERD (gastroesophageal reflux disease) delivery delivered Chest pain of uncertain etiology Muscle spasm Whole body pain Decreased visual acuity Chronic constipation Chronic neck pain Chronic headache Family History Family History Mother High blood pressure Colitis Father High blood pressure High cholesterol Fatty liver Surgical History Surgical History H/O eye surgery Social History Social History Household Members: Spouse and Family Housing: Apartment Do you presently have visiting nurse or other home services: No Alcohol intake: never Patient Tobacco Use Status: Never used Tobacco e-Cigarette/Vaping Use: Never Used Second Hand Smoke Exposure: No Meds Allergies Allergy/AdvReac Type Severity Reaction Status Date / Time No Known Allergies Allergy Verified 09/24/25 10:22 Active Medications: Current Medications Baclofen (Baclofen 10 Mg Tablet) 10 mg PO TID PRN PRN Reason: Pain, Moderate(Pain Scale 4-6) Last Admin: 09/23/25 20:41 Dose: 10 mg Calcium Carbonate (Calcium Carbonate 750 Mg Tab.Chew) 750 mg PO Q4H PRN PRN Reason: Heartburn Hydromorphone HCl (Hydromorphone Hcl 0.5 Mg/0.5 Ml Syringe) 0.5 mg IVPUSH Q3H PRN; Protocol PRN Reason: Pain, Severe (Pain Scale 7-10) Acetaminophen (Ofirmev) 1,000 mg in 100 mls @ 400 mls/hr IV Q6H PRN PRN Reason: Pain, Mild (Pain Scale 1-3) Last Infusion: 09/23/25 23:40 Dose: Infused Dextrose/Lactated Ringer's (D5lr) 1,000 mls @ 125 mls/hr IVCONT .Q8H [facility] Last Admin: 09/24/25 08:23 Dose: 125 mls/hr Piperacillin Sod/Tazobactam (Sod 3.375 gm/ Sodium Chloride) 50 mls @ 100 mls/hr IV Q6H [facility] Last Infusion: 09/24/25 05:21 Dose: Infused Magnesium Hydroxide (Milk Of Magnesia 30 Ml Oral.Susp) 30 ml PO DAILY PRN PRN Reason: Constipation Melatonin (Melatonin 3 Mg Tablet) 6 mg PO BEDTIME PRN PRN Reason: Insomnia Ondansetron HCl (Ondansetron Hcl 4 Mg/2 Ml Vial) 4 mg IVPUSH QID PRN PRN Reason: Nausea Oxycodone HCl (Oxycodone Hcl Immed Release 5 Mg Tablet) 5 mg PO Q6H PRN PRN Reason: Pain, Moderate(Pain Scale 4-6) Sodium Chloride (0.9 % Sodium Chloride Flush 3 Ml Syringe) [facility] Last Admin: 09/24/25 08:23 Dose: Not Given Home Medications ?Medication ?Instructions ?Recorded ?Confirmed ?Last Taken ?Type ibuprofen 600 mg tablet 600 mg PO Q8H PRN Pain 06/1809/23/25 Unknown History acetaminophen 650 mg 650 mg PO Q8H PRN mild pain 09/23/25 09/23/25 Unknown History tablet,extended release baclofen 10 mg tablet 10 mg PO TID PRN muscle spas m 09/23/25 09/23/25 Unknown History cholecalciferol (vitamin D3) 50 50 mcg PO DAILY 09/23/25 09/22/25 History mcg (2,000 unit) capsule (Vitamin D3) fluticasone propionate 50 1 spray intranasal DAILY PRN Nasal 09/23/25 09/23/25 Unknown History mcg/actuation nasal Congestion spray,suspension lidocaine 5 % topical patch 1 patch topical DAILY PRN Pain 09/23/25 09/23/25 Unknown History magnesium oxide 400 mg (241.3 mg 400 mg PO DAILY 09/2309/23/25 09/22/25 History magnesium) tablet Exam Height,Weight and Vital Signs: Height 5 ft 6 in Weight 82.9 kg Last Vital Signs Temp 97.3 F 09/24/25 07:38 Pulse 70 09/24/25 07:38 Resp 16 09/24/25 07:38 BP 112/77 09/24/25 07:38 Pulse Ox 97 09/24/25 07:38 O2 Del Method Room Air 09/24/25 07:38 Pertinent Lab Results Pertinent Lab Results: Laboratory Tests 09/23/25 09/23/25 09/24/25 10:22 11:12 06:05 WBC 7.4 6.6 RBC 4.81 4.01 L Hgb 13.9 11.4 L Hct 42.1 34.7 L MCV 87.5 86.5 MCH 28.9 28.4 MCHC 33.0 32.9 RDW 12.0 12.1 Plt Count 333 D 239 D MPV 9.7 9.9 Immature Gran % (Auto) 0.3 0.3 Neut % (Auto) 67.3 62.5 Lymph % (Auto) 21.1 23.2 [place] % (Auto) 8.0 10.8 Eos % (Auto) 2.6 2.6 Baso % (Auto) 0.7 0.6 Lymph # (Auto) 1.6 1.5 [place] # (Auto) 0.6 0.7 Eos # (Auto) 0.2 0.2 Baso # (Auto) 0.1 0.0 Abs Immat Gran (auto) 0.02 0.02 Absolute Neuts (auto) 5.0 4.2 Absolute Nucleated RBC 0.000 0.000 Nucleated RBC % (auto) 0.0 0.0 Sodium 138 Potassium 3.7 Chloride 109 H Carbon Dioxide 23 Anion Gap 10 L BUN 8 L Creatinine 0.60 Estim Creat Clear Calc 144.7 Estimated GFR > 60 Random Glucose 97 Calcium 9.1 Total Bilirubin 0.6 Direct Bilirubin 0.2 AST 17 ALT 10 Alkaline Phosphatase 60 Total Protein 7.7 Albumin 4.7 Lipase 17 Beta HCG, Quant < 2 Urine Color Yellow Urine Appearance Cloudy Urine pH 5.5 Ur Specific [place] <= 1.005 Urine Protein Negative Urine Glucose (UA) Negative Urine Ketones Negative Urine Blood Large (3+) H Urine Nitrite Negative Ur Leukocyte Esterase Negative Urine RBC 0-2 Urine WBC 0-5 Ur Squamous Epith Cells 0-2 Urine Bacteria None Seen Hyaline Casts 0-2 Influenza Type A (PCR) NEGATIVE Influenza Type B (PCR) NEGATIVE RSV RNA Qual (PCR) NEGATIVE SARS-CoV-2 RNA (RT-PCR) NEGATIVE Narrative Narrative: EKG 07/2025 Vent. Rate : 78 BPM Atrial Rate : 78 BPM P-R Int : 138 ms QRS Dur : 74 ms QT Int : 342 ms P-R-T Axes : 58 63 32 degrees QTcB Int : 389 ms Normal sinus rhythm Normal ECG No previous ECGs available Documented by User: Shantell Richardson MD 09/24/25 10:24 [facility] Past Medical History Medical History Chronic idiopathic constipation GERD (gastroesophageal reflux disease) delivery delivered Chest pain of uncertain etiology Muscle spasm Whole body pain Decreased visual acuity Chronic constipation Chronic neck pain Chronic headache Family History Family History Mother High blood pressure Colitis Father High blood pressure High cholesterol Fatty liver Family history of problems with anesthesia: No Surgical History Surgical History H/O eye surgery History of Problems with Anesthesia: No Social History Social History Household Members: Spouse and Family Housing: Apartment Do you presently have visiting nurse or other home services: No Alcohol intake: never Patient Tobacco Use Status: Never used Tobacco e-Cigarette/Vaping Use: Never Used Second Hand Smoke Exposure: No Meds Allergies Allergy/AdvReac Type Severity Reaction Status Date / Time No Known Allergies Allergy Verified 09/24/25 10:22 Home Medications ?Medication ?Instructions ?Recorded ?Confirmed ?Last Taken ?Type ibuprofen 600 mg tablet 600 mg PO Q8H PRN Pain 06/1809/23/25 Unknown History acetaminophen 650 mg 650 mg PO Q8H PRN mild pain 09/23/25 09/23/25 Unknown History tablet,extended release baclofen 10 mg tablet 10 mg PO TID PRN muscle spas m 09/23/25 09/23/25 Unknown History cholecalciferol (vitamin D3) 50 50 mcg PO DAILY 09/23/25 09/22/25 History mcg (2,000 unit) capsule (Vitamin D3) fluticasone propionate 50 1 spray intranasal DAILY PRN Nasal 09/23/25 09/23/25 Unknown History mcg/actuation nasal Congestion spray,suspension lidocaine 5 % topical patch 1 patch topical DAILY PRN Pain 09/23/25 09/23/25 Unknown History magnesium oxide 400 mg (241.3 mg 400 mg PO DAILY 09/2309/23/25 09/22/25 History magnesium) tablet Exam Airway Mallampati Class: II TM Dist: >3cm Neck ROM: Full Heart: rrr Lungs: cta Assessment and Plan Assessment Anesthesia Assessment: Anesthesia Plan Discussed and Chart Reviewed Final Anesthetic Review Family History of Problems with Anesthesia: No History of Problems with Anesthesia: No NPO: Yes ASA Class: II Final Preanesthetic Review: No Changes in Pt Med Stat, Meds/Allgs Chart Reviewed and Consent Obtained/Reviewed Patient Risk: Low Procedure Risk: Low Anesthetic Plan Anesthetic Plan: GA Disposition: Standard PACU
--- NOTE | 2025-09-24 11:23 | W.PM.OPN ---
Operative Note Operative Note Date of Service: 09/24/25 Narrative: Preoperative diagnosis: Acute appendicitis Postoperative diagnosis: Same Procedure: Laparoscopic appendectomy Surgeon: Wild Loo MD [employer] Operator: Katiuska Alaniz PA-C Anesthesia: General endotracheal Indications for procedure: 35-year-old female patient presenting with a complaint of abdominal pain in the right lower quadrant found on ultrasound to have a dilated appendix which was noncompressible. Findings were consistent with acute appendicitis. Operative findings: Minimally inflamed appendix without evidence of rupture. Specimen: Appendix Estimated blood loss: Less than 2 mL Complications: None Procedure details: Patient was brought to the OR and placed in a supine position. After administering general anesthesia the patient's abdomen was prepped with ChloraPrep and draped in a sterile fashion. A surgical time-out was called and consent confirmed. Patient received preoperative antibiotics and Venodyne boots were in place. Local anesthesia consisting of 0.5% Sensorcaine with epinephrine was infiltrated in periumbilical region. A 5 mm incision was made below the umbilicus and carried down through subcutaneous tissue. A Veress needle was then inserted while elevating abdominal cavity with towel clips. After a positive drop test the abdomen was insufflated to a pressure of 15 mm of mercury. The Veress needle was removed and a 5 mm trocar inserted. The camera was then inserted in the abdomen explored. A 2nd 5 mm trocars placed in the lower midline. A 12 mm trocar was then placed in the left lower quadrant. The patient was then placed in a Trendelenburg position and rotated to the left. The appendix was identified in the right lower quadrant and brought up using blunt dissecting clamps. The mesentery of the appendix was then divided using the LigaSure. The appendiceal artery was cauterized and divided using the LigaSure. Dissection was continued down to the base of the cecum. An Endo-FANG stapler with a purple reload was then used to divide the appendix at the base with the cecum. The appendix was then placed in Endo-Catch bag and brought out through the left lower quadrant incision. The abdomen was then irrigated with saline solution and suctioned dry. Wounds were checked for hemostasis. CO2 was then evacuated from the abdominal cavity and all trocars removed. Fascia was closed in the left lower quadrant incision using a [id number] 0 Polysorb suture. Skin was closed at all incisions using a subcuticular 4-0 Polysorb suture. Steri-Strips 2 x 2 gauze and Tegaderm were then applied. The patient tolerated the procedure well. Sponge, instrument, needle counts reported as correct. The patient was transferred to PACU in stable condition.
[2025-09-24] MEDS: oxyCODONE HCl Immed Release 5 MG TABLET PO ×2 (13:02→19:16)
--- NOTE | 2025-09-24 14:09 | MHC.CM.PN ---
pt lives with and children she is inepedent will not need services when dcd dc plan home no services
--- NOTE | 2025-09-24 19:20 | PC.NURSE ---
late entry: This RN assumed care of pt at 19:00. Patient was complaining of 8/10 pain so IV dilaudid was offered but patient was hesistant to take this med as she didn't want to feel dizzy or more nauseous so she opted to just take oxycodone with the zofran. Later on around 22:00 patient complaining of RUQ pain as well as R shoulder pain but she still didn't want to take the IV dilaudid. Patient mentioned she was told she could experience post op pain in these areas due to the gas they used to do the procedure so I encouraged her to use incentive spirometer and offered heat and ice packs. 00:15: Checked on patient and she said the pain has calmed down but she still felt nauseous and threw up earlier. She said she would be able to wait for her zofran in an hour.
[2025-09-25] MEDS: Dextrose 5 % and Lactated Ring 1,000 ML 125 ML IVCONT (02:11)
[2025-09-25 03:21] VITALS: BP 118/72; PULSE 92; RESP 16; TEMP 36.4; O2SAT 99
[2025-09-25 07:16] VITALS: BP 100/75; PULSE 82; RESP 16; TEMP 36.6; O2SAT 99
--- NOTE | 2025-09-25 09:17 | PM.PNGS ---
Subjective Subjective Date of Service: 09/25/25 Interval history: Says incisions are okay Describes epigastric pain Says she really has not able to eat well yet No vomiting Physical Exam Vital Signs: Vital Signs: Last Vital Signs Temp 97.8 F 09/25/25 07:16 Pulse 82 09/25/25 07:16 Resp 16 09/25/25 07:16 BP 100/75 09/25/25 07:16 Pulse Ox 99 09/25/25 07:16 O2 Del Method Room Air 09/25/25 07:16 O2 Flow Rate 2 09/24/25 12:25 BMI result Body Mass Index 29.5 Const: General: comfortable and no acute distress Resp: Effort & Inspection: normal respiratory effort Cardio: Rate: regular rate GI: Other: All dressings dry, mild tenderness epigastric area and along incisions Palpation (GI): Soft to palpation, not firm and no guarding Objective Data Active Medications Baclofen (Baclofen 10 Mg Tablet) 10 mg PO TID PRN PRN Reason: Pain, Moderate(Pain Scale 4-6) Last Admin: 09/24/25 19:57 Dose: 10 mg Documented By: JEFFREY Calcium Carbonate (Calcium Carbonate 750 Mg Tab.Chew) 750 mg PO Q4H PRN PRN Reason: Heartburn Hydromorphone HCl (Hydromorphone Hcl 0.5 Mg/0.5 Ml Syringe) 0.5 mg IVPUSH Q3H PRN; Protocol PRN Reason: Pain, Severe (Pain Scale 7-10) Acetaminophen (Ofirmev) 1,000 mg in 100 mls @ 400 mls/hr IV Q6H PRN PRN Reason: Pain, Mild (Pain Scale 1-3) Last Infusion: 09/24/25 16:22 Dose: Infused Documented By: MARÍA Dextrose/Lactated Ringer's (D5lr) 1,000 mls @ 125 mls/hr IVCONT .Q8H IESHA Last Admin: 09/25/25 02:11 Dose: 125 mls/hr Documented By: PABLO Magnesium Hydroxide (Milk Of Magnesia 30 Ml Oral.Susp) 30 ml PO DAILY PRN PRN Reason: Constipation Melatonin (Melatonin 3 Mg Tablet) 6 mg PO BEDTIME PRN PRN Reason: Insomnia Naloxone HCl (Naloxone Hcl 0.4 Mg/Ml Vial) 0.04 mg IVPUSH Q5M PRN PRN Reason: Excessive sedation or RR < 8 Ondansetron HCl (Ondansetron Hcl 4 Mg/2 Ml Vial) 4 mg IVPUSH QID PRN PRN Reason: Nausea Last Admin: 09/25/25 07:24 Dose: 4 mg Documented By: DOROTHEA Oxycodone HCl (Oxycodone Hcl Immed Release 5 Mg Tablet) 5 mg PO Q6H PRN PRN Reason: Pain, Moderate(Pain Scale 4-6) Last Admin: 09/24/25 19:16 Dose: 5 mg Documented By: JEFFREY Sodium Chloride (0.9 % Sodium Chloride Flush 3 Ml Syringe) [facility] Last Admin: 09/25/25 07:48 Dose: Not Given Documented By: DOROTHEA Non-Admin Reason: IV Running Labs 09/24/25 06:05 09/23/25 10:22 Procedures Date of Service Date of Service: 09/25/25 Progress Note: A&P Assessment and plan (1) Acute appendicitis: Status: Acute Assessment and Plan: Status post laparoscopic appendectomy yesterday She has not sure if she is ready to be discharged today Says she has not had good oral intake yet Describes some epigastric pain Proton pump inhibitor We will see how she does today and re-evaluate for possible discharge later Clinically looks well overall Time Spent With Patient Time: Total time managing care of this patient today ____ minutes. Quality Stroke Does the patient have a stroke diagnosis?: No VTE Prior VTE?: No VTE Risk Level:: Surgical - low VTE Device Contraindication: N/A - Device Ordered VTE Drug Contraindication: Treatment Not Indicated
--- NOTE | 2025-09-25 10:32 | PM.EVENT ---
Event Note Date of Service: 09/25/25 Event Note: Seen on follow-up rounds She says she tolerated breakfast well Feels much better Says she is ready to be discharged Abdomen is soft She looks well overall Discharge instructions reinforced with the patient Time Spent With Patient Time: Total time managing care of this patient today ____ minutes.
--- NOTE | 2025-09-25 10:48 | MHC.CM.PN ---
PT CLEARED TO DC HOME TODAY WITH NO SERVICES
--- NOTE | 2025-09-25 14:35 | P.DS_ITS ---
DS: Providers Provider Date of admission: 09/23/25 14:50 Date of discharge: 09/25/25 Primary care physician: Deonna Lion DO Attending physician on admission: Wild Loo Attending physician on discharge: Rafat Balderas DS: Diagnosis Discharge Diagnosis (1) Acute appendicitis: Status: Resolved DS: Summary Hospital Course Hospital Course: HPI AT ADMISSION: Julia Gibson is a 35 year old female presenting with complaints of abdominal pain in the right lower quadrant since yesterday. The pain began in the periumbilical region and remained in the right lower quadrant and was associated with pain on motion. She reports eating some solid approximately 1/2 hour ago but generally does not have much of an appetite. She reports chills without fever. She denies a previous episode of similar sym ptoms. Workup in the emergency department does reveal a normal WBC. Ultrasound of the abdomen does show a noncompressible dilated appendix suggestive of acute appendicitis. The patient reports severe pain during the ultrasound. She is admitted for further management of her acute appendicitis. HOSPITAL COURSE: The patient was admitted to the surgical service for further treatment of the acute appendicitis. She elected to proceed with laparoscopic appendectomy. She was added onto the OR schedule for that day. On 09/24/25, a laparoscopic appendectomy was performed by Dr. Loo without c omplication. The patient tolerated the procedure well. She had an uncomplicated recovery course. On POD #1, she initially had some epigastric pain suggestive of gastritis and was started on a PPI. Later in the day, she felt well and was tolerating a solid diet without nausea or vomiting, had good pain control and was ambulating without difficulty. She was hemodynamically stable. Her abdomen was benign with appropriate post op tenderness and clean and intact dressings. She felt ready for discharge later in the afternoon. She was discharged to home on 09/25/25 in stable condition on a PPI as well as colace for constipation. She is to follow up in the office in [address] Loo as well as with gastroenterology. Status at Discharge Functional status at discharge: independent ambulation Overall status at discharge: patient is progressing back to baseline Time Attestation Discharge Coordination Time (in mins): 25 Quality: Safe Use of Opioids Does Pt have an Active Cancer Diagnosis on the Problem List?: No Quality: Stroke Does the patient have a stroke diagnosis?: No Physical Exam Vital Signs: Vital Signs: Last Vital Signs Temp 97.8 F 09/25/25 07:16 Pulse 82 09/25/25 07:16 Resp 16 09/25/25 07:16 BP 100/75 09/25/25 07:16 Pulse Ox 99 09/25/25 07:16 O2 Del Method Room Air 09/25/25 07:16 O2 Flow Rate 2 09/24/25 12:25 BMI result Body Mass Index 29.5 Const: General: comfortable, no acute distress and alert Orientation/consciousness: patient oriented x3 Resp: Effort & Inspection: normal respiratory effort GI: Other: All dressings dry, mild tenderness epigastric area and along incisions Soft to palpation, not firm and no guarding Neuro: General: patient oriented x3 DS: Data Data Completed and Pending Pending studies at discharge: Pending at discharge 09/24/25 11:11 Surgical [PTH] Routine Discharge Plan Discharge Anticipated Discharge Date/Time: 09/25/25 10:27 Patient Disposition: Home, Self-Care Discharge Diagnosis: appendicitis Referrals: [facility] [Provider Group, Gastroenterology] Deonna Lion DO [Primary Care Provider, Internal Medicine] Wild Loo MD [Physician, General Surgery] - 1 Week Discharge Medications: New docusate sodium [Colace] 100 mg capsule 100 mg PO BID PRN (Reason: constipation) Qty: 30 0RF oxycodone 5 mg tablet 5 mg PO Q4H PRN (Reason: pain (scale score 7-10)) Qty: 26 0RF Rx Instructions: Partial Fill upon patient request. omeprazole magnesium [Prilosec OTC] 20 mg tablet,delayed release (DR/EC) 40 mg PO DAILY Qty: 14 0RF Continued acetaminophen 650 mg tablet extended release 650 mg PO Q8H PRN (Reason: mild pain) baclofen 10 mg tablet 10 mg PO TID PRN (Reason: muscle spasm) fluticasone propionate 50 mcg/actuation spray,suspension 1 spray intranasal DAILY PRN (Reason: Nasal Congestion) magnesium oxide 400 mg (241.3 mg magnesium) tablet 400 mg PO DAILY cholecalciferol (vitamin D3) [Vitamin D3] 50 mcg (2,000 unit) capsule 50 mcg PO DAILY lidocaine 5 % adhesive patch,medicated 1 patch topical DAILY MDD 12 hours on and off PRN (Reason: Pain) Rx Instructions: leave on most painful area for up to 12 hrs ibuprofen 600 mg tablet 600 mg PO Q8H PRN (Reason: Pain) Discharge Orders: Discharge Order (Routine); Ordered 09/25/25 Ordered By: Raaft Balderas Diet: Advance to usual diet Activity on Discharge: No heavy lifting Stand Alone Forms: Patient Portal Discharge page, Work/School Release Print Language: Bahamian Activity Restrictions/Additional Instructions: If the incision area is tender, you may apply an ice pack for short intervals (No more than 20 minutes on, followed by at least 20 minutes off). Do not apply heat. Do not use creams, lotions, or topical antibiotics. Ok to shower. Remove clear dressings 3 days following your procedure. You have steri strips (small white strips) covering your incision- these will fall off ~1 week. No heavy lifting (>10lbs) or strenuous activity! Take Tylenol Extra-strength 1-2 tabs every 6 hours for the first day, then as needed. Oxycodone every 6-8 hours as needed for pain. Colace 100 mg twice a day as needed for constipation. You had a moderate amount of stool in your colon on imaging. You can begin a fiber supplementation once daily (metamucil, citrucel) to help reduce constipation. Follow up in office with Dr. Loo in 1 week. ([phone]) Call Your Doctor If: -Your temperature exceeds 101.5? F -You experience excessive pain or swelling -You have an unexpected reaction to medication -You have excessive bleeding -You experience continued vomiting/nausea -Your incision begins to separate -Your incision shows signs of infection such as increased redness, swelling, excessive pain, drainage (light blood or clear fluid is normal) or heat Care Plan Goals: Return to baseline health and resume normal activities following recovery period. Health Concerns: acute appendicitis constipation Plan of Treatment: s/p laparoscopic appendectomy follow up in the office in 1 week pain control bowel regimen Assessment: Doing well post op Discharge Date/Time: 09/25/25 12:28
--- NOTE | 2025-09-25 17:44 | HO.POSTANES ---
Post Anesthesia Evaluation Post Anesthesia Evaluation Date of Service: 09/25/25 Vital Signs: Vital Signs Temp Pulse Resp BP Pulse Ox O2 Del Method 09/25/25 07:16 97.8 F 82 16 100/75 99 Room Air Anesthesia: General Endotracheal-GETA Mental Status: Awake Pain Control: Satisfactory (some epigastric discomfort) Nausea/Vomiting: None Hydration: Adequate Anesthesia-Related Issues: No Anes. Related Issues
== END 2025-09-25 12:28 | disposition home or self-care (01) | DRG 234 ==
LOC: HO.ED 14:45 → HO.EDOVER 14:54 → HO.S3 16:11
PROVIDERS: Physician Assistant Medical; Admitting Provider Surgery; Emergency Provider Emergency Medicine; PCP Family Medicine; Visit Provider Surgery
PROC: 0DTJ4ZZ Resection of Appendix, Percutaneous Endoscopic Approach (ICD-10-PCS; CPT 44970; principal; 2025-09-24 10:30)
DX: K35.80 Unspecified acute appendicitis (principal); Z20.822 Contact with and (suspected) exposure to COVID-19; Z79.899 Other long term (current) drug therapy
CPT/HCPCS: 36415; 74022; 76705; 76830; 76856; 80048; 80076; 81001; 83690; 84702; 85025; 87637; 88304; 93975; 99285; J0131; J0330; J1100; J1630; J1885; J2003; J2250; J2405; J2543; J2704; J3010

== ENCOUNTER → 2025-09-23 11:38 | Outpatient (BNV) | payer MEDICAID, SELFPAY | PROVIDERS: PCP Family Medicine; Visit Provider Radiology Diagnostic Radiology | DX: R10.31 Right lower quadrant pain (principal); R10.20 Pelvic and perineal pain unspecified side; Z03.89 Encounter for observation for other suspected diseases and conditions ruled out; K59.00 Constipation, unspecified | CPT/HCPCS: 74022; 76705; 76830; 76856; 93975 ==

== ENCOUNTER → 2025-09-23 14:50 | Outpatient (BNV) | payer MEDICAID, SELFPAY | PROVIDERS: Admitting Provider Surgery; Emergency Provider Emergency Medicine; PCP Family Medicine; Visit Provider Surgery | DX: K35.80 Unspecified acute appendicitis (principal) | CPT/HCPCS: 99238 ==

== ENCOUNTER 2025-10-05 09:13 | Outpatient (AMB) | payer MEDICAID, SELFPAY ==
--- NOTE | 2025-10-05 09:20 | MHC.OFFVIS ---
Vital Signs 10/05/25 09:34 Height 5 ft 6.5 in Weight 180 lb BMI 28.6 BP 115/69 Blood Pressure Location Rt brachial Position Sitting Pulse 82 Intake Visit Reasons: s/p francois Loo Intake Note: Patient here s/p Laparoscopic appendectomy. Patient c/o: no concerns. Reports incisions healing well. Steri strips removed without incident. Taking Tylenol as needed. Surgery (): 09-24-2025 Oceanologist Required: No Accompanied by: Child Allergies No Known Allergies Allergy (Verified 10/05/25 09:29) HPI HPI s/p francois Loo: Details: She reports she is doing well. Does have some pain with movements from the left port site. Denies significant pain at rest, taking Tylenol and ibuprofen as needed. She denies any drainage from the area. Denies any redness around the incision site. Denies fevers at home. Initially had some constipation but has resolved. Bowel movements regular. Had some decreased appetite during this time as well but this is improving. [facility] Medical History Acute appendicitis Chronic idiopathic constipation GERD (gastroesophageal reflux disease) delivery delivered Chest pain of uncertain etiology Muscle spasm Whole body pain Decreased visual acuity Chronic constipation Chronic neck pain Chronic headache Surgical History (Updated 10/05/25 @ 11:11 by Saurabh Hernandez PA-C) S/P laparoscopic appendectomy (09/24/25) Hx of section H/O eye surgery Family History Mother High blood pressure Colitis Father High blood pressure High cholesterol Fatty liver Social History Household Members: Spouse and Family Housing: Apartment Do you presently have visiting nurse or other home services: No Alcohol intake: never Patient Tobacco Use Status: Never used Tobacco e-Cigarette/Vaping Use: Never Used Second Hand Smoke Exposure: No service: No Physical Exam Vital Signs: Last Vital Signs Pulse 82 10/05/25 09:34 BP 115/69 10/05/25 09:34 BMI result Body Mass Index 28.6 Const General: comfortable and no acute distress Orientation/consciousness: patient oriented x3 Resp Effort & Inspection: normal respiratory effort and able to speak in complete sentences GI Other: incisions sites well healed. No erythema, fluctuance. Inspection: No distended Palpation (GI): Soft to palpation, nontender and no guarding Neuro General: patient oriented x3 Assessment & Plan Assessment & Plan (1) S/P laparoscopic appendectomy: Onset Date: 09/24/25 Comment: Dr. Loo Code(s): Z90.49 - Acquired absence of other specified parts of digestive tract Category: Surgical Plan 35 year old female s/p laparocopic appendectomy on 09/24/[address] Loo returning to the office for first post op visit. She is doing well overall. She does endorse some pain when moving aroudn from the left incision site. She takes OTC pain mediciations as needed for this. She may continue doing this, discussed that this may take a few months to resolve. She also had some mild constipation for the first few days after the procedure. Denies taking narcotic as she was back to work. Also denies taking colace that was prescribed to her. She eventually passed a firm bowel movement, she does have chronic idiopathic constipation at baseline. Bowel movements have been softer and regular since. She did also have some decreased appetite at the same time as constipation, but this is improving. Recommended slowly introducing new foods. Her abdomen is soft and benign. Incision sites appear well healed there was no evidence of infection. We will continue with activity restrictions for 2 weeks, then she can slowly increase her activity to her desired level of activity. No longer requiring follow up. Can follow up as needed with any questions or concerns in the future. Coding Level of Care Code Global (78436) Diagnoses S/P laparoscopic appendectomy Z90.49
[2025-10-05 09:34] VITALS: BP 115/69; PULSE 82; BMI 28.6
--- OUTSIDE RECORDS SUMMARY | 2025-10-05 11:36 | XMS_ITS | Encounter Summary ---
Author Organization [facility] Address [address] [place] [address] Care Team Providers Care Production Hand Name Role Phone Unknown Primary Care Provider [phone] Linn Griffin APRN Primary Care Provider [phone] Carol Wiseman APRN Primary Care Provider Encounter Details Date Type Department Care Team (Late st Contact Info) Description 09/19/2018 Abstract [facility] Maternal Medicine [address] [place] [id number] Tiara Franz MS,[facility] [address] [place] [address] Social History Tobacco Use Types Packs/Day Years [...] on filedocumented in this encounter Care Teams Production Hand Relationship Specialty Start Date End Date Unknown Unknow Provider Address PCP - General 03/24/19 12/19/22 Linn Griffin APRN [address] [place] [place] [address] PCP - General Family Medicine 12/20/22 10/28/23 Carol Wiseman APRN [address] [place], [place] [address] PCP - General Family Medicine 11/02/23 documented as of this encounter
--- OUTSIDE RECORDS SUMMARY | 2025-10-05 11:36 | XMS_ITS | Encounter Summary ---
Author Organization [facility] Address [address] [place] [address] Care Team Providers Care Roads Supervisor Name Role Phone Carol Wiseman APRN Primary Care Provider Encounter Details Date Type Department Care Team (Late st Contact Info) Description 11/04/2023 Scanned Document GENERIC EXTERNAL DATA DEPARTMENT Clary Luke MD [address] [place] [address] Social History Tobacco Use Types Packs/Day Years [...] PM EST documented as of this encounter Mental Status * Question Answer Entry Date Author Mood/Behavior anxious 11/04/2023 10:43 PM EST Mirela Hopper RN Cognitive/Neuro/Behavioral WDL WDL 11/06/2023 1:57 AM EST Melanie Hampton sa, RN documented in this encounter Plan of Treatment Not on file documented as of this encounter Visit Diagnoses Not on filedocumented in this encounter Care Teams Roads Supervisor Relationship Specialty Start Date End Date Carol Wiseman APRN [address] [place] [address] PCP - General Family Medicine 11/02/23 documented as of this encounter
--- OUTSIDE RECORDS SUMMARY | 2025-10-05 11:36 | XMS_ITS | Clinical Summary ---
Author Organization [facility] Address [address] [place] [address] Care Team Providers Care Police Academy Instructor Name Role Phone Carol Wiseman Primary Care Provider [phone] Allergies No known active allergies Medications acetaminophen [...] drink = 0.6 oz pur e alcohol) [facility] Utilities Answer Date Recorded In the [...] any time in the past 12 m [facility], were you homeless or living in a [...] age to complete this topic Insurance [address] [place] [id number] [facility] Care Teams Police Academy Instructor Relationship Specialty Start Date End Date Carol Wiseman [address] [place] [address] PCP - General Family Medicine 11/01/23
--- OUTSIDE RECORDS SUMMARY | 2025-10-05 11:36 | XMS_ITS | Patient Health Record ---
[email or web address] Address [address] [place] [address] Care Team Providers Care Vmware Engineer Name Role Phone Alcira Coles Primary Care Provider Kentrell FLOWERS Clinician Alka DUARTE Unavailable [phone] Sonya Franz Unavailable Allergies No Known Allergies [...] perception of literacy I read well in: Spanish Tobacco Control (Standard) Tobacco use: Nonsmoker How do you like To Learn : can read/ write -croatian Alcohol Did you have a drink containing [...] Yes Chlamydia Yes Language Spoken Language Spoken Spanish Smoking Are you a: never smoker Additional Details Category Social Info Options Details Social History Drug Use denies Problems Problem Type SNOMED Code ICD Code Onset Dates Problem Status W/U Status Risk Notes Problem Generalized anxiety disorder (46850795) Generalized anxiety disorder (F41.1) Active confirmed Problem Dysmenorrhea (615459979) Dysmenorrhea (N94.6) Active confirmed Problem Overweight (501431804) Overweight (BMI 25.0-29.9) (E66.3) Active confirmed Problem Neck pain (94495833) Neck pain (M54.2) Active confirmed Problem Migraine (99220400) Migraine syndrome (G43.909) Active confirmed Problem Metallic taste (02532481) Metallic taste (R43.8) Active confirmed (01/14/24) Exam [...] denise bleeding. Problem History of endocrine disorder (339836300) History of low potassium (Z86.39) Active confirmed Problem Panic disorder (356706057) Panic disorder [episodic paroxysmal anxiety] (F41.0) Active confirmed Vital Signs Temperature 98.4 degrees Fahrenheit 10/06/2024 Respiratory Rate 20 /min 10/06/2024 Blood pressure diastolic 70 mm Hg 10/06/2024 Oximetry 100 % 10/06/2024 Height 66 in 10/06/2024 Blood pressure systolic 106 mm Hg 10/06/2024 Weight 176.2 lbs 10/06/2024 BMI 28.44 kg/m2 10/06/2024 Encounters Encounter Location Date Provider Diagnosis [address] [address] 10/13/2024 Alka Pfeiffer Clinician Generalized anxiety disorder F41.1 and Panic disorder [episodic paroxysmal anxiety] F41.[address] [address] 10/27/2024 Alka Pfeiffer Clinician Generalized anxiety disorder F41.[address] [address] 10/06/2024 Sonya Hdzyue Neck pain M54.2 Assessments [...] CoV-2 RNA, Qualitative NAAT (COVID 19) 3 4034 06/30/2021 Insurance Providers Payer Name Payer Address Payer Phone Subscriber Number Group Number Insured Name Patient Relationship to Insured Coverage Start Date Coverage End Date [place] [address] [id number] null, null Medicaid Poppy Florez MD [employer] [address] [place] [address] [phone] [id number] Julia Mares Self - patient is the insured Medical (General) History Medical History History ICD Code Asthma Migraines (2 vaginal, 1 c/s) - - -RHM- - -- Pap: HIV/HCV Screen: (10/2020) NR Surgical History Surgery Date(Month/Year) C/S x1 Eye Surgery - astigmatism childhood - 4y /o Hospitalization History Reason Date(Month/Year) Childbirth
--- OUTSIDE RECORDS SUMMARY | 2025-10-05 11:36 | XMS_ITS | Clinical Summary ---
Author Organization [facility], Located Within [facility] Address [address] [place] [address] Care Team Providers Care Organ Tuner Name Role Phone Carol Wiseman ANDI Primary [...] WEEKS 02/01/20 24 Active neomycin-polymyxin -dexAMETHasone (MAXITROL) 3.5-51506-8.1 ophthalmic suspension 01/27/20 24 Active MAGNESIUM PO Take by mouth. Ac tive sodium chloride (OCEAN) 0.65 % nasal drops/spray 1 spray into each nostril as needed for congestion. Active zyegwy-kjpaguffn-g agnesium sulfates (Suprep Bowel Prep Kit) 17.5-3.13-1.6 [...] Date/Time Associated Diagnosis Comments THINPREP PAP TEST (REFUSE COLLECTOR SUPERVISOR) WITH HPV REFLEX, GC/CT Routine 05/29/2019 12:00 AM EDT HIV 1/2 AG/AB CMIA REFLEX TO CONFIRMATION Routine 12/16/2018 10:14 AM EDT from Last 3 Months or Most Recently Relevant to Health Maintenance Results * ThinPrep Pap Test (Butter Production Supervisor) with HPV Reflex, GC/CT (05/29/2019 12:00 AM [...] has been evaluated with computer assisted technology. Auto Inspection Specialist: [facility] Comment: MAA, CT(ASCP) CT screening location: [place] [address] Comment [facility] Comment: EXPLANATORY NOTE: [...] was performed using the APTIMA COMBO2 Assay ([employer] The analytical performance characteristics of this assay, when used to test SurePath specimens have been determined by [employer]. 05/29/2019 05/30/2019 2:2 0 AM EDT Narrative [facility] - 06/04/2019 11:28 AM EDT Ordered by External Provider. [id number], WAYNE FELICIANO, A Resulting Agency Comment Performing Organization Information: Site ID: [id number] Name: [employer] [facility] Address: [address] [place] [address], [place] [address] Director: Shamir Raza MD us External Provider LAB AMB PATH/CYTO ORDERABLE S Final Result Performing Organization Address City/State/[facility] Co de Phone Number [facility] [address] [place] [address], [place] [address] * HIV 1/2 Ag/Ab CMIA Reflex to Confirmation (12/16/2018 10:14 AM EDT) HIV Ag/Ab, 4th Gen NON-REACT MARTIN NON-REACT [facility] Comment: HIV-1 antigen and HIV-1/HIV-2 [...] purpose. For additional information please refer to http://education.Scif[employer]i/faq/ZJI256 (This link is being provided for informational/ educational purposes only.) The performance of this assay has not been clinically validated in patients less than 2 years old. 12/16/2018 10:1 4 AM EDT 12/16/2018 10:42 PM EDT Narrative [facility] - 12/17/2018 2:10 PM EDT FASTING:YES AN UPDATE OR CORRECTION HAS BEEN MADE TO NAME FASTING: YES Ordered by External Provider. [id number], PASTOR MANN K Resulting Agency Comment Performing Organization Information: Site ID: [id number] Name: [employer] Address: [address] [place] [address], [place] [address] Director: Shamir Raza MD External Provider LAB BLOOD ORDERABLES Final Result [employer] [facility] [place] [address], [place] [address] from Last 3 Months or Most Recently Relevant to Health Maintenance Insurance [facility] Advance Directives * Full Code (Latest Code Status on File) Date Activated Date Inactivated Comments 03/26/2019 8:16 AM 08/17/2022 5:59 AM * Full Code Date Activated Date Inactivated Comments 03/25/2019 10:03 AM 03/26/2019 8:16 AM * Full Code Date Activated Date Inactivated Comments 03/03/2019 12:21 PM 03/25/2019 9:44 AM Care Teams Organ Tuner Relationship Specialty Start Date End Date Carol Wiseman APRN [address] [place] [id number] PCP - General Family Medicine 11/02/23
--- OUTSIDE RECORDS SUMMARY | 2025-10-05 11:36 | XMS_ITS | Clinical Summary ---
Author Organization [email or web address] Address [address] [facility] [address] [place] [address] Care Team Providers Care Healthcare Risk Control Consultant Name Role Phone Deonna Lion Primary Care Provider [phone] Allergies No known active allergies Medications * [...] not trigger notification to Pharmacy)) nystatin (Mycostatin) [id number] UNIT/ML suspension Take 5 mL (500,000 Units) by mouth 4 times daily for 10 days. 200 mL 08/24/20 025 Discontinued(Th erapy completed) Active Problems Problem Noted Date Diagnosed Date Anxiety disorder due to medical condition 2024 Musculoskeletal pain 09/23/2025 Right lower quadrant abdominal [...] organization. Date Type Department Care Team Description 09/27/2025 Patient Outreach [facility] [address] [place] [address] Deonna Lion DO Transition Of Care (Tcm) (HDF scheduled. ) 09/27/2025 Travel 09/24/2025 Telephone [facility] [address] [place] [phone] Deonna Lion DO No Show 09/23/2025 9:00 AM EST Office Visit [facility] [address] [place] [address] [phone] Puja Thakkar FNP Right lower quadrant abdominal pain (Primary Dx); Musculoskeletal pain 09/23/2025 Orders Only GENERIC EXTERNAL DATA DEPARTMENT Provider, Generic External Data 09/23/2025 Telephone [facility] [address] [place] [address] Deonna Lion DO Chart Prep 09/23/2025 Telephone [facility] [address] [address] Puja Thakkar FNP 09/23/2025 Travel 09/20/2025 11:30 AM EST Clinical Support [address] [address] Noemy Miramontes RN Fall, initial encounter 09/20/2025 Travel 09/08/2025 11:15 AM EST Office Visit [address] [address] Deonna Lion DO COVID-19 (Primary Dx); Influenza B; Chronic neck pain; Globus sensation; Dysphagia, unspecified type; Anxiety 09/08/2025 Travel 09/06/2025 Travel 09/06/[address] [address] Deonna Lion DO Nurse Triage 09/06/[address] [address] Deonna Lion DO ER Follow-up 08/30/2025 Orders Only GENERIC EXTERNAL DATA DEPARTMENT Provider, Generic External Data 08/24/2025 7:00 PM EST [facility] [address] [address] Alcira Walls MD Dry throat (Primary Dx) 08/24/2025 Travel [address] [address] Deonna Lion DO Telephone Call 08/03/2025 9:20 AM EDT [facility] [address] [address] Jaydon Esquivel MD Neck pain (Primary Dx) 08/03/2025 Orders Only [facility] External Provider, [facility] 08/03/2025 Travel 07/22/2025 [facility] [address] [address] Deonna Lion DO 07/09/2025 11:45 AM EDT Office Visit [facility] [address] [place] [address] Deonna Lion DO Chronic neck pain (Primary Dx); Chronic intractable headache, unspecified headache type 07/09/2025 Telephone [facility] [address] [place] [address] Deonna Lion DO Medication Question 07/09/2025 Travel 07/08/2025 Telephone [facility] [address] [place] [address] Deonna Lion DO Chart Prep 07/06/2025 Telephone [facility] [address] [place] [address] Deonna Lion DO Nurse Triage from Last [...] Answer Date Recorded Patient Health Questionnaire-9 Score 7 09/27/2025 Patient Health Questionnaire-9 Score 7 09/27/2025 Last PHQ-9: Questionnaire Data Not on file 1 11/28/2024 Housing Stability Answer Date Recorded What is [...] Date Recorded Patient Health Questionnaire-2 Score 1 09/27/2025 Internet Access Answer Date Recorded Internet Access [...] Care Team (Late st Contact Info) Description 10/21/2025 10:45 AM EST Office Visit [facility] [address] [place] [address] Amanda Steel MD [address] [place] [address] Health Maintenance Due Date Last Done Comments [...] Screening 02/12/2026 02/12/2025 SDOH Screening 02/12/2026 02/12/2025 Disability Screening 08/24/2026 08/24/2025 Tobacco Screening 09/23/2026 09/23/2025 Depression Screening 09/27/2026 09/27/2025, 09/27/2025 DTaP/Tdap/Td Vaccines (2 - T d or [...] Procedure Name Priority Date/Time Associated Diagnosis Comments US PELVIS TRANSVAGINAL Routine 09/23/2025 12:39 PM EST US PELVIC OVARIAN DOPPLER Routine 09/23/2025 12:39 PM EST US PELVIS APPENDIX Routine 09/23/2025 12 :39 PM EST XR ACUTE ABDOMEN SERIES Routine 09/23/2025 11:54 [...] Recently Relevant to Health Maintenance Results * US PELVIC OVARIAN DOPPLER (09/23/2025 12:39 PM EST) Anatomical Region Laterality Modality Abdomen Ultrasound 09/23/2025 12:3 9 PM EST Narrative 09/23/2025 1:37 PM EST [place] [address] Ultrasound Report Signed Patient: Julia Mares MR#: [id number] : 1990 Acct:[id number] Age/Sex: 35 / F ADM Date: 09/23/25 Loc: HO.ED Attending Dr: Ordering Physician: Meenakshi Michel PA-C Date of Service: 09/23/25 Procedure(s): US pelvic ovarian doppler Accession Number(s): [id number] cc: Deonna Lion DO; Meenakshi Michel PA-C Reason for Exam: pelvic pain EXAMINATION: US PELVIS TRANSABDOMINAL AND TRANSVAGINAL, US PELVIC DUPLEX COMPLETE, US APPENDIX HISTORY: pelvic pain COMPARISON: Comparison is made with the prior examination dated 06/04/2017. TECHNIQUE: Transabdominal and endovaginal real-time 2D rivera-scale ultrasound of the pelvis was performed. In addition, sonographic examination of the right lower quadrant was performed. FINDINGS: Uterus: The uterus is normal in size, measuring 8.7 x 4.0 x 4.9 cm. Myometrium has a normal echotexture. No fibroids are identified. Endometrium: The endometrial stripe measures 6 mm in thickness. Right ovary: The right ovary measures 3.2 x 1.6 x 2.3 cm. The right ovary is normal in size and echotexture. Left ovary: The left ovary measures 2.9 x 1.2 x 1.3 cm. The left ovary is normal in size and echotexture. Pelvic fluid: none. Scans of the right lower quadrant demonstrate a noncompressible tubular structure measuring 10-12 mm in diameter suggestive of an inflamed appendix. The patient demonstrated moderate rebound tenderness in this region. US/US pelvic ovarian doppler IMPRESSION: 1. Findings suggestive of acute appendicitis as described. This could be confirmed with CT. 2. Unremarkable pelvic ultrasound. Electronically signed by: Rivera Carranza MD 09/23/2025 01:34 PM [facility] Dictated By: Rivera Carranza MD Signed By: <Electronically signed by Rivera Carranza MD in OV> 09/23/25 1334 DD/ 1239 TD/TT: 09/23/25 1305 Medicaid Eligibility Specialist: Procedure Note Donotuseinterpreter, Image - 09/23/[address] [address] Ultrasound Report Signed Patient: Julia Mares#: [id number] : 1990Acct:[id number] Age/Sex: 35 / FADM Date: 09/23/25 Loc: HO.ED Attending Dr: Ordering Physician: Meenakshi Michel PA-C Date of Service: 09/23/25 Procedure(s): US pelvic ovarian doppler Accession Number(s): [id number] cc: Deonna Lion DO; Meenakshi Michel PA-C Reason for Exam: pelvic pain EXAMINATION: US PELVIS TRANSABDOMINAL AND TRANSVAGINAL, US PELVIC DUPLEX COMPLETE, US APPENDIX HISTORY: pelvic pain COMPARISON: Comparison is made with the prior examination dated 06/04/2017. TECHNIQUE: Transabdominal and endovaginal real-time 2D rivera-scale ultrasound of the pelvis was performed. In addition, sonographic examination of the right lower quadrant was performed. FINDINGS: Uterus: The uterus is normal in size, measuring 8.7 x 4.0 x 4.9 cm. Myometrium has a normal echotexture. No fibroids are identified. Endometrium: The endometrial stripe measures 6 mm in thickness. Right ovary: The right ovary measures 3.2 x 1.6 x 2.3 cm. The right ovary is normal in size and echotexture. Left ovary: The left ovary measures 2.9 x 1.2 x 1.3 cm. The left ovary is normal in size and echotexture. Pelvic fluid: none. Scans of the right lower quadrant demonstrate a noncompressible tubular structure measuring 10-12 mm in diameter suggestive of an inflamed appendix. The patient demonstrated moderate rebound tenderness in this region. US/US pelvic ovarian doppler IMPRESSION: 1. Findings suggestive of acute appendicitis as described. This could be confirmed with CT. 2. Unremarkable pelvic ultrasound. Electronically signed by: Rivera Carranza MD 09/23/2025 01:34 PM EST Dictated By: Rivera Carranza MD Signed By: <Electronically signed by Rivera Carranza MD in OV> 09/23/25 1334 DD/ 1239 TD/TT: 09/23/25 1305 Medicaid Eligibility Specialist: [facility] External Provider IMG US PROCEDURES Final Result * US Pelvis Appendix (09/23/2025 12:39 PM EST) Anatomical Region Laterality Modality Pelvis Ultrasound 09/23/2025 12:3 9 PM EST Narrative 09/23/2025 1:37 PM EST [address] [address] Ultrasound Report Signed Patient: Julai Mares MR#: [id number] : 1990 Acct:[id number] Age/Sex: 35 / F ADM Date: 09/23/25 Loc: HO.ED Attending Dr: Ordering Physician: Meenakshi Michel PA-C Date of Service: 09/23/25 Procedure(s): US appendix Accession Number(s): [id number] cc: Deonna Lion DO; Meenakshi Michel PA-C Reason for Exam: RLQ PAIN EXAMINATION: US PELVIS TRANSABDOMINAL AND TRANSVAGINAL, US PELVIC DUPLEX COMPLETE, US APPENDIX HISTORY: pelvic pain COMPARISON: Comparison is made with the prior examination dated 06/04/2017. TECHNIQUE: Transabdominal and endovaginal real-time 2D rivera-scale ultrasound of the pelvis was performed. In addition, sonographic examination of the right lower quadrant was performed. FINDINGS: Uterus: The uterus is normal in size, measuring 8.7 x 4.0 x 4.9 cm. Myometrium has a normal echotexture. No fibroids are identified. Endometrium: The endometrial stripe measures 6 mm in thickness. Right ovary: The right ovary measures 3.2 x 1.6 x 2.3 cm. The right ovary is normal in size and echotexture. Left ovary: The left ovary measures 2.9 x 1.2 x 1.3 cm. The left ovary is normal in size and echotexture. Pelvic fluid: none. Scans of the right lower quadrant demonstrate a noncompressible tubular structure measuring 10-12 mm in diameter suggestive of an inflamed appendix. The patient demonstrated moderate rebound tenderness in this region. US/US appendix IMPRESSION: 1. Findings suggestive of acute appendicitis as described. This could be confirmed with CT. 2. Unremarkable pelvic ultrasound. Electronically signed by: Rivera Carranza MD 09/23/2025 01:34 PM EST Dictated By: Rivera Carranza MD Signed By: <Electronically signed by Rivera Carranza MD in OV> 09/23/25 1334 DD/ 1239 TD/TT: 09/23/25 1305 Medicaid Eligibility Specialist: Procedure Note Donotuseinterpreter, Image - 09/23/2025 [place] [address] Ultrasound Report Signed Patient: Julia MaresMR#: [id number] : 1990Acct:[id number] Age/Sex: 35 / FADM Date: 09/23/25 Loc: HO.ED Attending Dr: Ordering Physician: Meenakshi Michel PA-C Date of Service: 09/23/25 Procedure(s): US appendix Accession Number(s): [id number] cc: Deonna Lion DO; Meenakshi Michel PA-C Reason for Exam: RLQ PAIN EXAMINATION: US PELVIS TRANSABDOMINAL AND TRANSVAGINAL, US PELVIC DUPLEX COMPLETE, US APPENDIX HISTORY: pelvic pain COMPARISON: Comparison is made with the prior examination dated 06/04/2017. TECHNIQUE: Transabdominal and endovaginal real-time 2D rivera-scale ultrasound of the pelvis was performed. In addition, sonographic examination of the right lower quadrant was performed. FINDINGS: Uterus: The uterus is normal in size, measuring 8.7 x 4.0 x 4.9 cm. Myometrium has a normal echotexture. No fibroids are identified. Endometrium: The endometrial stripe measures 6 mm in thickness. Right ovary: The right ovary measures 3.2 x 1.6 x 2.3 cm. The right ovary is normal in size and echotexture. Left ovary: The left ovary measures 2.9 x 1.2 x 1.3 cm. The left ovary is normal in size and echotexture. Pelvic fluid: none. Scans of the right lower quadrant demonstrate a noncompressible tubular structure measuring 10-12 mm in diameter suggestive of an inflamed appendix. The patient demonstrated moderate rebound tenderness in this region. US/US appendix IMPRESSION: 1. Findings suggestive of acute appendicitis as described. This could be confirmed with CT. 2. Unremarkable pelvic ultrasound. Electronically signed by: Rivera Carranza MD 09/23/2025 01:34 PM EST RP Dictated By: Rivera Carranza MD Signed By: <Electronically signed by Rivera Carranza MD in OV> 09/23/25 1334 DD/ 1239 TD/TT: 09/23/25 1305 Medicaid Eligibility Specialist: us [facility] External Provider IMG US PROCEDURES Final Result * US Pelvis Transvaginal (09/23/2025 12:39 PM EST) Anatomical Region Laterality Modality Pelvis Ultrasound 09/23/2025 12:3 9 PM EST Narrative 09/23/2025 1:38 PM EST [place] [address] Ultrasound Report Signed Patient: Julia Mares MR#: [id number] : 1990 Acct:[id number] Age/Sex: 35 / F ADM Date: 09/23/25 Loc: .ED Attending Dr: Ordering Physician: Meenakshi Michel PA-C Date of Service: 09/23/25 Procedure(s): US pelvic and transvaginal Accession Number(s): [id number] cc: Deonna Lion DO; Meenakshi Michel PA-C Reason for Exam: pelvic pain EXAMINATION: US PELVIS TRANSABDOMINAL AND TRANSVAGINAL, US PELVIC DUPLEX COMPLETE, US APPENDIX HISTORY: pelvic pain COMPARISON: Comparison is made with the prior examination dated 06/04/2017. TECHNIQUE: Transabdominal and endovaginal real-time 2D rivera-scale ultrasound of the pelvis was performed. In addition, sonographic examination of the right lower quadrant was performed. FINDINGS: Uterus: The uterus is normal in size, measuring 8.7 x 4.0 x 4.9 cm. Myometrium has a normal echotexture. No fibroids are identified. Endometrium: The endometrial stripe measures 6 mm in thickness. Right ovary: The right ovary measures 3.2 x 1.6 x 2.3 cm. The right ovary is normal in size and echotexture. Left ovary: The left ovary measures 2.9 x 1.2 x 1.3 cm. The left ovary is normal in size and echotexture. Pelvic fluid: none. Scans of the right lower quadrant demonstrate a noncompressible tubular structure measuring 10-12 mm in diameter suggestive of an inflamed appendix. The patient demonstrated moderate rebound tenderness in this region. US/US pelvic and transvaginal IMPRESSION: 1. Findings suggestive of acute appendicitis as described. This could be confirmed with CT. 2. Unremarkable pelvic ultrasound. Electronically signed by: Rivera Carranza MD 09/23/2025 01:34 PM EST Dictated By: Rivera Carranza MD Signed By: <Electronically signed by Rivera Carranza MD in OV> 09/23/25 1334 DD/ 1239 TD/TT: 09/23/25 1305 Medicaid Eligibility Specialist: Procedure Note Donotuseinterpreter, Image - 09/23/2025 [place] [address] Ultrasound Report Signed Patient: Julia Mares#: [id number] : 1990Acct:[id number] Age/Sex: 35 / FADM Date: 09/23/25 Loc: .ED Attending Dr: Ordering Physician: Meenakshi Michel PA-C Date of Service: 09/23/25 Procedure(s): US pelvic and transvaginal Accession Number(s): [id number] cc: Deonna Lion DO; Meenakshi Michel PA-C Reason for Exam: pelvic pain EXAMINATION: US PELVIS TRANSABDOMINAL AND TRANSVAGINAL, US PELVIC DUPLEX COMPLETE, US APPENDIX HISTORY: pelvic pain COMPARISON: Comparison is made with the prior examination dated 06/04/2017. TECHNIQUE: Transabdominal and endovaginal real-time 2D rivera-scale ultrasound of the pelvis was performed. In addition, sonographic examination of the right lower quadrant was performed. FINDINGS: Uterus: The uterus is normal in size, measuring 8.7 x 4.0 x 4.9 cm. Myometrium has a normal echotexture. No fibroids are identified. Endometrium: The endometrial stripe measures 6 mm in thickness. Right ovary: The right ovary measures 3.2 x 1.6 x 2.3 cm. The right ovary is normal in size and echotexture. Left ovary: The left ovary measures 2.9 x 1.2 x 1.3 cm. The left ovary is normal in size and echotexture. Pelvic fluid: none. Scans of the right lower quadrant demonstrate a noncompressible tubular structure measuring 10-12 mm in diameter suggestive of an inflamed appendix. The patient demonstrated moderate rebound tenderness in this region. US/US pelvic and transvaginal IMPRESSION: 1. Findings suggestive of acute appendicitis as described. This could be confirmed with CT. 2. Unremarkable pelvic ultrasound. Electronically signed by: Rivera Carranza MD 09/23/2025 01:34 PM EST Dictated By: Rivera Carranza MD Signed By: <Electronically signed by Rivera Carranza MD in OV> 09/23/25 1334 DD/ 1239 TD/TT: 09/23/25 1305 Medicaid Eligibility Specialist: us [facility] External Provider IMG US PROCEDURES Final Result * XR ACUTE ABDOMEN SERIES (09/23/2025 11:54 AM EST) Anatomical Region Laterality Modality Abdomen Radiographic Ofelia ging 09/23/2025 11:5 4 AM EST Narrative 09/23/2025 12:21 PM EST [address] [address] XRay Report Signed Patient: Julia Mares MR#: [id number] : 1990 Acct:[id number] Age/Sex: 35 / F ADM Date: 09/23/25 Loc: HO.ED Attending Dr: Ordering Physician: Meenakshi Michel PA-C Date of Service: 09/23/25 Procedure(s): XR acute abdomen series Accession Number(s): [id number] cc: Deonna Lion DO; Meenakshi Michel PA-C [...] by: Rivera Carranza MD 09/23/2025 12:18 PM [facility] Dictated By: Rivera Carranza MD Signed By: <Electronically signed by Rivera Carranza MD in OV> 09/23/25 1218 DD/ 1154 TD/TT: 09/23/25 1206 Medicaid Eligibility Specialist: Procedure Note Donotuseinterpreter, Image - 09/23/2025 [place] [address] XRay Report Signed Patient: Julia MaresMR#: [id number] : 1990Acct:[id number] Age/Sex: 35 / FADM Date: 09/23/25 Loc: HO.ED Attending Dr: Ordering Physician: Meenakshi Michel PA-C Date of Service: 09/23/25 Procedure(s): XR acute abdomen series Accession Number(s): [id number] cc: Deonna Lion DO; Meenakshi Michel PA-C [...] Rivera Carranza MD 09/23/2025 12:18 PM EST RP Dictated By: Rivera Carranza MD Signed By: <Electronically signed by Rivera Carranza MD in OV> 09/23/25 1218 DD/ 1154 TD/TT: 09/23/25 1206 Medicaid Eligibility Specialist: [facility] External Provider IMG XR PROCEDURES Final Result * (ABNORMAL) Urinalysis, Complete, with Reflex to Culture (09/23/2025 11:12 AM EST) Only the most recent of2 resultswithin the time period is included. Color Urine Yellow [facility] Appearance Urine Cloudy [facility] PH 5.5 5.0 - 9.0 [facility] Glucose Urine UA Negative Negative mg/dL [facility] Urine Blood Large (3+)(A) Negative [facility] Comment:Test was verified by repeat analysis. Specific [place] - Urine <=1.005 1.005 - 1.025 [facility] Urine Protein Negative Neg-Trace mg/dL [facility] Urine Ketones Negative Negative mg/dL [facility] Nitrite Urine Negative Negative [facility] Leukocyte Esterase Urine Negative Negative [facility] RBC Urine 0-2 0 - 2 /HPF [facility] Urine WBC 0-5 0 - 5 /HPF [facility] Urine Squamous Epithelial Cell 0-2 0 - 2 /HPF [facility] Urine Bacteria None Seen None Seen [facility] Hyaline Casts, Urine 0-2 0 - 2 /LPF [facility] 09/23/2025 11:1 2 AM EST 09/23/2025 11:20 AM EST Narrative [facility] - 09/23/2025 11:52 AM EST Urine, Clean Catch us Generic External Data Provider LAB URINE ORDERAB LES Edited Result - Final Performing Organization Address City/[facility]/ZIP Co de Phone Number [facility] [address] [place] [address] [phone] * SARS-CoV-2 RNA, Influenza A/B, and RSV RNA, Ql NAAT (09/23/2025 10:22 AM EST) Influenza A PCR NEGATIVE Negative [facility] Influenza B PCR NEGATIVE Negative [facility] Resp Syncy Virus RNA Qual PCR NEGATIVE Negative [facility] SARS COV2 PCR NEGATIVE Negative [facility] Comment:All test results mus [...] use by authorized laboratories.Testing performed on the [employer] GeneXpert utilizingreal-time RT-PCR.All SARS CoV2 and positive influenza A/B results arereported to [facility]. 09/23/2025 10:2 2 AM EST 09/23/2025 10:29 AM EST us Generic External Data Provider LAB MICROBIOLOGY - GENERAL ORDERABLES Final Result [facility] [address] [place] [address] [phone] * CBC auto differential (09/23/2025 10:22 AM EST) Only the most recent of2 resultswithin the time period is included. White Blood Count 7.4 4.8 - 10.8 X10*3/uL [facility] Red Blood Count 4.81 4.20 - 5.50 X10*6/uL [facility] Hemoglobin 13.9 12.0 - 16.0 g/dl [facility] Hematocrit 42.1 37.0 - 47.0 % [facility] Mean Corpuscular Volume 87.5 80.0 - 98.0 fL [facility] Mean Corpuscular Hemoglobin 28.9 27.0 - 33.0 pg [facility] Mean Corpuscular HGB Conc 33.0 31.0 - 35.0 g/dl [facility] Red Cell Distribution Width 12.0 11.0 - 16.0 % [facility] Platelet Count 333 160 - 400 X10*3/uL [facility] Mean Platelet Volume 9.7 9.4 - 12.3 fL [facility] Neutrophils Percent Auto 67.3 45 - 73 % [facility] Imm Gran Pct Auto 0.3 0.0 - 0.4 % [facility] Lymphocytes Percent Auto 21.1 20 - 40 % [facility] Monocytes Percent Auto 8.0 2 - 11 % [facility] Eosinophils Percent Auto 2.6 0 - 4 % [facility] Basophils Percent Auto 0.7 0 - 2 % [facility] NRBC Pct Auto 0.0 0.0 - 0.2 /100WBC [facility] Neutrophils Absolute Auto 5.0 2.0 - 8.3 x10*3/uL [facility] Imm Gran Abs Auto 0.02 0.00 - 0.03 X10*3/uL [facility] Lymphocytes Absolute Auto 1.6 1.2 - 4.9 X10*3/uL [facility] Monocytes Absolute Auto 0.6 0.1 - 1.2 X10*3/uL [facility] Eosinophils Absolute Auto 0.2 0.0 - 0.4 X10*3/uL [facility] Basophils Absolute Auto 0.1 0.0 - 0.2 X10*3/uL [facility] NRBC Abs Auto 0.000 0.0 - 0.012 X10*3/uL [facility] 09/23/2025 10:2 2 AM EST 09/23/2025 10:29 AM EST Generic External Data Provider LAB BLOOD ORDERAB LES Final Result Performing Organization Address [facility] de Phone Number [facility] [address] [place] [phone] * hCG, Total, Quantitative (09/23/2025 10:22 AM EST) HCG Quantitative <2 mIU/mL [facility] Comment:Weeks post LMP Appro ximate hCG(Last Menstrual Period) Range (mIU/ml)3 - 4 weeks 9 - 1304 - 5 weeks 75 - 2,6005 - 6 weeks 850 - 20,8006 - 7 weeks 4000 - 100,2007 - 12 weeks 11,500 - 289,95937 - 16 weeks 18,300 - 137,07994 - 29 weeks (2nd trimester) 1,400 - 53,62950 - 41 weeks (3rd trimester) 940 - 60,000The Izquierdo B- hCG assay is used for the [...] Result Performing Organization Address [facility] Co de Phone Number [facility] [address] [place] [phone] * Lipase (09/23/2025 10:22 AM EST) Pathologist [facility] Lipase 17 8 - 78 U/L [facility] 09/23/2025 10:2 2 AM EST 09/23/2025 10:29 AM EST Generic External Data Provider LAB BLOOD ORDERAB LES Final Result Performing Organization Address [facility] Co de Phone Number [facility] [address] [place] [address] [phone] * Hepatic Function Panel (09/23/2025 10:22 AM EST) [facility] Bilirubin, Total 0.6 0.0 - 1.0 mg/dL [facility] Bilirubin, Direct 0.2 0.0 - 0.5 mg/dL [facility] Aspartate Amino Transferase 17 5 - 31 U/L [facility] Alanine Aminotransferase 10 0 - 31 U/L [facility] Total Protein 7.7 6.5 - 8.0 g/dL [facility] Albumin Level 4.7 3.5 - 5.0 g/dL [facility] Alkaline Phosphatase 60 39 - 117 U/L [facility] 09/23/2025 10:2 2 AM EST 09/23/2025 10:29 AM EST Generic External Data Provider LAB BLOOD ORDERAB LES Final Result Performing Organization Address [facility] Co de Phone Number [facility] [address] [place] [address] [phone] * (ABNORMAL) Basic Metabolic Panel (09/23/2025 10:22 AM EST) Pathologist [facility] Sodium 138 135 - 145 mmol/L [facility] Potassium 3.7 3.3 - 5.1 mmol/L [facility] Chloride 109(H) 96 - 108 mmol/L [facility] Carbon Dioxide 23 22 - 29 mmol/L [facility] Anion Gap 10(L) 12 - 20 [facility] Urea Nitrogen (BUN) 8(L) 9 - 16 mg/dL [facility] Creatinine, Serum 0.60 0.5 - 1.4 mg/dL [facility] Creatinine Clr Calc Pharmacy 144.7 [facility] Comment:Provided height and weight: 167.64 cm,82.9 kg.eGFR (calculated from the MDRD study equation) and eCrCl(calculated from the Cockcroft-Gault equation) are based ondifferent parameters and may not yield comparable results.If eCrCl result is absurd, please check patient'sheight/weight. Estimated Glomerular Filt Rate >60 [facility] Comment:Chronic Kidney Disea se: Estimated GFR < 60 mL/min/1.44p3Zuwjsk Kidney Disease: Estimated GFR < 15 mL/min/1.73m2 Glucose 97 60 - 115 mg/dL [facility] Calcium 9.1 8.4 - 10.2 mg/dL [facility] 09/23/2025 10:2 2 AM EST 09/23/2025 10:29 AM EST us Generic External Data Provider LAB BLOOD ORDERAB LES Final Result Performing Organization Address [facility] de Phone Number [facility] [address] [place] [phone] * POCT Rapid Influenza A IZQUIERDO ID NOW (09/08/2025 12:23 PM EST) Influenza A Negative Negative, Indeterminate [facility] QC Media Lot # [id number] [facility] Lot# Expiration Date [id number] [facility] Swab 09/08/2025 12:2 3 PM EST us Deonna Lion DO POINT OF CARE TEST ENTER/SAILAJA T ORDERABLES Final Result Performing Organization Address [facility] Co de Phone Number [facility] [address] [place] [phone] * (ABNORMAL) POCT Rapid Influenza B IZQUIERDO ID NOW (09/08/2025 12:22 PM EST) Influenza B Positive( A) Negative, Indeterminate [facility] QC Media Lot # [id number] [facility] Lot# Expiration Date 6 [facility] Swab 09/08/2025 12:2 2 PM EST Deonna Lion DO POINT OF CARE TEST ENTER/SAILAJA T ORDERABLES Final Result [facility] [address] [place] [address] [phone] * POCT Rapid Strep A IZQUIERDO ID NOW (09/08/2025 12:22 PM EST) [facility] Rapid Strep A Screen Negative Negative, None Detected QC Media Lot # [id number] Lot# Expiration Date ,026 Swab 09/08/2025 12:2 2 PM EST Deonna Lion DO POINT OF CARE TEST ENTER/SAILAJA T ORDERABLES Final Result * (ABNORMAL) POCT Rapid Covid-19 BinaxNOW (09/08/2025 12:21 PM EST) Pathologist [facility] Rapid COVID Ag Positive QC Media Lot # [id number] Lot# Expiration Date ,026 Swab 09/08/2025 12:2 1 PM EST Deonna Lion DO POINT OF CARE TEST ENTER/SAILAJA T ORDERABLES Edited Result - Final * HCG, Qualitative, Urine (08/30/2025 11:10 PM EST) Urine NEGATIVE NEGATIVE [facility] Comment:This test was develo ped to detect early . Falsenegative results may occur after the 5th - 7th week ofpregnancy when using this test method. If clinicallyindicated, consider a serum hCG. 08/30/2025 11:1 0 PM EST 08/30/2025 11:15 PM EST us Generic External Data Provider LAB URINE ORDERAB LES Final Result Performing Organization Address City/State/[facility] Co de Phone Number [facility] [address] [place] [phone] * CT Cervical Spine w/o Contrast (08/03/2025 8:35 PM EDT) Anatomical Region Laterality Modality Spine, C-spine Computed Tomogra phy 08/03/2025 8:35 PM EDT Narrative 08/03/2025 8:37 PM EDT [address] [address] [address] Scan Report Signed Patient: Julia Mares MR#: [id number] : 1990 Acct:[id number] Age/Sex: 34 / F ADM Date: 08/03/25 Loc: HO.ED Attending Dr: Ordering Physician: Octavio Astorga Date of Service: 08/03/25 Procedure(s): CT cervical spine wo IV con Accession Number(s): [id number] cc: Octavio Astorga; Deonna Lion DO Report Number: [id number]: Total DLP = 1151.00 mGy-cm Reason for [...] in OV> 08/03/252035 DD/ 34 TD/TT: 08/03/252034 Medicaid Eligibility Specialist: Procedure Note Donotcristianinterpreter, Image - 08/03/[address] [address] [address] Scan Report Signed Patient: Julia MaresMR#: [id number] : 1990Acct:[id number] Age/Sex: 34 / FADM Date: 08/03/25 Loc: HO.ED Attending Dr: Ordering Physician: Octavio Astorga Date of Service: 08/03/25 Procedure(s): CT cervical spine wo IV con Accession Number(s): [id number] cc: Octavio Astorga; Deonna Lion DO Report Number: [id number]: Total DLP = 1151.00 mGy-cm Reason for [...] in OV> 08/03/252035 DD/ 34 TD/TT: 08/03/252034 Medicaid Eligibility Specialist: us [facility] External Provider IMG CT PROCEDURES Final Result * CT Head w/o Contrast (08/03/2025 8:35 PM EDT) Anatomical Region Laterality Modality Head, Neck Computed Tomogra phy 08/03/2025 8:35 PM EDT Narrative 08/03/2025 8:37 PM EDT [address] [address] [address] Scan Report Signed Patient: Julia Mares MR#: [id number] : 1990 Acct:[id number] Age/Sex: 34 / F ADM Date: 08/03/25 Loc: HO.ED Attending Dr: Ordering Physician: Octavio Astorga Date of Service: 08/03/25 Procedure(s): CT head/brain wo IV con Accession Number(s): [id number] cc: Octavio Astorga; Deonna Lion DO Report Number: [id number]: Total DLP = 0.00 mGy-cm Reason for [...] in OV> 08/03/252036 DD/ 34 TD/TT: 08/03/252034 Medicaid Eligibility Specialist: Procedure Note Donotuseinterpreter, Image - 08/03/[address] [address] [address] Scan Report Signed Patient: Julia MaresMR#: [id number] : 1990Acct:[id number] Age/Sex: 34 / FADM Date: 08/03/25 Loc: HO.ED Attending Dr: Ordering Physician: Octavio Astorga Date of Service: 08/03/25 Procedure(s): CT head/brain wo IV con Accession Number(s): [id number] cc: Octavio Astorga; Deonna Lion DO Report Number: [id number]: Total DLP = 0.00 mGy-cm Reason for [...] in OV> 08/03/252036 DD/ 34 TD/TT: 08/03/252034 Medicaid Eligibility Specialist: [facility] External Provider IMG CT PROCEDURES Final Result * High Sensitivity Troponin I (08/03/2025 8:00 PM EDT) TROPONIN I HIGH SENSITIVITY <2.7 <3.5 - 17.0 ng/L [facility] Comment:The Izquierdo high sens itivity Troponin-I results should beused in conjunction with other diagnostic information suchas ECG, clinical observations and information, and patientsymptoms to aid in the diagnosis of PA. 08/03/2025 8:00 PM EDT 08/03/2025 8:04 PM EDT Generic External Data Provider LAB BLOOD ORDERAB LES Final Result [facility] [address] [place] [phone] * Creatine Kinase, Total (08/03/2025 8:00 PM EDT) Creatine Kinase Total 70 26 - 140 U/L [facility] 08/03/2025 8:00 PM EDT 08/03/2025 8:04 PM EDT us Generic External Data Provider LAB BLOOD ORDERAB LES Final Result [facility] [address] [place] [address] [phone] * (ABNORMAL) Comprehensive Metabolic Panel (08/03/2025 8:00 PM EDT) Sodium 141 135 - 145 mmol/L [facility] Potassium 3.7 3.3 - 5.1 mmol/L [facility] Chloride 112(H) 96 - 108 mmol/L [facility] Carbon Dioxide 22 22 - 29 mmol/L [facility] Anion Gap 11(L) 12 - 20 [facility] Urea Nitrogen (BUN) 10 9 - 16 mg/dL [facility] Creatinine, Serum 0.65 0.5 - 1.4 mg/dL [facility] Creatinine Clr Calc Pharmacy 135.1 [facility] Comment:Provided height and weight: 168.91 cm,83.2 kg.eGFR (calculated from the MDRD study equation) and eCrCl(calculated from the Cockcroft-Gault equation) are based ondifferent parameters and may not yield comparable results.If eCrCl result is absurd, please check patient'sheight/weight. Estimated Glomerular Filt Rate >60 [facility] Comment:Chronic Kidney Disea se: Estimated GFR < 60 mL/min/1.27w8Cwgoih Kidney Disease: Estimated GFR < 15 mL/min/1.73m2 Glucose 100 60 - 115 mg/dL [facility] Calcium 8.9 8.4 - 10.2 mg/dL [facility] Bilirubin, Total 0.2 0.0 - 1.0 mg/dL [facility] Aspartate Amino Transferase 16 5 - 31 U/L [facility] Alanine Aminotransferase 11 0 - 31 U/L [facility] Total Protein 7.1 6.5 - 8.0 g/dL [facility] Albumin Level 4.4 3.5 - 5.0 g/dL [facility] Alkaline Phosphatase 56 39 - 117 U/L [facility] 08/03/2025 8:00 PM EDT 08/03/2025 8:04 PM EDT us Generic External Data Provider LAB BLOOD ORDERAB LES Final Result Performing Organization Address [facility]/ZIP Co de Phone Number [facility] [address] [place] [phone] * Hepatitis C Antibody with Reflex to HCV, RNA, Quantitative, Real-Time PCR (12/04/2024 11:34 AM EST) Hepatitis C Antibody Nonreactive Nonreactive [facility] Comment:Antibodies to HCV no t detected; does not exclude early acuteHCV infection. Blood Venous blood specimen / Unknown 12/04/2024 11:34 AM EST 12/04/2024 1:24 PM EST Deonna Lion DO LAB BLOOD ORDERABLES Final R esult Performing Organization Address [facility]/ZIP Co de Phone Number [facility] [address] [place] [phone] * HIV-1/2 Antigen and Antibodies, Fourth Generation, with Reflexes (12/04/2024 11:34 AM EST) HIV AB/AG Nonreactive Nonreactive [facility] Comment:HIV-1 p24 Ag and/or [...] DO LAB BLOOD ORDERABLES Final R esult [facility] [address] [place] [address] [phone] from Last 3 Months or Most Recently Relevant to Health Maintenance Insurance [facility] C3 Care Teams Healthcare Risk Control Consultant Relationship Specialty Start Date End Date Deonna Lion DO [address] [place] [phone] PCP - General Family Medicine 12/03/24
--- OUTSIDE RECORDS SUMMARY | 2025-10-05 11:36 | XMS_ITS | Encounter Summary ---
Author Organization [facility] Address [address] [place] [address] Care Team Providers Care Trenching Machine Operator Name Role Phone Carol Wiseman APRN Primary Care Provider Encounter Details Date Type Department Care Team (Late st Contact Info) Description 12/18/2023 Scanned Document [address] [phone] Neurology, Scan Social History Tobacco Use Types [...] on filedocumented in this encounter Care Teams Trenching Machine Operator Relationship Specialty Start Date End Date Carol Wiseman APRN [address] [place] [phone] PCP - General Family Medicine 11/02/23 documented as of this encounter
--- OUTSIDE RECORDS SUMMARY | 2025-10-05 11:36 | XMS_ITS | Encounter Summary ---
Author Organization [employer] Address [address] [facility] [address] [place] [address] Care Team Providers Care Gas Pumping Station Supervisor Name Role Phone MandyDeonna gaspar Primary Care Provider [phone] Encounter Details Date Type Department Care Team (Late st Contact Info) Description 01/07/2025 Orders Only [facility] [address] [place] [phone] Meli Salazar RN Social History Tobacco Use [...] Description 10/21/2025 10:45 AM EST Office Visit [facility] [address] [place] [phone] Amanda Steel MD [address] [place] [phone] documented as of this encounter Procedures Procedure [...] Kinase Total 70 26 - 140 U/L [facility] 08/03/2025 8:00 PM EDT 08/03/2025 8:04 PM EDT us Generic External Data Provider LAB BLOOD ORDERAB LES Final Result [facility] [address] [place] [phone] * (ABNORMAL) Comprehensive Metabolic Panel (08/03/2025 8:00 PM EDT) Sodium 141 135 - 145 mmol/L [facility] Potassium 3.7 3.3 - 5.1 mmol/L [facility] Chloride 112(H) 96 - 108 mmol/L [facility] Carbon Dioxide 22 22 - 29 mmol/L [facility] Anion Gap 11(L) 12 - 20 [facility] Urea Nitrogen (BUN) 10 9 - 16 mg/dL [facility] Creatinine, Serum 0.65 0.5 - 1.4 mg/dL [facility] Creatinine Clr Calc Pharmacy 135.1 [facility] Comment:Provided height and weight: 168.91 cm,83.2 kg.eGFR (calculated from the MDRD study equation) and eCrCl(calculated from the Cockcroft-Gault equation) are based ondifferent parameters and may not yield comparable results.If eCrCl result is absurd, please check patient'sheight/weight. Estimated Glomerular Filt Rate >60 [facility] Comment:Chronic Kidney Disea se: Estimated GFR < 60 mL/min/1.30y4Vlufmb Kidney Disease: Estimated GFR < 15 mL/min/1.73m2 Glucose 100 60 - 115 mg/dL [facility] Calcium 8.9 8.4 - 10.2 mg/dL [facility] Bilirubin, Total 0.2 0.0 - 1.0 mg/dL [facility] Aspartate Amino Transferase 16 5 - 31 U/L [facility] Alanine Aminotransferase 11 0 - 31 U/L [facility] Total Protein 7.1 6.5 - 8.0 g/dL [facility] Albumin Level 4.4 3.5 - 5.0 g/dL [facility] Alkaline Phosphatase 56 39 - 117 U/L [facility] 08/03/2025 8:00 PM EDT 08/03/2025 8:04 PM EDT us Generic External Data Provider LAB BLOOD ORDERAB LES Final Result [facility] [address] [place] [address] [phone] * (ABNORMAL) CBC auto differential (08/03/2025 8:00 PM EDT) White Blood Count 8.4 4.8 - 10.8 X10*3/uL [facility] Red Blood Count 4.48 4.20 - 5.50 X10*6/uL [facility] Hemoglobin 12.7 12.0 - 16.0 g/dl [facility] Hematocrit 38.7 37.0 - 47.0 % [facility] Mean Corpuscular Volume 86.4 80.0 - 98.0 fL [facility] Mean Corpuscular Hemoglobin 28.3 27.0 - 33.0 pg [facility] Mean Corpuscular HGB Conc 32.8 31.0 - 35.0 g/dl [facility] Red Cell Distribution Width 12.4 11.0 - 16.0 % [facility] Platelet Count 264 160 - 400 X10*3/uL [facility] Mean Platelet Volume 9.3(L) 9.4 - 12.3 fL [facility] Neutrophils Percent Auto 61.0 45 - 73 % [facility] Imm Gran Pct Auto 0.2 0.0 - 0.4 % [facility] Lymphocytes Percent Auto 25.8 20 - 40 % [facility] Monocytes Percent Auto 8.5 2 - 11 % [facility] Eosinophils Percent Auto 4.0 0 - 4 % [facility] Basophils Percent Auto 0.5 0 - 2 % [facility] NRBC Pct Auto 0.0 0.0 - 0.2 /100WBC [facility] Neutrophils Absolute Auto 5.1 2.0 - 8.3 x10*3/uL [facility] Imm Gran Abs Auto 0.02 0.00 - 0.03 X10*3/uL [facility] Lymphocytes Absolute Auto 2.2 1.2 - 4.9 X10*3/uL [facility] Monocytes Absolute Auto 0.7 0.1 - 1.2 X10*3/uL [facility] Eosinophils Absolute Auto 0.3 0.0 - 0.4 X10*3/uL [facility] Basophils Absolute Auto 0.0 0.0 - 0.2 X10*3/uL [facility] NRBC Abs Auto 0.000 0.0 - 0.012 X10*3/uL [facility] 08/03/2025 8:00 PM EDT 08/03/2025 8:04 PM EDT us Generic External Data Provider LAB BLOOD ORDERAB LES Final Result [facility] [address] [place] [phone] * (ABNORMAL) VITAMIN D 25-OH (D2 AND D3) (04/02/2025 2:25 PM EDT) Vitamin D, 25-OH, D2 <4 ng/mL [facility] Comment:This test was develo ped and its analytical performancecharacteristics have been determined by [employer] [place], [place]. It hasnot been cleared or approved by the .[place]. Food and DrugAdministration. This assay has been validated pursuantto the CLIA regulations and is used for clinicalpurposes.THIS TEST WAS PERFORMED AT:[employer] [id number] [place] [address]YLERYJALEEANNA FOWLER MD,PHD Vitamin D, 25-OH, D3 24 ng/mL [facility] Comment:This test was develo ped and its analytical performancecharacteristics have been determined by [employer]. It hasnot been cleared or approved by the U.S. Food and DrugAdministration. This assay has been validated pursuantto the CLIA regulations and is used for clinicalpurposes. Vitamin D, 25-OH, Total 24(A) 30 - 100 ng/mL [facility] Comment:Vitamin D, 25-Hydrox y reports [...] = 30 ng/mL.For additional information, please refer tohttp://education.MusicNow/faq/KUP850(This link is being provided for informational/educational purposes only.) 04/02/2025 2:25 PM EDT 04/02/2025 2:25 PM EDT Generic External Data Provider LAB BLOOD ORDERAB LES Final Result Performing Organization Address [facility] Phone Number [facility] [address] [place] [phone] * Tissue Transglutaminase Antibody, IgA (04/02/2025 2:25 PM EDT) Transglutaminase IgA <1.0 U/mL [facility] Comment:Value Interpretation ----- <15.0 Antibody not detected> or = 15.0 Antibody detectedTHIS TEST WAS PERFORMED AT:[employer] [place] [id number] HATCH MD 04/02/2025 2:25 PM EDT 04/02/2025 2:25 PM EDT Generic External Data Provider LAB BLOOD ORDERAB LES Final Result Performing Organization Address [facility] [address] [place] [phone] * Vitamin B12 (Cobalamin) and Folate Panel, Serum (04/02/2025 2:25 PM EDT) Vitamin B12 371 200 - 900 pg/mL [facility] Comment:NORMAL 200-900 PG/ML INDETERMINATE 160-199 PG/ML DEFICIENT < 160 PG/ML Folate 12.1 > or = 4.0 ng/mL [facility] Comment:Reference Values:> o r = 4.0 ng/mL< 4.0 ng/mL suggests folate deficiency Methotrexate, aminopterin and folinic acid(leucovorin) are chemotherapeutic agents whose molecularstructures are similar to folate; therefore, the Architectfolate assay cannot be used for patients using these drugs. 04/02/2025 2:25 PM EDT 04/02/2025 2:25 PM EDT Generic External Data Provider LAB BLOOD ORDERAB LES Final Result Performing Organization Address [facility] Co de Phone Number [facility] [address] [place] [phone] * TSH with Reflex to Free T4 (04/02/2025 2:25 PM EDT) TSH reflex Free T4 0.98 0.32 - 4.0 uIU/mL [facility] 04/02/2025 2:25 PM EDT 04/02/2025 2:25 PM EDT Generic External Data Provider LAB BLOOD ORDERAB LES Final Result Performing Organization Address [facility] Co ct Phone Number [facility] [address] [place] [phone] * Lipase (04/02/2025 2:25 PM EDT) Pathologist [facility] Lipase 27 8 - 78 U/L [facility] 04/02/2025 2:25 PM EDT 04/02/2025 2:25 PM EDT Generic External Data Provider LAB BLOOD ORDERAB LES Final Result Performing Organization Address [facility] de Phone Number [facility] [address] [place] [phone] * Helicobacter pylori, Urea Breath Test (04/02/2025 1:55 PM EDT) H. pylori Breath Test Negative Negative [facility] Comment:Antimicrobials, prot on pump inhibitors and bismuthpreparations are known to suppress H. pylori. Ingestingthese medications within two weeks prior to performing thebreath test may produce negative test results. A positiveresult is still clinically valid. 04/02/2025 1:55 PM EDT 04/02/2025 4:48 PM EDT us Generic External Data Provider LAB BODY FLUIDS A ND STOOLS ORDERABLES Final Result Performing Organization Address City/State/[facility] Co de Phone Number [facility] [address] [place] [phone] documented in this encounter Visit Diagnoses Not on filedocumented in this encounter Care Teams Gas Pumping Station Supervisor Relationship Specialty Start Date End Date Deonna Lion DO [address] [place] [address] PCP - General Family Medicine 12/03/24 documented as of this encounter
== END 2025-10-05 09:55 | disposition home or self-care (01) ==
LOC: HO.HGS 09:13
PROVIDERS: PCP Family Medicine
DX: Z90.49 Acquired absence of other specified parts of digestive tract (principal)
CPT/HCPCS: 99024

== ENCOUNTER → 2025-10-05 09:13 | Outpatient (BNVA) | payer MEDICAID, SELFPAY | PROVIDERS: PCP Family Medicine | DX: Z48.815 Encounter for surgical aftercare following surgery on the digestive system (principal); Z90.49 Acquired absence of other specified parts of digestive tract; G89.18 Other acute postprocedural pain | CPT/HCPCS: 99212 ==